=== PATIENT | female | born 1945 | race Caucasian/White ===

== ENCOUNTER 2020-09-05 10:54 | Observation (INO) ==
[2020-09-05] MEDS ORDERED: SODIUM CHLORIDE 0.9% 1000ML 1,000 ML IV SCH (11:15)
--- NOTE | 2020-09-05 11:31 | Emergency Department Note ---
Impression & Plan Colonic obstruction, Abdominal pain, Acute dehydration ED Provider Note NAME: IBIS ARANA AGE: 74 SEX: F : 1945 ARRIVES VIA: Walk-In INFORMANT: Patient, ED PROVIDER(S): Manolo Goff DO CHIEF COMPLAINT: Abdominal pain HPI: The patient is a 74-year-old female who has a history of metastatic ovarian cancer who presented to the emergency department for an evaluation of abdominal pain. The patient was concerned she may have a bowel obstruction. She states that she has had a bowel obstruction in the past which felt similar. She describes intermittent waves of crampy abdominal pain. She has had nausea but no vomiting. She did take her medication for nausea with some relief of the nausea symptoms. She is not had any diarrhea or rectal bleeding. The patient did recently have a laparoscopic surgery at [facility] for attempted hysterectomy with tumor debulking but they were unable to do this procedure. She does describe some vaginal bleeding and is currently taking subcu Lovenox. She denies having any fevers. She is had no cough. The patient states her symptoms are moderate at this time but she is requesting no pain medication at this time. She arrived at the emergency department with a friend. She did not see her primary care provider prior to coming to the emergency department. ROS: See above HPI for pertinent positives & negatives. A total of 10 systems reviewed and were otherwise negative. PAST MEDICAL HISTORY: See Below PAST SURGICAL HISTORY: See Below FAMILY HISTORY: See Below SOCIAL HISTORY: See Below HOME MEDICATIONS: See Below ALLERGIES: See Below VITALS: See Below PHYSICAL EXAMINATION: GENERAL: Patient is awake alert in no acute distress patient is resting comfortably and showing no signs of anxiety EYES: The conjunctivae are clear. The pupils are round and reactive. EARS, NOSE, MOUTH AND THROAT: The nose is without any evidence of any deformity. Mucous membranes are moist. Tongue is midline. NECK: The neck is nontender and supple. RESPIRATORY: Normal respiratory effort is noted there is no evidence of wheezing rhonchi or rales CARDIOVASCULAR: Regular rate and rhythm noted there no murmurs rubs or gallops normal S1 normal S2. GASTROINTESTINAL: The abdomen is moderately distended and diffusely tender. Laparoscopic surgical sites are noted across the abdomen. There is no bleeding. Ostomy site is noted on the right side of the abdomen. Very little output is noted. MUSCULOSKELETAL/EXTREMITIES: There is no evidence of gross deformity full range of motion is noted in the hips and shoulders. SKIN: There is no obvious evidence of any rash. There are no petechiae, pallor or cyanosis noted. NEUROLOGIC: Patient is awake alert and oriented x3. MEDICAL DECISION MAKING: The patient is a 74-year-old female who presented to the emergency department for an evaluation of upper abdominal pain. The patient has a history of metastatic ovarian cancer. They attempted to do surgery 9 days ago at [facility] for hysterectomy as well as tumor debulking however they were unable to do the procedure. She did have a laparoscopic procedure first prior to realizing they were unable to do the study. The patient presents emergency department today with decreased stool in her ostomy as well as abdominal pain. Her work-up was positive for colonic obstruction. She was treated with IV fluids as well as IV pain medication. She was given IV antibiotics. I discussed her case with our general surgeon who recommends that we discussed the case with the patient's primary surgeon at [facility]. She was accepted for transfer at [facility] however they have no beds available. For this reason I discussed her case with the [facility] hospitalist for further inpatient management prior to her transfer once bed is available. I also discussed the case with the general surgical group again so they could evaluate the patient while she was at our facility to determine any further management. Triage Nursing notes reviewed. Prior medical records reviewed Vital Signs: reviewed and remarkable for elevated blood pressure. Differential diagnosis: Etiologies such as appendicitis, diverticulitis, obstruction, inflammatory bowel disease, renal colic, PUD, biliary pathology, pancreatitis, mesenteric ischemia, aortic pathology, infections, genitourinary, UTI, perforated viscus, as well as others were entertained. ER treatment provided: See below Diagnostics interpreted by me: ECG: none Cardiac Monitoring: An order was placed for continuous cardiac monitoring. The monitor shows a rate of 85 bpm with sinus rhythm. Laboratory studies: As stated above and show below. Imaging studies: See below Consultation(s): 1310: I discussed this case with aMddy who is on for general surgery. 1340: I discussed this case again with Maddy who called me back after discussion with the general surgeon. Dr. Parrish recommends the patient is transferred to [facility] for continuation of care. 1400: I discussed this case with Dr Lovett. He will agree to accept the patient in transfer. 1420: I discussed this case with Dr. Vega who is on-call for the [facility] hospitalist group. 1530: I discussed this case with Dr. Vazquez. He will evaluate the patient in the emergency department. Past Med/Surg History Medical History Colostomy in place H/O squamous cell carcinoma of skin History of right breast cancer 2010--sx only Hyperlipidemia Hypertension Osteopenia Ovarian cancer Port-A-Cath in place (03/03/20) Insertion of Mediport Dr. Cox 03/03/20 Type 2 diabetes mellitus Surgical History History of bilateral tubal ligation History of section History of colon resection d/t tumor History of colonoscopy History of colostomy 2 weeks ago History of lumbar surgery History of lumpectomy of right breast History of open reduction and internal fixation (ORIF) procedure left big toe--hardware removed History of right breast biopsy History of tonsillectomy History of wisdom tooth extraction Status post Mohs surgery for squamous cell carcinoma of skin Family History Aunt Breast cancer Mother Myocardial infarction Cancer Hypertension Father Heart disease Other No family history of adverse response to anesthesia Denies family history of Ovarian cancer Prostate cancer Colorectal cancer Social History Smoking Status: Never smoker Second Hand Exposure: No; Hx Alcohol Use: Yes Alcohol type: beer, wine and hard liquor Hx Substance Use: No Preferred Language: Tajik Communication Ability: Effective Hearing Ability: Normal Senior Instructor Required: No Beliefs That Will Affect Care: None marital status: / Current Living Situation: Alone 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, 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 Feels Safe at Home: Yes Seatbelt Use: always Sunscreen Use: No Assistive Devices: Glasses Allergies Allergies Allergy/AdvReac Type Severity Reaction Status Date / Time povidone-iodine Allergy Mild rash Verified 09/05/20 12:23 [From Betadine] Home Meds Home Medications Medication Instructions Recorded Confirmed calcium carbonate [Calcium 500] 500 mg PO QAM 10/10/19 09/05/20 omega 8-quj-afl-fish oil [Fish Oil] 1 cap PO QAM 10/10/19 09/05/20 biotin 1 mg PO QAM 02/09/20 09/05/20 enoxaparin 40 mg SUBCUT DAILY@1100 09/05/20 09/05/20 metformin [Glucophage XR] 500 mg PO QDD 09/05/20 09/05/20 rosuvastatin 10 mg PO HS 09/05/20 09/05/20 Previous Rx's Medication Instructions Recorded lisinopril 20 1 tab PO QAM #90 tab 05/21/20 mg-hydrochlorothiazide 25 mg tablet Results & Data (ED) Vital Signs Vital Signs - 24 hr 09/05/20 10:59 09/05/20 12:43 09/05/20 14:19 Temperature 37.1 C Temperature Source Oral Pulse Rate 106 H Pulse Rate [Left Finger] 73 89 Pulse Rhythm Regular Pulse Strength Normal Respiratory Rate 20 20 20 Respiratory Effort / Characteristics Non-Labored Spontaneous Respiratory Depth Normal Respiratory Pattern Regular Blood Pressure 138/87 Blood Pressure [Right Arm] 151/91 H 163/99 H Blood Pressure Mean 104 Blood Pressure Mean [Right Arm] 111 120 Pulse Oximetry 97 98 99 Oxygen Delivery Method Room Air Sepsis Recent Fever Within 48 Hours No Sepsis New/Unexplained Change in Mental Status N/A Sepsis Action Taken by Nursing No Action Required Home Medications Current Medication List: was personally reviewed by me Laboratory Data Attestation: I reviewed the patient's lab results. Result diagrams: 09/05/20 11:29 09/05/20 11:29 Lab Results 09/05/20 09/05/20 09/05/20 Range/Units 11:29 11:29 11:29 WBC 6.73 (4.8-10.8) K/uL RBC 3.31 L (4.2-5.4) M/uL Hgb 10.1 L (12.0-16.0) g/dL Hct 31.0 L (37-47) % MCV 93.7 (80-100) fL MCH 30.5 (25-34) pg MCHC 32.6 (32-36) g/dL RDW Std Deviation 42.7 (36.4-46.3) fL RDW Coeff of Laz 12.6 (11.5-14.5) % Plt Count 231 (130-400) K/uL MPV 10.4 (7.4-10.4) fL Immature Gran % (Auto) 1.6 % Neut % (Auto) 66.9 % Lymph % (Auto) 19.9 % Starke % (Auto) 9.7 % Eos % (Auto) 1.9 % Baso % (Auto) 0.0 % Neut # (Auto) 4.50 (1.4-6.5) K/uL Lymph # (Auto) 1.34 (1.2-3.4) K/uL Starke # (Auto) 0.65 H (0.11-0.59) K/uL Eos # (Auto) 0.13 (0-0.5) K/uL Baso # (Auto) 0.00 (0-0.2) K/uL Immature Gran # (Auto) 0.11 H (0.00-0.02) K/uL PT 10.4 (9.0-12.0) Seconds INR 1.0 (0.9-1.1) APTT 38.3 H (21.0-31.0) Seconds PTT Ratio 1.4 Sodium 146 H (136-145) mmol/L Potassium 3.3 L (3.5-5.1) mmol/L Chloride 116 H (98-107) mmol/L Carbon Dioxide 23 (21-32) mmol/L Anion Gap 7.0 (3-11) BUN 17 (7-18) mg/dl Creatinine 0.72 (0.6-1.2) mg/dl Est Cr Clr Drug Dosing 67.3 ml/min Est GFR ( Amer) 94.3 Est GFR (Non-Af Amer) 81.3 BUN/Creatinine Ratio 24.2 H (10-20) Glucose 125 H (70-99) mg/dl Calcium 7.3 L D (8.5-10.1) mg/dl Total Bilirubin 0.4 (0.2-1) mg/dl AST 31 (15-37) U/L ALT 40 (12-78) U/L Alkaline Phosphatase 124 H (45-117) U/L Total Protein 5.9 L (6.4-8.2) gm/dl Albumin 2.9 L (3.4-5.0) gm/dl Globulin 3.0 (2.5-4.0) gm/dl Albumin/Globulin Ratio 1.0 (0.9-2) Lipase 56 L (73-393) U/L COVID-19 Eval Order SARS-CoV-2, RNA, NAAT (NEGATIVE) 09/05/20 09/05/20 Range/Units 14:13 14:13 WBC (4.8-10.8) K/uL RBC (4.2-5.4) M/uL Hgb (12.0-16.0) g/dL Hct (37-47) % MCV (80-100) fL MCH (25-34) pg MCHC (32-36) g/dL RDW Std Deviation (36.4-46.3) fL RDW Coeff of Laz (11.5-14.5) % Plt Count (130-400) K/uL MPV (7.4-10.4) fL Immature Gran % (Auto) % Neut % (Auto) % Lymph % (Auto) % Starke % (Auto) % Eos % (Auto) % Baso % (Auto) % Neut # (Auto) (1.4-6.5) K/uL Lymph # (Auto) (1.2-3.4) K/uL Starke # (Auto) (0.11-0.59) K/uL Eos # (Auto) (0-0.5) K/uL Baso # (Auto) (0-0.2) K/uL Immature Gran # (Auto) (0.00-0.02) K/uL PT (9.0-12.0) Seconds INR (0.9-1.1) APTT (21.0-31.0) Seconds PTT Ratio Sodium (136-145) mmol/L Potassium (3.5-5.1) mmol/L Chloride (98-107) mmol/L Carbon Dioxide (21-32) mmol/L Anion Gap (3-11) BUN (7-18) mg/dl Creatinine (0.6-1.2) mg/dl Est Cr Clr Drug Dosing ml/min Est GFR ( Amer) Est GFR (Non-Af Amer) BUN/Creatinine Ratio (10-20) Glucose (70-99) mg/dl Calcium (8.5-10.1) mg/dl Total Bilirubin (0.2-1) mg/dl AST (15-37) U/L ALT (12-78) U/L Alkaline Phosphatase (45-117) U/L Total Protein (6.4-8.2) gm/dl Albumin (3.4-5.0) gm/dl Globulin (2.5-4.0) gm/dl Albumin/Globulin Ratio (0.9-2) Lipase (73-393) U/L COVID-19 Eval Order Covid19 IDNow atMNVC SARS-CoV-2, RNA, NAAT NEGATIVE (NEGATIVE) Administered Medications Morphine Sulfate (Morphine Sulfate 4 Mg/Ml 1 Ml Carp\Vial) 4 mg IV Q30M PRN PRN Reason: Pain Stop: 09/19/20 13:50 Last Admin: 09/05/20 14:05 Dose: 4 mg Documented by: [id number] Discontinued Medications Sodium Chloride (Nss 1000ml) 1,000 mls @ 999 mls/hr IV .Q1H1M ROSA Stop: 09/05/20 12:15 Last Infusion: 09/05/20 13:29 Dose: 0 mls/hr Documented by: [id number] Admin: 09/05/20 11:34 Dose: 999 mls/hr Documented by: [id number] Cefoxitin Sodium (Mefoxin) 2,000 mg in 60 mls @ 100 mls/hr IV NOW STA Stop: 09/05/20 13:41 Last Infusion: 09/05/20 15:17 Dose: 0 mls/hr Documented by: [id number] Admin: 09/05/20 13:29 Dose: 100 mls/hr Documented by: [id number] Ioversol (Ioversol 100ml) 92 ml IV ONCE ONE Stop: 09/05/20 11:50 Last Admin: 09/05/20 11:50 Dose: 92 ml Documented by: [id number] Ondansetron HCl (Ondansetron Inj 2 Mg/Ml 2 Ml Vial) 4 mg IV NOW STA Stop: 09/05/20 13:52 Last Admin: 09/05/20 14:05 Dose: 4 mg Documented by: [id number] Imaging Data Radiologist's Impression: Patient: IBIS ARANA Admit Date: 09/05/20 MR#: [id number] Address1: [address] [place] [address] [address] Acct ID:[id number] Address2: Date: 1945 [facility] Zip: [place] [address] Age: 74 Location: ED Sex: F Room/Bed: Att Phy: Diagnosis: LOWER STOMACH PAIN,HX OF BOWEL OBSTRUCTION, Marlee Phy: Navya Sharma MD Service Date: 09/05/20 [facility] Phy: Interpreting Phy: Tyler Mancuso MD Admit Phy: Ordering Phy: Manolo Goff, DO cc: ~ CT abd pelvis IV con only CLINICAL HISTORY: Abdominal pain and nausea. Possible bowel obstruction. OVARIAN CARCINOMA COMPARISON STUDY: July 17, 2020 TECHNIQUE: Patient was scanned following administration of dilute oral contrast, and in a dynamic helical fashion during intravenous administration of 92 cc of Optiray 320 A dose lowering technique was utilized adhering to the principles of ALARA. CT DOSE: 406.07 mGy.cm FINDINGS: Lower chest: There is an increasing right pleural effusion with associated compressive atelectatic change. There is subcutaneous emphysema present within the left lower chest wall. Liver: No intrahepatic masses are visualized. There is a stable 31 mm right hepatic lobe low density subcapsular implants. Gallbladder: Cholelithiasis Spleen: There are tiny subcapsular splenic hypodensities similar to the prior study. Pancreas: Unremarkable. Adrenal glands: Unremarkable. Kidneys: There is symmetric renal cortical enhancement. The kidneys are normal in size without hydronephrosis. Bowel: There is a dilated right colon with fecal material. There is a transition zone, just proximal to a double barrel colostomy. The findings are indicative of a colonic obstruction. This was not present on the prior study. Peritoneum: There is moderately extensive subcutaneous gas. There are multiple areas of retroperitoneal gas. There is prevascular gas. A few droplets of intraperitoneal gas are also suspected. The findings may relate to recent minima lly invasive robotic surgery, although the amount of gas present is slightly more than one would expect given that the surgery was greater than one week ago. Given the history of a reported serosal small bowel into the time of surgery, a bowel perforation cannot be excluded with absolute certainty. There are multiple peritoneal tumor implants, similar to the preceding study. There are also left abdominal wall fluid collections, likely postsurgical Vasculature: The abdominal aorta is normal in course and caliber. Adenopathy: None. Pelvic viscera: There are peritoneal tumor implants within the pelvis. Skeletal structures: No destructive osseous lesions are seen. IMPRESSION: 1. Interval development of a right colonic obstruction, just proximal to a double barrel anterior abdominal wall colostomy 2. Cholelithiasis 3. Multiple peritoneal tumor implants including a subserosal hepatic implant 4. Increasing right pleural effusion 5. Moderate subcutaneous and retroperitoneal gas. There is also trace pneumoperitoneum. The distribution favors a postsurgical etiology, although the amount of gas is slightly more than one would expect given the time interval between the most recent surgery. Given the history of a serosal small bowel injury at the time of surgery, a bowel perforation although not highly suspected cannot be excluded. ACT 112: Negative or not required by law. Electronically signed by: Tyler Mancuso M.D. 09/05/2020 12:26 PM Dictated: 09/05/201200 Transcribed: 09/05/201200 Discharge Plan Visit Data Chief Complaint: GI Assessment Stated Complaint: LOWER STOMACH PAIN,HX OF BOWEL OBSTRUCTION, ED Provider: Manolo Goff Discharge Problem: Colonic obstruction, Abdominal pain, Acute dehydration Patient Disposition: Being Evaluated by Hospitalist Condition: Good Forms Stand Alone Forms: My [facility] [place] [employer] Prescriptions Prescriptions: No Action lisinopril-hydrochlorothiazide 20-25 mg tablet 1 tab PO QAM Qty: 90 RF: 3 calcium carbonate [Calcium 500] 500 mg calcium (1,250 mg) Tablet 500 mg PO QAM RF: 0 omega 9-oeu-rhe-fish oil [Fish Oil] 1,000 mg (120 mg-180 mg) Capsule 1 cap PO QAM RF: 0 biotin 1 mg Tablet 1 mg PO QAM RF: 0 enoxaparin 40 mg/0.4 mL syringe 40 mg subcut DAILY@1100 RF: 0 metformin [Glucophage XR] 500 mg tablet extended release 24 hr 500 mg PO QDD RF: 0 rosuvastatin 10 mg tablet 10 mg PO HS RF: 0 Referrals Referrals: Navya Sharma MD [Primary Care Provider] - Discharge Problem: Abdominal pain Qualifiers: Abdominal location: generalized Qualified Code(s): R10.84 - Generalized abdominal pain
[2020-09-05 11:37] LABS: Eosinophils # (auto) 0.13 K/uL (0-0.5); Eosinophils % (auto) 1.9 %; Hemoglobin 10.1 g/dL (12.0-16.0); Immature Granulocytes # (auto) 0.11 K/uL (0.00-0.02); Immature Granulocytes % (auto) 1.6 %; Lymphocytes # (auto) 1.34 K/uL (1.2-3.4); Lymphocytes % (auto) 19.9 %; Mean Corpuscular Hemoglobin 30.5 pg (25-34); Mean Corpuscular Hgb Conc 32.6 g/dL (32-36); Mean Corpuscular Volume 93.7 fL (80-100); Mean Platelet Volume 10.4 fL (7.4-10.4); Monocytes # (auto) 0.65 K/uL (0.11-0.59); Monocytes % (auto) 9.7 %; Neutrophils % (auto) 66.9 %; Platelet Count 231 K/uL (130-400); RDW Coefficient of Variation 12.6 % (11.5-14.5); RDW Standard Deviation 42.7 fL (36.4-46.3); Red Blood Count 3.31 M/uL (4.2-5.4); White Blood Count 6.73 K/uL (4.8-10.8)
[2020-09-05] MEDS ORDERED: IOVERSOL 100ml IV ONE (11:49)
[2020-09-05 11:57] LABS: Partial Thromboplastin Ratio 1.4; Partial Thromboplastin Time 38.3 Seconds (21.0-31.0); Prothrombin Time 10.4 Seconds (9.0-12.0)
[2020-09-05 11:58] LABS: Albumin Level 2.9 gm/dl (3.4-5.0); BUN Creatinine Ratio 24.2 (10-20); Bilirubin,Total 0.4 mg/dl (0.2-1); Calcium 7.3 mg/dl (8.5-10.1); Creatinine Clr Calc Pharmacy 67.3 ml/min; Est GFR (African American) 94.3; Est GFR (Non-African American) 81.3; Potassium 3.3 mmol/L (3.5-5.1); Total Protein 5.9 gm/dl (6.4-8.2)
--- NOTE | 2020-09-05 12:27 | CT Scan Report ---
CT abd pelvis IV con only CLINICAL HISTORY: Abdominal pain and nausea. Possible bowel obstruction. OVARIAN CARCINOMA COMPARISON STUDY: July 17, 2020 TECHNIQUE: Patient was scanned following administration of dilute oral contrast, and in a dynamic hel ical fashion during intravenous administration of 92 cc of Optiray 320 A dose lowering technique was utilized adhering to the principles of ALARA. CT DOSE: 406.07 mGy.cm FINDINGS: Lower chest: There is an increasing right pleural effusion with associated compressive atelectatic ch marin. There is subcutaneous emphysema present within the left lower chest wall. Liver: No intrahepatic masses are visualized. There is a stable 31 mm right hepatic lobe low density subcapsular implants. Gallbladder: Cholelithiasis Spleen: There are tiny subcapsular splenic hypodensities similar to the prior study. Pancreas: Unremarkable. Adrenal glands: Unremarkable. Kidneys: There is symmetric renal cortical enhancement. The kidneys are normal in size without hydron ephrosis. Bowel: There is a dilated right colon with fecal material. There is a transition zone, just proximal to a double barrel colostomy. The findings are indicative of a colonic obstruction. This was not pres ent on the prior study. Peritoneum: There is moderately extensive subcutaneous gas. There are multiple areas of retroperitone al gas. There is prevascular gas. A few droplets of intraperitoneal gas are also suspected. The findi ngs may relate to recent minimally invasive robotic surgery, although the amount of gas present is sl ightly more than one would expect given that the surgery was greater than one week ago. Given the his tory of a reported serosal small bowel into the time of surgery, a bowel perforation cannot be exclud ed with absolute certainty. There are multiple peritoneal tumor implants, similar to the preceding st udy. There are also left abdominal wall fluid collections, likely postsurgical Vasculature: The abdominal aorta is normal in course and caliber. Adenopathy: None. Pelvic viscera: There are peritoneal tumor implants within the pelvis. Skeletal structures: No destructive osseous lesions are seen. IMPRESSION: 1. Interval development of a right colonic obstruction, just proximal to a double barrel anterior abd ominal wall colostomy 2. Cholelithiasis 3. Multiple peritoneal tumor implants including a subserosal hepatic implant 4. Increasing right pleural effusion 5. Moderate subcutaneous and retroperitoneal gas. There is also trace pneumoperitoneum. The distribut ion favors a postsurgical etiology, although the amount of gas is slightly more than one would expect given the time interval between the most recent surgery. Given the history of a serosal small bowel injury at the time of surgery, a bowel perforation although not highly suspected cannot be excluded. ACT 112: Negative or not required by law. Electronically signed by: Tyler Mancuso M.D. 09/05/2020 12:26 PM
[2020-09-05] MEDS ORDERED: cefOXitin 2,000 MG/60 ML BAG IV STA (13:06)
[2020-09-05] MEDS ORDERED: ONDANSETRON INJ 2 MG/ML 2 ML VIAL IV STA (13:51)
[2020-09-05] MEDS ORDERED: MoRPHine SULFATE 4 MG/ML 1 ML CARP\\VIAL IV PRN (13:51)
--- NOTE | 2020-09-05 15:56 | History & Physical Report ---
Date of Service September 05, 2020 Assessment & Plan (1) Colonic obstruction: NG tube placed in ER. will obtain KUB x-ray to confirm placement. appreciate general surgery consultation. conservative measures at this time including bowel rest, NPO status, IV fluids, and NG tube decompression. patient has been accepted at [facility] -- awaiting a bed. (2) Hypernatremia: hypotonic fluids with repeat BMP in am. (3) Hypokalemia: add KCL to IV fluids. repeat BMP am. mag level noted to be normal. (4) Ovarian cancer: with carcinomatosis. enlarging pleural effusion is also concerning for malignant effusion. s/p recent attempts at [place] to perform debulking and hysterectomy without success. patient wishes to continue aggressive measures for her cancer. (5) Hypertension: hold home BP meds for now. will employ IV prn agents if necessary for BP control. (6) Type 2 diabetes mellitus: hold metformin. loose novolog correction. BSGs q6h. (7) Colostomy in place: (8) DVT prophylaxis: lovenox 40mg daily daughter updated at bedside History of Present Illness Chief Complaint: abdominal pain, nausea Primary Care Provider: Navya Sharma MD 74yo female with stage 4 ovarian cancer and colostomy status who presents with 24 hours of liquid stool via ostomy, followed by decreased ostomy output, crampy abdominal pain, nausea, bloating, and simply feeling unwell. She did not vomit. No fever or chills. Pain lasted all night last evening and continued into today. Symptoms were similar to when she had a bowel obstruction in the past and thus she came to the ER for medical attention. CT abd/pelvis during her ER work-up revealed a colonic obstruction just proximal to her ostomy. Patient had an attempted laparoscopic procedure at [facility] about 10 days ago. The plan was laparoscopic hysterectomy with ovarian cancer debulking. She had the removal of 1 fallopian tube only and the remainder of the procedure was aborted. Allergies Allergy/AdvReac Type Severity Reaction Status Date / Time povidone-iodine Allergy Mild rash Verified 09/05/20 12:23 [From Betadine] Home Medications Home Medications Medication Instructions Recorded Confirmed Type calcium carbonate [Calcium 500] 500 mg PO QAM 10/10/19 09/05/20 History omega 5-zpo-pwp-fish oil [Fish Oil] 1 cap PO QAM 10/10/19 09/05/20 History biotin 1 mg PO QAM 02/09/20 09/05/20 History lisinopril 20 1 tab PO QAM #90 tab 05/21/20 09/05/20 Rx mg-hydrochlorothiazide 25 mg tablet enoxaparin 40 mg SUBCUT DAILY@1100 09/05/20 09/05/20 History metformin [Glucophage XR] 500 mg PO QDD 09/05/20 09/05/20 History rosuvastatin 10 mg PO HS 09/05/20 09/05/20 History Past Med/Surg History Medical History (Updated 09/06/20 @ 01:27 by Abhinav Alanis MD) Colostomy in place H/O squamous cell carcinoma of skin History of right breast cancer 2010--sx only Hyperlipidemia Hypertension Osteopenia Ovarian cancer Port-A-Cath in place (03/03/20) Insertion of Mediport Dr. Cox 03/03/20 Type 2 diabetes mellitus Surgical History History of bilateral tubal ligation History of section History of colon resection d/t tumor History of colonoscopy History of colostomy History of lumbar surgery History of lumpectomy of right breast History of open reduction and internal fixation (ORIF) procedure left big toe--hardware removed History of right breast biopsy History of tonsillectomy History of wisdom tooth extraction Status post Mohs surgery for squamous cell carcinoma of skin Family History Aunt Breast cancer Mother , age 56 2nd to acute [place] Myocardial infarction Cancer Hypertension Father , age 89 Heart disease Leukemia Other No family history of adverse response to anesthesia Denies family history of Ovarian cancer Prostate cancer Colorectal cancer Social History (Updated 09/05/20 @ 22:05 by Teofilo Vazquez) Smoking Status: Never smoker Second Hand Exposure: No; Hx Alcohol Use: No Hx Substance Use: No Preferred Language: Slovak Communication Ability: Effective Hearing Ability: Normal Associate Professor Required: No Beliefs That Will Affect Care: None marital status: / Current Living Situation: Alone Current Living Situation Comment: lives in [place] 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 status: retired current occupation: [employer] How many Children do You have: 5 Feels Safe at Home: Yes Seatbelt Use: always Sunscreen Use: No Assistive Devices: Glasses and Walker Review of Systems Constitutional: + fatigue and + anorexia; no fever and no chills Eyes: no worsening vision Ear, Nose, Mouth, Throat: no nasal congestion, no sore throat and no dysphagia chronic loss of taste (nothing acute) Respiratory: no cough, no dyspnea and no dyspnea on exertion Cardiovascular: no chest pain Gastrointestinal: + abdominal pain and + nausea; no vomiting, no excessive flatulence and no blood in stools Genitourinary: no dysuria Musculoskeletal: no joint pain Integumentary: no rash Neurologic: no localized weakness Psychiatric: + depression Endocrine: diabetes - controlled w/ metformin only Hematologic / Lymphatic: no easy bleeding Physical Exam Constitutional: no acute distress and no altered mental status Eyes: PERRL ENMT: NG tube in nare; MM mildly dry Neck: trachea midline, no thyromegaly Respiratory: normal respiratory effort, lungs clear to auscultation Cardiovascular: Rate/Rhythm: regular rate and regular rhythm Heart Sounds: normal S1, normal S2 and + murmur (2/6 systolic murmur RUSB/apex ) Vessels: no JVD Extremities: + vascular access device (Left upper chest - c/d/i) Gastrointestinal (Abdomen): Inspection/Auscultation: + abdomen distended and + abdominal surgical incision (Multiple - clean ); + abnormal bowel sounds (Decreased ) Percussion/Palpation: + abdomen tender (Multiple locations ); no guarding and no hepatosplenomegaly subcutaneous air palpable LUQ near the costal margin; ostomy in place, liquid stool present in the ostomy bag; multiple nodules/masses in the abdominal wall palpable in various locations Musculoskeletal: no cyanosis or clubbing, extremities motor strength 5/5 Skin: + pallor Neurologic: deep tendon reflexes 2+ bilaterally and moves all extremities Psychiatric: Orientation: alert and oriented x 3 Lymphatic: no cervical lymphadenopathy Results & Data Results & Data ([facility]) Vital Signs (Past 12 Hours) Vital Signs Temp Pulse Pulse Resp BP BP Pulse Ox 09/05/20 14:19 89 20 163/99 H 99 09/05/20 12:43 73 20 151/91 H 98 09/05/20 10:59 37.1 C 106 H 20 138/87 97 Laboratory Results Laboratory Results - last 24 hr 09/05/20 09/05/20 09/05/20 11:29 11:29 11:29 WBC 6.73 RBC 3.31 L Hgb 10.1 L Hct 31.0 L MCV 93.7 MCH 30.5 MCHC 32.6 RDW Std Deviation 42.7 RDW Coeff of Laz 12.6 Plt Count 231 MPV 10.4 Immature Gran % (Auto) 1.6 Neut % (Auto) 66.9 Lymph % (Auto) 19.9 Grady % (Auto) 9.7 Eos % (Auto) 1.9 Baso % (Auto) 0.0 Neut # (Auto) 4.50 Lymph # (Auto) 1.34 Grady # (Auto) 0.65 H Eos # (Auto) 0.13 Baso # (Auto) 0.00 Immature Gran # (Auto) 0.11 H PT 10.4 INR 1.0 APTT 38.3 H PTT Ratio 1.4 Sodium 146 H Potassium 3.3 L Chloride 116 H Carbon Dioxide 23 Anion Gap 7.0 BUN 17 Creatinine 0.72 Est Cr Clr Drug Dosing 67.3 Est GFR ( Amer) 94.3 Est GFR (Non-Af Amer) 81.3 BUN/Creatinine Ratio 24.2 H Glucose 125 H POC Glucose Calcium 7.3 L D Total Bilirubin 0.4 AST 31 ALT 40 Alkaline Phosphatase 124 H Total Protein 5.9 L Albumin 2.9 L Globulin 3.0 Albumin/Globulin Ratio 1.0 Lipase 56 L Urine Color Urine Appearance Urine pH Ur Specific [place] Urine Protein Urine Glucose (UA) Urine Ketones Urine Blood Urine Nitrite Urine Bilirubin Urine Urobilinogen Ur Leukocyte Esterase Urine WBC (Auto) Urine RBC (Auto) U Hyaline Cast (Auto) U Epithel Cells (Auto) Urine Bacteria (Auto) COVID-19 Eval Order SARS-CoV-2, RNA, NAAT 09/05/20 09/05/20 09/05/20 14:13 14:13 15:49 WBC RBC Hgb Hct MCV MCH MCHC RDW Std Deviation RDW Coeff of Laz Plt Count MPV Immature Gran % (Auto) Neut % (Auto) Lymph % (Auto) Grady % (Auto) Eos % (Auto) Baso % (Auto) Neut # (Auto) Lymph # (Auto) Grady # (Auto) Eos # (Auto) Baso # (Auto) Immature Gran # (Auto) PT INR APTT PTT Ratio Sodium Potassium Chloride Carbon Dioxide Anion Gap BUN Creatinine Est Cr Clr Drug Dosing Est GFR ( Amer) Est GFR (Non-Af Amer) BUN/Creatinine Ratio Glucose POC Glucose Calcium Total Bilirubin AST ALT Alkaline Phosphatase Total Protein Albumin Globulin Albumin/Globulin Ratio Lipase Urine Color Yellow Urine Appearance Clear Urine pH 5.5 Ur Specific [place] > 1.045 H Urine Protein Negative Urine Glucose (UA) Negative Urine Ketones Negative Urine Blood 3+ H Urine Nitrite Negative Urine Bilirubin Negative Urine Urobilinogen Negative Ur Leukocyte Esterase Trace H Urine WBC (Auto) 5-10 H Urine RBC (Auto) >30 H U Hyaline Cast (Auto) 1-5 U Epithel Cells (Auto) 10-20 H Urine Bacteria (Auto) Negative COVID-19 Eval [facility] SARS-CoV-2, RNA, NAAT NEGATIVE 09/05/20 18:15 WBC RBC Hgb Hct MCV MCH MCHC RDW Std Deviation RDW Coeff of Laz Plt Count MPV Immature Gran % (Auto) Neut % (Auto) Lymph % (Auto) Grady % (Auto) Eos % (Auto) Baso % (Auto) Neut # (Auto) Lymph # (Auto) Grady # (Auto) Eos # (Auto) Baso # (Auto) Immature Gran # (Auto) PT INR APTT PTT Ratio Sodium Potassium Chloride Carbon Dioxide Anion Gap BUN Creatinine Est Cr Clr Drug Dosing Est GFR ( Amer) Est GFR (Non-Af Amer) BUN/Creatinine Ratio Glucose POC Glucose 83 Calcium Total Bilirubin AST ALT Alkaline Phosphatase Total Protein Albumin Globulin Albumin/Globulin Ratio Lipase Urine Color Urine Appearance Urine pH Ur Specific [place] Urine Protein Urine Glucose (UA) Urine Ketones Urine Blood Urine Nitrite Urine Bilirubin Urine Urobilinogen Ur Leukocyte Esterase Urine WBC (Auto) Urine RBC (Auto) U Hyaline Cast (Auto) U Epithel Cells (Auto) Urine Bacteria (Auto) COVID-19 Eval Order SARS-CoV-2, RNA, NAAT Diagnostic Findings CT abd/pelvis: IMPRESSION: 1. Interval development of a right colonic obstruction, just proximal to a double barrel anterior abdominal wall colostomy 2. Cholelithiasis 3. Multiple peritoneal tumor implants including a subserosal hepatic implant 4. Increasing right pleural effusion 5. Moderate subcutaneous and retroperitoneal gas. There is also trace pneumoperitoneum. The distribution favors a postsurgical etiology, although the amount of gas is slightly more than one would expect given the time interval between the most recent surgery. Given the history of a serosal small bowel injury at the time of surgery, a bowel perforation although not highly suspected cannot be excluded. Code Status & VTE Plan Code Status full code VTE Prophylaxis Plan VTE Prophylaxis will be ordered: Yes PG Care Time/CCT Total # of Minutes Spent Total Time Spent with Patient: Total time spent is greater than 50% in student life coordinator rdination of care (as documented) at patient's floor/unit and/or counseling patient: Coding Level of Care Code 17080 Initial Inpt Care Lvl 2 Diagnoses Colonic obstruction K56.609 Hypernatremia E87.0 Hypokalemia E87.6 Ovarian cancer C56.9 Laterality: unspecified laterality Hypertension I10 Hypertension type: essential hypertension Type 2 diabetes mellitus E11.9 Diabetes mellitus complication status: without complication Diabetes mellitus care home insulin use: without care home use Colostomy in place Z93.3 DVT prophylaxis Z29.9 (1) Ovarian cancer Laterality: unspecified laterality Qualified Code(s): C56.9 - Malignant neoplasm of unspecified ovary (2) Type 2 diabetes mellitus Diabetes mellitus complication status: without complication Diabetes mellitus care home insulin use: without care home use Qualified Code(s): E11.9 - Type 2 diabetes mellitus without complications (3) Hypertension Hypertension type: essential hypertension Qualified Code(s): I10 - Essential (primary) hypertension
--- NOTE | 2020-09-05 16:23 | Surgery Consultation ---
Date of Consultation September 05, 2020 Assessment & Plan (1) Acute dehydration: (2) Colonic obstruction: Patient with no evidence of peritonitis. No white blood cell count or fever. Her stoma was working as of yesterday but was mostly liquid. She may have some impaction of her colostomy stemming from recent surgery and or dehydration. No indication for urgent or emergent surgery. Agree with admission and rehydration. No evidence of small bowel dilation. We will most likely remove NG tube tomorrow. We will continue to follow while she is here. Pending transfer back to her surgeons in [place]. History of Present Illness History of Present Illness 74-year-old female about 1 week status post laparoscopy with aborted attempt at hysterectomy and debulking of ovarian cancer. Her cancer was found in February of this year during an exploratory surgery for a large bowel obstruction. She ended up getting a right sided colostomy. She is undergone several rounds of chemotherapy in the procedure at [place] this week was to attempt hysterectomy/debulking. They were unable to complete the procedure. Last night she became distended with some mild nausea and cramping reminiscent of her prior bowel obstruction which is what brought her to the emergency room. Currently she is feeling better than she was last night. Allergies Allergy/AdvReac Type Severity Reaction Status Date / Time povidone-iodine Allergy Mild rash Verified 09/05/20 12:23 [From Betadine] Home Medications Home Medications Medication Instructions Recorded Confirmed Type calcium carbonate [Calcium 500] 500 mg PO QAM 10/10/19 09/05/20 History omega 9-oru-fjy-fish oil [Fish Oil] 1 cap PO QAM 10/10/19 09/05/20 History biotin 1 mg PO QAM 02/09/20 09/05/20 History lisinopril 20 1 tab PO QAM #90 tab 05/21/20 09/05/20 Rx mg-hydrochlorothiazide 25 mg tablet enoxaparin 40 mg SUBCUT DAILY@1100 09/05/20 09/05/20 History metformin [Glucophage XR] 500 mg PO QDD 09/05/20 09/05/20 History rosuvastatin 10 mg PO HS 09/05/20 09/05/20 History Patient History Medical History Colostomy in place H/O squamous cell carcinoma of skin History of right breast cancer 2010--sx only Hyperlipidemia Hypertension Osteopenia Ovarian cancer Port-A-Cath in place (03/03/20) Insertion of Mediport Dr. Cox 03/03/20 Type 2 diabetes mellitus Surgical History History of bilateral tubal ligation History of section History of colon resection d/t tumor History of colonoscopy History of colostomy 2 weeks ago History of lumbar surgery History of lumpectomy of right breast History of open reduction and internal fixation (ORIF) procedure left big toe--hardware removed History of right breast biopsy History of tonsillectomy History of wisdom tooth extraction Status post Mohs surgery for squamous cell carcinoma of skin Family History Aunt Breast cancer Mother Myocardial infarction Cancer Hypertension Father Heart disease Other No family history of adverse response to anesthesia Denies family history of Ovarian cancer Prostate cancer Colorectal cancer Social History Smoking Status: Never smoker Second Hand Exposure: No; Hx Alcohol Use: Yes Alcohol type: beer, wine and hard liquor Hx Substance Use: No Preferred Language: Setswana Communication Ability: Effective Hearing Ability: Normal Wood Barker Required: No Beliefs That Will Affect Care: None marital status: / Current Living Situation: Alone 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, 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 Feels Safe at Home: Yes Seatbelt Use: always Sunscreen Use: No Assistive Devices: Glasses Review of Systems Review of Systems: All systems reviewed & are unremarkable except as noted in HPI & below Physical Exam Constitutional: WD/WN, vitals as above no acute distress and not ill appearing Eyes: PERRL, conjunctivae normal, anicteric sclerae EOM intact bilaterally ENMT: external ear and nose normal, oropharynx normal Ears: no hearing impairment Neck: trachea midline, no thyromegaly Respiratory: normal respiratory effort; no respiratory distress and does not use accessory muscles Cardiovascular: Rate/Rhythm: regular rate and regular rhythm Gastrointestinal (Abdomen): Abdomen is soft. Minimal distention. Nontender. Colostomy in place and viable. Minimal output into her stoma bag. Recent laparoscopy scars are well-healed with no sign of infection. No guarding rebound or rigidity Skin: no rashes, warm and dry Psychiatric: Orientation: alert, oriented x 3 and cooperative Results & Data ([facility]) Vital Signs (Past 12 Hours) Vital Signs Temp Pulse Pulse Resp BP BP Pulse Ox 09/05/20 15:59 81 20 163/99 H 99 09/05/20 14:19 89 20 163/99 H 99 09/05/20 12:43 73 20 151/91 H 98 09/05/20 10:59 37.1 C 106 H 20 138/87 97 PG Care Time/CCT Total # of Minutes Spent Total Time Spent with Patient: Total time spent is greater than 50% in coordination of care (as documented) at patient's floor/unit and/or counseling patient: Coding Level of Care Code 48840 Initial Inpt Care Lvl 3 Diagnoses Acute dehydration E86.0 Colonic obstruction K56.609
[2020-09-05 17:27] LABS: Appearance Urine Clear (Clear); Bacteria Urine Automated Negative (Negative); Bilirubin Urine Negative (Negative); Blood Urine 3+ (Negative); Color Urine Yellow; Glucose Urine UA Negative (Negative); Ketones Urine Negative (Negative); Leukocyte Esterase Urine Trace (Negative); Nitrite Urine Negative (Negative); Protein Urine Negative (Negative); RBC Urine Automated >30 /hpf (0-4); Specific Gravity Urine > 1.045 (1.000-1.030); Urobilinogen Urine Negative (Negative); pH Urine 5.5 (4.5-7.5)
[2020-09-05] MEDS ORDERED: ONDANSETRON INJ 2 MG/ML 2 ML VIAL IV PRN (18:12)
[2020-09-05] MEDS: HYDROmorphone INJ 0.5 MG/0.5 ML SYR IV PRN ×2 (18:46→22:13)
[2020-09-05] MEDS: D5W AND 1/2NSS + 20MEQ KCL 20 MEQ/1,000 ML BAG IV SCH (19:58)
--- NOTE | 2020-09-05 20:06 | XRay Report ---
KUB HISTORY: Status post placement of an enteric tube NG tube placement COMPARISON: CT abdomen and pelvis of same day. FINDINGS: Enteric tube is present with distal tip overlying the expected location of the gastroesopha geal junction. Left pectoral Egetzi-a-Kwuy catheter distal tip terminates in the spectrum location of the inferior SVC. Cardiomegaly. Right pleural effusion with right lung base consolidation. Dilated l oops of bowel within the right lower quadrant abdomen only partially imaged. Previously described pne umoperitoneum is not definitively seen. No urolith or acute fracture. IMPRESSION: Status post placement of an enteric tube, distal tip projected over the gastroesophageal junction. Ad vancement of at least 7 cm recommended. ACT 112: Negative or not required by law. The above report was generated using voice recognition software. It may contain grammatical, syntax o r spelling errors. Electronically signed by: Charles Aggarwal M.D. 09/05/2020 8:04 PM
--- NOTE | 2020-09-05 21:41 | XRay Report ---
KUB HISTORY: Status post placement of an enteric tube advancement of NG tube COMPARISON: KUB of same day at 7:40 PM FINDINGS: Reposition enteric tube distal tip now terminates in the expected location of the mid gastr ic body. Unchanged left pectoral Qhrhfg-t-Cmcl catheter. Right lung base opacities with pleural effus ion. Contrast is noted within the right renal collecting system. No definite pneumoperitoneum. The lo wer abdomen and excluded from the [id number]-lr-[id number]. Subcutaneous emphysema of the lateral left chest wal l. IMPRESSION: Repositioned enteric tube distal tip terminates within the expected location of the mid gastric body. ACT 112: Negative or not required by law. The above report was generated using voice recognition software. It may contain grammatical, syntax o r spelling errors. Electronically signed by: Charles Aggarwal M.D. 09/05/2020 9:40 PM
[2020-09-05] MEDS ORDERED: GLUCAGON FOR INJ 1 MG VIAL SQ PRN (22:15)
[2020-09-05] MEDS ORDERED: GLUCOSE 40% GEL 15 GM TUBE PO PRN (22:15)
[2020-09-05] MEDS ORDERED: DEXTROSE 50% 50 ML SYRINGE IV PRN (22:15)
[2020-09-05] MEDS ORDERED: Nursing to Pharmacy Communication SCH (22:15)
[2020-09-05] MEDS ORDERED: GLUCOSE 10 TABS/TUBE PO PRN (22:15)
[2020-09-05] MEDS ORDERED: CARBOHYDRATES FOR HYPOGLYCEMIA PO PRN (22:15)
[2020-09-06] MEDS ORDERED: INSULIN ASPART 100 UNITS/ML 3 ML PEN SC SCH
--- NOTE | 2020-09-06 00:02 | Discharge Summary ---
Date of Service September 05, 2020 Admission HPI Per Admitting Provider 74yo female with stage 4 ovarian cancer and colostomy status who presents with 24 hours of liquid stool via ostomy, followed by decreased ostomy output, crampy abdominal pain, nausea, bloating, and simply feeling unwell. Pain lasted all night last evening and continued into today. Symptoms were similar to when she had a bowel obstruction in the past and thus she came to the ER for medical attention. Patient had an attempted laparoscopic procedure at [facility] about 10 days ago. The plan was laparoscopic hysterectomy with ovarian cancer debulking. She had the removal of 1 fallopian tube only and the remainder of the procedure was aborted. Admission Exam Per Admitting Provider GENERAL: Patient is awake alert in no acute distress patient is resting comfortably and showing no signs of anxiety EYES: The conjunctivae are clear. The pupils are round and reactive. EARS, NOSE, MOUTH AND THROAT: The nose is without any evidence of any deformity. Mucous membranes are moist. Tongue is midline. NECK: The neck is nontender and supple. RESPIRATORY: Normal respiratory effort is noted there is no evidence of wheezing rhonchi or rales CARDIOVASCULAR: Regular rate and rhythm noted there no murmurs rubs or gallops normal S1 normal S2. GASTROINTESTINAL: The abdomen is moderately distended and diffusely tender. Laparoscopic surgical sites are noted across the abdomen. There is no bleeding. Ostomy site is noted on the right side of the abdomen. Very little output is noted. MUSCULOSKELETAL/EXTREMITIES: There is no evidence of gross deformity full range of motion is noted in the hips and shoulders. SKIN: There is no obvious evidence of any rash. There are no petechiae, pallor or cyanosis noted. NEUROLOGIC: Patient is awake alert and oriented x3. Principal Diagnosis Colonic obstruction Discharge Exam General: A&Ox3. NAD. Cooperative. HEENT: Atraumatic, normocephalic. Pulm: CTAB A&P. -wheezes, -rales, -rhonchi. Symmetrical chest rise. No increase work of breathing. No respiratory distress. Cardiac: RRR, -mrg. Radial pulses intact and symmetrical. Abdominal: Softly disteneded, diffusely mild discomfort to palpation without rebound tenderness. R abdomen ostomy in place, without surrounding erythema. No output. Discharge Data Allergies Allergy/AdvReac Type Severity Reaction Status Date / Time povidone-iodine Allergy Mild rash Verified 10/30/20 12:23 [From Betadine] Consultations 09/05/20 13:10 Consult General Surgery Stat 09/05/20 14:24 ED Decision to Admit Stat Ordered Studies 09/05/20 11:13 CT abd pelvis IV con only Stat Hospital Course (1) Small bowel obstruction: Clover is a 74-year-old female with a past medical history of type 2 diabetes mellitus, hypertension, hyperlipidemia, cervical cancer, ovarian cancer, and ostomy who presents with decreased ostomy output, nausea, and abdominal discomfort similar to her prior small bowel obstruction. Small bowel obstruction Patient with laparoscopic salpingectomy, peritoneal biopsy, and cystoscopy on 08/27 which was terminated due to complications and extensive adhesions Patient with 1 similar prior small bowel obstruction NGT on low intermittent suction Patient with persistent nausea Abdomen diffusely mildly tender, but without guarding, rebound tenderness, or signs of acute abdomen/peritonitis Patient discussed with [facility] by admitting providers, notified of availability of transport overnight Patient clinically stable, transfer to [facility] for further care under the supervision of her prior surgical team Continue n.p.o. Fluids as below Pain management as needed, hydromorphone 25 mg IV every 3 hours ordered on admit, minimize where possible to minimize narcosis contributing to ileus Case discussed with [facility] transfer line when that was made available, paperwork completed previously by admitting provider team. Patient transferred for further care. 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 DVT prophylaxis: Lovenox 40 mg CODE STATUS: Full code Disposition: Transfer to [facility] Total Time Total Time Spent Total Time Spent (In Minutes): See attending documentation Discharge Plan Discharge Items Patient Disposition: Transfer Acute Care Hospital Reason For Visit: COLONIC OBSTRUCTION Discharge Diagnosis: Small Bowel Obstruction Condition on Discharge: Good Activity: Resume your previous activity Non-emergency contact: Primary Care Provider Call non-emergency contact if: you have any medication questions Follow-up/Referrals: Navya Sharma MD [Primary Care Provider] - Diet: Nothing by Mouth Addtl Attending Provider Instructions: Patient with no evidence of peritonitis. No white blood cell count or fever. Her stoma was working as of yesterday but was mostly liquid. At time of evening reassessment minimal liquid/no output with no flatus. Per GI She may have some impaction of her colostomy stemming from recent surgery and or dehydration. No evidence of small bowel dilation. Pt currently with NG to [facility], Transferred back to her surgeons in [place] for further care Pending Studies at Discharge: No Stand-Alone Forms: My [facility] Skilled Items Patient informed of condition?: Yes DNR: No Discharge Level of Care: Other Communicable Disease: No Discharge Prognosis: Stable Lines: Peripheral IV Urinary Catheter: No Medications and DC Order Prescriptions: Continued lisinopril-hydrochlorothiazide 20-25 mg tablet 1 tab PO QAM Qty: 90 RF: 3 calcium carbonate [Calcium 500] 500 mg calcium (1,250 mg) Tablet 500 mg PO QAM RF: 0 omega 3-imb-lrv-fish oil [Fish Oil] 1,000 mg (120 mg-180 mg) Capsule 1 cap PO QAM RF: 0 biotin 1 mg Tablet 1 mg PO QAM RF: 0 enoxaparin 40 mg/0.4 mL syringe 40 mg subcut DAILY@1100 RF: 0 metformin [Glucophage XR] 500 mg tablet extended release 24 hr 500 mg PO QDD RF: 0 rosuvastatin 10 mg tablet 10 mg PO HS RF: 0 Discharge Orders: Discharge Order (Routine); Ordered 09/06/20 Ordered By: Abhinav Alanis Admission Data Admit Date/Time: 09/05/20 15:55 Attending Provider: Teofilo Vazquez Admit Provider: Teofilo Vazquez Primary Care Provider: Navya Sharma Other Providers: Soren Parrish ; Teofilo Vazquez Other Interventions: Discharge Summary Assessment (RN) Last Done: 09/06/20 03:47 Supervising Physician Co-Signing Physician Notes Attending Attestation: I agree with the zhao components of this discharge summary as documented by PGY3 Dr Abhinav Nino. The patient was discharged in the middle of the night to [facility] after a bed opened up for her. Please see my history/physical note from 09/05/20 for details on her presentation as well as my physical exam. Since admission she had received NG tube decompression for her obstruction. Vitals had remained stable. Patient transferring to [facility] for colonic obstruction in the face of recent attempted debulking surgery for stage 4 ovarian cancer. Teofilo Vazquez MD Resident Activity Tracking Resident Involvement: Resident Care Provided Care Provided: [facility]
[2020-09-06] MEDS: HYDROmorphone INJ 0.5 MG/0.5 ML SYR IV PRN ×2 (01:12→03:43)
[2020-09-06] MEDS: D5W AND 1/2NSS + 20MEQ KCL 20 MEQ/1,000 ML BAG IV SCH (03:03)
[2020-09-06] MEDS ORDERED: HEPARIN 100 UNIT/ML 5ML FLUSH FLUSH PRN (03:26)
[2020-09-06] MEDS ORDERED: ENOXAPARIN INJ 40 MG/0.4 ML SYR SQ SCH (11:00)
== END 2020-09-06 03:40 | disposition short-term general hospital (02) ==
LOC: ED 10:54 → 3N 15:55 → INTOOBSV 15:55 → 3N 17:46

== ENCOUNTER 2021-05-29 20:18 | Observation (INO) ==
[2021-05-29 20:49] LABS: Basophils # (auto) 0.03 K/uL (0-0.2); Basophils % (auto) 0.6 %; Eosinophils # (auto) 0.15 K/uL (0-0.5); Eosinophils % (auto) 2.8 %; Hematocrit (blood only) 33.2 % (37-47); Hemoglobin 11.2 g/dL (12.0-16.0); Immature Granulocytes # (auto) 0.01 K/uL (0.00-0.02); Immature Granulocytes % (auto) 0.2 %; Lymphocytes # (auto) 2.06 K/uL (1.2-3.4); Lymphocytes % (auto) 38.5 %; Mean Corpuscular Hemoglobin 32.4 pg (25-34); Mean Corpuscular Hgb Conc 33.7 g/dL (32-36); Mean Platelet Volume 9.7 fL (7.4-10.4); Monocytes % (auto) 7.5 %; Neutrophils % (auto) 50.4 %; Platelet Count 207 K/uL (130-400); RDW Coefficient of Variation 17.5 % (11.5-14.5); RDW Standard Deviation 60.8 fL (36.4-46.3); Red Blood Count 3.46 M/uL (4.2-5.4); White Blood Count 5.35 K/uL (4.8-10.8)
[2021-05-29 21:07] LABS: BUN Creatinine Ratio 12.2 (10-20); Calcium 9.3 mg/dl (8.5-10.1); Creatinine Clr Calc Pharmacy 35.2 ml/min; Est GFR (African American) 45.8 ml/min; Est GFR (Non-African American) 39.5 ml/min; Potassium 3.8 mmol/L (3.5-5.1)
[2021-05-29 21:10] LABS: Albumin Globulin Ratio 1.1 (0.9-2); Bilirubin,Total 0.3 mg/dl (0.2-1); Globulin 3.6 gm/dl (2.5-4.0); Total Protein 7.6 gm/dl (6.4-8.2)
[2021-05-29] MEDS ORDERED: LORazepam 0.5 MG/1 ML VIAL IV STA (22:10)
[2021-05-30] MEDS ORDERED: LORazepam 0.5 MG/1 ML VIAL IV STA (00:02)
[2021-05-30 00:27] LABS: Appearance Urine Clear (Clear); Bacteria Urine Automated Negative (Negative); Bilirubin Urine Negative (Negative); Blood Urine Negative (Negative); Color Urine Yellow; Glucose Urine UA Negative (Negative); Ketones Urine Negative (Negative); Leukocyte Esterase Urine 2+ (Negative); Nitrite Urine Negative (Negative); Protein Urine Trace (Negative); RBC Urine Automated 0-4 /hpf (0-4); Specific Gravity Urine 1.016 (1.000-1.030); Urobilinogen Urine Negative (Negative); WBC Urine Automated >30 /hpf (0-5); pH Urine 6.5 (4.5-7.5)
--- NOTE | 2021-05-30 00:32 | Emergency Department Note ---
ED Visit Note The patient was seen and examined with Zuleika Diez PA-C. I agree with the history, physical and findings. Please see the note for disposition and details. Hypertension discussed. The patient has findings concerning for UTI. IV Rocephin given. Blood pressure was treated with IV hydralazine as she was significantly elevated. Consultation was made with internal medicine for further management. .
[2021-05-30] MEDS ORDERED: cefTRIAXone SODIUM 1,000 MG/50 ML BAG IV STA (01:21)
[2021-05-30] MEDS ORDERED: cephALEXin 500MG HOME PACK PO ONE (01:21)
--- NOTE | 2021-05-30 01:53 | Emergency Department Note ---
History of Present Illness General Chief complaint: Hypertension Stated complaint: HIGH BLOOD PRESSURE Time Seen by Provider: 05/29/21 21:51 History of Present Illness Maximum Pain Intensity: 5 This 75-year-old with ovarian cancer on chemotherapy presents to the ER complaining of headache and hypertension who's been underneath more stress lately Location: Head Quality: Mild Severity: Mild Duration: Today Timing: Today Context: Patient was concerned and came in Modifying factors: better with nothing; worse with stress Patient denies chest pain, dyspnea, numbness, tingling, localized weakness, flulike illness. Patient checked her blood pressure and was high and was concer willem and came in. She has not missed her blood pressure medicine doses. Home Medications Medication Instructions Recorded Confirmed Type calcium carbonate 500 mg calcium 500 mg PO QAM 10/10/19 03/20/21 History (1,250 mg) tablet (Calcium 500) omega 1-awq-mem-fish oil 1,000 mg 1 cap PO QAM 10/10/19 03/20/21 History (120 mg-180 mg) capsule (Fish Oil) biotin 1 mg tablet 1 mg PO QAM 02/09/20 03/20/21 History lisinopril 20 1 tab PO QAM #90 tab 05/21/20 03/20/21 Rx mg-hydrochlorothiazide 25 mg tablet rosuvastatin 10 mg tablet 10 mg PO HS 09/05/20 03/20/21 History acetaminophen 500 mg tablet 1,000 mg PO Q6H PRN tab 09/18/20 03/20/21 History multivitamin 1 tab PO DAILY 09/18/20 03/20/21 History potassium chloride 10 mEq 10 meq PO DAILY #90 cap 03/20/21 03/20/21 Rx capsule,extended release Allergies Allergy/AdvReac Type Severity Reaction Status Date / Time povidone-iodine Allergy Mild rash Verified 03/20/21 09:13 [From Betadine] Past Med/Surg History Medical History Colostomy in place H/O squamous cell carcinoma of skin History of right breast cancer 2010--sx only Hyperlipidemia Hypertension Hypokalemia Osteopenia Ovarian cancer Port-A-Cath in place (03/03/20) Insertion of Medicharlie Cox 03/03/20 Type 2 diabetes mellitus Surgical History History of bilateral tubal ligation History of section History of colon resection d/t tumor History of colonoscopy History of colostomy History of lumbar surgery History of lumpectomy of right breast History of open reduction and internal fixation (ORIF) procedure left big toe--hardware removed History of right breast biopsy History of tonsillectomy History of wisdom tooth extraction Status post Mohs surgery for squamous cell carcinoma of skin Family History Aunt Breast cancer Mother , age 56 2nd to acute [place] Myocardial infarction Cancer Hypertension Father , age 89 Heart disease Leukemia Other No family history of adverse response to anesthesia Denies family history of Ovarian cancer Prostate cancer Colorectal cancer Social History Smoking Status: Never smoker Second Hand Exposure: No; Hx Alcohol Use: No Hx Substance Use: No Preferred Language: Bahamian Communication Ability: Effective Visual Impairment: No Limitations Hearing Ability: Normal Second Shift Supervisor Required: No Beliefs That Will Affect Care: None marital status: / Current Living Situation: Alone Current Living Situation Comment: lives in [place] 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, 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 How many Children do You have: 5 Feels Safe at Home: Yes Seatbelt Use: always Sunscreen Use: No Assistive Devices: Glasses Review of Systems A total of 10 systems reviewed and were otherwise negative Physical Exam Vital Signs Vital Signs - 24 hr 05/29/21 20:24 05/29/21 22:09 05/29/21 22:30 Temperature 36.5 C Temperature Source Temporal Artery Scan Pulse Rate 101 H 82 Pulse Rate from SpO2 Sensor 83 Respiratory Rate 18 19 Respiratory Effort / Characteristics Non-Labored Spontaneous Respiratory Depth Normal Respiratory Pattern Regular Blood Pressure 220/117 H 228/119 H 215/125 H Blood Pressure Mean 151 155 155 Blood Pressure Position Sitting Pulse Oximetry 98 98 Oxygen Delivery Method Room Air Sepsis Recent Fever Within 48 Hours No Sepsis New/Unexplained Change in Mental Status N/A Sepsis Action Taken by Nursing No Action Required 05/29/21 22:41 05/29/21 23:00 05/29/21 23:30 Temperature Temperature Source Pulse Rate 92 H 87 89 Pulse Rate from SpO2 Sensor 91 H 88 90 Respiratory Rate 22 19 16 Respiratory Effort / Characteristics Respiratory Depth Respiratory Pattern Blood Pressure 234/123 H 218/113 H 176/96 H Blood Pressure Mean 160 148 122 Blood Pressure Position Pulse Oximetry 99 98 95 Oxygen Delivery Method Room Air Sepsis Recent Fever Within 48 Hours Sepsis New/Unexplained Change in Mental Status Sepsis Action Taken by Nursing 05/29/21 23:52 05/30/21 00:00 05/30/21 00:10 Temperature Temperature Source Pulse Rate 86 92 H 86 Pulse Rate from SpO2 Sensor 86 88 87 Respiratory Rate 16 17 19 Respiratory Effort / Characteristics Respiratory Depth Respiratory Pattern Blood Pressure 204/105 H 204/109 H 213/114 H Blood Pressure Mean 138 140 147 Blood Pressure Position Pulse Oximetry 97 99 99 Oxygen Delivery Method Room Air Room Air Room Air Sepsis Recent Fever Within 48 Hours Sepsis New/Unexplained Change in Mental Status Sepsis Action Taken by Nursing 05/30/21 00:30 05/30/21 00:45 05/30/21 01:00 Temperature Temperature Source Pulse Rate 84 83 83 Pulse Rate from SpO2 Sensor 85 83 84 Respiratory Rate 18 16 16 Respiratory Effort / Characteristics Respiratory Depth Respiratory Pattern Blood Pressure 200/105 H 202/101 H 196/103 H Blood Pressure Mean 136 134 134 Blood Pressure Position Pulse Oximetry 97 95 94 Oxygen Delivery Method Room Air Room Air Room Air Sepsis Recent Fever Within 48 Hours Sepsis New/Unexplained Change in Mental Status Sepsis Action Taken by Nursing 05/30/21 01:15 05/30/21 01:45 Temperature Temperature Source Pulse Rate 86 86 Pulse Rate from SpO2 Sensor 86 88 Respiratory Rate 17 18 Respiratory Effort / Characteristics Respiratory Depth Respiratory Pattern Blood Pressure 195/103 H 191/118 H Blood Pressure Mean 133 142 Blood Pressure Position Pulse Oximetry 98 96 Oxygen Delivery Method Room Air Room Air Sepsis Recent Fever Within 48 Hours Sepsis New/Unexplained Change in Mental Status Sepsis Action Taken by Nursing VITALS: Vitals are noted on the nurse's note and reviewed by myself. Vital signs hypertensive. GENERAL: Pleasant elderly female, in no acute distress, nondiaphoretic, well- developed well-nourished. SKIN: The skin was without rashes, erythema, edema, or bruising. There is no tenting of the skin. Capillary reflex less than 2 seconds. HEAD: Normocephalic atraumatic. EARS: External auditory canals clear, EYES: Pupils equal round and reactive to light and accommodation. Conjunctivae without injection, sclerae without icterus. Extraocular movements intact. NOSE: Patent, turbinates without inflammation or discharge. No sinus tenderness. MOUTH: Mucous membranes moist. Pharynx without erythema or exudate. Uvula midline. Airway patent. Tongue does not deviate. NECK: Supple without nuchal rigidity. No lymphadenopathy. No thyromegaly. Cervical spine is nontender. No JVD. HEART: Regular rate and rhythm LUNGS: Clear to auscultation bilaterally without wheezes, rales or rhonchi. No retractions or accessory muscle use. ABDOMEN: Positive bowel sounds x 4. Normal tympanic percussion. Soft, nontender, without masses or organomegaly. Schwarz sign negative. No guarding or rebound tenderness. No CVA tenderness MUSCULOSKELETAL: No muscle atrophy, erythema, or edema noted. NEURO: Patient was alert and oriented to person place and time. Normal sensation to light and sharp touch. No focal neurological deficits. Course Administered Medications Discontinued Medications Cephalexin HCl (Cephalexin 500mg Home Pack) 1 homepack PO NOW ONE Stop: 05/30/21 01:22 Last Admin: 05/30/21 01:27 Dose: 1 homepack Documented by: [id number] Hydralazine HCl (Hydralazine Hcl 20 Mg/Ml Vial) 10 mg IV NOW STA Stop: 05/30/21 02:12 Last Admin: 05/30/21 02:22 Dose: 5 mg Documented by: [id number] Lorazepam (Ativan) 0.5 mg in 1 mls @ 1 mls/min IV NOW STA Stop: 05/29/21 22:11 Last Admin: 05/29/21 22:59 Dose: 1 mls/min Documented by: [id number] Lorazepam (Ativan) 0.5 mg in 1 mls @ 1 mls/min IV NOW STA Stop: 05/30/21 00:03 Last Admin: 05/30/21 01:27 Dose: Not Given Documented by: [id number] Ceftriaxone Sodium (Rocephin) 1,000 mg in 50 mls @ 100 mls/hr IV NOW STA Stop: 05/30/21 01:50 Last Infusion: 05/30/21 01:57 Dose: 0 mls/hr Documented by: [id number] Admin: 05/30/21 01:26 Dose: 100 mls/hr Documented by: [id number] Medical Decision Making Medical Records Attestation: I reviewed the patient's medical records. Home Medications Current Medication List: was personally reviewed by me Laboratory Data Attestation: I reviewed the patient's lab results. Result diagrams: 05/29/21 20:30 05/29/21 20:30 Lab Results 05/29/21 05/29/21 05/29/21 Range/Units 20:30 20:30 20:30 WBC 5.35 (4.8-10.8) K/uL RBC 3.46 L (4.2-5.4) M/uL Hgb 11.2 L (12.0-16.0) g/dL Hct 33.2 L (37-47) % MCV 96.0 (80-100) fL MCH 32.4 (25-34) pg MCHC 33.7 (32-36) g/dL RDW Std Deviation 60.8 H (36.4-46.3) fL RDW Coeff of Laz 17.5 H (11.5-14.5) % Plt Count 207 (130-400) K/uL MPV 9.7 (7.4-10.4) fL Immature Gran % (Auto) 0.2 % Neut % (Auto) 50.4 % Lymph % (Auto) 38.5 % Kittson % (Auto) 7.5 % Eos % (Auto) 2.8 % Baso % (Auto) 0.6 % Neut # (Auto) 2.70 (1.4-6.5) K/uL Lymph # (Auto) 2.06 (1.2-3.4) K/uL Kitt[place] # (Auto) 0.40 (0.11-0.59) K/uL Eos # (Auto) 0.15 (0-0.5) K/uL Baso # (Auto) 0.03 (0-0.2) K/uL Immature Gran # (Auto) 0.01 (0.00-0.02) K/uL Sodium 142 (136-145) mmol/L Potassium 3.8 (3.5-5.1) mmol/L Chloride 109 H (98-107) mmol/L Carbon Dioxide 29 (21-32) mmol/L Anion Gap 3.0 (3-11) BUN 16 (7-18) mg/dl Creatinine 1.30 H (0.6-1.2) mg/dl Est Cr Clr Drug Dosing 35.2 ml/min Est GFR ( Amer) 45.8 ml/min Est GFR (Non-Af Amer) 39.5 ml/min BUN/Creatinine Ratio 12.2 (10-20) Glucose 115 H (70-99) mg/dl Calcium 9.3 (8.5-10.1) mg/dl Total Bilirubin 0.3 (0.2-1) mg/dl AST 50 H (15-37) U/L ALT 43 (12-78) U/L Alkaline Phosphatase 141 H (45-117) U/L Total Protein 7.6 (6.4-8.2) gm/dl Albumin 4.0 (3.4-5.0) gm/dl Globulin 3.6 (2.5-4.0) gm/dl Albumin/Globulin Ratio 1.1 (0.9-2) TSH 4.410 (0.300-4.500) uIu/ml Urine Color Urine Appearance (Clear) Urine pH (4.5-7.5) Ur Specific Armstrong (1.000-1.030) Urine Protein (Negative) Urine Glucose (UA) (Negative) Urine Ketones (Negative) Urine Blood (Negative) Urine Nitrite (Negative) Urine Bilirubin (Negative) Urine Urobilinogen (Negative) Ur Leukocyte Esterase (Negative) Urine WBC (Auto) (0-5) /hpf Urine RBC (Auto) (0-4) /hpf U Hyaline Cast (Auto) (0-5) /lpf U Epithel Cells (Auto) (0-5) /lpf Urine Bacteria (Auto) (Negative) 05/30/21 Range/Units 00:10 WBC (4.8-10.8) K/uL RBC (4.2-5.4) M/uL Hgb (12.0-16.0) g/dL Hct (37-47) % MCV (80-100) fL MCH (25-34) pg MCHC (32-36) g/dL RDW Std Deviation (36.4-46.3) fL RDW Coeff of Laz (11.5-14.5) % Plt Count (130-400) K/uL MPV (7.4-10.4) fL Immature Gran % (Auto) % Neut % (Auto) % Lymph % (Auto) % Kitt[place] % (Auto) % Eos % (Auto) % Baso % (Auto) % Neut # (Auto) (1.4-6.5) K/uL Lymph # (Auto) (1.2-3.4) K/uL Kittson # (Auto) (0.11-0.59) K/uL Eos # (Auto) (0-0.5) K/uL Baso # (Auto) (0-0.2) K/uL Immature Gran # (Auto) (0.00-0.02) K/uL Sodium (136-145) mmol/L Potassium (3.5-5.1) mmol/L Chloride (98-107) mmol/L Carbon Dioxide (21-32) mmol/L Anion Gap (3-11) BUN (7-18) mg/dl Creatinine (0.6-1.2) mg/dl Est Cr Clr Drug Dosing ml/min Est GFR ( Amer) ml/min Est GFR (Non-Af Amer) ml/min BUN/Creatinine Ratio (10-20) Glucose (70-99) mg/dl Calcium (8.5-10.1) mg/dl Total Bilirubin (0.2-1) mg/dl AST (15-37) U/L ALT (12-78) U/L Alkaline Phosphatase (45-117) U/L Total Protein (6.4-8.2) gm/dl Albumin (3.4-5.0) gm/dl Globulin (2.5-4.0) gm/dl Albumin/Globulin Ratio (0.9-2) TSH (0.300-4.500) uIu/ml Urine Color Yellow Urine Appearance Clear (Clear) Urine pH 6.5 (4.5-7.5) Ur Specific Armstrong 1.016 (1.000-1.030) Urine Protein Trace H (Negative) Urine Glucose (UA) Negative (Negative) Urine Ketones Negative (Negative) Urine Blood Negative (Negative) Urine Nitrite Negative (Negative) Urine Bilirubin Negative (Negative) Urine Urobilinogen Negative (Negative) Ur Leukocyte Esterase 2+ H (Negative) Urine WBC (Auto) >30 H (0-5) /hpf Urine RBC (Auto) 0-4 (0-4) /hpf U Hyaline Cast (Auto) 1-5 (0-5) /lpf U Epithel Cells (Auto) 10-20 H (0-5) /lpf Urine Bacteria (Auto) Negative (Negative) Imaging Data Attestation: I personally reviewed and interpreted this imaging study as fo llows: MDM Narrative Prior records/ancillary studies reviewed regarding the history above. Triage Nursing notes reviewed. Additional history obtained from the family. The patient's history was concerning for hypertension. Differential diagnosis: Etiologies such as benign hypertension, hypertensive emergency, cardiovascular pathology, pheochromocytoma, electrolyte abnormality, renal disease, endorgan damage, as well as others were entertained. Physical examination: As above. No signs of end organ damage. ER treatment provided: An order was placed for continuous cardiac monitoring. The monitor shows a rate of 60-1 10 with a sinus rhythm. Ativan, IV fluids, Rocephin, hydralazine On reassessment the patient felt better. Diagnostic interpretation by me: The electrocardiogram was negative for pathologic change. Ordered for hypert ension EKG: Normal sinus, normal intervals, no acute ST-T wave changes. Impression normal sinus interpreted by myself I think arrhythmia is unlikely. EKG shows normal sinus rhythm with no interval abnormalities such as QT prolongation or WPW. There are no findings to suggest Brugada syndrome. Cardiac monitoring in the emergency department reveals no tachycardic or bradycardic dysrhythmia. Hypertrophic cardiomyopathy was considered but there are no clear historical elements pointing toward this. EKG is not suggestive. The QRS voltage is not extremely large and there are no suggestive Q waves. The labs revealed urine concerning for infection sent for culture. Last urine culture was pansensitive from last year Negative troponin. Stable H&H Imaging studies: Chest x-ray with no acute consolidation, pneumothorax or free air per my interpretation CT HEAD: Chronic lacunar infarct left centrum semiovale. Chronic small vessel ischemic disease in the cerebral white matter. No acute intracranial hemorrhage, mass-effect, or edema. No skull fracture. Sinuses and mastoid air cells are clear. Radiologist: Sushma Vazquez M.D. Consultation: A consultation was placed with the hospitalist. The case was discussed and diagnostics were reviewed. The patient was evaluated in the ER for further treatment. This appears to be consistent with hypertensive urgency and UTI. Patient request admission. Medicine was consulted. Blood pressure still elevated. The headache had resolved. She was given Rocephin hydralazine and Ativan. She will be evaluated by hospitalist. By the evaluation outlined above emergent etiologies such as hypertensive emergency, pheochromocytoma, endorgan damage, cardiac ischemia, aortic dissection, pulmonary embolism, pneumonia, pneumothorax, gastrointestinal, as well as others were deemed relatively unlikely. The pt informed about the findings as listed above. All questions were answered and pleased with the treatment. The chart was completed utilizing [employer] Speech voice recognition software. Grammatical errors, random word insertions, pronoun errors, and incomplete sentences are an occassional consequence of this system due to software limitations, ambient noise, and hardware issues. Any formal questions or concerns about the content, text, or information contained within the body of this dictation should be directly addressed to the physician fast food sales assistant for clarification. Impression & Plan Hypertensive urgency, Acute UTI Discharge Plan Visit Data Chief Complaint: Hypertension Stated Complaint: HIGH BLOOD PRESSURE ED Provider: Mark Zuleta ED Midlevel Provider: Dora Diez Discharge Problem: Hypertensive urgency, Acute UTI Patient Disposition: Admitted As Inpatient Condition: Good Forms Stand Alone Forms: [facility] [place] [employer] Prescriptions Prescriptions: No Action lisinopril-hydrochlorothiazide 20-25 mg tablet 1 tab PO QAM Qty: 90 RF: 3 acetaminophen 500 mg tablet 1,000 mg PO Q6H PRNRF: 0 multivitamin Tablet 1 tab PO DAILY RF: 0 potassium chloride 10 mEq capsule, extended release 10 meq PO DAILY Qty: 90 RF: 3 calcium carbonate [Calcium 500] 500 mg calcium (1,250 mg) Tablet 500 mg PO QAM RF: 0 omega 9-sfh-jbo-fish oil [Fish Oil] 1,000 mg (120 mg-180 mg) Capsule 1 cap PO QAM RF: 0 biotin 1 mg Tablet 1 mg PO QAM RF: 0 rosuvastatin 10 mg tablet 10 mg PO HS RF: 0 Referrals Referrals: Navya Sharma MD [Primary Care Provider] -
[2021-05-30] MEDS ORDERED: hydrALAZINE HCL 20 MG/ML VIAL IV STA (02:11)
--- NOTE | 2021-05-30 04:00 | History & Physical Report ---
Date of Service May 30, 2021 Assessment & Plan (1) Hypertensive urgency: Plan: 75 yo F w/ pMHx. of HTN, HLD, DMII and Ovarian cancer here for elevated blood pressure admit as observation Hypertensive urgency potentially 2/2 pain at ostomy site vs. anxiety Blood pressure as high as 234/123 in the ER CXR appears consistent with prior CT head: no acute findings, chronic ischemic changes - Labetalol added as needed for SBP > 190 - continue home Lisinopril/HCTZ - treat pain with home Tylenol - added Oxycodone 5 mg and 10 mg per acute pain protocol - treat anxiety with Hydroxyzine as needed for anxiety; would likely benefit from getting connected with resources Concern for UTI Asymptomatic, afebrile, no leukocytosis, contaminated UA - received Ceftriaxone in the ER - holding off on any further treatment at this time High-grade papillary carcinoma with weight loss - consider palliative consult HLD - continue home Rosuvastatin DMII - latest A1c in March 12.8 - continue to monitor for now DVT: Lovenox Diet: regular Code: full Dispo: observation and medication adjustment (2) Colostomy in place: (3) Ovarian cancer: (4) Hyperlipidemia: (5) Hypertension: (6) Type 2 diabetes mellitus: History of Present Illness Chief Complaint: elevated blood pressure Primary Care Provider: Navya Sharma MD Luciana Daniels is here today for elevated blood pressure. She was at home and checked her blood pressure which was initially 210/115 and then 187/98. She was not having any headaches, vision changes, confusion, leg swelling or other symptoms with the elevated blood pressure. Her blood pressure is more commonly 130's systolic and she takes lisinopril/HCTZ consistently. She is having pain at her ostomy site. She had an emergency colostomy placed above her belly button, she recently went to [facility] where she was told that they could not reverse the colostomy or change the location due to her peritoneal malignancy. 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 The pain is deep in her colostomy and currently 6/10. She has had Oxycodone in the past but did not like that the medication caused her to feel dizzy and she was concerned with becoming addicted. She currently is only taking Tylenol for pain. She has recently tried Metamucil and Imodium to slow down her output. She has lost about 12 lbs. over the last 3 months due to poor appetite. Luciana is also having increased anxiety associated with her family situation. Her daughter has two children Genie and Edna ages 1 and 6 and her daughter struggles with a drug addiction. Luciana is currently caring for her grandchildren as their father is in fci. ED course: -Ativan -Ceftriaxone -Hydralazine Allergies Allergy/AdvReac Type Severity Reaction Status Date / Time povidone-iodine Allergy Mild rash Verified 03/20/21 09:13 [From Betadine] Home Medications Medication Instructions Recorded Confirmed Type calcium carbonate 500 mg calcium 500 mg PO QAM 10/10/19 03/20/21 History (1,250 mg) tablet (Calcium 500) omega 6-swv-qke-fish oil 1,000 mg 1 cap PO QAM 10/10/19 03/20/21 History (120 mg-180 mg) capsule (Fish Oil) biotin 1 mg tablet 1 mg PO QAM 02/09/20 03/20/21 History lisinopril 20 1 tab PO QAM #90 tab 05/21/20 03/20/21 Rx mg-hydrochlorothiazide 25 mg tablet rosuvastatin 10 mg tablet 10 mg PO HS 09/05/20 03/20/21 History acetaminophen 500 mg tablet 1,000 mg PO Q6H PRN tab 09/18/20 03/20/21 History multivitamin 1 tab PO DAILY 09/18/20 03/20/21 History potassium chloride 10 mEq 10 meq PO DAILY #90 cap 03/20/21 03/20/21 Rx capsule,extended release Past Med/Surg History Medical History Colostomy in place H/O squamous cell carcinoma of skin History of right breast cancer 2010--sx only Hyperlipidemia Hypertension Hypokalemia Osteopenia Ovarian cancer Port-A-Cath in place (03/03/20) Insertion of Obed Cox 03/03/20 Type 2 diabetes mellitus Surgical History History of bilateral tubal ligation History of section History of colon resection d/t tumor History of colonoscopy History of colostomy History of lumbar surgery History of lumpectomy of right breast History of open reduction and internal fixation (ORIF) procedure left big toe--hardware removed History of right breast biopsy History of tonsillectomy History of wisdom tooth extraction Status post Mohs surgery for squamous cell carcinoma of skin Family History Aunt Breast cancer Mother , age 56 2nd to acute [place] Myocardial infarction Cancer Hypertension Father , age 89 Heart disease Leukemia Other No family history of adverse response to anesthesia Denies family history of Ovarian cancer Prostate cancer Colorectal cancer Social History Smoking Status: Never smoker Second Hand Exposure: No; Hx Alcohol Use: No Hx Substance Use: No Preferred Language: Swazi Communication Ability: Effective Visual Impairment: No Limitations Hearing Ability: Normal Drilling Rig Operator Required: No Beliefs That Will Affect Care: None marital status: / Current Living Situation: Alone 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 status: retired current occupation: [employer] How many Children do You have: 5 Other Information That Helps Us Care for You: No Feels Safe at Home: Yes Seatbelt Use: always Sunscreen Use: No Assistive Devices: None Review of Systems Review of Systems: constitutional: denies fevers, chills, night sweats; admits nausea, weight loss Head: denies trauma, confusion, vision changes Neuro: denies syncope; admits numbness and tingling that is chronic and positional in her legs ENT: denies rhinorrhea, stuffiness, sneezing Cardiac: denies chest pain, palpitations, leg edema Pulm: denies cough, shortness of breath, hemoptysis GI: denies blood in output admits abdominal pain at ostomy site : denies urgency, pain, frequency Physical Exam Constitutional: + well hydrated and cooperative; no acute distress, no altered mental status and no language barrier Eyes: PERRL, conjunctivae normal, anicteric sclerae ENMT: external ear and nose normal, oropharynx normal Neck: normal visual inspection Respiratory: normal respiratory effort, lungs clear to auscultation Cardiovascular: - systolic murmur appreciated - regular rate Gastrointestinal (Abdomen): - soft, nTTP - ostomy c/d/i - no guarding Skin: no rashes, warm and dry Results & Data Results & Data ([facility]) Vital Signs (Past 12 Hours) Vital Signs Temp Pulse Resp BP Pulse Ox 05/30/21 03:15 87 18 177/89 H 97 05/30/21 03:00 88 16 156/88 H 05/30/21 02:56 85 17 171/101 H 05/30/21 02:45 87 23 183/88 H 05/30/21 02:30 91 H 19 186/102 H 99 05/30/21 02:15 81 22 195/105 H 97 05/30/21 02:00 88 16 170/94 H 98 05/30/21 01:45 86 18 191/118 H 96 05/30/21 01:15 86 17 195/103 H 98 05/30/21 01:00 83 16 196/103 H 94 05/30/21 00:45 83 16 202/101 H 95 05/30/21 00:30 84 18 200/105 H 97 05/30/21 00:10 86 19 213/114 H 99 05/30/21 00:00 92 H 17 204/109 H 99 05/29/21 23:52 86 16 204/105 H 97 05/29/21 23:30 89 16 176/96 H 95 05/29/21 23:00 87 19 218/113 H 98 05/29/21 22:41 92 H 22 234/123 H 99 05/29/21 22:30 215/125 H 05/29/21 22:09 82 19 228/119 H 98 05/29/21 20:24 36.5 C 101 H 18 220/117 H 98 CBC Results Results Complete Blood Count Results: RBC 3.46 M/uL (4.2-5.4) L 05/29/21 WBC 5.35 K/uL (4.8-10.8) 05/29/21 Hgb 11.2 g/dL (12.0-16.0) L 05/29/21 Hct 33.2 % (37-47) L 05/29/21 Plt Count 207 K/uL (130-400) 05/29/21 Chemistry (BMP) Results BMP Results: Sodium 142 mmol/L (136-145) 05/29/21 Potassium 3.8 mmol/L (3.5-5.1) 05/29/21 Chloride 109 mmol/L (98-107) H 05/29/21 BUN 16 mg/dl (7-18) 05/29/21 Creatinine 1.30 mg/dl (0.6-1.2) H 05/29/21 Glucose 115 mg/dl (70-99) H 05/29/21 Code Status & VTE Plan VTE Prophylaxis Plan VTE Prophylaxis will be ordered: Yes Supervising Physician Co-Signing Physician Notes Patient seen and examined, chart reviewed, case discussed with Dr. Truong and I agree with his assessment and plan as above. In brief, patient is a 75yo female with history of ovarian CA s/p colostomy presenting with poorly con trolled BP from home. BPs typically 130 at home - today was as high as 210. She has been compliant with her medications. No evidence of end organ damage. +mild pain at ostomy site as well as increased stressors at home which may be contributing to her elevated BP readings. On exam she is afebrile, hypertensive, however, BP has improved - Presently 156/88 Skin - no rash HEENT - NC/AT, PERRL, Neck supple, MMM Heart - +S1/S2, regular, no m/r/g Lungs- CTA Abd - Colostomy in place with stool in bag, no bleeding/drainage/erythema Ext - no edema Labs and images reviewed. Assessment/Plan - 75yo female with hypertensive urgency. No evidence of end- organ damage. BP improved in ER -Pain control -Hydroxyzine PRN anxiet -Continue home BP meds - patient reports overall adequate control outpatient -Labetalol PRN -Remainder of plan as above Resident Activity Tracking Resident Involvement: Resident Care Provided Care Provided: Adult Hospital Medicine (1) Ovarian cancer Laterality: unspecified laterality Qualified Code(s): C56.9 - Malignant neoplasm of unspecified ovary (2) Type 2 diabetes mellitus Diabetes mellitus complication status: without complication Diabetes mellitus senior care insulin use: without senior care use Qualified Code(s): E11.9 - Type 2 diabetes mellitus without complications (3) Hypertension Hypertension type: essential hypertension Qualified Code(s): I10 - Essential (primary) hypertension
[2021-05-30] MEDS ORDERED: hydrOXYzine HCl 10 MG TAB PO PRN (04:57)
[2021-05-30] MEDS ORDERED: oxyCODONE HCL IR 5 MG TAB (IMMEDIATE RELEASE) PO PRN ×2 (04:57)
[2021-05-30] MEDS ORDERED: LABETALOL HCL IV 5 MG/ML 20ML IV PRN (04:57)
[2021-05-30] MEDS: ENOXAPARIN INJ 40 MG/0.4 ML SYR SQ SCH (06:26)
--- NOTE | 2021-05-30 08:36 | XRay Report ---
XR chest 1V portable CLINICAL HISTORY: hypertension COMPARISON STUDY: March 03, 2020 FINDINGS: No pneumothorax. No pleural effusion. No large infiltrates or consolidative lesions are seen. Cardiomediastinal silhouette is within normal limits in size. No significant pulmonary vascular congestion.. Osseous structures: Degenerative changes of the spine. Stable position of left-sided Chemo-Port with tip projecting to the anatomical region of atriocaval j unction. IMPRESSION: 1. No acute pulmonary process. ACT 112: Negative or not required by law. The above report was generated using voice recognition software. It may contain grammatical, syntax o r spelling errors. Electronically signed by: Deb Davey DO 05/30/2021 8:35 AM
--- NOTE | 2021-05-30 09:03 | CT Scan Report ---
CT head/brain wo con CLINICAL HISTORY: SOLORZANO, htn, CA COMPARISON STUDY: No previous studies for comparison. TECHNIQUE: Axial CT of the brain is performed from the vertex to the skull base. IV contrast was not administered for this examination. A dose lowering technique was utilized adhering to the principles of ALARA. CT DOSE: 614.27 mGy.cm FINDINGS: No intra or extra-axial mass lesions are visualized. There is no CT evidence of acute cortical infarc tion. There is no evidence of midline shift. There is no acute hemorrhage. No acute depressed calvar ial fractures are visualized. There are patchy white matter hypodensities likely on a small vessel basis. Chronic lacunar infarct within left centrum semiovale seen. There is no evidence of pathologic ventricular dilatation. There is no evidence of acute sinusitis IMPRESSION: No acute intracranial hemorrhage, no midline shift or space occupying lesions. No acute depressed skull fractures. The rest of findings as above. ACT 112: Negative or not required by law. The above report was generated using voice recognition software. It may contain grammatical, syntax o r spelling errors. Electronically signed by: Deb Davey DO 05/30/2021 9:01 AM
[2021-05-30] MEDS: LISINOPRIL/HCTZ 20/25MG 1 TAB PO SCH (09:25)
--- NOTE | 2021-05-30 09:42 | Hospitalist Progress Note ---
Date of Service May 30, 2021 Assessment & Plan (1) Hypertensive urgency: Plan: 75yo female with ovarian carcinoma, T2DM, HTN, and HLD presents with hypertensive urgency. Hypertensive urgency potentially 2/2 pain at ostomy site vs. anxiety Blood pressure as high as 234/[address] head: no acute findings; no signs/symptoms consistent with end-organ damage Differential includes metabolic burden of metastatic ovarian CA with pe ritoneal seeding, anxiety in the setting of significant psychosocial stressors Labetalol added as needed for SBP > 190 Continue home Lisinopril/HCTZ Treat anxiety with Hydroxyzine as needed for anxiety; would likely benefit from getting connected with resources; also discussed mindfulness, light physical exercise, and online alconon/narconon support groups Metastatic ovarian carcinoma No treatment indicated during this hospitalization HLD Continue home rosuvastatin DM2 HbA1c 6.8% (03/2021) Patient's home regimen held on admission Continue BSG checks, sliding-scale insulin, hypoglycemic protocol Asymptomatic bacteriuria Asymptomatic, afebrile, no leukocytosis, contaminated UA Received Ceftriaxone in the ER No further treatment indicated FEN: regular diet Code status: full code DVT ppx: lovenox Isolation: none Consults: none PT/OT: not indicated at this time Dispo: med/surg (2) Colostomy in place: (3) Ovarian cancer: (4) Hyperlipidemia: (5) Hypertension: (6) Type 2 diabetes mellitus: Admission and Anticipated Discharge Date Admission Date: May 30, 2021 Supervising Physician Co-Signing Physician Notes I personally examined the patient and verified all zhao points of history and exam, discussed case, and agree with decision making with Dr Tobias. Feeling better overall. No new complaints. Discussed working diagnoses and answered questions. Vitals noted, in general she is awake and alert pleasant no distress. HEENT normocephalic atraumatic mucous membranes moist. Breathing unlabored no accessory muscle use good effort. Skin shows no rashes no pallor or icterus. Neuro without focal deficits. Elevated blood pressureno signs or symptoms of endorgan damage. Safe and stable. For reassurance we will follow patient into tomorrow, plans for discharge home then unless anything new arises. Otherwise as above Subjective Patient seen and evaluated at bedside this morning. No acute events overnight. Patient feels okay this morning, endorsing minimal nausea and minimal pain at ostomy site. Denies other symptoms including headache, change in vision, chest pain, SOB, or other symptoms. Review of Systems Review of Systems: See HPI Physical Exam Physical Exam: Constitutional: well-appearing, no acute distress CV: regular rhythm, no murmur appreciated, extremities well-perfused, no LE edema Resp: CTABL, no wheezes/rales/rhonchi appreciated, no increased work of breathing Neuro: AOx4, no focal neurological deficits appreciated Appearance: well-groomed, appropriately dressed Behavior: calm, cooperative, eye contact good Mood: "alright" Affect: pleasant, affect congruent with mood Speech: appropriate rate/quantity/volume Thought process: linear, coherent Thought content: appropriate to topic of discussion, denies SI/HI Cognition: alert, focused, short- and long-term memory grossly intact, abstraction intact Insight: good Judgment: good Results & Data Results & Data ([facility]) Vital Signs (Past 12 Hours) Vital Signs Temp Pulse Pulse Resp BP BP Pulse Ox 05/30/21 07:48 86 05/30/21 07:47 37.0 C 86 19 164/97 H 98 05/30/21 04:59 36.7 C 92 H 184/103 H 99 05/30/21 04:15 87 16 136/77 95 05/30/21 04:00 92 H 17 139/77 98 05/30/21 03:45 90 16 149/78 H 96 05/30/21 03:30 89 18 152/79 H 96 05/30/21 03:15 87 18 177/89 H 97 05/30/21 03:00 88 16 156/88 H 05/30/21 02:56 85 17 171/101 H 05/30/21 02:45 87 23 183/88 H 05/30/21 02:30 91 H 19 186/102 H 99 05/30/21 02:15 81 22 195/105 H 97 05/30/21 02:00 88 16 170/94 H 98 05/30/21 01:45 86 18 191/118 H 96 05/30/21 01:15 86 17 195/103 H 98 05/30/21 01:00 83 16 196/103 H 94 05/30/21 00:45 83 16 202/101 H 95 05/30/21 00:30 84 18 200/105 H 97 05/30/21 00:10 86 19 213/114 H 99 05/30/21 00:00 92 H 17 204/109 H 99 05/29/21 23:52 86 16 204/105 H 97 05/29/21 23:30 89 16 176/96 H 95 05/29/21 23:00 87 19 218/113 H 98 05/29/21 22:41 92 H 22 234/123 H 99 05/29/21 22:30 215/125 H 05/29/21 22:09 82 19 228/119 H 98 Resident Activity Tracking Resident Involvement: Resident Care Provided Care Provided: Adult Hospital Medicine (1) Ovarian cancer Laterality: unspecified laterality Qualified Code(s): C56.9 - Malignant neoplasm of unspecified ovary (2) Type 2 diabetes mellitus Diabetes mellitus complication status: without complication Diabetes mellitus buttermaker insulin use: without buttermaker use Qualified Code(s): E11.9 - Type 2 diabetes mellitus without complications (3) Hypertension Hypertension type: essential hypertension Qualified Code(s): I10 - Essential (primary) hypertension
--- NOTE | 2021-05-30 09:44 | Electrocardiogram Report ---
Test Reason : Blood Pressure : / mmHG Vent. Rate : 093 BPM Atrial Rate : 093 BPM P-R Int : 184 ms QRS Dur : 078 ms QT Int : 372 ms P-R-T Axes : 052 047 064 degrees QTc Int : 462 ms Normal sinus rhythm Normal ECG When compared with ECG of 28-FEB-2020 12:19, Criteria for Septal infarct are no longer Present Confirmed by Andrés Sands ([id number]) on 05/30/2021 9:44:04 AM Referred By: Chyna Martell Confirmed By:Andrés Sands
--- NOTE | 2021-05-30 19:01 | Billing Data ---
Date of Service May 30, 2021 Coding Level of Care Code INT OBSERVATION CARE 50M LVL 2
[2021-05-30] MEDS ORDERED: ROSUVASTATIN CALCIUM 10 MG TAB PO SCH (21:00)
[2021-05-30] MEDS ORDERED: ACETAMINOPHEN 500 MG TAB PO PRN (21:56)
[2021-05-30] MEDS ORDERED: ACETAMINOPHEN 500 MG TAB ONE (22:00)
[2021-05-31] MEDS: ENOXAPARIN INJ 40 MG/0.4 ML SYR SQ SCH (06:08)
[2021-05-31] MEDS: LISINOPRIL/HCTZ 20/25MG 1 TAB PO SCH (08:04)
[2021-05-31 08:05] LABS: Basophils # (auto) 0.02 K/uL (0-0.2); Basophils % (auto) 0.5 %; Eosinophils # (auto) 0.15 K/uL (0-0.5); Eosinophils % (auto) 3.4 %; Hematocrit (blood only) 30.9 % (37-47); Hemoglobin 10.3 g/dL (12.0-16.0); Immature Granulocytes # (auto) 0.01 K/uL (0.00-0.02); Immature Granulocytes % (auto) 0.2 %; Lymphocytes # (auto) 1.63 K/uL (1.2-3.4); Lymphocytes % (auto) 36.7 %; Mean Corpuscular Hemoglobin 31.8 pg (25-34); Mean Corpuscular Hgb Conc 33.3 g/dL (32-36); Mean Corpuscular Volume 95.4 fL (80-100); Mean Platelet Volume 9.6 fL (7.4-10.4); Monocytes # (auto) 0.37 K/uL (0.11-0.59); Monocytes % (auto) 8.3 %; Neutrophils # (auto) 2.26 K/uL (1.4-6.5); Neutrophils % (auto) 50.9 %; Platelet Count 155 K/uL (130-400); RDW Coefficient of Variation 17.3 % (11.5-14.5); RDW Standard Deviation 59.5 fL (36.4-46.3); Red Blood Count 3.24 M/uL (4.2-5.4); White Blood Count 4.44 K/uL (4.8-10.8)
[2021-05-31 08:23] LABS: BUN Creatinine Ratio 16.6 (10-20); Creatinine Clr Calc Pharmacy 37.9 ml/min; Est GFR (African American) 54.9 ml/min; Est GFR (Non-African American) 47.3 ml/min; Potassium 3.5 mmol/L (3.5-5.1)
--- NOTE | 2021-05-31 11:25 | Discharge Summary ---
Date of Service May 31, 2021 Admission HPI Per Admitting Provider Luciana Daniels is here today for elevated blood pressure. She was at home and checked her blood pressure which was initially 210/115 and then 187/98. She was not having any headaches, vision changes, confusion, leg swelling or other symptoms with the elevated blood pressure. Her blood pressure is more commonly 130's systolic and she takes lisinopril/HCTZ consistently. She is having pain at her ostomy site. She had an emergency colostomy placed above her belly button, she recently went to [facility] where she was told that they could not reverse the colostomy or change the location due to her peritoneal malignancy. 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 The pain is deep in her colostomy and currently 6/10. She has had Oxycodone in the past but did not like that the medication caused her to feel dizzy and she was concerned with becoming addicted. She currently is only taking Tylenol for pain. She has recently tried Metamucil and Imodium to slow down her output. She has lost about 12 lbs. over the last 3 months due to poor appetite. Luciana is also having increased anxiety associated with her family situation. Her daughter has two children Genie and Edna ages 1 and 6 and her daughter struggles with a drug addiction. Luciana is currently caring for her grandchildren as their father is in retirement. ED course: -Ativan -Ceftriaxone -Hydralazine Admission Exam Per Admitting Provider Constitutional: + well hydrated and cooperative; no acute distress, no altered mental status and no language barrier Eyes: PERRL, conjunctivae normal, anicteric sclerae ENMT: external ear and nose normal, oropharynx normal Neck: normal visual inspection Respiratory: normal respiratory effort, lungs clear to auscultation Cardiovascular: - systolic murmur appreciated - regular rate Gastrointestinal (Abdomen): - soft, nTTP - ostomy c/d/i - no guarding Skin: no rashes, warm and dry Principal Diagnosis Hypertension Discharge Exam General: A&Ox3. NAD. Cooperative. HEENT: Atraumatic, normocephalic. Pulm: CTAB A&P. -wheezes, -rales, -rhonchi. Symmetrical chest rise. No increase work of breathing. No respiratory distress. Cardiac: RRR, -mrg. Radial pulses intact and symmetrical. No LE edema. Abdominal: soft, non-tender, non-distended, BS x 4 Skin: warm, dry, no rash Discharge Data Allergies Allergy/AdvReac Type Severity Reaction Status Date / Time povidone-iodine Allergy Mild rash Verified 03/20/21 09:13 [From Betadine] Consultations 05/30/21 02:11 ED Decision to Admit Stat Ordered Studies 05/29/21 21:51 CT head/brain wo con Urgent Hospital Course (1) Hypertensive urgency: Luciana Daniels is a 75yo female with ovarian carcinoma, T2DM, HTN, and HLD was admitted to [facility] from 05/30 - 05/31 for hypertensive urgency. Hypertensive urgency On arrival to ED, BP was >220/120 but patient did not have signs of end-organ damage --> hypertensive urgency. Suspect 2/2 increased pain at ostomy site vs. anxiety. - BP improved to <180/90 with several doses of IV Labetalol - Continue home Lisinopril/HCTZ Metastatic ovarian carcinoma - No treatment indicated during this hospitalization HLD - Continue home rosuvastatin DM2 - HbA1c 6.8% (03/2021) - continue home regimen Asymptomatic bacteriuria Asymptomatic, afebrile, no leukocytosis, contaminated UA. - Received Ceftriaxone x1 in the ED - No further treatment indicated (2) Colostomy in place: (3) Ovarian cancer: (4) Hyperlipidemia: (5) Hypertension: (6) Type 2 diabetes mellitus: Total Time Total Time Spent Total Time Spent (In Minutes): <30 minutes Discharge Plan Discharge Items Patient Disposition: Home - Self-Care Reason For Visit: HYPERTENSIVE URGENCY Discharge Diagnosis: Hypertensive Urgency Condition on Discharge: Good Activity: Per Instructions section Non-emergency contact: Primary Care Provider and Oncologist Call non-emergency contact if: you have any medication questions Follow-up/Referrals: Navya Shamra MD [Primary Care Provider] - Diet: Carb Consistent or DM2 Addtl Attending Provider Instructions: You were admitted to [facility] on 05/30/2021 for very high blood pressure. You were given several IV blood pressure medicines and you responded appropriately. Your top blood pressure number improved to 140s-170s. You will be discharged in improved, stable condition on 05/31/2021. You should follow up with your PCP early on next week to monitor your blood pressure and to discuss this hospitalization. Please continue to take your blood pressures 2 times per day, record the values, and discuss them with your PCP at the appointment. Please continue to take all of your regular home medications as scheduled. We hope you continue to feel well. It was a pleasure to help provide your care while you were hospitalized. Pending Studies at Discharge: No Stand-Alone Forms: My [facility] [address] [employer], Smoking Cessation Medications and DC Order Prescriptions: Continued lisinopril-hydrochlorothiazide 20-25 mg tablet 1 tab PO QAM Qty: 90 RF: 3 acetaminophen 500 mg tablet 1,000 mg PO Q6H PRNRF: 0 multivitamin Tablet 1 tab PO DAILY RF: 0 potassium chloride 10 mEq capsule, extended release 10 meq PO DAILY Qty: 90 RF: 3 calcium carbonate [Calcium 500] 500 mg calcium (1,250 mg) Tablet 500 mg PO QAM RF: 0 omega 7-pus-hdz-fish oil [Fish Oil] 1,000 mg (120 mg-180 mg) Capsule 1 cap PO QAM RF: 0 biotin 1 mg Tablet 1 mg PO QAM RF: 0 rosuvastatin 10 mg tablet 10 mg PO HS RF: 0 Discharge Orders: Discharge Order (Routine); Ordered 05/31/21 Ordered By: Dameon Douglas Admission Data Admit Date/Time: 05/30/21 02:52 Attending Provider: Ty Echevarria Admit Provider: Orlando Truong Primary Care Provider: Navya Sharma Other Providers: Tami Chaudhary Other Interventions: Discharge Summary Assessment (RN) Last Done: 05/31/21 16:24 Supervising Physician Co-Signing Physician Notes I personally examined the patient and verified all zhao points of history and exam, discussed case, and agree with decision making with Dr Douglas [place] and feeling safe to go home Vitals noted, in general she is awake and alert pleasant no distress. HEENT normocephalic atraumatic mucous membranes moist. Breathing unlabored no accessory muscle use good effort. Skin shows no rashes no pallor or icterus. Neuro without focal deficits. Elevated blood pressureno signs or symptoms of end organ damage. Safe and stable. home. outpt f/u. Otherwise as above Resident Activity Tracking Resident Involvement: Resident Care Provided Care Provided: Adult Hospital Medicine
[2021-05-31 15:06] VITALS: BP 147/90; PULSE 85; TEMP 98.6; O2SAT 95
--- NOTE | 2021-05-31 20:42 | Billing Data ---
Date of Service May 31, 2021 Coding Level of Care Code 71006 OBS Care - Discharge
== END 2021-05-31 17:10 | disposition home or self-care (01) ==
LOC: ED 20:18 → 2N 20:18 → SUATTDRO 05-30 02:52 → 2N 05-30 04:45 → 3W 05-31 01:20

== ENCOUNTER 2021-07-03 10:10 | Observation (INO) ==
--- NOTE | 2021-07-03 11:36 | Emergency Department Note ---
Impression & Plan SBO (small bowel obstruction), Ovarian cancer, Abdominal pain ED Provider Note NAME: IBIS ARANA AGE: 75 SEX: F : 1945 ARRIVES VIA: Walk-In INFORMANT: Patient, ED PROVIDER(S): Sam Casey MD Chief Complaint: Abdominal pain, abnormal CAT scan HPI: Patient does present with concern for an over read on CT scan read that was completed last evening. The patient had presented for abdominal pain nausea and vomiting. Patient states that the pain is somewhat improved he did have some vomiting yesterday. The patient denies any fevers chills chest pains or shortness of breath. The patient does have a known history of ovarian cancer that is stage forward. The patient does follow with [facility] and is on by mouth chemo. Patient has been having liquid come out of her ostomy but has not had well formed stool. Patient denies any changes in diet. Patient states that the pain is mildly diffuse and achy in nature. It is nonradiating. ROS: See HPI for pertinent positives and negatives. A total of 10 systems were reviewed and otherwise negative. Past medical history: See below Surgical history: See below Social history: See below Physical Exam: GENERAL: NAD, [wearing glasses], [wearing a mask], non-toxic. EYE EXAM: Normal conjunctiva. PERRL, no anisocoria and EOM's grossly intact w/o pain. [OROPHARYNX: Moist mucus membranes. Grossly normal dentition. ] NECK: Supple, no nuchal rigidity, no adenopathy, non-tender. No signs of meningismus. LUNGS: Clear to auscultation. Normal chest wall mechanics. HEART: NSR, no MRG. ABDOMEN: Abdomen soft, mild diffuse discomfort, normo-active bowel sounds, no masses, no rebound or guarding. BACK: No CVA TTP. SKIN: No rashes and no bruising. UPPER EXTREMITIES: Upper extremities are grossly normal. LOWER EXTREMITIES: Grossly normal, no edema. NEURO EXAM: A&O x3, cranial nerves II-XII grossly intact, normal speech, moves all 4 extremities on command w/o issue. Differential diagnoses: Appendicitis, ovarian cyst, ovarian torsion, ectopic pr egnancy, TOA, PID, infections, diverticulitis, UTI, obstruction, mesenteric ischemia, aortic pathology, inflammatory bowel disease, renal colic, PUD, pancreatitis, biliary pathology, hernia, volvulus, constipation, as well as other pathologies. Course: Patient was seen and evaluated the bedside. Full history physical exam was performed. [EKG interpreted by me] Normal sinus rhythm, rate 96, normal ME and QRS, normal axis, no ST changes. Imaging Studies: See Below [Cardiac monitoring: An order was placed for continuous cardiac monitoring. The monitor shows a rate of 87 with sinus rhythm.] MDM: Patient does present concern for abdominal pain. I did review the patient's CAT scan read from most recent visit which did show partial small bowel obstruction. I did speak with Dr. Gannon who recommended continued care. I also did speak with Dr. Parrish who stated that the patient could stay at this hospital at this time. Patient does not have any active vomiting. I did speak with Dr. Milian and the patient was admitted to the medicine service. Past Med/Surg History Medical History Colostomy in place H/O squamous cell carcinoma of skin History of right breast cancer 2010--sx only Hyperlipidemia Hypertension Osteopenia Ovarian cancer peritoneal mets Port-A-Cath in place (03/03/20) Insertion of Mediport Dr. Cox 03/03/20 Situational anxiety Type 2 diabetes mellitus Surgical History History of bilateral tubal ligation History of section History of colon resection d/t tumor History of colonoscopy History of colostomy History of lumbar surgery History of lumpectomy of right breast History of open reduction and internal fixation (ORIF) procedure left big toe--hardware removed History of right breast biopsy History of tonsillectomy History of wisdom tooth extraction Status post Mohs surgery for squamous cell carcinoma of skin Family History Aunt Breast cancer Mother , age 56 2nd to acute [place] Myocardial infarction Cancer Hypertension Father , age 89 Heart disease Leukemia Other No family history of adverse response to anesthesia Denies family history of Ovarian cancer Prostate cancer Colorectal cancer Social History Smoking Status: Never smoker Second Hand Exposure: No; Hx Alcohol Use: No Hx Substance Use: No Preferred Language: Turkmen Communication Ability: Effective Visual Impairment: No Limitations Hearing Ability: Normal Webbing Se[employer] P[employer] Net Required: No Beliefs That Will Affect Care: None marital status: / Current Living Situation: Alone Current Living Situation Comment: Lives alone, family supportive and assists as needed 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, 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 How many Children do You have: 5 Feels Safe at Home: Yes Seatbelt Use: always Sunscreen Use: No Assistive Devices: None Assistive Devices Comment: Has a walker but has not needed Allergies Allergies Allergy/AdvReac Type Severity Reaction Status Date / Time povidone-iodine Allergy Mild rash Verified 07/03/21 12:25 [From Betadine] Home Meds Home Medications Medication Instructions Recorded Confirmed biotin 1 mg tablet 1 mg PO QAM 02/09/20 07/03/21 multivitamin (Daily Multi-Vitamin) 1 tab PO QAM 09/18/20 07/03/21 niraparib 100 mg capsule (Zejula) 200 mg PO QAM cap 06/06/21 07/03/21 lisinopril 20 1 tab PO QAM 07/03/21 07/03/21 mg-hydrochlorothiazide 25 mg tablet (Zestoretic) lorazepam 0.5 mg tablet (Ativan) See Rx Instructions PO Q8H PRN 07/03/21 07/03/21 metoprolol succinate 25 mg 25 mg PO QAM 07/03/21 07/03/21 tablet,extended release 24 hr (Toprol XL) potassium chloride 10 mEq 10 meq PO QAM 07/03/21 07/03/21 capsule,extended release rosuvastatin 10 mg tablet (Crestor) 10 mg PO HS 07/03/21 07/03/21 Results & Data (ED) Vital Signs Vital Signs - 24 hr 07/03/21 10:18 07/03/21 11:21 07/03/21 11:30 Temperature 36.7 C Temperature Source Temporal Artery Scan Pulse Rate 108 H 96 H Pulse Rate [Apical] 97 H Pulse Rate from SpO2 Sensor 95 H Respiratory Rate 18 20 19 Respiratory Effort / Characteristics Non-Labored Spontaneous Non-Labored Spontaneous Respiratory Depth Normal Normal Respiratory Pattern Regular Regular Blood Pressure 149/91 H 132/86 Blood Pressure [Right Arm] 138/90 Blood Pressure Mean 110 101 Blood Pressure Mean [Right Arm] 106 Blood Pressure Position Sitting Pulse Oximetry 99 99 98 Oxygen Delivery Method Room Air Room Air Sepsis Recent Fever Within 48 Hours No Sepsis New/Unexplained Change in Mental Status N/A Sepsis Action Taken by Nursing No Action Required 07/03/21 12:00 07/03/21 12:30 07/03/21 13:00 Temperature Temperature Source Pulse Rate 92 H 92 H 92 H Pulse Rate [Apical] Pulse Rate from SpO2 Sensor 94 H 91 H 92 H Respiratory Rate 22 18 21 Respiratory Effort / Characteristics Respiratory Depth Respiratory Pattern Blood Pressure 147/75 H 155/96 H 145/102 H Blood Pressure [Right Arm] Blood Pressure Mean 99 115 116 Blood Pressure Mean [Right Arm] Blood Pressure Position Pulse Oximetry 98 100 100 Oxygen Delivery Method Sepsis Recent Fever Within 48 Hours Sepsis New/Unexplained Change in Mental Status Sepsis Action Taken by Nursing 07/03/21 13:30 Temperature Temperature Source Pulse Rate 92 H Pulse Rate [Apical] Pulse Rate from SpO2 Sensor 93 H Respiratory Rate 19 Respiratory Effort / Characteristics Respiratory Depth Respiratory Pattern Blood Pressure 174/92 H Blood Pressure [Right Arm] Blood Pressure Mean 119 Blood Pressure Mean [Right Arm] Blood Pressure Position Pulse Oximetry 99 Oxygen Delivery Method Sepsis Recent Fever Within 48 Hours Sepsis New/Unexplained Change in Mental Status Sepsis Action Taken by [facility] Medications Current Medication List: was personally reviewed by me Laboratory Data Attestation: I reviewed the patient's lab results. Result diagrams: 07/04/21 05:29 07/04/21 05:29 Lab Results 07/03/21 07/03/21 07/03/21 Range/Units 11:37 11:37 11:37 WBC 8.33 (4.8-10.8) K/uL RBC 3.40 L (4.2-5.4) M/uL Hgb 11.4 L (12.0-16.0) g/dL Hct 34.4 L (37-47) % MCV 101.2 H (80-100) fL MCH 33.5 (25-34) pg MCHC 33.1 (32-36) g/dL RDW Std Deviation 58.5 H (36.4-46.3) fL RDW Coeff of Laz 15.7 H (11.5-14.5) % Plt Count 318 (130-400) K/uL MPV 10.1 (7.4-10.4) fL Immature Gran % (Auto) 0.4 % Neut % (Auto) 60.8 % Lymph % (Auto) 23.5 % Cochran % (Auto) 11.9 % Eos % (Auto) 3.0 % Baso % (Auto) 0.4 % Neut # (Auto) 5.07 (1.4-6.5) K/uL Lymph # (Auto) 1.96 (1.2-3.4) K/uL Cochran # (Auto) 0.99 H (0.11-0.59) K/uL Eos # (Auto) 0.25 (0-0.5) K/uL Baso # (Auto) 0.03 (0-0.2) K/uL Immature Gran # (Auto) 0.03 H (0.00-0.02) K/uL PT 9.6 (9.0-12.0) Seconds INR 0.9 (0.9-1.1) APTT 27.0 (21.0-31.0) Seconds PTT Ratio 1.0 Sodium 139 (136-145) mmol/L Potassium 3.7 (3.5-5.1) mmol/L Chloride 104 (98-107) mmol/L Carbon Dioxide 28 (21-32) mmol/L Anion Gap 7.0 (3-11) BUN 17 (7-18) mg/dl Creatinine 1.28 H (0.6-1.2) mg/dl Est Cr Clr Drug Dosing 33.1 ml/min Est GFR ( Amer) 46.7 ml/min Est GFR (Non-Af Amer) 40.3 ml/min BUN/Creatinine Ratio 13.4 (10-20) Glucose 128 H (70-99) mg/dl Calcium 9.2 (8.5-10.1) mg/dl Total Bilirubin 0.5 (0.2-1) mg/dl AST 40 H (15-37) U/L ALT 43 (12-78) U/L Alkaline Phosphatase 168 H (45-117) U/L Total Protein 7.0 (6.4-8.2) gm/dl Albumin 3.6 (3.4-5.0) gm/dl Globulin 3.4 (2.5-4.0) gm/dl Albumin/Globulin Ratio 1.1 (0.9-2) COVID-19 Eval Order SARS-CoV-2 (PCR) (Negative) 07/03/21 07/03/21 Range/Units 12:21 12:21 WBC (4.8-10.8) K/uL RBC (4.2-5.4) M/uL Hgb (12.0-16.0) g/dL Hct (37-47) % MCV (80-100) fL MCH (25-34) pg MCHC (32-36) g/dL RDW Std Deviation (36.4-46.3) fL RDW Coeff of Laz (11.5-14.5) % Plt Count (130-400) K/uL MPV (7.4-10.4) fL Immature Gran % (Auto) % Neut % (Auto) % Lymph % (Auto) % Cochran % (Auto) % Eos % (Auto) % Baso % (Auto) % Neut # (Auto) (1.4-6.5) K/uL Lymph # (Auto) (1.2-3.4) K/uL Cochran # (Auto) (0.11-0.59) K/uL Eos # (Auto) (0-0.5) K/uL Baso # (Auto) (0-0.2) K/uL Immature Gran # (Auto) (0.00-0.02) K/uL PT (9.0-12.0) Seconds INR (0.9-1.1) APTT (21.0-31.0) Seconds PTT Ratio Sodium (136-145) mmol/L Potassium (3.5-5.1) mmol/L Chloride (98-107) mmol/L Carbon Dioxide (21-32) mmol/L Anion Gap (3-11) BUN (7-18) mg/dl Creatinine (0.6-1.2) mg/dl Est Cr Clr Drug Dosing ml/min Est GFR ( Amer) ml/min Est GFR (Non-Af Amer) ml/min BUN/Creatinine Ratio (10-20) Glucose (70-99) mg/dl Calcium (8.5-10.1) mg/dl Total Bilirubin (0.2-1) mg/dl AST (15-37) U/L ALT (12-78) U/L Alkaline Phosphatase (45-117) U/L Total Protein (6.4-8.2) gm/dl Albumin (3.4-5.0) gm/dl Globulin (2.5-4.0) gm/dl Albumin/Globulin Ratio (0.9-2) COVID-19 Eval Order Covid19 at [facility] SARS-CoV-2 (PCR) NEGATIVE (Negative) Administered Medications Enoxaparin Sodium (Enoxaparin Inj 40 Mg/0.4 Ml Syr) 40 mg SQ Q24H ROSA Stop: 08/02/21 15:59 Last Admin: 07/03/21 17:56 Dose: 40 mg Documented by: [id number] Lactated Ringer's (Lr) 1,000 mls @ 90 mls/hr IV .Q11H7M ROSA Stop: 08/02/21 15:04 Last Admin: 07/04/21 02:12 Dose: 90 mls/hr Documented by: [id number] Infusion: 07/04/21 02:12 Dose: 90 mls/hr Documented by: [id number] Admin: 07/03/21 15:25 Dose: 90 mls/hr Documented by: [id number] Acetaminophen (Ofirmev) 1,000 mg in 100 mls @ 400 mls/hr IV Q8H PRN; Protocol PRN Reason: Headache Stop: 07/06/21 21:59 Last Admin: 07/04/21 06:05 Dose: 400 mls/hr Documented by: [id number] Miscellaneous (*Niraparib [Zejula]*Order Awaiting Action) 1 ea N/A QS ROSA Stop: 08/02/21 15:59 Last Admin: 07/04/21 00:18 Dose: Not Given Documented by: [id number] Admin: 07/03/21 17:56 Dose: Not Given Documented by: [id number] Discontinued Medications Acetaminophen (Acetaminophen 1000 Mg/100 Ml Iv) 1,000 mg IV ONCE ONE Stop: 07/03/21 13:34 Last Admin: 07/03/21 13:51 Dose: 1,000 mg Documented by: [id number] Sodium Chloride (Nss 1000ml) 1,000 mls @ 999 mls/hr IV .Q1H1M ONE Stop: 07/03/21 12:55 Last Infusion: 07/03/21 13:46 Dose: 0 mls/hr Documented by: [id number] Admin: 07/03/21 12:27 Dose: 999 mls/hr Documented by: [id number] Discharge Plan Visit Data Chief Complaint: Abnormal Labs/Diagnostic Testing Stated Complaint: ABNORMAL LABS ED Provider: Sam Casey Discharge Problem: SBO (small bowel obstruction), Ovarian cancer, Abdominal pain Patient Disposition: Admitted As Inpatient Discharge Instructions Interventions: ED Discharge Assessment Last Done: 07/03/21 14:37
[2021-07-03] MEDS ORDERED: SODIUM CHLORIDE 0.9% 1000ML 1,000 ML IV ONE (11:55)
[2021-07-03 12:05] LABS: Basophils # (auto) 0.03 K/uL (0-0.2); Basophils % (auto) 0.4 %; Eosinophils # (auto) 0.25 K/uL (0-0.5); Hematocrit (blood only) 34.4 % (37-47); Hemoglobin 11.4 g/dL (12.0-16.0); Immature Granulocytes # (auto) 0.03 K/uL (0.00-0.02); Immature Granulocytes % (auto) 0.4 %; Lymphocytes # (auto) 1.96 K/uL (1.2-3.4); Lymphocytes % (auto) 23.5 %; Mean Corpuscular Hemoglobin 33.5 pg (25-34); Mean Corpuscular Hgb Conc 33.1 g/dL (32-36); Mean Corpuscular Volume 101.2 fL (80-100); Mean Platelet Volume 10.1 fL (7.4-10.4); Monocytes # (auto) 0.99 K/uL (0.11-0.59); Monocytes % (auto) 11.9 %; Neutrophils # (auto) 5.07 K/uL (1.4-6.5); Neutrophils % (auto) 60.8 %; Platelet Count 318 K/uL (130-400); RDW Coefficient of Variation 15.7 % (11.5-14.5); RDW Standard Deviation 58.5 fL (36.4-46.3); White Blood Count 8.33 K/uL (4.8-10.8)
[2021-07-03 12:13] LABS: Albumin Level 3.6 gm/dl (3.4-5.0); BUN Creatinine Ratio 13.4 (10-20); Calcium 9.2 mg/dl (8.5-10.1); Creatinine Clr Calc Pharmacy 33.1 ml/min; Est GFR (African American) 46.7 ml/min; Est GFR (Non-African American) 40.3 ml/min; Potassium 3.7 mmol/L (3.5-5.1)
[2021-07-03 12:15] LABS: Albumin Globulin Ratio 1.1 (0.9-2); Bilirubin,Total 0.5 mg/dl (0.2-1); Globulin 3.4 gm/dl (2.5-4.0)
[2021-07-03 12:17] LABS: INR 0.9 (0.9-1.1); Prothrombin Time 9.6 Seconds (9.0-12.0)
--- NOTE | 2021-07-03 13:22 | History & Physical Report ---
Date of Service July 03, 2021 Assessment & Plan (1) SBO (small bowel obstruction): Plan: dilated loops of bowel with suspected transition point right lower quadrant - Conservative management at this time - NPO except Meds, IVF - No nausea or vomiting - follow ostomy output - KUB in the morning - If acutely worsens or unresolved may need to reach out to surgical oncology at [facility] (2) Abdominal pain: Plan: As above- tylenol morphine for severe pain (3) Hypertension: Plan: Recently started on combo HCTZ/Lisinopril following HTN urgency in May - follow while in house- note that patient does have sig history of situational anxiety (4) Headache: Plan: Last head CT in May - no metastatic lesions noted - old lacunar infarct within left centrum semiovale seen - if persists will re-image for metastatic disease vs. htn vs. stress headache (5) Port-A-Cath in place: Plan: For Chemotherapy - already accessed in the EMD- routine sterile care (6) Colostomy in place: Plan: Functioning without increase output - routine ostomy care- patient is very familiar with her device (7) Ovarian cancer: Plan: As per HPI - continue with her daily Zejula History of Present Illness Primary Care Provider: Navya Sharma MD 75 YOF with past medical history of: High grade papillary carcinoma, that was originally treated with 6 cycles of carbo/paclitaxel. In february 2020 she presented with a large bowel obstruction and due to diffuse peritoneal carcinomatosis with large peritoneal implant, She had an attempted debulking surgery in and due to tumor burden that was aborted and focused on lysis of adhesions, right salpingectomy, with biopsy- noted distorted anatomy and plaque disease involving the peritoneum. So she had a blowhole colostomy p erformed to alleviate her obstruction. In August 2020 she had another robotic assisted lysis of adhesions performed/ and She continued on 3 cycles of adjuvant chemotherapy. In September 2020 she had concern for obstruction at the opening of her colostomy and was managed with NG tube and red rubber catheter decompression. CTAP on 04/27 showed peritoneal metastatic disease with increase in the left ovarian size and she was started on Avastin. In January she followed up with her [facility] and discussed that her disease was "persistent but stable" and she was transitioned to Zejula therapy. Patient came to the EMD last night for acute onset of suprapubic sharp stabbing pain that would come in waves. This started yesterday evening. Prior to that she last ate yesterday early evening. She had a CT scan of her abdomen and pelvis performed last night that was originally interpreted as no obstruction, was re-red this morning as small bowel obstruction. The patient was notified and came to the EMD. The hospitalist was notified for admission. The patient has not had any increase in her ostomy output, no nausea or vomiting, her pain has not gotten worse since yesterday. Her abdomen is soft and tender with deeper palpation to LLQ and midline suprapubic. She has bowel sounds throughout. Ostomey output is semiformed soft green, occasionally she reports she will get some very mild blood and noticed some mucous yesterday. Patient has received her COVID vaccine as well as a BOOSTER last week, her COVID test on admission is Allergies Allergy/AdvReac Type Severity Reaction Status Date / Time povidone-iodine Allergy Mild rash Verified 07/03/21 12:25 [From Betadine] Home Medications Medication Instructions Recorded Confirmed Type biotin 1 mg tablet 1 mg PO QAM 02/09/20 07/03/21 History multivitamin (Daily Multi-Vitamin) 1 tab PO QAM 09/18/20 07/03/21 History niraparib 100 mg capsule (Zejula) 200 mg PO QAM cap 06/06/21 07/03/21 History lisinopril 20 1 tab PO QAM 07/03/21 07/03/21 History mg-hydrochlorothiazide 25 mg tablet (Zestoretic) lorazepam 0.5 mg tablet (Ativan) See Rx Instructions PO Q8H PRN 07/03/21 07/03/21 History metoprolol succinate 25 mg 25 mg PO QAM 07/03/21 07/03/21 History tablet,extended release 24 hr (Toprol XL) potassium chloride 10 mEq 10 meq PO QAM 07/03/21 07/03/21 History capsule,extended release rosuvastatin 10 mg tablet (Crestor) 10 mg PO HS 07/03/21 07/03/21 History Past Med/Surg History Medical History Colostomy in place H/O squamous cell carcinoma of skin History of right breast cancer 2010--sx only Hyperlipidemia Hypertension Osteopenia Ovarian cancer peritoneal mets Port-A-Cath in place (03/03/20) Insertion of Medicharlie Cox 03/03/20 Situational anxiety Type 2 diabetes mellitus Surgical History History of bilateral tubal ligation History of section History of colon resection d/t tumor History of colonoscopy History of colostomy History of lumbar surgery History of lumpectomy of right breast History of open reduction and internal fixation (ORIF) procedure left big toe--hardware removed History of right breast biopsy History of tonsillectomy History of wisdom tooth extraction Status post Mohs surgery for squamous cell carcinoma of skin Family History Aunt Breast cancer Mother , age 56 2nd to acute [place] Myocardial infarction Cancer Hypertension Father , age 89 Heart disease Leukemia Other No family history of adverse response to anesthesia Denies family history of Ovarian cancer Prostate cancer Colorectal cancer Social History Smoking Status: Never smoker Second Hand Exposure: No; Hx Alcohol Use: No Hx Substance Use: No Preferred Language: Jordanian Communication Ability: Effective Visual Impairment: No Limitations Hearing Ability: Normal Digital Project Coordinator Required: No Beliefs That Will Affect Care: None marital status: / Current Living Situation: Alone 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 status: retired current occupation: [employer] How many Children do You have: 5 Feels Safe at Home: Yes Seatbelt Use: always Sunscreen Use: No Assistive Devices: None Review of Systems Review of Systems: REVIEW OF SYSTEMS: Constitutional: No fever, sweats or chills Eyes: No diplopia, no worsening or blurred vision ENT: (+) headaches off and on located posteriorly, normal hearing, no trouble swallowing Respiratory: No cough, sputum, dyspnea at rest or on exertion Cardiovascular: No chest pain, tightness or palpitations Abdomen: (+) as per HPI Musculoskeletal: No joint pain, calf pain, swelling Neurologic: No weakness, numbness/tingling, or balance problems : (+) feels like she has weak stream, Psychiatric: No anxiety or depression Skin: No rash or itch Physical Exam Physical Exam: PHYSICAL EXAM: General: awake, alert, no apparent distress Head: Normocephalic, atraumatic ENT: PERRL, EOMI, no pharyngeal exudate, mucous membranes moist Neuro: AAO x 3, speech clear and appropriate, strength intact bilaterally 5/5, sensation intact and equal all extremities and dermatomes, no pronator drift Chest: equal rise and fall of the chest, no accessory muscle use, no heaves or thrills, Clear to auscultation, on room air, Cardiac: Regular rate and rhythm, telemetry reviewed, skin warm dry, cap refill <3 seconds, peripheral pulses +2 no JVD, no murmur, no JVD, no edema GI: ostomy functioning without increased output, soft, tender to deep palpation LLQ and suprapubic, no rebound, guarding or tenderness : Spontaneously voiding, no pain, no CVA tenderness, Extremities: Normal inspection, no peripheral edema or erythema, calfs nontender to palpation Psych: Normal mood and affect Skin: no rash or erythema Results & Data Results & Data ([facility]) Vital Signs (Past 12 Hours) Vital Signs Temp Pulse Pulse Resp BP BP Pulse Ox 07/03/21 12:00 92 H 22 147/75 H 98 07/03/21 11:30 96 H 19 132/86 98 07/03/21 11:21 97 H 20 138/90 99 07/03/21 10:18 36.7 C 108 H 18 149/91 H 99 Laboratory Results Abnormal Labs 07/03/21 07/03/21 11:37 11:37 RBC 3.40 L Hgb 11.4 L Hct 34.4 L MCV 101.2 H RDW Std Deviation 58.5 H RDW Coeff of Laz 15.7 H [place] # (Auto) 0.99 H Immature Gran # (Auto) 0.03 H Creatinine 1.28 H Glucose 128 H AST 40 H Alkaline Phosphatase [address] OF THE ABDOMEN AND PELVIS WITH CONTRAST-Service Date: 07/03/21 CLINICAL HISTORY: Abdominal pain. Ovarian cancer. Evaluate for obstruction at colostomy. COMPARISON STUDY: CT of the abdomen and pelvis April 27, 2021. TECHNIQUE: Following IV administration of 93 mL of Optiray, axial images of the abdomen and pelvis were obtained from the lung bases to the proximal femurs. Images were reviewed in the axial, sagittal, and coronal planes. IV contrast was administered without complication. Automated exposure control was utilized for the study. A dose lowering technique was utilized adhering to the principles of ALARA. CT DOSE: 271.42 mGy.cm FINDINGS: Trace right pleural effusion is noted. There is no pneumatosis, free air or portal venous gas. Multiple peritoneal implants are similar to CT of April 27, 2021. Nodularity of the subcutaneous fat of the left lower quadrant is again noted. This could reflect tumor. The adrenal glands, kidneys and pancreas are unremarkable. There is no hydronephrosis. There is a gallstone within the gallbladder. There is no evidence for acute cholecystitis. A small amount of ascites within the abdomen and pelvis has increased since prior examination. A 3.5 cm complex left ovarian lesion is again noted. There has been interval development of numerous loops of slightly dilated fluid-filled small bowel. These measure up to 2.4 cm in caliber. There is associated mesenteric infiltration and a small amount of ascites. Suspected transition point is noted within the right lower quadrant on axial image 294 of 431. Several small bowel loops converge on this point. Distal small bowel is relatively decompressed. No suspicious osseous lesions are noted. Major vasculature is patent. A transverse colostomy is again noted. IMPRESSION: 1. Multiple loops of mildly dilated fluid-filled small bowel with suspected transition point within the right lower quadrant. Multiple small bowel loops converge on this site. Mild associated mesenteric infiltration and a small amount of ascites. The findings suggest a partial small bowel obstruction, possibly due to peritoneal implants. Findings discussed with Dr. Casey at time of dictation. 2. Small amount of ascites, increased since prior examination. 3. Otherwise, no significant change in appearance of the abdomen and pelvis. No significant change in multiple peritoneal implants. ACT 112: Negative or not required by law. Electronically signed by: Harlan Sharma M.D. 07/03/2021 8:37 AM PA CHEST RADIOGRAPH AND UPRIGHT AND SUPINE AP RADIOGRAPHS OF THE ABDOMEN-Service Date: 07/02/21 CLINICAL HISTORY: Abdominal pain. Evaluate for obstruction. COMPARISON STUDY: CT of the chest, abdomen and pelvis April 27, 2021. Chest radiograph May 29, 2021. FINDINGS: Left sided [id number] is in place. There is no pneumothorax or pleural effusion. No evidence for pulmonary edema or pneumonia. Cardiac size is normal. Mediastinal contours are unremarkable. There is no free air. There is no radiographic evidence for a bowel obstruction. IMPRESSION: 1. No free air. No radiographic evidence for a bowel obstruction. 2. No acute cardiopulmonary findings. ECG Additional Comments: Normal sinus rhythm Septal infarct (cited on or before 02-JUL-2021) Prolonged QT Abnormal ECG When compared with ECG of 02-JUL-2021 22:52, (unconfirmed) No significant change was found Code Status & VTE Plan Code Status CODE: FULL VTE: SCD's, ambulation, Lovenox 40 mg sq daily Supervising Physician Co-Signing Physician Notes Pt seen/examined following SLUICE TENDER Alex Russ. Orders and plan of admission reviewed. 75 y/o F Hx HTN, HLD, Stage IV ovarian CA, prior bowel obstruction and ileostomy. Presents with lower abdominal and suprapubic pain. The pt had a CT the prior evening which was read as negative. This AM, the reading was revised, diagnosing an SBO. The pt was called back to the ER therefore. She has not been vomiting, but does report that she is not eating. She also c/o a headache. OE: General: AAO x 3, no distress ENT: No erythema or exudates, no thrush Eyes: FRANCISCO JAVIER, EOMI Head and neck: Normocephalic, atraumatic, No JVD, neck is supple. Chest/heart: Nontender, S1,2, RRR, no murmurs, no gallops Lungs: CTAB, no wheezing or crackles Abdomen: Abdomen is soft, tender in the lower quadrants L > R. Minimal bowel sounds. There is output in the ileostomy bag. Neuro: AAO x 3, speech is clear, no unilateral weakness or loss of sensation, coordination intact Musculoskeletal: No joint inflammation, muscle tenderness, FROM Skin: No acute rashes or ulcers Extremities: No clubbing, cyanosis, edema P: 1) SBO - likely partial - will attempt IVF, bowel rest, however, if this is due to tumor compression she may need intervention. 2) HTN - cont Lisinopril 3) HLD - cont statin 4) Met CA - current tx with niraparib 5) she has had a persistent SOLORZANO and we will consider MRI with contrast if it does not resolve. Full code - Lovenox prophylaxis Total time for this admit including review of labs, meds, imaging, records - discussion with pt and ER attending 39 min PG Care Time/CCT Total # of Minutes Spent Total Time Spent with Patient: Total time spent is greater than 50% in coordination of care (as documented) at patient's floor/unit and/or counseling patient: Coding Level of Care Code 57444 Initial Inpt Care Lvl 2 Diagnoses SBO (small bowel obstruction) K56.609 Abdominal pain R10.33 Abdominal location: periumbilical Hypertension I10 Hypertension type: unspecified Port-A-Cath in place Z95.[address] Z93.3 Ovarian cancer C56.9 Laterality: unspecified laterality Headache R51.9 (1) Ovarian cancer Laterality: unspecified laterality Qualified Code(s): C56.9 - Malignant neoplasm of unspecified ovary (2) Abdominal pain Abdominal location: periumbilical Qualified Code(s): R10.33 - Periumbilical pain (3) Hypertension Hypertension type: unspecified Qualified Code(s): I10 - Essential (primary) hypertension
[2021-07-03] MEDS ORDERED: ACETAMINOPHEN 1000 MG/100 ML IV IV ONE (13:33)
[2021-07-03] MEDS ORDERED: MoRPHine SULFATE 2 MG/ML CARP IV PRN (13:41)
[2021-07-03] MEDS ORDERED: LORazepam 0.5 MG TAB PO PRN (15:05)
[2021-07-03] MEDS ORDERED: ACETAMINOPHEN 1000 MG/100 ML IV IV PRN (15:05)
[2021-07-03] MEDS: LACTATED RINGER'S 1,000 ML IV SCH (15:25)
[2021-07-03] MEDS: ENOXAPARIN INJ 40 MG/0.4 ML SYR SQ SCH (17:56)
[2021-07-03] MEDS ORDERED: ACETAMINOPHEN 1,000 MG/100 ML VIAL IV PRN (22:00)
[2021-07-03] MEDS ORDERED: HEPARIN 100 UNIT/ML 5ML FLUSH FLUSH PRN (23:44)
[2021-07-04] MEDS: LACTATED RINGER'S 1,000 ML IV SCH ×2 (02:12→13:30)
[2021-07-04 05:44] LABS: Basophils # (auto) 0.03 K/uL (0-0.2); Basophils % (auto) 0.5 %; Eosinophils # (auto) 0.28 K/uL (0-0.5); Eosinophils % (auto) 4.6 %; Hematocrit (blood only) 30.3 % (37-47); Hemoglobin 10.1 g/dL (12.0-16.0); Immature Granulocytes # (auto) 0.03 K/uL (0.00-0.02); Immature Granulocytes % (auto) 0.5 %; Lymphocytes # (auto) 1.75 K/uL (1.2-3.4); Lymphocytes % (auto) 28.9 %; Mean Corpuscular Hemoglobin 33.6 pg (25-34); Mean Corpuscular Hgb Conc 33.3 g/dL (32-36); Mean Corpuscular Volume 100.7 fL (80-100); Mean Platelet Volume 9.7 fL (7.4-10.4); Monocytes % (auto) 9.9 %; Neutrophils # (auto) 3.37 K/uL (1.4-6.5); Neutrophils % (auto) 55.6 %; Platelet Count 241 K/uL (130-400); RDW Coefficient of Variation 15.4 % (11.5-14.5); RDW Standard Deviation 57.2 fL (36.4-46.3); Red Blood Count 3.01 M/uL (4.2-5.4); White Blood Count 6.06 K/uL (4.8-10.8)
[2021-07-04 06:18] LABS: BUN Creatinine Ratio 11.9 (10-20); Calcium 8.7 mg/dl (8.5-10.1); Creatinine Clr Calc Pharmacy 35.9 ml/min; Est GFR (African American) 51.5 ml/min; Est GFR (Non-African American) 44.5 ml/min; Magnesium 1.8 mg/dl (1.8-2.4); Potassium 3.5 mmol/L (3.5-5.1)
--- NOTE | 2021-07-04 07:32 | Electrocardiogram Report ---
Test Reason : Blood Pressure : / mmHG Vent. Rate : 096 BPM Atrial Rate : 096 BPM P-R Int : 184 ms QRS Dur : 086 ms QT Int : 406 ms P-R-T Axes : 062 045 072 degrees QTc Int : 512 ms Normal sinus rhythm Septal infarct (cited on or before 02-JUL-2021) Prolonged QT Abnormal ECG When compared with ECG of 02-JUL-2021 22:52, (unconfirmed) No significant change was found Confirmed by Jermaine Jain ([id number]) on 07/04/2021 7:32:04 AM Referred By: REFERRED SELF Confirmed By:Jermaine Jain
[2021-07-04] MEDS ORDERED: METOPROLOL SUCC 25MG EXT REL TAB PO SCH (09:00)
[2021-07-04] MEDS ORDERED: LISINOPRIL/HCTZ 20/25MG 1 TAB PO SCH (09:00)
--- NOTE | 2021-07-04 09:06 | XRay Report ---
KUB HISTORY: Small bowel obstruction. Follow-up. COMPARISON: Chest and abdominal series 07/02/2021. FINDINGS: The bowel gas pattern is unremarkable. There are no dilated loops of small bowel to suggest an obstruction. No renal calculi. No ureteral calculi. Calcifications in the deep pelvis likely rep resent phleboliths. Cholelithiasis, unchanged. No pneumoperitoneum or pneumatosis. IMPRESSION: No dilated loops of bowel identified. ACT 112: Negative or not required by law. Electronically signed by: Radu Jordan M.D. 07/04/2021 9:05 AM
--- NOTE | 2021-07-04 09:20 | Hospitalist Progress Note ---
Date of Service July 04, 2021 Assessment & Plan (1) SBO (small bowel obstruction): Plan: dilated loops of bowel with suspected transition point right lower quadrant surgery on consult -- appreciate co-management Continue IVF for now --> ostomy output improved and tolerating low fiber diet as advanced by general surgery KUB with improvement, no obstruction No pain. No fever. WBC wnl Feeling more comfortable monitoring overnight --> will also give Remeron tonight to help with sleep/depression/appetite. continue if effective. Also increasing her metoprolol to 37.5mg daily to help w HR and will d/c HCTZ and continue on just the lisinopril alone. Previous hospitalization for HTN and started the HCTZ/lisinopril but with likely on exam, worsening dehydration/dizziness as well leading to volume depletion (2) Abdominal pain: Plan: No further reported (3) Hypertension: Plan: Recently started on combo HCTZ/Lisinopril following HTN urgency in May (also with situational anxiety -- trying Remeron tonight for sleep/depression/anxiety/appetite as above) - follow while in house- note that patient does have sig history of situational anxiety Issues with PO intake/decreased appetite and discussed rather increasing her metoprolol and continuing lisinopril without the HCTZ Changes made to AM medications --> if BP remains stable afternoon tomorrow w changes, would continue at d/c and f/u with PCP She endorses dizziness when standing and could be worsening by dehydration from her HCTZ if not keeping well hydrated (4) Headache: Plan: Last head CT in May - no metastatic lesions noted - old lacunar infarct within left centrum semiovale seen - if persists will re-image for metastatic disease vs. htn vs. stress headache None reported today BUT DID ENDORSE DIZZINESS W AMBULATION AT TIMES. POSITIVE MURMUR ON EXAM BUT NOT DOCUMENTED ON PRIOR ADMISSION, BY PCP OR ADMITTING TEAM NO ECHO IN SYSTEM --> WILL OBTAIN GIVEN REPORTED DIZZINESS AND SIGNIFICANT AORTIC MURMUR ON EXAM (5) Port-A-Cath in place: Plan: For Chemotherapy -- no issues (6) Colostomy in place: Plan: Functioning without increase output - routine ostomy care- patient is very familiar with her device (7) Ovarian cancer: Plan: As per HPI - continue with her daily Zejula Most recent CA125 was 62 from 65 Hx anemia but also reported numbness/tingling to legs in past MCV >100 and will check B12/folate with am labs (8) Murmur: Plan: As above No echo obtained in our system -- she is unsure if one ever done Echo as above Plan: Continue to monitor overnight Medication changes to her BP agents Remeron tonight for sleep/appetite/psych Possible d/c tomorrow if continues to do well Admission and Anticipated Discharge Date Admission Date: July 03, 2021 Subjective Patient evaluated this afternoon. Doing well. Seen by surgery and diet advanced. Tolerated without pain. Ostomy now with liquid stool, emptied several times, which was previously almost formed from dehydration. Not much appetite due to taste/chemo. Admits also maybe eating things she shouldn't but not keeping up with enough fluids as well. Discussed depression/anxiety -- previously on daily meds but didn't think helpful. Daughter w substance abuse issues and likely scared about addiction to her ativan prn. Discussed Remeron to help w appetite/mood/sleep as she also admits to poor sleep. BP elevated recently and started on meds, HR usually fast. Does have murmur but states she thinks ECHO done not that long ago. She does endorse some dizziness at times. REVIEW OF RECORDS WITHOUT ANY ECHO IN OUR SYSTEM Discussed changing her metoprolol dose and getting rid of HCTZ of her HCTZ/lisinopril to avoid worsening dehydration and encouraged boost supplementations at least once daily as well. No f/c/cp/sob/abd pain/n/v reported. Questions/concerns addressed at this time. Review of Systems Review of Systems: All systems reviewed & are unremarkable except as noted in HPI & below Physical Exam Physical Exam: PHYSICAL EXAM: General: awake, alert, no apparent distress, chronically ill, thin Head: Normocephalic, atraumatic ENT: PERRL, EOMI, no pharyngeal exudate, mucous membranes slightly dry Neuro: AAO x 3, speech clear and appropriate, strength intact bilaterally 5/5, sensation intact and equal all extremities and dermatomes, no pronator drift Chest: equal rise and fall of the chest, no accessory muscle use, no heaves or thrills, Clear to auscultation, on room air. A-PORT TO LEFT CHEST (covered, c/d/i) Cardiac: RRR, LOUD SYSTOLIC MURMUR across precordium, no edema, no calf tenderness, pulses palpable bilateral GI: +BS, soft, non-tender, ostomy to LLQ with brown/greenish liquid output : no king Skin: cool, dry Psych: AOx3, euthymic but does endorse less interactions w people over last year/isolation Results & Data Results & Data ([facility]) Vital Signs (Past 12 Hours) Vital Signs Temp Pulse Resp BP Pulse Ox 07/04/21 07:00 36.6 C 84 18 163/90 H 98 07/03/21 22:38 36.5 C 90 16 169/96 H 94 Laboratory Results 07/04/21 07/04/21 07/03/21 Range/Units 05:29 05:29 12:21 WBC 6.06 (4.8-10.8) K/uL RBC 3.01 L (4.2-5.4) M/uL Hgb 10.1 L (12.0-16.0) g/dL Hct 30.3 L (37-47) % MCV 100.7 H (80-100) fL MCH 33.6 (25-34) pg MCHC 33.3 (32-36) g/dL RDW Std Deviation 57.2 H (36.4-46.3) fL RDW Coeff of Laz 15.4 H (11.5-14.5) % Plt Count 241 (130-400) K/uL MPV 9.7 (7.4-10.4) fL Immature Gran % (Auto) 0.5 % Neut % (Auto) 55.6 % Lymph % (Auto) 28.9 % [place] % (Auto) 9.9 % Eos % (Auto) 4.6 % Baso % (Auto) 0.5 % Neut # (Auto) 3.37 (1.4-6.5) K/uL Lymph # (Auto) 1.75 (1.2-3.4) K/uL [place] # (Auto) 0.60 H (0.11-0.59) K/uL Eos # (Auto) 0.28 (0-0.5) K/uL Baso # (Auto) 0.03 (0-0.2) K/uL Immature Gran # (Auto) 0.03 H (0.00-0.02) K/uL PT (9.0-12.0) Seconds INR (0.9-1.1) APTT (21.0-31.0) Seconds PTT Ratio Sodium 139 (136-145) mmol/L Potassium 3.5 (3.5-5.1) mmol/L Chloride 107 (98-107) mmol/L Carbon Dioxide 27 (21-32) mmol/L Anion Gap 5.0 (3-11) BUN 14 (7-18) mg/dl Creatinine 1.18 (0.6-1.2) mg/dl Est Cr Clr Drug Dosing 35.9 ml/min Est GFR ( Amer) 51.5 ml/min Est GFR (Non-Af Amer) 44.5 ml/min BUN/Creatinine Ratio 11.9 (10-20) Glucose 94 (70-99) mg/dl Calcium 8.7 (8.5-10.1) mg/dl Magnesium 1.8 (1.8-2.4) mg/dl Total Bilirubin (0.2-1) mg/dl AST (15-37) U/L ALT (12-78) U/L Alkaline Phosphatase (45-117) U/L Total Protein (6.4-8.2) gm/dl Albumin (3.4-5.0) gm/dl Globulin (2.5-4.0) gm/dl Albumin/Globulin Ratio (0.9-2) COVID-19 Eval Order SARS-CoV-2 (PCR) NEGATIVE (Negative) 07/03/21 07/03/21 07/03/21 Range/Units 12:21 11:37 11:37 WBC (4.8-10.8) K/uL RBC (4.2-5.4) M/uL Hgb (12.0-16.0) g/dL Hct (37-47) % MCV (80-100) fL MCH (25-34) pg MCHC (32-36) g/dL RDW Std Deviation (36.4-46.3) fL RDW Coeff of Laz (11.5-14.5) % Plt Count (130-400) K/uL MPV (7.4-10.4) fL Immature Gran % (Auto) % Neut % (Auto) % Lymph % (Auto) % [place] % (Auto) % Eos % (Auto) % Baso % (Auto) % Neut # (Auto) (1.4-6.5) K/uL Lymph # (Auto) (1.2-3.4) K/uL [place] # (Auto) (0.11-0.59) K/uL Eos # (Auto) (0-0.5) K/uL Baso # (Auto) (0-0.2) K/uL Immature Gran # (Auto) (0.00-0.02) K/uL PT 9.6 (9.0-12.0) Seconds INR 0.9 (0.9-1.1) APTT 27.0 (21.0-31.0) Seconds PTT Ratio 1.0 Sodium 139 (136-145) mmol/L Potassium 3.7 (3.5-5.1) mmol/L Chloride 104 (98-107) mmol/L Carbon Dioxide 28 (21-32) mmol/L Anion Gap 7.0 (3-11) BUN 17 (7-18) mg/dl Creatinine 1.28 H (0.6-1.2) mg/dl Est Cr Clr Drug Dosing 33.1 ml/min Est GFR ( Amer) 46.7 ml/min Est GFR (Non-Af Amer) 40.3 ml/min BUN/Creatinine Ratio 13.4 (10-20) Glucose 128 H (70-99) mg/dl Calcium 9.2 (8.5-10.1) mg/dl Magnesium (1.8-2.4) mg/dl Total Bilirubin 0.5 (0.2-1) mg/dl AST 40 H (15-37) U/L ALT 43 (12-78) U/L Alkaline Phosphatase 168 H (45-117) U/L Total Protein 7.0 (6.4-8.2) gm/dl Albumin 3.6 (3.4-5.0) gm/dl Globulin 3.4 (2.5-4.0) gm/dl Albumin/Globulin Ratio 1.1 (0.9-2) COVID-19 Eval Order Covid19 at [facility] SARS-CoV-2 (PCR) (Negative) 07/03/21 Range/Units 11:37 WBC 8.33 (4.8-10.8) K/uL RBC 3.40 L (4.2-5.4) M/uL Hgb 11.4 L (12.0-16.0) g/dL Hct 34.4 L (37-47) % MCV 101.2 H (80-100) fL MCH 33.5 (25-34) pg MCHC 33.1 (32-36) g/dL RDW Std Deviation 58.5 H (36.4-46.3) fL RDW Coeff of Laz 15.7 H (11.5-14.5) % Plt Count 318 (130-400) K/uL MPV 10.1 (7.4-10.4) fL Immature Gran % (Auto) 0.4 % Neut % (Auto) 60.8 % Lymph % (Auto) 23.5 % [place] % (Auto) 11.9 % Eos % (Auto) 3.0 % Baso % (Auto) 0.4 % Neut # (Auto) 5.07 (1.4-6.5) K/uL Lymph # (Auto) 1.96 (1.2-3.4) K/uL [place] # (Auto) 0.99 H (0.11-0.59) K/uL Eos # (Auto) 0.25 (0-0.5) K/uL Baso # (Auto) 0.03 (0-0.2) K/uL Immature Gran # (Auto) 0.03 H (0.00-0.02) K/uL PT (9.0-12.0) Seconds INR (0.9-1.1) APTT (21.0-31.0) Seconds PTT Ratio Sodium (136-145) mmol/L Potassium (3.5-5.1) mmol/L Chloride (98-107) mmol/L Carbon Dioxide (21-32) mmol/L Anion Gap (3-11) BUN (7-18) mg/dl Creatinine (0.6-1.2) mg/dl Est Cr Clr Drug Dosing ml/min Est GFR ( Amer) ml/min Est GFR (Non-Af Amer) ml/min BUN/Creatinine Ratio (10-20) Glucose (70-99) mg/dl Calcium (8.5-10.1) mg/dl Magnesium (1.8-2.4) mg/dl Total Bilirubin (0.2-1) mg/dl AST (15-37) U/L ALT (12-78) U/L Alkaline Phosphatase (45-117) U/L Total Protein (6.4-8.2) gm/dl Albumin (3.4-5.0) gm/dl Globulin (2.5-4.0) gm/dl Albumin/Globulin Ratio (0.9-2) COVID-19 Eval Order SARS-CoV-2 (PCR) (Negative) PG Care Time/CCT Total # of Minutes Spent Total Time Spent with Patient: Total time spent is greater than 50% in coordination of care (as documented) at patient's floor/unit and/or counseling patient: Coding Level of Care Code 77867 Subseq Hosp Care Lvl 3 Diagnoses SBO (small bowel obstruction) K56.609 Abdominal pain R10.33 Abdominal location: periumbilical Hypertension I10 Hypertension type: unspecified Headache R51.9 Port-A-Cath in place Z95.[address] Z93.3 Ovarian cancer C56.9 Laterality: unspecified laterality Murmur R01.1 (1) Ovarian cancer Laterality: unspecified laterality Qualified Code(s): C56.9 - Malignant neoplasm of unspecified ovary (2) Abdominal pain Abdominal location: periumbilical Qualified Code(s): R10.33 - Periumbilical pain (3) Hypertension Hypertension type: unspecified Qualified Code(s): I10 - Essential (primary) hypertension
[2021-07-04 09:45] LABS: Alanine Aminotransferase 35 U/L (12-78); Albumin Level 3.2 gm/dl (3.4-5.0); Alkaline Phosphatase 132 U/L (45-117); Aspartate Aminotransferase 35 U/L (15-37); Bilirubin Direct < 0.1 mg/dl (0-0.2); Bilirubin,Total 0.5 mg/dl (0.2-1); Total Protein 6.2 gm/dl (6.4-8.2)
[2021-07-04] MEDS ORDERED: SILVER SULFADIAZINE 1% CR 50 GM JAR EXT PRN (10:42)
--- NOTE | 2021-07-04 10:42 | Surgery Consultation ---
Date of Consultation July 04, 2021 Assessment & Plan (1) SBO (small bowel obstruction): repeat imaging shows no sbo. will advance diet. pain at stoma site appears c/w skin burn. will try silvadene. will sign off ..please call if any questions /concerns. (2) Colostomy in place: (3) Ovarian cancer: History of Present Illness Attending Physician: Kenyon Moya MD History of Present Illness 75 year old with diffuse ovarian ca as well as extensive abdominal surgical hx presented with lower abdominal pain "similar to bowel blockages I've had before".... no feeling better with no pain or nausea. Allergies Allergy/AdvReac Type Severity Reaction Status Date / Time povidone-iodine Allergy Mild rash Verified 07/03/21 12:25 [From Betadine] Home Medications Medication Instructions Recorded Confirmed Type biotin 1 mg tablet 1 mg PO QAM 02/09/20 07/03/21 History multivitamin (Daily Multi-Vitamin) 1 tab PO QAM 09/18/20 07/03/21 History niraparib 100 mg capsule (Zejula) 200 mg PO QAM cap 06/06/21 07/03/21 History lisinopril 20 1 tab PO QAM 07/03/21 07/03/21 History mg-hydrochlorothiazide 25 mg tablet (Zestoretic) lorazepam 0.5 mg tablet (Ativan) See Rx Instructions PO Q8H PRN 07/03/21 History metoprolol succinate 25 mg 25 mg PO QAM 07/03/21 07/03/21 History tablet,extended release 24 hr (Toprol XL) potassium chloride 10 mEq 10 meq PO QAM 07/03/21 07/03/21 History capsule,extended release rosuvastatin 10 mg tablet (Crestor) 10 mg PO HS 07/03/21 07/03/21 History Patient History Medical History Colostomy in place H/O squamous cell carcinoma of skin History of right breast cancer 2010--sx only Hyperlipidemia Hypertension Osteopenia Ovarian cancer peritoneal mets Port-A-Cath in place (03/03/20) Insertion of Mediport Dr. oCx 03/03/20 Situational anxiety Type 2 diabetes mellitus Surgical History History of bilateral tubal ligation History of section History of colon resection d/t tumor History of colonoscopy History of colostomy History of lumbar surgery History of lumpectomy of right breast History of open reduction and internal fixation (ORIF) procedure left big toe--hardware removed History of right breast biopsy History of tonsillectomy History of wisdom tooth extraction Status post Mohs surgery for squamous cell carcinoma of skin Family History Aunt Breast cancer Mother , age 56 2nd to acute NC Myocardial infarction Cancer Hypertension Father , age 89 Heart disease Leukemia Other No family history of adverse response to anesthesia Denies family history of Ovarian cancer Prostate cancer Colorectal cancer Social History Smoking Status: Never smoker Second Hand Exposure: No; Hx Alcohol Use: No Hx Substance Use: No Preferred Language: Italian Communication Ability: Effective Visual Impairment: No Limitations Hearing Ability: Normal [employer] Required: No Beliefs That Will Affect Care: None marital status: / Current Living Situation: Alone Current Living Situation Comment: Lives alone, family supportive and assists as needed 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 status: retired current occupation: [employer], [employer] How many Children do You have: 5 Feels Safe at Home: Yes Seatbelt Use: always Sunscreen Use: No Assistive Devices: None Assistive Devices Comment: Has a walker but has not needed Review of Systems Gastrointestinal: pain/burning at stoma site Physical Exam Constitutional: WD/WN, vitals as above no acute distress and not ill appearing Eyes: PERRL, conjunctivae normal, anicteric sclerae EOM intact bilaterally ENMT: external ear and nose normal, oropharynx normal Ears: no hearing impairment Neck: trachea midline, no thyromegaly Respiratory: normal respiratory effort; no respiratory distress and does not use accessory muscles Cardiovascular: Rate/Rhythm: regular rate and regular rhythm Gastrointestinal (Abdomen): soft. nt. nd. stoma on left mid abdomen--some tenderness at stoma site. Skin: no rashes, warm and dry Psychiatric: Orientation: alert, oriented x 3 and cooperative Results & Data ([facility]) Vital Signs (Past 12 Hours) Vital Signs Temp Pulse Resp BP Pulse Ox 07/04/21 07:00 36.6 C 84 18 163/90 H 98 PG Care Time/CCT Total # of Minutes Spent Total Time Spent with Patient: Total time spent is greater than 50% in coordination of care (as documented) at patient's floor/unit and/or counseling patient: Coding Level of Care Code 40092 Initial Inpt Care Lvl 3 Diagnoses SBO (small bowel obstruction) K56.[address] Z93.3 Ovarian cancer C56.9 Laterality: unspecified laterality (1) Ovarian cancer Laterality: unspecified laterality Qualified Code(s): C56.9 - Malignant neoplasm of unspecified ovary
[2021-07-04 11:15] LABS: Appearance Urine Clear (Clear); Bilirubin Urine Negative (Negative); Blood Urine Negative (Negative); Color Urine Yellow; Epithelial Cell Urine Auto >30 /lpf (0-5); Glucose Urine UA Negative (Negative); Ketones Urine 1+ (Negative); Leukocyte Esterase Urine Trace (Negative); Nitrite Urine Negative (Negative); Protein Urine Negative (Negative); RBC Urine Automated 0-4 /hpf (0-4); Specific Gravity Urine 1.022 (1.000-1.030); Urobilinogen Urine Negative (Negative)
[2021-07-04 11:25] LABS: Cast Urine Automated 0 /lpf (0-5)
[2021-07-04 11:26] LABS: Bacteria Urine Automated 1+ (Negative)
[2021-07-04] MEDS: ENOXAPARIN INJ 40 MG/0.4 ML SYR SQ SCH (15:51)
[2021-07-04] MEDS: ROSUVASTATIN CALCIUM 10 MG TAB PO SCH (19:43)
[2021-07-04] MEDS: MIRTAZAPINE TAB 15 MG TAB PO SCH (19:43)
[2021-07-05] MEDS ORDERED: hydrALAZINE HCL 20 MG/ML VIAL IV ONE (06:42)
[2021-07-05 08:24] LABS: Basophils # (auto) 0.02 K/uL (0-0.2); Basophils % (auto) 0.4 %; Eosinophils % (auto) 4.1 %; Hematocrit (blood only) 32.5 % (37-47); Hemoglobin 10.9 g/dL (12.0-16.0); Immature Granulocytes # (auto) 0.01 K/uL (0.00-0.02); Immature Granulocytes % (auto) 0.2 %; Lymphocytes # (auto) 1.39 K/uL (1.2-3.4); Lymphocytes % (auto) 28.2 %; Mean Corpuscular Hgb Conc 33.5 g/dL (32-36); Mean Corpuscular Volume 101.2 fL (80-100); Monocytes # (auto) 0.52 K/uL (0.11-0.59); Monocytes % (auto) 10.5 %; Neutrophils # (auto) 2.79 K/uL (1.4-6.5); Neutrophils % (auto) 56.6 %; Platelet Count 272 K/uL (130-400); RDW Standard Deviation 55.8 fL (36.4-46.3); Red Blood Count 3.21 M/uL (4.2-5.4); White Blood Count 4.93 K/uL (4.8-10.8)
--- NOTE | 2021-07-05 08:36 | Hospitalist Progress Note ---
Date of Service July 05, 2021 Assessment & Plan (1) SBO (small bowel obstruction): Plan: dilated loops of bowel with suspected transition point right lower quadrant surgery on consult -- appreciate co-management Continue IVF for now --> ostomy output improved and tolerating low fiber diet as advanced by general surgery KUB with improvement, no obstruction No pain. No fever. WBC wnl Has pasty brown output from ostomy this afternoon. No abd pain/nausea but placed back on IVF to help with hydration for 1L then monitor ability to keep up with PO Given Remeron 15mg HS for sleep/mood/appetite-- CONTINUE AT D/C HTN Recent hospitalization for HTN (discussed with heme-onc and recent chemo could be causing HTN) Also with loud systolic murmur suggestive of (+dizziness) without records of ever having ECHO done, currently pending She had recently been started on HCTZ during last hospitalization, however suspect causing worsening dehydration in patient with poor po intake already and changed medications as follows for today (she did get AM HCTZ yesterday before seen): * D/c HCTZ * Continue lisinopril 20mg daily * Increased metoprolol to 37.5mg daily --> will need new rx at d/c BP currently 149/84 and would monitor response and adjust as needed (2) Abdominal pain: Plan: No further reported (3) Hypertension: Plan: Recently started on combo HCTZ/Lisinopril following HTN urgency in May (also with situational anxiety -- trying Remeron tonight for sleep/depression/anxiety/appetite as above) - follow while in house- note that patient does have sig history of situational anxiety Issues with PO intake/decreased appetite and discussed rather increasing her metoprolol and continuing lisinopril without the HCTZ Changes made medications as above --> if BP remains stable afternoon tomorrow w changes, would continue at d/c and f/u with PCP She endorses dizziness when standing and could be worsening by dehydration from her HCTZ if not keeping well hydrated and ECHO pending as above (4) Headache: Plan: Last head CT in May - no metastatic lesions noted - old lacunar infarct within left centrum semiovale seen - if persists will re-image for metastatic disease vs. htn vs. stress headache None reported today BUT DID ENDORSE DIZZINESS W AMBULATION AT TIMES. POSITIVE MURMUR ON EXAM BUT NOT DOCUMENTED ON PRIOR ADMISSION, BY PCP OR ADMITTING TEAM NO ECHO IN SYSTEM --> WILL OBTAIN GIVEN REPORTED DIZZINESS AND SIGNIFICANT AORTIC MURMUR ON EXAM (5) Port-A-Cath in place: Plan: For Chemotherapy -- no issues (6) Colostomy in place: Plan: Functioning without increase output - routine ostomy care- patient is very familiar with her device (7) Ovarian cancer: Plan: As per HPI - continue with her daily Zejula Most recent CA125 was 62 from 65 Hx anemia but also reported numbness/tingling to legs in past MCV >100 and will check B12/folate with am labs (8) Murmur: Plan: As above No echo obtained in our system -- she is unsure if one ever done Echo as above Plan: Continue to monitor overnight Medication changes to her BP agents Remeron tonight for sleep/appetite/psych Possible d/c tomorrow if continues to do well Admission and Anticipated Discharge Date Admission Date: July 03, 2021 Subjective Patient evaluated this morning. Ostomy output more pasty smear and not liquid. Discussed backing down on diet and keeping up with hydration but will continue on full liquid diet. Remeron effective at sleep. Not much change in appetite but has been eating fair. Only had to get up once during the night to pee but then said she went back asleep and stayed asleep and feels rested. Discussed will continue this dose but could consider increasing as outpatient. BP better controlled this afternoon, 149/84. Discussed with hematology and her chemo has side effect of HTN as well, which could be why she needs better control and will continue to monitor with current changes. No fever, chills, chest pain, shortness of breath, further dizziness, nausea, vomiting or dysuria at this time. Getting additional IVF for 1 L then will stop and monitor ability to keep up with oral. Has a court appt tomorrow for daughter custody around 11 she believes. Asked her to call in AM and then alert nursing to contact hospitalist/CM to see if any arrangement/note can be provided or if she is able to attend via teleconference. Questions/concerns addressed at this time. To increase ambulation this evening to help w bowels/movement. Review of Systems Review of Systems: All systems reviewed & are unremarkable except as noted in HPI & below Physical Exam Physical Exam: PHYSICAL EXAM: General: awake, alert, no apparent distress, chronically ill, thin Head: Normocephalic, atraumatic ENT: PERRL, EOMI, no pharyngeal exudate, mucous membranes slightly dry Neuro: AAO x 3, speech clear and appropriate, strength intact bilaterally 5/5, sensation intact and equal all extremities and dermatomes, no pronator drift Chest: equal rise and fall of the chest, no accessory muscle use, no heaves or thrills, Clear to auscultation, on room air. A-PORT TO LEFT CHEST (covered, c/d/i) Cardiac: RRR, SYSTOLIC MURMUR across precordium (NOT LOUD THIS AFTERNOON), no edema, no calf tenderness, pulses palpable bilateral GI: +BS, soft, non-tender, ostomy to LLQ with pasty brown stool, no liquid : no king Skin: cool, dry Psych: AOx3, improved mood Results & Data Results & Data ([facility]) Vital Signs (Past 12 Hours) Vital Signs Temp Pulse Resp BP BP Pulse Ox 07/05/21 07:00 36.6 C 98 H 20 144/89 H 97 07/04/21 21:14 36.8 C 98 H 16 177/103 H 192/106 H 97 Laboratory Results 07/05/21 07/05/21 07/05/21 Range/Units 07:33 07:33 07:33 WBC 4.93 (4.8-10.8) K/uL RBC 3.21 L (4.2-5.4) M/uL Hgb 10.9 L (12.0-16.0) g/dL Hct 32.5 L (37-47) % MCV 101.2 H (80-100) fL MCH 34.0 (25-34) pg MCHC 33.5 (32-36) g/dL RDW Std Deviation 55.8 H (36.4-46.3) fL RDW Coeff of Laz 15.0 H (11.5-14.5) % Plt Count 272 (130-400) K/uL MPV 10.0 (7.4-10.4) fL Immature Gran % (Auto) 0.2 % Neut % (Auto) 56.6 % Lymph % (Auto) 28.2 % [place] % (Auto) 10.5 % Eos % (Auto) 4.1 % Baso % (Auto) 0.4 % Neut # (Auto) 2.79 (1.4-6.5) K/uL Lymph # (Auto) 1.39 (1.2-3.4) K/uL [place] # (Auto) 0.52 (0.11-0.59) K/uL Eos # (Auto) 0.20 (0-0.5) K/uL Baso # (Auto) 0.02 (0-0.2) K/uL Immature Gran # (Auto) 0.01 (0.00-0.02) K/uL Sodium 139 (136-145) mmol/L Potassium 3.5 (3.5-5.1) mmol/L Chloride 105 (98-107) mmol/L Carbon Dioxide 27 (21-32) mmol/L Anion Gap 7.0 (3-11) BUN 18 (7-18) mg/dl Creatinine 1.20 (0.6-1.2) mg/dl Est Cr Clr Drug Dosing 35.3 ml/min Est GFR ( Amer) 50.5 ml/min Est GFR (Non-Af Amer) 43.6 ml/min BUN/Creatinine Ratio 15.1 (10-20) Glucose 111 H (70-99) mg/dl Calcium 9.5 (8.5-10.1) mg/dl Magnesium 1.7 L (1.8-2.4) mg/dl Vitamin B12 584 (193-986) pg/ml Folate > 20.00 (>5.38) ng/ml PG Care Time/CCT Total # of Minutes Spent Total Time Spent with Patient: Total time spent is greater than 50% in coordination of care (as documented) at patient's floor/unit and/or counseling patient: Coding Level of Care Code 12629 Subseq Hosp Care Lvl 3 Diagnoses SBO (small bowel obstruction) K56.609 Abdominal pain R10.33 Abdominal location: periumbilical Hypertension I10 Hypertension type: unspecified Headache R51.9 Port-A-Cath in place Z95.[address] Z93.3 Ovarian cancer C56.9 Laterality: unspecified laterality Murmur R01.1 (1) Ovarian cancer Laterality: unspecified laterality Qualified Code(s): C56.9 - Malignant neoplasm of unspecified ovary (2) Abdominal pain Abdominal location: periumbilical Qualified Code(s): R10.33 - Periumbilical pain (3) Hypertension Hypertension type: unspecified Qualified Code(s): I10 - Essential (primary) hypertension
[2021-07-05] MEDS: NIRAPARIB PO SCH (08:44)
[2021-07-05] MEDS: lisinopril 20 MG TAB PO SCH (08:45)
[2021-07-05 09:01] LABS: BUN Creatinine Ratio 15.1 (10-20); Calcium 9.5 mg/dl (8.5-10.1); Creatinine Clr Calc Pharmacy 35.3 ml/min; Est GFR (African American) 50.5 ml/min; Est GFR (Non-African American) 43.6 ml/min; Magnesium 1.7 mg/dl (1.8-2.4); Potassium 3.5 mmol/L (3.5-5.1)
[2021-07-05 09:21] LABS: Folate (Folic Acid) > 20.00 ng/ml (>5.38); Vitamin B12 584 pg/ml (193-986)
[2021-07-05] MEDS ORDERED: MAGNESIUM SULFATE / D5W 1 GM/100 ML BAG IV ONE (09:30)
[2021-07-05] MEDS: METOPROLOL SUCC 25MG EXT REL TAB PO SCH (10:01)
[2021-07-05] MEDS: NSS + 20MEQ KCL 20 MEQ/1,000 ML BAG IV SCH (13:20)
--- NOTE | 2021-07-05 16:02 | XCELERA ---
[id number]
[2021-07-05] MEDS: ENOXAPARIN INJ 40 MG/0.4 ML SYR SQ SCH (16:29)
[2021-07-05] MEDS: ROSUVASTATIN CALCIUM 10 MG TAB PO SCH (21:35)
[2021-07-05] MEDS: MIRTAZAPINE TAB 15 MG TAB PO SCH (21:35)
[2021-07-06] MEDS: NSS + 20MEQ KCL 20 MEQ/1,000 ML BAG IV SCH ×2 (00:59→13:37)
[2021-07-06 06:33] LABS: Basophils # (auto) 0.04 K/uL (0-0.2); Basophils % (auto) 0.8 %; Eosinophils # (auto) 0.21 K/uL (0-0.5); Eosinophils % (auto) 4.4 %; Hematocrit (blood only) 29.4 % (37-47); Hemoglobin 9.8 g/dL (12.0-16.0); Immature Granulocytes # (auto) 0.01 K/uL (0.00-0.02); Immature Granulocytes % (auto) 0.2 %; Lymphocytes # (auto) 1.31 K/uL (1.2-3.4); Lymphocytes % (auto) 27.3 %; Mean Corpuscular Hemoglobin 33.6 pg (25-34); Mean Corpuscular Hgb Conc 33.3 g/dL (32-36); Mean Corpuscular Volume 100.7 fL (80-100); Mean Platelet Volume 9.8 fL (7.4-10.4); Monocytes # (auto) 0.62 K/uL (0.11-0.59); Monocytes % (auto) 12.9 %; Neutrophils # (auto) 2.61 K/uL (1.4-6.5); Neutrophils % (auto) 54.4 %; Platelet Count 260 K/uL (130-400); RDW Coefficient of Variation 15.2 % (11.5-14.5); RDW Standard Deviation 56.6 fL (36.4-46.3); Red Blood Count 2.92 M/uL (4.2-5.4)
[2021-07-06 07:03] LABS: BUN Creatinine Ratio 12.6 (10-20); Calcium 8.7 mg/dl (8.5-10.1); Creatinine Clr Calc Pharmacy 39.3 ml/min; Est GFR (African American) 57.3 ml/min; Est GFR (Non-African American) 49.5 ml/min; Magnesium 1.8 mg/dl (1.8-2.4); Potassium 3.9 mmol/L (3.5-5.1)
[2021-07-06] MEDS: METOPROLOL SUCC 25MG EXT REL TAB PO SCH (07:40)
[2021-07-06] MEDS: lisinopril 20 MG TAB PO SCH (07:40)
[2021-07-06] MEDS: NIRAPARIB PO SCH (07:41)
--- NOTE | 2021-07-06 13:34 | Discharge Summary ---
Date of Service July 06, 2021 Admission HPI Per Admitting Provider 75 YOF with past medical history of: High grade papillary carcinoma, that was originally treated with 6 cycles of carbo/paclitaxel. In february 2020 she presented with a large bowel obstruction and due to diffuse peritoneal carcinomatosis with large peritoneal implant, She had an attempted debulking surgery in and due to tumor burden that was aborted and focused on lysis of adhesions, right salpingectomy, with biopsy- noted distorted anatomy and plaque disease involving the peritoneum. So she had a blowhole colostomy performed to alleviate her obstruction. In August 2020 she had another robotic assisted lysis of adhesions performed/ and She continued on 3 cycles of adjuvant chemotherapy. In September 2020 she had concern for obstruction at the opening of her colostomy and was managed with NG tube and red rubber catheter decompression. CTAP on 04/27 showed peritoneal metastatic disease with increase in the left ovarian size and she was started on Avastin. In January she followed up with her RETAIL ADMINISTRATIVE ASSISTANT-ONC and discussed that her disease was "persistent but stable" and she was transitioned to Zejula therapy. Patient came to the EMD last night for acute onset of suprapubic sharp stabbing pain that would come in waves. This started yesterday evening. Prior to that she last ate yesterday early evening. She had a CT scan of her abdomen and pelvis performed last night that was originally interpreted as no obstruction, was re-red this morning as small bowel obstruction. The patient was notified and came to the EMD. The hospitalist was notified for admission. The patient has not had any increase in her ostomy output, no nausea or vomiting, her pain has not gotten worse since yesterday. Her abdomen is soft and tender with deeper palpation to LLQ and midline suprapubic. She has bowel sounds throughout. Ostomey output is semiformed soft green, occasionally she reports she will get some very mild blood and noticed some mucous yesterday. Patient has received her COVID vaccine as well as a BOOSTER last week, her COVID test on admission is Admission Exam Per Admitting Provider PHYSICAL EXAM: General: awake, alert, no apparent distress Head: Normocephalic, atraumatic ENT: PERRL, EOMI, no pharyngeal exudate, mucous membranes moist Neuro: AAO x 3, speech clear and appropriate, strength intact bilaterally 5/5, sensation intact and equal all extremities and dermatomes, no pronator drift Chest: equal rise and fall of the chest, no accessory muscle use, no heaves or thrills, Clear to auscultation, on room air, Cardiac: Regular rate and rhythm, telemetry reviewed, skin warm dry, cap refill <3 seconds, peripheral pulses +2 no JVD, no murmur, no JVD, no edema GI: ostomy functioning without increased output, soft, tender to deep palpation LLQ and suprapubic, no rebound, guarding or tenderness : Spontaneously voiding, no pain, no CVA tenderness, Extremities: Normal inspection, no peripheral edema or erythema, calfs nontender to palpation Psych: Normal mood and affect Skin: no rash or erythema Principal Diagnosis Working Diagnoses: 1. Small Bowel Obstruction- clinically improved 2. Dehydration- resolved 3. HTN- accelerated and somewhat stress induced 4. Cardiac Murmur- severe mitral annular calcification Discharge Exam General: Resting comfortably in her hospital bed. NAD. Neck: No JVD. Negative hepatojugular reflex Cardiac: RRR with 2/6 to 3/6 MAIDA heard best at the left sternal border Lungs: CTA without W/R/R Abdomen: Normoactive X4. Soft and nondistended and nontender in all quadrants. Stool and gas noted in ostomy bag. Stoma pink without surrounding evidence of infection Extremities: No peripheral clubbing cyanosis or edema Neuro: A&O X4 cranial nerves II through XII are grossly intact no focal neuro deficits Skin: No obvious skin lesions or rashes Discharge Data Allergies Allergy/AdvReac Type Severity Reaction Status Date / Time povidone-iodine Allergy Mild rash Verified 07/03/21 12:25 [From Betadine] Consultations 07/03/21 12:56 ED Decision to Admit Stat 07/04/21 09:10 Consult General Surgery Routine Assessment & Plan (1) SBO (small bowel obstruction): repeat imaging shows no sbo. will advance diet. pain at stoma site appears c/w skin burn. will try silvadene. will sign off ..please call if any questions /concerns. (2) Colostomy in place: (3) Ovarian cancer: Procedures Performed X-ray of chest, abdomen and pelvis (07/02/21): FINDINGS: Left sided [id number] is in place. There is no pneumothorax or pleural effusion. No evidence for pulmonary edema or pneumonia. Cardiac size is normal. Mediastinal contours are unremarkable. There is no free air. There is no radiographic evidence for a bowel obstruction. IMPRESSION: 1. No free air. No radiographic evidence for a bowel obstruction. 2. No acute cardiopulmonary findings. CT of the abdomen and pelvis with contrast (07/03/21): IMPRESSION: 1. Multiple loops of mildly dilated fluid-filled small bowel with suspected transition point within the right lower quadrant. Multiple small bowel loops converge on this site. Mild associated mesenteric infiltration and a small amount of ascites. The findings suggest a partial small bowel obstruction, possibly due to peritoneal implants. Findings discussed with Dr. Casey at time of dictation. 2. Small amount of ascites, increased since prior examination. 3. Otherwise, no significant change in appearance of the abdomen and pelvis. No significant change in multiple peritoneal implants. KUB (07/04/21): IMPRESSION: No dilated loops of bowel identified. Hospital Course (1) SBO (small bowel obstruction): patient hospitalized for SBO: noted to have dilated loops of bowel with suspected transition point right lower quadrant Patient was made NPO for bowel rest. responded favorable: abd pain resolved, she developed stooling and ga sin ostomy bag seen by General surgery (co-mgmt) who recommended no surgical intervention given clinical improvement FU Imaging did show resolution in SBO seen on daily rounds 07/06/21: abd nondistended, BS normoactive x4, soft and NT. Gas and stool in ostomy bag was started on Remeron while in house given increased anxiety and insomnia along with decreased appetite (ongoing). No ill effects. Continue this upon discharge. HTN Recent hospitalization for HTN (discussed with heme-onc and recent chemo could be causing HTN) Also with loud systolic murmur suggestive of (+dizziness) without records of ever having ECHO done, currently pending She had recently been started on HCTZ during last hospitalization, however suspect causing worsening dehydration in patient with poor po intake already and changed medications as follows for today (she did get AM HCTZ yesterday before seen): * D/c HCTZ * Continue lisinopril 20mg daily * Increased metoprolol to 37.5mg daily --> will need new rx at d/c BP currently 149/84 and would monitor response and adjust as needed (2) Abdominal pain: No further reported (3) Hypertension: Recently started on combo HCTZ/Lisinopril following HTN urgency in May (also with situational anxiety -- trying Remeron tonight for sleep/depression/anxiety/appetite as above) -BP elevated follow while in house- note that patient does have sig history of situational anxiety Issues with ongoing PO intake issues/decreased appetite and thus her metoprolol was increased and lisinopril/HCZT changed to straight lisinopril. PAtient to FU with PCP during hospitalization: She endorses dizziness when standing and could be worsening by dehydration from her HCTZ if not keeping well hydrated and ECHO pending as above. PAtient did receive IV hydration (4) Headache: Last head CT in May - no metastatic lesions noted - old lacunar infarct within left centrum semiovale seen - resolved following hydration (5) Port-A-Cath in place: For Chemotherapy -- no issues (6) Colostomy in place: Functioning without increase output - routine ostomy care- patient is very familiar with her device (7) Ovarian cancer: As per HPI - continue with her daily Zejula Most recent CA125 was 62 from 65 Hx anemia but also reported numbness/tingling to legs in past MCV >100 and will check B12/folate with am labs (8) Murmur: As above echo done showing severe mitral annular calcification. Hyerdynamic EF (70%) D/C to home FU with general surgery (established) FU with PCP FU with oncology return to the ED for new or worsening symptoms Total Time Total Time Spent Total Time Spent (In Minutes): 60 min including time spent with patient and D/W daughter (with whom I called) and D/W attending provider Discharge Plan Discharge Items Patient Disposition: Home - Home Health Services Reason For Visit: SBO Discharge Diagnosis: 1. small bowel obstruction- improved 2. Dehydration- resolved Activity: Resume your previous activity Non-emergency contact: Primary Care Provider, Hospitality Associate and Oncologist Call non-emergency contact if: you have any medication questions and your symptoms worsen Follow-up/Referrals: Navya Sharma MD [Primary Care Provider] - 07/10/21 1:00 pm (Appointment will be with Deuce Jarrett PA-C) Diet: Full liquid Diet Comment: full liquid-- advanced to low fiber as tolearted Addtl Attending Provider Instructions: - Maintain a full liquid diet for the next 1-2 days. Advance to a low residue diet as tolerated (maintain a LOW RESIDUE diet fpc) - see dietary information handout - note that your Lisinopril/HCTZ has been changed to Lisinopril (without the diuretic component) and your metoprolol has been increased. This was done to avoid the diuretic (HCTZ) component and further dehydration - Use silvadene to stoma site as needed for burning pain as outlined by surgery - Follow up with your Surgeon/GI: 2 weeks - follow up with Oncology: as scheduled - follow up with PCP: 7-10 days - return to the ED for new or worsening symptoms. Pending Studies at Discharge: No Stand-Alone Forms: My [facility] Medications and DC Order Prescriptions: New silver sulfadiazine [Silvadene] 1 % cream 1 applic topical BID PRN (Reason: wound healing) Qty: 400 RF: 0 silver sulfadiazine [SSD] 1 % Cream 1 applic EXT DAILY PRN (Reason: wound healing) Qty: 60 RF: 0 lisinopril 20 mg Tablet 20 mg PO QAM Qty: 30 RF: 0 mirtazapine 15 mg Tablet 15 mg PO HS Qty: 30 RF: 0 metoprolol succinate 25 mg Tablet Extended Release 24 Hr 37.5 mg PO QAM Qty: 45 RF: 0 Continued multivitamin [Daily Multi-Vitamin] Tablet 1 tab PO QAM RF: 0 Zejula 100 mg capsule 200 mg PO QAM RF: 0 biotin 1 mg Tablet 1 mg PO QAM RF: 0 potassium chloride 10 mEq capsule, extended release 10 meq PO QAM RF: 0 lorazepam [Ativan] 0.5 mg tablet See Rx Instructions PO Q8H PRN (Reason: anxiety) RF: 0 rosuvastatin [Crestor] 10 mg tablet 10 mg PO HS RF: 0 Discontinued lisinopril-hydrochlorothiazide [Zestoretic] 20-25 mg tablet 1 tab PO QAM RF: 0 metoprolol succinate [Toprol XL] 25 mg tablet extended release 24 hr 25 mg PO QAM RF: 0 Discharge Orders: Discharge Order (Routine); Ordered 07/06/21 Ordered By: Mee Alarcon/Other Patient Handouts: Small Bowel Obstruction, Low-Fiber Diet Admission Data Admit Date/Time: 07/03/21 13:31 Attending Provider: Raul Hrady Admit Provider: Benja Milian Primary Care Provider: Navya Sharma Other Providers: Soren Parrish ; Raul Hardy Other Interventions: Discharge Summary Assessment (RN) Last Done: 07/06/21 14:15 Supervising Physician Co-Signing Physician Notes I supervised Mee BRADY Gomes on this discharge. I interviewed and examined the patient independently of her. The plan is as written in her note except for any following changes/exceptions: None Doing well today. Has been tolerating full liquid diet easily. In discussion, she notes that she has had some mild SBO-like symptoms when eating things like hamburgers or other red meat and for this reason already avoids those foods. We discussed strategies for avoiding further SBOs including softer diets, lower fiber diets, and self-restricting diet if she starts to have further symptoms. As in Ms. Gomes's note, she will continue on a full liquid diet for another day or two and then gradually re-introduce firmer foods. Coding Level of Care Code Established Pt D/C DAY MANAGEMENT >30 MINS Patient Type Established Diagnoses SBO (small bowel obstruction) K56.609 Abdominal pain R10.33 Abdominal location: periumbilical Hypertension I10 Hypertension type: unspecified Headache R51.9 Port-A-Cath in place Z95.[address] Z93.3 Ovarian cancer C56.9 Laterality: unspecified laterality Murmur R01.1 Time Spent (min) 60
== END 2021-07-06 16:02 | disposition home health service (06) ==
LOC: ED 10:10 → SUATTDRO 13:31 → INTOOBSV 13:31 → 3W 13:31

== ENCOUNTER 2022-09-19 18:10 | Observation (INO) ==
[2022-09-19 22:00] LABS: Albumin Globulin Ratio 1.1 (0.9-2); Albumin Level 3.9 gm/dl (3.4-5.0); BUN Creatinine Ratio 12.6 (10-20); Basophils # (auto) 0.03 K/uL (0-0.2); Basophils % (auto) 0.3 %; Bilirubin,Total 0.6 mg/dl (0.2-1.0); Calcium 9.9 mg/dl (8.5-10.1); Creatinine Clr Calc Pharmacy 36.1 ml/min; Eosinophils # (auto) 0.04 K/uL (0-0.50); Eosinophils % (auto) 0.5 %; Est GFR (African American) 55.1 ml/min; Est GFR (Non-African American) 47.5 ml/min; Globulin 3.4 gm/dl (2.5-4.0); Hematocrit (blood only) 43.2 % (34.1-44.9); Hemoglobin 14.4 g/dl (12.0-16.0); Immature Granulocytes # (auto) 0.02 K/uL (0.00-0.02); Immature Granulocytes % (auto) 0.2 %; Lymphocytes # (auto) 1.62 K/uL (1.2-3.4); Lymphocytes % (auto) 18.5 %; Mean Corpuscular Hemoglobin 28.7 pg (25.0-34.0); Mean Corpuscular Hgb Conc 33.3 g/dL (32.0-36.0); Mean Corpuscular Volume 86.2 fL (80.0-100.0); Monocytes # (auto) 0.92 K/uL (0.24-0.82); Monocytes % (auto) 10.5 %; Neutrophils # (auto) 6.11 K/uL (1.4-6.5); Platelet Count 311 K/uL (130-400); Potassium 3.9 mmol/L (3.5-5.1); RDW Coefficient of Variation 14.6 % (11.5-14.5); RDW Standard Deviation 45.8 fL (36.4-46.3); Red Blood Count 5.01 M/uL (3.93-5.22); Total Protein 7.3 gm/dl (6.0-8.3); White Blood Count 8.74 K/ul (4.8-10.8)
[2022-09-19] MEDS ORDERED: ACETAMINOPHEN 1,000 MG/100 ML VIAL IV STA (22:10)
[2022-09-19] MEDS ORDERED: SODIUM CHLORIDE 0.9% 1000ML 500 ML IV ONE (22:10)
[2022-09-19] MEDS ORDERED: OPTIRAY 350 100ml IV ONE (22:19)
--- NOTE | 2022-09-20 00:34 | History & Physical Report ---
Date of Service September 20, 2022 Assessment & Plan (1) Nausea & vomiting: Plan: Acute-onset lower abdominal pain, no ostomy output and non-bloody/?bilious vomiting x3 yesterday, in context of surgical/cancer history and recurrent SBO. CT A/P without definite evidence of SBO (per [facility] report) although symptoms suggest mild resolving/partial SBO. - currently no nausea/vomiting/pain, and ostomy has some output - appears to be resolving - keep NPO for now, advance diet as tolerated - s/p NSS 500cc bolus, continue with LR @100cc/hr - KUB in AM - PRN Zofran for N/V, Tylenol/Dilaudid as graduated PRN pain regimen - defer NG tube and surgical consult as symptoms currently improving and mild in nature (2) Pleural effusion, right: Plan: Moderate right-sided pleural effusion, chronic, but worsening, per perusal of previous imaging this year. Most likely malignant in nature. Patient has been symptomatic/SOB with mild physical activity recently; likely due to this. - supplemental O2 as needed to maintain sats >90% (currently doing well on room air) - consulted Pulmonology for consideration of thoracentesis +/- PleurX catheter - appreciate recs - PT/PTT/INR ordered - pending - CXR in AM (3) Ovarian cancer: Plan: Chronic, with admission CT A/P showing progression of primary ovarian lesion as well as significant metastasis throughout abdomen. - hold daily Zejula while NPO - patient gets Avastin via left chest port [id number] - continue f/u with Heme/Onc as scheduled (4) Cancer related pain: Plan: PRN IV pain regimen ordered as stated above (5) Systolic murmur: Plan: Chronic per patient. No TTE for >1 year although last TTE did show left interventricular obstruction. - repeat TTE (6) Hypertension: Plan: Hold home Amlodipine/Lisinopril/Metoprolol while NPO. - Labetalol PRN for SBP >180 (7) Hyperlipidemia: Plan: Hold Rosuvastatin while NPO (8) Depression: Plan: Hold Wellbutrin/Remeron while NPO (9) Type 2 diabetes mellitus: Plan: Chronic, A1c 6.7 in 10/2021. Diet-controlled without home medications. - repeat A1c - hold on SSI/BSG checks for now Plan FEN/GI: NPO, LR @100cc/hr DVT Prophylaxis: SCDs, hold chemoppx due to possible thoracentesis Code Status: full code Disposition: med/tele History of Present Illness Chief Complaint: illness Primary Care Provider: Navya Sharma MD Luciana Daniels is a 76yo female with PMHx significant for metastatic ovarian cancer (to peritoneum and lungs; on Zejula nd Avastin), h/o SBO 2/2 to cancer (s/p decompressive colostomy at [facility] [place] in 2019), T2DM (A1c 6.7 in 10/2021), HTN, HLD and anxiety who presented to [facility] On 09/20 for acute-onset non-bloody yellow vomitus last night, with associated lower abdominal pain as well as no ostomy output for ~2 days. Patient reports that she vomited 3 times in the last 24 hours, and the last time her vomitus looked to be bilious. Reports that her nausea and abdominal pain have resolved since coming to the ED and lying in a hospital bed. However does not have an appetite. Patient experiences similar episodes every 2 weeks and usually limits her diet to fluids and the episodes resolve. Patient also reports feeling more fatigued over last several months, and also has had some shortness of breath with mild physical activity such as gardening which is usually atypical for her. Denies fever/chills, recent respiratory/GI illness, or dysuria. Denies rash. Patient lives alone in an apartment at [facility] [place]. She is proficient in all ADLs/iADLs. Daughter lives in [place]. Patient is satisfied that her chemotherapy has prevented the cancer from seeding in her "major organs" and plans to continue treatments as long as she tolerates them. In the ED the patient was hypertensive to 195/106. Afebrile and otherwise stable on room air. CBC/CMP/lipase largely unremarkable. CT A/P [facility] report without evidence for SBO, although colon proximal to ostomy is fluid-filled with mural hyperemia which may represent enterocolitis. Imaging also shows progression of metastatic disease. Lastly shows moderate right pleural effusion. Patient was given NSS 500cc bolus and Tylenol 1g IV. Has not required anti- emetics and has not vomited since arriving in ED. Allergies Allergy/AdvReac Type Severity Reaction Status Date / Time povidone-iodine Allergy Mild rash Verified 09/07/22 13:22 [From Betadine] Home Medications Medication Instructions Recorded Confirmed Type multivitamin (Daily Multi-Vitamin 1 tab PO QAM 09/18/20 09/07/22 History tablet) niraparib 100 mg capsule (Zejula) 100 mg PO QAM 06/06/21 09/07/22 History silver sulfadiazine 1 % topical 1 applic topical BID PRN wound 07/04/21 09/07/22 Rx cream (Silvadene) healing #400 grams amlodipine 10 mg tablet 10 mg PO DAILY #90 tabs 12/18/21 09/07/22 Rx mirtazapine 15 mg tablet 15 mg PO HS #90 tabs 12/18/21 09/07/22 Rx ipratropium bromide 21 mcg (0.03 2 spray intranasal BID #30 mL 12/22/21 09/07/22 Rx %) nasal spray lisinopril 20 mg tablet 20 mg PO BID #200 tabs 06/22/22 09/07/22 Rx rosuvastatin 10 mg tablet (Crestor) 10 mg PO DAILY #100 tabs 06/22/22 09/07/22 Rx bupropion HCl 150 mg 24 hr tablet, 150 mg PO QAM #30 tabs 08/04/22 09/07/22 Rx extended release metoprolol succinate 50 mg 50 mg PO BID #60 tabs 09/07/22 09/07/22 Rx tablet,extended release 24 hr oxycodone 5 mg tablet 5 mg PO BID PRN pain #30 tabs 09/07/22 09/07/22 Rx Past Med/Surg History Medical History (Updated 09/20/22 @ 01:26 by Dameon Douglas MD) Colostomy in place H/O squamous cell carcinoma of skin History of right breast cancer 2010--sx only History of small bowel obstruction Hyperlipidemia Hypertension Osteopenia Ovarian cancer peritoneal mets Port-A-Cath in place (03/03/20) Insertion of Obed Cox 03/03/20 Proteinuria Situational anxiety Systolic murmur Type 2 diabetes mellitus diet controlled Surgical History History of bilateral tubal ligation History of section History of colon resection d/t tumor History of colonoscopy History of colostomy History of lumbar surgery History of lumpectomy of right breast History of open reduction and internal fixation (ORIF) procedure left big toe--hardware removed History of right breast biopsy History of tonsillectomy History of wisdom tooth extraction Status post Mohs surgery for squamous cell carcinoma of skin Family History Aunt Breast cancer Mother , age 56 2nd to acute [place] Myocardial infarction Cancer Hypertension Father , age 89 Heart disease Leukemia Other No family history of adverse response to anesthesia Denies family history of Ovarian cancer Prostate cancer Colorectal cancer Social History Smoking Status: Never smoker Second Hand Exposure: No; Hx Alcohol Use: No (holidays) Hx Substance Use: No Preferred Language: Nicaraguan Communication Ability: Effective Visual Impairment: No Limitations Hearing Ability: Normal Combatant Diver Officer Required: No Beliefs That Will Affect Care: None marital status: / Current Living Situation: Alone Current Living Situation Comment: Lives alone, family supportive and assists as needed 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 status: 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 NAD. Cooperative. HEENT: Atraumatic, normocephalic. Pulm: Diminished sounds in right base with faint crackles. Left is clear to auscultation. Symmetrical chest rise. No increase work of breathing. No respiratory distress. Cardiac: RRR, systolic ejection murmur best auscultated at RUSB (chronic). Radial pulses intact and symmetrical. No LE edema. \\ Chest: left chest port without surrounding erythema Abdominal: soft, non-tender, lower abdomen mildly distended, BS x 4, ostomy bag with loose stool Skin: warm, dry, no rash Results & Data Results & Data ([facility]) Vital Signs (Past 12 Hours) Vital Signs Temp Pulse Pulse Resp BP BP Pulse Ox 09/19/22 22:27 94 H 20 165/94 H 09/19/22 22:00 84 22 143/92 H 09/19/22 21:32 85 20 155/93 H 92 09/19/22 21:30 85 21 93 09/19/22 21:08 87 94 09/19/22 21:08 87 20 177/101 H 94 09/19/22 18:29 36.6 C 97 H 18 160/101 H 95 O2 Del Method 09/19/22 22:27 09/19/22 22:00 09/19/22 21:32 09/19/22 21:30 09/19/22 21:08 09/19/22 21:08 Room Air 09/19/22 18:29 Room Air CBC w Diff Results Results CBC w Diff Results: RBC 5.01 M/uL (3.93-5.22) 09/19/22 WBC 8.74 K/ul (4.8-10.8) 09/19/22 Hgb 14.4 g/dl (12.0-16.0) 09/19/22 Hct 43.2 % (34.1-44.9) 09/19/22 MCV 86.2 fL (80.0-100.0) 09/19/22 MCH 28.7 pg (25.0-34.0) 09/19/22 MCHC 33.3 g/dL (32.0-36.0) 09/19/22 RDW Standard Deviation 45.8 fL (36.4-46.3) 09/19/22 RDW Coefficient of Variation 14.6 % (11.5-14.5) H 09/19/22 Plt Count 311 K/uL (130-400) 09/19/22 MPV 11.0 fL (9.4-12.3) 09/19/22 Neutrophils (%) (Auto) 70.0 % 09/19/22 Lymphocytes (%) (Auto) 18.5 % 09/19/22 Monocytes # (Auto) 0.92 K/uL (0.24-0.82) H 09/19/22 Eosinophils # (Auto) 0.04 K/uL (0-0.50) 09/19/22 Immature Granulocyte % (Auto) 0.2 % 09/19/22 Neutrophils # (Auto) 6.11 K/uL (1.4-6.5) 09/19/22 Lymphocytes # (Auto) 1.62 K/uL (1.2-3.4) 09/19/22 Monocytes # (Auto) 0.92 K/uL (0.24-0.82) H 09/19/22 Eosinophils # (Auto) 0.04 K/uL (0-0.50) 09/19/22 Basophils # (Auto) 0.03 K/uL (0-0.2) 09/19/22 Immature Granulocyte # (Auto) 0.02 K/uL (0.00-0.02) 2 Chemistry Results CMP Results: Na 138 mmol/L (136-145) 09/19/22 K 3.9 mmol/L (3.5-5.1) 09/19/22 Cl 101 mmol/L (98-107) 09/19/22 CO2 28 mmol/L (21-32) 09/19/22 Anion Gap 9 (3-11) 09/19/22 BUN 14 mg/dl (6-23) 09/19/22 Creatinine 1.11 mg/dl (0.6-1.2) 09/19/22 Estimated GFR ( Amer) 55.1 ml/min 09/19/22 Estimated GFR (Non-Af Amer) 47.5 ml/min 09/19/22 BUN/Creatinine Ratio 12.6 (10-20) 09/19/22 Glu 120 mg/dl (70-99(Fasting)) H 09/19/22 Ca 9.9 mg/dl (8.5-10.1) 09/19/22 Phosphorus Level 3.7 mg/dl (2.5-4.9) 09/16/21 Total Bilirubin 0.6 mg/dl (0.2-1.0) 09/19/22 Direct Bilirubin < 0.1 mg/dl (0-0.2) 07/04/21 AST 27 U/L (13-39) 09/19/22 ALT 15 U/L (7-52) 09/19/22 Alkaline Phosphatase 138 U/L (34-104) H 09/19/22 TP 7.3 gm/dl (6.0-8.3) 09/19/22 Albumin 3.9 gm/dl (3.4-5.0) 09/19/22 Globulin 3.4 gm/dl (2.5-4.0) 09/19/22 Albumin/Globulin Ratio 1.1 (0.9-2) 09/19/22 Lactate Dehydrogenase 206 U/L (84-246) 01/27/21 Code Status & VTE Plan Code Status full code Resident Activity Tracking Resident Involvement: Resident Care Provided Care Provided: Adult Hospital Medicine (1) Ovarian cancer Laterality: unspecified laterality Qualified Code(s): C56.9 - Malignant neoplasm of unspecified ovary (2) Hypertension Hypertension type: essential hypertension Qualified Code(s): I10 - Essential (primary) hypertension (3) Type 2 diabetes mellitus Diabetes mellitus assisted insulin use: without rn long term care use Diabetes mellitus complication status: without complication Qualified Code(s): E11.9 - Type 2 diabetes mellitus without complications
--- NOTE | 2022-09-20 00:42 | Emergency Department Note ---
History of Present Illness General Chief complaint: Illness Stated complaint: BOWEL BLOCKAGE Time Seen by Provider: 09/19/22 22:04 History of Present Illness Maximum Pain Intensity: 8 This 76-year-old with ovarian cancer with metastases presents to the ER complaining of abdominal pain with decreased ostomy output with nausea and vomiting Location: Generalized Quality: Nauseous Severity: Moderate Duration: Past day Timing: Started yesterday Context: Patient was concerned and came in Modifying factors: better with Tylenol; worse with activity Patient denies chest pain, fevers, flulike illness. She does feel short of breath that is ongoing. She has known pleural effusion. Home Medications Medication Instructions Recorded Confirmed Type multivitamin (Daily Multi-Vitamin 1 tab PO QAM 09/18/20 09/07/22 History tablet) niraparib 100 mg capsule (Zejula) 100 mg PO QAM 06/06/21 09/07/22 History silver sulfadiazine 1 % topical 1 applic topical BID PRN wound 07/04/21 09/07/22 Rx cream (Silvadene) healing #400 grams amlodipine 10 mg tablet 10 mg PO DAILY #90 tabs 12/18/21 09/07/22 Rx mirtazapine 15 mg tablet 15 mg PO HS #90 tabs 12/18/21 09/07/22 Rx ipratropium bromide 21 mcg (0.03 2 spray intranasal BID #30 mL 12/22/21 09/07/22 Rx %) nasal spray lisinopril 20 mg tablet 20 mg PO BID #200 tabs 06/22/22 09/07/22 Rx rosuvastatin 10 mg tablet (Crestor) 10 mg PO DAILY #100 tabs 06/22/22 09/07/22 Rx bupropion HCl 150 mg 24 hr tablet, 150 mg PO QAM #30 tabs 08/04/22 09/07/22 Rx extended release metoprolol succinate 50 mg 50 mg PO BID #60 tabs 09/07/22 09/07/22 Rx tablet,extended release 24 hr oxycodone 5 mg tablet 5 mg PO BID PRN pain #30 tabs 09/07/22 09/07/22 Rx Allergies Allergy/AdvReac Type Severity Reaction Status Date / Time povidone-iodine Allergy Mild rash Verified 09/07/22 13:22 [From Betadine] Past Med/Surg History Medical History (Updated 09/20/22 @ 02:50 by Dora Diez PA-C) Colostomy in place H/O squamous cell carcinoma of skin History of right breast cancer 2010--sx only History of small bowel obstruction Hyperlipidemia Hypertension Osteopenia Ovarian cancer peritoneal mets Port-A-Cath in place (03/03/20) Insertion of Mediport Dr. Cox 03/03/20 Proteinuria Situational anxiety Systolic murmur Type 2 diabetes mellitus diet controlled Surgical History History of bilateral tubal ligation History of section History of colon resection d/t tumor History of colonoscopy History of colostomy History of lumbar surgery History of lumpectomy of right breast History of open reduction and internal fixation (ORIF) procedure left big toe--hardware removed History of right breast biopsy History of tonsillectomy History of wisdom tooth extraction Status post Mohs surgery for squamous cell carcinoma of skin Family History Aunt Breast cancer Mother , age 56 2nd to acute MD Myocardial infarction Cancer Hypertension Father , age 89 Heart disease Leukemia Other No family history of adverse response to anesthesia Denies family history of Ovarian cancer Prostate cancer Colorectal cancer Social History Smoking Status: Never smoker Second Hand Exposure: No; Hx Alcohol Use: No (holidays) Hx Substance Use: No Preferred Language: Macedonian Communication Ability: Effective Visual Impairment: No Limitations Hearing Ability: Normal Housekeeping Director Required: No Beliefs That Will Affect Care: None marital status: / Current Living Situation: Alone Current Living Situation Comment: Lives alone, family supportive and assists as needed 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 status: 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 How many Children do You have: 5 Feels Safe at Home: Yes Childhood Exposure to Second-Hand Smoke: Yes caffeine: Yes Dental Care, Regularly: No Physical Activity Frequency: Does not Exercise Seatbelt Use: always Sunscreen Use: No Assistive Devices: Glasses Review of Systems A total of 10 systems reviewed and were otherwise negative Physical Exam Vital Signs Vital Signs - 24 hr 09/19/22 18:29 09/19/22 21:08 09/19/22 21:08 Temperature 36.6 C Temperature Source Temporal Artery Scan Pulse Rate 97 H 87 Pulse Rate [Finger] 87 Pulse Rate from SpO2 Sensor Respiratory Rate 18 20 Respiratory Effort / Characteristics Non-Labored Spontaneous Respiratory Depth Normal Respiratory Pattern Regular Blood Pressure 160/101 H Blood Pressure [Left Arm] 177/101 H Blood Pressure Mean 120 Blood Pressure Mean [Left Arm] 126 Blood Pressure Position Sitting Pulse Oximetry 95 94 94 Oxygen Delivery Method Room Air Room Air Sepsis Recent Fever Within 48 Hours No Sepsis New/Unexplained Change in Mental Status N/A Sepsis Action Taken by Nursing No Action Required 09/19/22 21:30 09/19/22 21:32 09/19/22 22:00 Temperature Temperature Source Pulse Rate 85 85 84 Pulse Rate [Finger] Pulse Rate from SpO2 Sensor 85 85 Respiratory Rate 21 20 22 Respiratory Effort / Characteristics Respiratory Depth Respiratory Pattern Blood Pressure 155/93 H 143/92 H Blood Pressure [Left Arm] Blood Pressure Mean 113 109 Blood Pressure Mean [Left Arm] Blood Pressure Position Pulse Oximetry 93 92 Oxygen Delivery Method Sepsis Recent Fever Within 48 Hours Sepsis New/Unexplained Change in Mental Status Sepsis Action Taken by Nursing 09/19/22 22:27 09/19/22 22:30 09/19/22 22:30 Temperature Temperature Source Pulse Rate 94 H 91 H Pulse Rate [Finger] Pulse Rate from SpO2 Sensor 92 H Respiratory Rate 20 19 Respiratory Effort / Characteristics Respiratory Depth Respiratory Pattern Blood Pressure 165/94 H 165/94 H Blood Pressure [Left Arm] Blood Pressure Mean 117 117 Blood Pressure Mean [Left Arm] Blood Pressure Position Pulse Oximetry 90 Oxygen Delivery Method Sepsis Recent Fever Within 48 Hours Sepsis New/Unexplained Change in Mental Status Sepsis Action Taken by Nursing 09/19/22 23:00 09/19/22 23:00 09/19/22 23:30 Temperature Temperature Source Pulse Rate 88 82 Pulse Rate [Finger] Pulse Rate from SpO2 Sensor 85 Respiratory Rate 18 17 Respiratory Effort / Characteristics Respiratory Depth Respiratory Pattern Blood Pressure 130/82 131/81 Blood Pressure [Left Arm] Blood Pressure Mean 98 97 Blood Pressure Mean [Left Arm] Blood Pressure Position Pulse Oximetry 94 Oxygen Delivery Method Sepsis Recent Fever Within 48 Hours Sepsis New/Unexplained Change in Mental Status Sepsis Action Taken by Nursing 09/20/22 00:00 09/20/22 00:30 09/20/22 01:00 Temperature Temperature Source Pulse Rate 84 80 90 Pulse Rate [Finger] Pulse Rate from SpO2 Sensor 84 80 Respiratory Rate 18 19 21 Respiratory Effort / Characteristics Respiratory Depth Respiratory Pattern Blood Pressure 135/94 132/81 Blood Pressure [Left Arm] Blood Pressure Mean 107 98 Blood Pressure Mean [Left Arm] Blood Pressure Position Pulse Oximetry 90 93 Oxygen Delivery Method Sepsis Recent Fever Within 48 Hours Sepsis New/Unexplained Change in Mental Status Sepsis Action Taken by Nursing 09/20/22 01:30 09/20/22 02:00 09/20/22 02:30 Temperature Temperature Source Pulse Rate 89 78 78 Pulse Rate [Finger] Pulse Rate from SpO2 Sensor 85 78 Respiratory Rate 26 H 17 16 Respiratory Effort / Characteristics Respiratory Depth Respiratory Pattern Blood Pressure 152/102 H 121/79 116/82 Blood Pressure [Left Arm] Blood Pressure Mean 118 93 93 Blood Pressure Mean [Left Arm] Blood Pressure Position Pulse Oximetry 94 95 Oxygen Delivery Method Sepsis Recent Fever Within 48 Hours Sepsis New/Unexplained Change in Mental Status Sepsis Action Taken by Nursing VITALS: Vitals are noted on the nurse's note and reviewed by myself. Vital signs reviewed. GENERAL: Pleasant female laying on the bed, in no acute distress, no ndiaphoretic, well-developed well-nourished. SKIN: The skin was without rashes, erythema, edema, or bruising. There is no tenting of the skin. Capillary reflex less than 2 seconds. HEAD: Normocephalic atraumatic. EARS: External auditory canals clear, EYES: Pupils equal round and reactive to light and accommodation. Conjunctivae without injection, sclerae without icterus. Extraocular movements intact. NOSE: Patent, turbinates without inflammation or discharge. MOUTH: Mucous membranes moist. Pharynx without erythema or exudate. Uvula midline. Airway patent. Tongue does not deviate. NECK: Supple without nuchal rigidity. No lymphadenopathy. No thyromegaly. Cervical spine is nontender. No JVD. HEART: Regular rate and rhythm LUNGS: Diminished breath sounds in the bases. ABDOMEN: Positive bowel sounds x 4. Normal tympanic percussion. Soft, mild diffuse tenderness with ostomy present, without masses or organomegaly. Schwarz sign negative. No guarding or rebound tenderness. No CVA tenderness MUSCULOSKELETAL: No muscle atrophy, erythema, or edema noted. NEURO: Patient was alert and oriented to person place and time. Normal sensation to light and sharp touch. No focal neurological deficits. Course Administered Medications Discontinued Medications Acetaminophen (Ofirmev) 1,000 mg in 100 mls @ 400 mls/hr IV NOW STA Stop: 09/19/22 22:24 Last Infusion: 09/20/22 00:28 Dose: 0 mls/hr Documented By: Admin: 09/19/22 22:42 Dose: 400 mls/hr Documented By: BS Sodium Chloride (Nss 1000ml) 500 mls @ 999 mls/hr IV .Q31M ONE Stop: 09/19/22 22:40 Last Infusion: 09/20/22 00:28 Dose: 0 mls/hr Documented By: Admin: 09/19/22 22:42 Dose: 999 mls/hr Documented By: ZUHAIR Ioversol (Optiray 350 100ml) 89 ml IV ONCE ONE Stop: 09/19/22 22:20 Last Admin: 09/19/22 22:20 Dose: 89 ml Documented By: LILLIANA Medical Decision Making Medical Records Attestation: I reviewed the patient's medical records. Home Medications Current Medication List: was personally reviewed by me Laboratory Data Attestation: I reviewed the patient's lab results. Result diagrams: 09/19/22 21:15 09/19/22 21:15 Lab Results 09/19/22 09/19/22 09/19/22 Range/Units 21:15 21:15 21:15 WBC 8.74 (4.8-10.8) K/ul RBC 5.01 (3.93-5.22) M/uL Hgb 14.4 (12.0-16.0) g/dl Hct 43.2 (34.1-44.9) % MCV 86.2 (80.0-100.0) fL MCH 28.7 (25.0-34.0) pg MCHC 33.3 (32.0-36.0) g/dL RDW Std Deviation 45.8 (36.4-46.3) fL RDW Coeff of Laz 14.6 H (11.5-14.5) % Plt Count 311 (130-400) K/uL MPV 11.0 (9.4-12.3) fL Immature Gran % (Auto) 0.2 % Neut % (Auto) 70.0 % Lymph % (Auto) 18.5 % [place] % (Auto) 10.5 % Eos % (Auto) 0.5 % Baso % (Auto) 0.3 % Neut # (Auto) 6.11 (1.4-6.5) K/uL Lymph # (Auto) 1.62 (1.2-3.4) K/uL [place] # (Auto) 0.92 H (0.24-0.82) K/uL Eos # (Auto) 0.04 (0-0.50) K/uL Baso # (Auto) 0.03 (0-0.2) K/uL Immature Gran # (Auto) 0.02 (0.00-0.02) K/uL PT 11.3 (9.0-12.0) Seconds INR 1.1 (0.9-1.1) APTT 101.5 H* (21.0-31.0) Seconds PTT Ratio 3.7 Sodium 138 (136-145) mmol/L Potassium 3.9 (3.5-5.1) mmol/L Chloride 101 (98-107) mmol/L Carbon Dioxide 28 (21-32) mmol/L Anion Gap 9 (3-11) BUN 14 (6-23) mg/dl Creatinine 1.11 (0.6-1.2) mg/dl Est Cr Clr Drug Dosing 36.1 ml/min Est GFR ( Amer) 55.1 ml/min Est GFR (Non-Af Amer) 47.5 ml/min BUN/Creatinine Ratio 12.6 (10-20) Glucose 120 H (70-99(Fasting)) mg/dl Calcium 9.9 (8.5-10.1) mg/dl Total Bilirubin 0.6 (0.2-1.0) mg/dl AST 27 (13-39) U/L ALT 15 (7-52) U/L Alkaline Phosphatase 138 H (34-104) U/L Total Protein 7.3 (6.0-8.3) gm/dl Albumin 3.9 (3.4-5.0) gm/dl Globulin 3.4 (2.5-4.0) gm/dl Albumin/Globulin Ratio 1.1 (0.9-2) Lipase 17 (11-82) U/L Urine Color Urine Appearance (Clear) Urine pH (4.5-7.5) Ur Specific [place] (1.000-1.030) Urine Protein (Negative) Urine Glucose (UA) (Negative) Urine Ketones (Negative) Urine Blood (Negative) Urine Nitrite (Negative) Urine Bilirubin (Negative) Urine Urobilinogen (Negative) Ur Leukocyte Esterase (Negative) SARS-CoV-2, RNA, NAAT (NEGATIVE) 09/20/22 09/20/22 Range/Units 00:03 01:30 WBC (4.8-10.8) K/ul RBC (3.93-5.22) M/uL Hgb (12.0-16.0) g/dl Hct (34.1-44.9) % MCV (80.0-100.0) fL MCH (25.0-34.0) pg MCHC (32.0-36.0) g/dL RDW Std Deviation (36.4-46.3) fL RDW Coeff of Laz (11.5-14.5) % Plt Count (130-400) K/uL MPV (9.4-12.3) fL Immature Gran % (Auto) % Neut % (Auto) % Lymph % (Auto) % [place] % (Auto) % Eos % (Auto) % Baso % (Auto) % Neut # (Auto) (1.4-6.5) K/uL Lymph # (Auto) (1.2-3.4) K/uL [place] # (Auto) (0.24-0.82) K/uL Eos # (Auto) (0-0.50) K/uL Baso # (Auto) (0-0.2) K/uL Immature Gran # (Auto) (0.00-0.02) K/uL PT (9.0-12.0) Seconds INR (0.9-1.1) APTT (21.0-31.0) Seconds PTT Ratio Sodium (136-145) mmol/L Potassium (3.5-5.1) mmol/L Chloride (98-107) mmol/L Carbon Dioxide (21-32) mmol/L Anion Gap (3-11) BUN (6-23) mg/dl Creatinine (0.6-1.2) mg/dl Est Cr Clr Drug Dosing ml/min Est GFR ( Amer) ml/min Est GFR (Non-Af Amer) ml/min BUN/Creatinine Ratio (10-20) Glucose (70-99(Fasting)) mg/dl Calcium (8.5-10.1) mg/dl Total Bilirubin (0.2-1.0) mg/dl AST (13-39) U/L ALT (7-52) U/L Alkaline Phosphatase (34-104) U/L Total Protein (6.0-8.3) gm/dl Albumin (3.4-5.0) gm/dl Globulin (2.5-4.0) gm/dl Albumin/Globulin Ratio (0.9-2) Lipase (11-82) U/L Urine Color Dark Yellow Urine Appearance Clear (Clear) Urine pH 5.0 (4.5-7.5) Ur Specific [place] > 1.045 H (1.000-1.030) Urine Protein 2+ H (Negative) Urine Glucose (UA) Negative (Negative) Urine Ketones Negative (Negative) Urine Blood Negative (Negative) Urine Nitrite Negative (Negative) Urine Bilirubin Negative (Negative) Urine Urobilinogen Negative (Negative) Ur Leukocyte Esterase 1+ H (Negative) SARS-CoV-2, RNA, NAAT NEGATIVE (NEGATIVE) Imaging Data Attestation: I personally reviewed and interpreted this imaging study as follows: MDM Narrative Prior records/ancillary studies reviewed and summarized above. Nursing notes reviewed. Additional history obtained from family. The patient's history was concerning for nausea vomiting abdominal pain with known ovarian cancer with metastases Differential diagnosis: Etiologies such as progression of cancer,metabolic, infection, hypo/hyperglycemia, electrolyte abnormalities, cardiac sources, intracerebral event, toxicologic, neurologic, as well as others were entertained. Physical examination: As above. ER treatment provided: IV Lock An order was placed for continuous cardiac monitoring. The monitor shows a rate of 60-100 with a sinus rhythm. Tylenol, IV fluid On reassessment the patient felt better. Diagnostics interpretation by me: The labs revealed no worrisome leukocytosis, negative COVID Imaging studies: CT ABDOMEN & PELVIS With Contrast: Comparison: CT abdomen and pelvis 03/08/22. Moderate right pleural effusion with right basilar atelectasis. Multiple hypoenhancing splenic lesions have increased in size, possibly worsening metastases. Nodularity along the liver surface, likely tumor implants. Largest tumor implant along the right liver capsule measuring 3.8 cm, measuring smaller than on prior Cholelithiasis without acute cholecystitis. Atrophic pancreas. Adrenal glands and kidneys are unremarkable. Atherosclerosis without aortic aneurysm. Enlarging soft tissue mass lateral to the upper aorta measuring 2.4 cm (series 2, image 29), likely tumor implant. Further evidence of carcinomatosis with numerous additional omental/peritoneal implants, appearing worsened. Bulky serosal implants along the cecum. Numerous soft tissue implants in the anterior abdominal wall, both in the subcutaneous tissues and in the abdominal wall musculature, increased in size from prior. [id number] left adnexal mass measuring 4.6 cm, increased from prior. Postoperative changes of the bowel with anterior midline colostomy. No definite evidence of bowel obstruction. Fluid-filled small bowel loops. The colon proximal to the ostomy is fluid-filled and demonstrates mural hyperemia. Findings could represent enterocolitis. Urinary bladder wall thickening, cystitis or incomplete distention. Correlate with urinalysis. No acute osseous findings. Radiologist: Sushma Vazquez M.D. Consultation: A consultation was placed with the hospitalist. The case was discussed and diagnostics were reviewed. The patient was evaluated in the ER for further treatment. Exam and history seem consistent with worsening cancer with pleural effusion. Patient was short of breath. Medicine was consulted. She will be evaluated for admission. She was hydrated as above. No obstruction on CAT scan. By the evaluation outlined above emergent etiologies such as electrolyte abnormalities, cardiac sources, intracerebral event, toxologic, neurologic, abnormalities blood glucose, metabolic, as well as others were deemed relatively unlikely. The pt informed about the findings as listed above. All questions were answered and pleased with the treatment. The chart was completed utilizing [employer] Speech voice recognition software. Grammatical errors, random word insertions, pronoun errors, and incomplete sentences are an occassional consequence of this system due to software limitations, ambient noise, and hardware issues. Any formal questions or concerns about the content, text, or information contained within the body of this dictation should be directly addressed to the physician head start assistant teacher for clarification. Impression & Plan Ovarian cancer, Abdominal pain, acute, Nausea & vomiting, Pleural effusion Discharge Plan Visit Data Chief Complaint: Illness Stated Complaint: BOWEL BLOCKAGE ED Provider: Ron Higgins ED Midlevel Provider: Dora Diez Discharge Problem: Ovarian cancer, Abdominal pain, acute, Nausea & vomiting, Pleural effusion Patient Disposition: Admitted As Inpatient Condition: Fair Forms Stand Alone Forms: [employer] Prescriptions Prescriptions: No Action multivitamin [Daily Multi-Vitamin] Tablet 1 tab PO QAM lisinopril 20 mg tablet 20 mg PO BID Qty: 200 3RF Rx Instructions: insurance prefers 100 day supply rosuvastatin [Crestor] 10 mg tablet 10 mg PO DAILY Qty: 100 3RF Rx Instructions: insurance prefers 100 day supply Zejula 100 mg capsule 100 mg PO QAM amlodipine 10 mg tablet 10 mg PO DAILY Qty: 90 3RF mirtazapine 15 mg tablet 15 mg PO HS Qty: 90 3RF ipratropium bromide 21 mcg (0.03 %) spray,non-aerosol 2 spray intranasal BID Qty: 30 2RF Rx Instructions: administer into each nostril bupropion HCl 150 mg tablet extended release 24 hr 150 mg PO QAM Qty: 30 5RF metoprolol succinate 50 mg tablet extended release 24 hr 50 mg PO BID Qty: 60 5RF oxycodone 5 mg tablet 5 mg PO BID PRN (Reason: pain) Qty: 30 0RF silver sulfadiazine [Silvadene] 1 % cream 1 applic topical BID PRN (Reason: wound healing) Qty: 400 0RF Rx Instructions: apply a 1.5 mm thickness Referrals Referrals: Navya Sharma MD [Primary Care Provider] -
[2022-09-20 01:50] LABS: Appearance Urine Clear (Clear); Bilirubin Urine Negative (Negative); Blood Urine Negative (Negative); Color Urine Dark Yellow; Epithelial Cell Urine Auto >30 /lpf (0-5); Glucose Urine UA Negative (Negative); Ketones Urine Negative (Negative); Leukocyte Esterase Urine 1+ (Negative); Nitrite Urine Negative (Negative); Protein Urine 2+ (Negative); RBC Urine Automated 0-4 /hpf (0-4); Specific Gravity Urine > 1.045 (1.000-1.030); Urobilinogen Urine Negative (Negative); WBC Urine Automated >30 /hpf (0-5)
[2022-09-20 01:52] LABS: INR 1.1 (0.9-1.1); Partial Thromboplastin Ratio 3.7; Prothrombin Time 11.3 Seconds (9.0-12.0)
[2022-09-20 02:29] LABS: Partial Thromboplastin Time 101.5 Seconds (21.0-31.0)
[2022-09-20 03:16] LABS: Bacteria Urine Automated 1+ (Negative); Mucus Urine Present (None Prsent)
[2022-09-20] MEDS ORDERED: cefTRIAXone SODIUM 2,000 MG/70 ML BAG IV STA (03:40)
[2022-09-20] MEDS ORDERED: HYDROmorphone INJ 0.5 MG/0.5 ML SYR IV PRN (04:05)
[2022-09-20] MEDS ORDERED: ONDANSETRON INJ 2 MG/ML 2 ML VIAL IV PRN (04:05)
[2022-09-20] MEDS ORDERED: ACETAMINOPHEN 1,000 MG/100 ML VIAL IV PRN (04:05)
[2022-09-20] MEDS ORDERED: LABETALOL HCL IV 5 MG/ML 20ML IV PRN (04:05)
[2022-09-20] MEDS ORDERED: LACTATED RINGER'S 1,000 ML IV SCH (04:05)
[2022-09-20 06:39] LABS: Estimated Average Glucose 131 mg/dl; Hemoglobin A1C 6.2 % (4.5-5.6)
--- NOTE | 2022-09-20 07:09 | Hospitalist Progress Note ---
Date of Service September 20, 2022 Assessment & Plan (1) Nausea & vomiting: Plan: Acute-onset lower abdominal pain, no ostomy output and non-bloody/?bilious vomiting x3 yesterday, in context of surgical/cancer history and recurrent SBO. CT A/P without definite evidence of SBO (per [facility] report) although symptoms suggest mild resolving/partial SBO. - currently no nausea/vomiting/pain, and ostomy has some output - appears to be resolving - keep NPO for now, advance diet as tolerated - s/p NSS 500cc bolus, continue with LR @100cc/hr - KUB in AM - PRN Zofran for N/V, Tylenol/Dilaudid as graduated PRN pain regimen - defer NG tube and surgical consult as symptoms currently improving and mild in nature (2) Pleural effusion, right: Plan: Moderate right-sided pleural effusion, chronic, but worsening, per perusal of previous imaging this year. Most likely malignant in nature. Patient has been symptomatic/SOB with mild physical activity recently; likely due to this. - supplemental O2 as needed to maintain sats >90% (currently doing well on room air) - consulted Pulmonology for consideration of thoracentesis +/- PleurX catheter - appreciate recs - PT/PTT/INR ordered - pending - CXR in AM (3) Ovarian cancer: Plan: Chronic, with admission CT A/P showing progression of primary ovarian lesion as well as significant metastasis throughout abdomen. - hold daily Zejula while NPO - patient gets Avastin via left chest port [id number] - continue f/u with Heme/Onc as scheduled (4) Cancer related pain: Plan: PRN IV pain regimen ordered as stated above (5) Systolic murmur: Plan: Chronic per patient. No TTE for >1 year although last TTE did show left interventricular obstruction. - repeat TTE (6) Hypertension: Plan: Hold home Amlodipine/Lisinopril/Metoprolol while NPO. - Labetalol PRN for SBP >180 (7) Hyperlipidemia: Plan: Hold Rosuvastatin while NPO (8) Depression: Plan: Hold Wellbutrin/Remeron while NPO (9) Type 2 diabetes mellitus: Plan: Chronic, A1c 6.7 in 10/2021. Diet-controlled without home medications. - repeat A1c - hold on SSI/BSG checks for now Plan FEN/GI: NPO, LR @100cc/hr DVT Prophylaxis: SCDs, hold chemoppx due to possible thoracentesis Code Status: full code Disposition: med/tele Admission and Anticipated Discharge Date Admission Date: September 20, 2022 Results & Data Results & Data ([facility]) Vital Signs (Past 12 Hours) Vital Signs Temp Pulse Pulse Resp BP BP Pulse Ox 09/20/22 03:47 76 09/20/22 04:35 36.6 C 83 18 149/93 H 93 09/20/22 02:30 78 16 116/82 95 09/20/22 02:00 78 17 121/79 09/20/22 01:30 89 26 H 152/102 H 94 09/20/22 01:00 90 21 09/20/22 00:30 80 19 132/81 93 09/20/22 00:00 84 18 135/94 90 09/19/22 23:30 82 17 131/81 94 09/19/22 23:00 88 18 09/19/22 23:00 130/82 09/19/22 22:30 91 H 19 90 09/19/22 22:30 165/94 H 09/19/22 22:27 94 H 20 165/94 H 09/19/22 22:00 84 22 143/92 H 09/19/22 21:32 85 20 155/93 H 92 09/19/22 21:30 85 21 93 09/19/22 21:08 87 94 09/19/22 21:08 87 20 177/101 H 94 O2 Del Method 09/20/22 03:47 09/20/22 04:35 Room Air 09/20/22 02:30 09/20/22 02:00 09/20/22 01:30 09/20/22 01:00 09/20/22 00:30 09/20/22 00:00 09/19/22 23:30 09/19/22 23:00 09/19/22 23:00 09/19/22 22:30 09/19/22 22:30 09/19/22 22:27 09/19/22 22:00 09/19/22 21:32 09/19/22 21:30 09/19/22 21:08 09/19/22 21:08 Room Air (1) Ovarian cancer Laterality: unspecified laterality Qualified Code(s): C56.9 - Malignant neoplasm of unspecified ovary (2) Hypertension Hypertension type: essential hypertension Qualified Code(s): I10 - Essential (primary) hypertension (3) Type 2 diabetes mellitus Diabetes mellitus usp insulin use: without usp use Diabetes mellitus complication status: without complication Qualified Code(s): E11.9 - Type 2 diabetes mellitus without complications
--- NOTE | 2022-09-20 07:30 | XRay Report ---
XR chest 1V portable HISTORY: right pleural effusion COMPARISON: Chest CT 09/10/2022. FINDINGS: Redemonstration of the moderate to large right pleural effusion with right basilar densitie s. No pneumothorax. A left Port-A-Cath terminates in the SVC. The heart is normal in size. The left l nereyda appears clear. IMPRESSION: Redemonstration of the moderate to large right pleural effusion. ACT 112: Negative or not required by law. Electronically signed by: Radu Jordan M.D. 09/20/2022 7:29 AM
--- NOTE | 2022-09-20 07:51 | CT Scan Report ---
ABDOMEN AND PELVIS CT WITH IV CONTRAST CT DOSE: 287.39 mGy.cm HISTORY: Generalized abdominal pain. TECHNIQUE: Multiaxial CT images of the abdomen and pelvis were performed following the use of intrave nous contrast. A dose lowering technique was utilized adhering to the principles of ALARA. COMPARISON STUDY: 09/10/2022. FINDINGS: Partially visualized moderate right pleural effusion. Question subtle nodularity along the right pleural lining posteriorly. No pneumoperitoneum. No pneumatosis. Cholelithiasis. The adrenal gl ands and kidneys are unremarkable. Normal caliber abdominal aorta. Small amount of ascites is noted. This is similar to the prior study. Moderate bladder wall thickening which has progressed. Scattered subcutaneous and intramuscular soft tissue mass is again noted. Midline ostomy site is present. No ch marin in the hypodense foci within the spleen. Hepatic subcapsular masses remain unchanged. Enlarged r etroperitoneal/periportal lymph nodes again noted. Partially calcified mass again noted within the ce ntral mesentery. There are few mildly dilated loops of bowel seen within the abdomen which have sligh tly progressed. This is most pronounced within the proximal colon which demonstrate a possible transi tion point at the mid colon on images 202. This could represent a partial large bowel obstruction. Th ere is mild thickening of the proximal colon which could also represent a low-grade colitis. Adnexal/ pelvic masses again noted consistent with metastatic disease. IMPRESSION: 1. There are few mildly dilated loops of bowel seen within the abdomen which have slightly progressed . This is most pronounced within the proximal colon which demonstrates a possible transition point at the mid colon near the calcified central mesenteric mass. This could represent a partial large bowel obstruction. There is mild thickening of the proximal colon which could also represent a low-grade c olitis. 2. Right pleural effusion again noted. 3. Extensive peritoneal carcinomatosis again noted. 4. Cholelithiasis. 5. Bladder wall thickening. Recommend correlation with urinalysis. ACT 112: Negative or not required by law. Electronically signed by: Radu Jordan M.D. 09/20/2022 7:48 AM
--- NOTE | 2022-09-20 08:02 | XRay Report ---
XR KUB/Abdomen 1 view CLINICAL HISTORY: N/V, ?SBO TECHNIQUE: 1 view of the abdomen was obtained. Comparison: Comparison is made to abdomen radiograph 09/16/[address] abdomen pelvis 11/19/2021 FINDINGS: There is a right pleural effusion which is partially visualized. The osseous structures are grossly u nremarkable. The bowel gas pattern is nonobstructive. Small stool burden is seen with minimal promine nce of the cecum. Vicarious excretion of contrast is seen in the kidneys and bladder. IMPRESSION: No evidence of small bowel obstruction. For findings of proximal colonic prominence, please see CT ab domen pelvis 09/19/2022. ACT 112: Negative or not required by law. Electronically signed by: Joseph Dominguez M.D. 09/20/2022 8:00 AM
[2022-09-20 08:32] LABS: Basophils # (auto) 0.03 K/uL (0-0.2); Basophils % (auto) 0.5 %; Eosinophils # (auto) 0.12 K/uL (0-0.50); Eosinophils % (auto) 2.2 %; Hemoglobin 12.9 g/dl (12.0-16.0); Immature Granulocytes # (auto) 0.02 K/uL (0.00-0.02); Immature Granulocytes % (auto) 0.4 %; Lymphocytes % (auto) 32.7 %; Mean Corpuscular Hemoglobin 28.9 pg (25.0-34.0); Mean Corpuscular Hgb Conc 33.1 g/dL (32.0-36.0); Mean Corpuscular Volume 87.4 fL (80.0-100.0); Monocytes # (auto) 0.84 K/uL (0.24-0.82); Monocytes % (auto) 15.3 %; Neutrophils # (auto) 2.69 K/uL (1.4-6.5); Neutrophils % (auto) 48.9 %; Platelet Count 242 K/uL (130-400); RDW Coefficient of Variation 14.6 % (11.5-14.5); RDW Standard Deviation 46.4 fL (36.4-46.3); Red Blood Count 4.46 M/uL (3.93-5.22)
[2022-09-20 08:44] LABS: Partial Thromboplastin Ratio 1.1; Partial Thromboplastin Time 29.1 Seconds (21.0-31.0)
[2022-09-20 09:00] LABS: BUN Creatinine Ratio 12.8 (10-20); Calcium 9.2 mg/dl (8.5-10.1); Creatinine Clr Calc Pharmacy 38.3 ml/min; Est GFR (African American) 56.3 ml/min; Est GFR (Non-African American) 48.6 ml/min; Magnesium 1.8 mg/dl (1.7-2.4); Potassium 3.5 mmol/L (3.5-5.1)
--- NOTE | 2022-09-20 09:23 | Pulmonary Consultation ---
Date of Consultation September 20, 2022 Assessment & Plan (1) Pleural effusion, right: (2) Ovarian cancer: Laterality: unspecified laterality Qualified Code(s): C56.9 - Malignant neoplasm of unspecified ovary (3) Exertional shortness of breath: Plan Chest x-ray 09/20/2022 personally reviewed: Right-sided pleural effusion appreciated with blunting of the right costophrenic angle, left costophrenic angle is clean, left-sided Port-A-Cath CT chest 09/10/2022 personally reviewed: Moderate to large right-sided pleural effusion with compression atelectasis of the right lower lobe Linear atelectasis of the left lower lobe No significant mediastinal lymphadenopathy Pleural fusion seems to have gotten worse compared to CT chest which was done March 2022 -- Right-sided pleural effusion With a history of metastatic ovarian CA with peritoneal carcinomatosis possibil ity of it and is high She never had thoracentesis done in the past -- Exertional shortness of breath Likely from right-sided pleural effusion -- Elevated PTT Repeat PTT is within normal limits --History of right-sided breast cancer 1989 S/p right mastectomy --History of ovarian cancer with peritoneal carcinomatosis On Avastin q. 21 days and niraparib Plan: For thoracentesis today Risk and benefit of the procedure explained the patient in depth, she understands and agrees to go ahead with the procedure Consent signed, witnessed and put in the chart Please note the above document was generated using voice recognition software. It may contain grammatical, syntax or spelling errors.Any formal questions or concerns about the content, text or information contained within the body of this dictation should be directly addressed to the provider for clarification. History of Present Illness Attending Physician: Cayla Solitario MD History of Present Illness 76-year-old female was admitted to the hospital because of nausea and vomiting Past medical history: Metastatic ovarian cancer, history of small bowel obstruction status post colostomy, diabetes type 2, hypertension, dyslipidemia Pulmonary consulted for right-sided pleural effusion At the time of examination patient was not in any acute distress She denied any issues with her breathing She does state that she gets lethargic very easily She does feel that she is having difficulty breathing when she is laying down. Nausea and vomiting has improved No fever or chills Did have bowel movement since coming to the hospital Social history: Lifetime non-smoker Allergies Allergy/AdvReac Type Severity Reaction Status Date / Time povidone-iodine Allergy Mild rash Verified 09/07/22 13:22 [From Betadine] Home Medications Medication Instructions Recorded Confirmed Type multivitamin (Daily Multi-Vitamin 1 tab PO QAM 09/18/20 09/07/22 History tablet) niraparib 100 mg capsule (Zejula) 100 mg PO QAM 06/06/21 09/07/22 History silver sulfadiazine 1 % topical 1 applic topical BID PRN wound 07/04/21 09/07/22 Rx cream (Silvadene) healing #400 grams amlodipine 10 mg tablet 10 mg PO DAILY #90 tabs 12/18/21 09/07/22 Rx mirtazapine 15 mg tablet 15 mg PO HS #90 tabs 12/18/21 09/07/22 Rx ipratropium bromide 21 mcg (0.03 2 spray intranasal BID #30 mL 12/22/21 09/07/22 Rx %) nasal spray lisinopril 20 mg tablet 20 mg PO BID #200 tabs 06/22/22 09/07/22 Rx rosuvastatin 10 mg tablet (Crestor) 10 mg PO DAILY #100 tabs 06/22/22 09/07/22 Rx bupropion HCl 150 mg 24 hr tablet, 150 mg PO QAM #30 tabs 08/04/22 09/07/22 Rx extended release metoprolol succinate 50 mg 50 mg PO BID #60 tabs 09/07/22 09/07/22 Rx tablet,extended release 24 hr oxycodone 5 mg tablet 5 mg PO BID PRN pain #30 tabs 09/07/22 09/07/22 Rx Patient History Medical History (Updated 09/20/22 @ 09:22 by Francesca Maurer MD, [facility]) Colostomy in place H/O squamous cell carcinoma of skin History of right breast cancer 2010--sx only History of small bowel obstruction Hyperlipidemia Hypertension Osteopenia Ovarian cancer peritoneal mets Port-A-Cath in place (03/03/20) Insertion of Medicharlie Cox 03/03/20 Proteinuria Situational anxiety Systolic murmur Type 2 diabetes mellitus diet controlled Surgical History History of bilateral tubal ligation History of section History of colon resection d/t tumor History of colonoscopy History of colostomy History of lumbar surgery History of lumpectomy of right breast History of open reduction and internal fixation (ORIF) procedure left big toe--hardware removed History of right breast biopsy History of tonsillectomy History of wisdom tooth extraction Status post Mohs surgery for squamous cell carcinoma of skin Family History Aunt Breast cancer Mother , age 56 2nd to acute [place] Myocardial infarction Cancer Hypertension Father , age 89 Heart disease Leukemia Other No family history of adverse response to anesthesia Denies family history of Ovarian cancer Prostate cancer Colorectal cancer Social History Smoking Status: Never smoker Second Hand Exposure: No; Hx Alcohol Use: No Hx Substance Use: No Preferred Language: Qatari Communication Ability: Effective Visual Impairment: No Limitations Hearing Ability: Normal Tumbler Tender Required: No Beliefs That Will Affect Care: None marital status: / Current Living Situation: Alone Current Living Situation Comment: alone 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 status: retired 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 How many Children do You have: 5 Other Information That Helps Us Care for You: No Feels Safe at Home: Yes Safety Concerns: Feels Safe At This Time Childhood Exposure to Second-Hand Smoke: Yes caffeine: Yes Dental Care, Regularly: No Physical Activity Frequency: Does not Exercise Seatbelt Use: always Sunscreen Use: No Assistive Devices: Walker Assistive Devices Comment: uses walker outside Review of Systems Review of Systems: All systems reviewed & are unremarkable except as noted in HPI & below Physical Exam Physical Exam: Constitutional: No acute distress HEENT: EOMI, PERRLA Respiratory system: Recent entry on the right side, no wheeze, no rhonchi, p ositive crackles right lower lobe CVS: S1-S2 positive, positive 2 out of 6 systolic murmur appreciated best at aorta, left-sided Port-A-Cath Abdomen: Soft, nontender, nondistended, positive bowel sounds x4, positive colostomy Extremities: +2 pulses bilaterally radialis/ dorsalis pedis, no cyanosis, no edema Neuro: Awake alert oriented x3 Psych: Normal mood and affect G/U: No Fowler Skin: no rashes, warm and dry Lymphatic: no cervical or axillary lymphadenopathy Results & Data Results & Data ([facility]) Vital Signs (Past 12 Hours) Vital Signs Temp Pulse Pulse Resp BP BP Pulse Ox 09/20/22 08:25 36.8 C 78 16 132/87 94 09/20/22 03:47 76 09/20/22 04:35 36.6 C 83 18 149/93 H 93 09/20/22 02:30 78 16 116/82 95 09/20/22 02:00 78 17 121/79 09/20/22 01:30 89 26 H 152/102 H 94 09/20/22 01:00 90 21 09/20/22 00:30 80 19 132/81 93 09/20/22 00:00 84 18 135/94 90 09/19/22 23:30 82 17 131/81 94 09/19/22 23:00 88 18 09/19/22 23:00 130/82 09/19/22 22:30 91 H 19 90 09/19/22 22:30 165/94 H 09/19/22 22:27 94 H 20 165/94 H 09/19/22 22:00 84 22 143/92 H 09/19/22 21:32 85 20 155/93 H 92 09/19/22 21:30 85 21 93 O2 Del Method 09/20/22 08:25 Room Air 09/20/22 03:47 09/20/22 04:35 Room Air 09/20/22 02:30 09/20/22 02:00 09/20/22 01:30 09/20/22 01:00 09/20/22 00:30 09/20/22 00:00 09/19/22 23:30 09/19/22 23:00 09/19/22 23:00 09/19/22 22:30 09/19/22 22:30 09/19/22 22:27 09/19/22 22:00 09/19/22 21:32 09/19/22 21:30 Laboratory Results 09/20/22 08:07 09/20/22 08:07 PG Care Time/CCT Total # of Minutes Spent Total Time Spent with Patient: Total time spent is greater than 50% in coordination of care (as documented) at patient's floor/unit and/or counseling patient: Coding Level of Care Code 07159 Initial Inpt Care Lvl 3 Diagnoses Pleural effusion, right J90 Ovarian cancer C56.9 Laterality: unspecified laterality Exertional shortness of breath R06.02
[2022-09-20] MEDS ORDERED: ROSUVASTATIN CALCIUM 10 MG TAB PO SCH ×2 (09:30→21:00)
[2022-09-20] MEDS ORDERED: amLODIPine BESYLATE 5 MG TAB PO SCH (09:30)
[2022-09-20] MEDS ORDERED: METOPROLOL SUCC 50MG EXT REL TAB PO SCH (09:30)
[2022-09-20] MEDS ORDERED: buPROPion XL 150 MG TABCR PO SCH (09:30)
[2022-09-20] MEDS ORDERED: lisinopril 20 MG TAB PO SCH (09:30)
--- NOTE | 2022-09-20 12:11 | XRay Report ---
XR chest 1V portable HISTORY: S/P Thoracentesis COMPARISON: Chest 09/20/2022. FINDINGS: Decrease in size in the now small right pleural effusion status post thoracentesis. No pneu mothorax. Right basilar densities persist. Left Port-A-Cath terminates in the SVC. The heart is top n ormal in size. IMPRESSION: Decrease in size in the now small right pleural effusion status post thoracentesis. No pneumothorax. ACT 112: Negative or not required by law. Electronically signed by: Radu Jordan M.D. 09/20/2022 12:09 PM
[2022-09-20 12:20] LABS: Albumin Level 3.5 gm/dl (3.4-5.0); Bilirubin,Total 0.4 mg/dl (0.2-1.0); Total Protein 6.6 gm/dl (6.0-8.3)
[2022-09-20 12:42] LABS: Total Protein Pleural Fluid 4.9 gm/dl
[2022-09-20 13:13] LABS: Appearance Pleural Fluid Clear; Color Pleural Fluid Yellow; Lymphocytes, Fluid 46 %; Mono,Macrophage,Mesothelial 45 %; Neutrophils, Fluid 9 %; RBC Pleural Fluid (A) < 2000 /uL; Source Pleural Fluid Right Lung; WBC Pleural Fluid (A) 211 /uL
--- NOTE | 2022-09-20 14:30 | Discharge Summary ---
Date of Service September 20, 2022 Admission HPI Per Admitting Provider Luciana Daniels is a 76yo female with PMHx significant for metastatic ovarian cancer (to peritoneum and lungs; on Zejula nd Avastin), h/o SBO 2/2 to cancer (s/p decompressive colostomy at [facility] [place] in 2019), T2DM (A1c 6.7 in 10/2021), HTN, HLD and anxiety who presented to [facility] ED On 09/20 for acute-onset non-bloody yellow vomitus last night, with associated lower abdominal pain as well as no ostomy output for ~2 days. Patient reports that she vomited 3 times in the last 24 hours, and the last time her vomitus looked to be bilious. Reports that her nausea and abdominal pain have resolved since coming to the ED and lying in a hospital bed. However does not have an appetite. Patient experiences similar episodes every 2 weeks and usually limits her diet to fluids and the episodes resolve. Patient also reports feeling more fatigued over last several months, and also has had some shortness of breath with mild physical activity such as gardening which is usually atypical for her. Denies fever/chills, recent respiratory/GI illness, or dysuria. Denies rash. Patient lives alone in an apartment at [facility] [place]. She is proficient in all ADLs/iADLs. Daughter lives in [place]. Patient is satisfied that her chemotherapy has prevented the cancer from seeding in her "major organs" and plans to continue treatments as long as she tolerates them. In the ED the patient was hypertensive to 195/106. Afebrile and otherwise stable on room air. CBC/CMP/lipase largely unremarkable. CT A/P statrad report without evidence for SBO, although colon proximal to ostomy is fluid-filled with mural hyperemia which may represent enterocolitis. Imaging also shows progression of metastatic disease. Lastly shows moderate right pleural effusion. Patient was given NSS 500cc bolus and Tylenol 1g IV. Has not required anti- emetics and has not vomited since arriving in ED. Principal Diagnosis SBO, right pleural effusion Discharge Exam Constitutional WD/WN, vitals as above cooperative Eyes + anicteric sclerae Neck normal visual inspection Respiratory normal respiratory effort; no respiratory distress Auscultation: + diminished lung sounds (on R) Cardiovascular Rate/Rhythm: regular rate and regular rhythm Heart Sounds: + murmur (3/6 systolic) Vessels: no JVD Gastrointestinal (Abdomen) Percussion/Palpation: abdomen soft Colostomy present with stool in bag Musculoskeletal Head/Neck/Chest: normocephalic and head atraumatic Skin no rashes, warm and dry Neurologic moves all extremities Psychiatric A+Ox3, euthymic affect Discharge Data Allergies Allergy/AdvReac Type Severity Reaction Status Date / Time povidone-iodine Allergy Mild rash Verified 09/07/22 13:22 [From Betadine] Consultations 09/20/22 00:39 ED Decision to Admit Stat 09/20/22 04:05 Consult Pulmonology Routine Ordered Studies 09/19/22 18:13 CT abd pelvis IV con only Stat 09/20/22 09:13 US point of care ultrasound Urgent Hospital Course (1) Nausea & vomiting: Acute-onset lower abdominal pain, no ostomy output and non-bloody/?bilious vomiting x3 yesterday, in context of surgical/cancer history and recurrent SBO. CT A/P without definite evidence of SBO (per [facility] report) although symptoms suggest mild resolving/partial SBO. - currently no nausea/vomiting/pain, and ostomy has some output - appears to be resolving - s/p NSS 500cc bolus, continue with LR @100cc/hr - KUB on 09/20--> no evidence of SBO -Patient was able to tolerate regular diet prior to discharge (2) Pleural effusion, right: Moderate right-sided pleural effusion, chronic, but worsening, per perusal of previous imaging this year. Most likely malignant in nature. Patient has been symptomatic/SOB with mild physical activity recently; likely due to this. - Saturating well on room air - consulted Pulmonology for consideration of thoracentesis, performed on 09/20/2022 with improvement - PT/PTT/INR ordered -within normal limits -Lights criteria indicative of exudative pleural effusion, given the patient's history this is likely due to malignant effusion. There is a good chance that there will be recurrence of her effusion. For this reason, if there is frequent recurrence, patient would be a good candidate for Pleurx catheter. Defer this decision making to primary care provider and pulmonology (3) Systolic murmur: Chronic per patient. No TTE for >1 year although last TTE did show left interventricular obstruction. - repeat TTE-09/19: Overall normal appearing chambers and valves but there is discrete nodular thickening of the right coronary cusp of the aortic valve without stenosis or regurgitation. (4) Asymptomatic bacteriuria: - Urinalysis positive for leukocyte esterase, bacteria, pyuria but without uri nary symptoms. - No indication for treatment (5) Colostomy in place: -Continue routine colostomy care -Good output status post n.p.o., now tolerating regular diet (6) Ovarian cancer: Chronic, with admission CT A/P showing progression of primary ovarian lesion as well as significant metastasis throughout abdomen. -Continue Zejula - patient gets Avastin via left chest port [id number] - continue f/u with Heme/Onc as scheduled (7) Hyperlipidemia: - Continue rosuvastatin (8) Hypertension: - Continue amlodipine, lisinopril, metoprolol (9) Type 2 diabetes mellitus: - A1c at 6.2, controlled with diet (10) Depression: - Continue Wellbutrin, Remeron Plan Disposition: Discharge home CODE STATUS: Full code Total Time Total Time Spent Total Time Spent (In Minutes): 30 Discharge Plan Discharge Items Patient Disposition: Home - Self-Care Reason For Visit: SBO, RIGHT PLEURAL EFFUSION Discharge Diagnosis: SBO, right pleural effusion Condition on Discharge: Fair Activity: Per Instructions section Non-emergency contact: Primary Care Provider and Incident Response Coordinator Call non-emergency contact if: you have any medication questions Follow-up/Referrals: Navya Sharma MD [Primary Care Provider] - 09/28/22 3:00 pm Diet: Regular Addtl Attending Provider Instructions: You were seen at the hospital for evaluation regarding lower abdominal pain as well as nausea/vomiting. While you are here you were evaluated by our emergency department who did imaging that was not suggestive of small bowel obstruction, however, due to your history of small bowel obstruction and symptoms at time of admission, it was likely that this was a small bowel obstruction that was resolving. Additionally, imaging did reveal a right pleural effusion (see a collection of fluid around the lung) that may have been causing you some discomfort and shortness of breath. To treat the small bowel obstruction, you are initially placed on a nothing by mouth diet and progressively increase the amount of foods from clears (Jell-O) to your regular diet. You are able to tolerate eating food without difficulty. For the right pleural effusion, our pulmonology service was consulted who performed a thoracentesis (draining of the collection of fluid around your lung) which you tolerated well. Since you were eating and drinking without difficulty and experienced some improvement with draining of the right pleural effusion, we do feel it is safe for you to return home. There are some labs that are still pending regarding your right pleural effusion, when they return we will call you and if not your primary care provider will discuss them further with you. Your oncologist will also be peripherally aware as they have access to our notes and planning. Otherwise please continue to take all of your medications that you are on prior to admission to the hospital at their scheduled times. Indications to return to the hospital: Profuse nausea and vomiting, no ostomy output, or dehydration as this may be indicative that your SBO is returned. Additionally shortness of breath or chest pain may be indicative of worsening pleural effusion. Is been a pleasure to be part of your care and we wish you the best in both your health and your recovery. Pending Studies at Discharge: Yes Studies:: Pleural effusion fluid analysis Stand-Alone Forms: My [facility], Smoking Cessation Medications and DC Order Prescriptions: Continued multivitamin [Daily Multi-Vitamin] Tablet 1 tab PO QAM lisinopril 20 mg tablet 20 mg PO BID Qty: 200 3RF Rx Instructions: insurance prefers 100 day supply rosuvastatin [Crestor] 10 mg tablet 10 mg PO DAILY Qty: 100 3RF Rx Instructions: insurance prefers 100 day supply Zejula 100 mg capsule 100 mg PO QAM amlodipine 10 mg tablet 10 mg PO DAILY Qty: 90 3RF mirtazapine 15 mg tablet 15 mg PO HS Qty: 90 3RF ipratropium bromide 21 mcg (0.03 %) spray,non-aerosol 2 spray intranasal BID Qty: 30 2RF Rx Instructions: administer into each nostril bupropion HCl 150 mg tablet extended release 24 hr 150 mg PO QAM Qty: 30 5RF metoprolol succinate 50 mg tablet extended release 24 hr 50 mg PO BID Qty: 60 5RF oxycodone 5 mg tablet 5 mg PO BID PRN (Reason: pain) Qty: 30 0RF silver sulfadiazine [Silvadene] 1 % cream 1 applic topical BID PRN (Reason: wound healing) Qty: 400 0RF Rx Instructions: apply a 1.5 mm thickness Discharge Orders: Discharge Order (Routine); Ordered 09/20/22 Ordered By: Juanito Alarcon/Other Patient Handouts: Pleural Effusion, Managing Type 2 Diabetes, Obstruction Intestinal Admission Data Admit Date/Time: 09/20/22 01:20 Attending Provider: Cayla Solitario Admit Provider: Dameon Douglas Primary Care Provider: Navya Sharma Other Providers: Dakota Canas ; Francesca Maurer Other Interventions: Discharge Summary Assessment (RN) Last Done: 09/20/22 17:22 Supervising Physician Co-Signing Physician Notes Resident Physician Supervision Note: I independently interviewed and examined the patient and verified the zhao history and physical, reviewed labs and image studies and agree with resident findings and care plan.
--- NOTE | 2022-09-20 16:04 | Procedure Note ---
Procedure Note Date of Service September 20, 2022 Note Procedure: Diagnostic therapeutic ultrasound-guided catheter thoracentesis Meal Attendant: Dr. Francesca Maurer Indication: Right-sided pleural effusion Consent: Signed by patient and verified with timeout prior to procedure Anesthesia: 1% lidocaine without epinephrine local. Procedure: Consent was verified and timeout performed. Appropriate imaging studies were reviewed prior to the procedure. Patient was placed in a seated position and limited thoracic ultrasound was performed of the right chest. See separate imaging. Appropriate site above the diaphragm for thoracentesis was selected. The skin was prepped and draped in normal sterile fashion. Lidocaine was used for local analgesia. Fluid was aspirated via the finder needle. A small skin omid was made with the scalpel and the catheter over the needle apparatus was advanced over the rib into the pleural space. Using the syringe one-way valve system, a total of 1350 mL's of serous fluid was removed. Procedure was terminated due to mild chest discomfort. The catheter was removed and observed to be intact. A sterile dressing was applied. Post procedure chest x-ray was ordered. Good lung sliding was appreciated postprocedure on the ultrasound Fluid was sent for labs, culture and cytology. Complications: None Blood loss: Less than 1 cc Coding CPT Codes Pulmonary/Thoracic - Pulmonary and Thoracic: 76586 Thoracentesis w imaging ([id number]) [facility] Procedure Codes (Charges) Pulmonary/Thoracic Procedure 1: Pulmonary and Thoracic: 38647 Thoracentesis w imaging
[2022-09-20] MEDS ORDERED: MIRTAZAPINE TAB 15 MG TAB PO SCH (21:00)
== END 2022-09-20 17:55 | disposition home or self-care (01) ==
LOC: ED 18:10 → SUATTDRO 09-20 01:20 → 2W 09-20 01:20 → INTOOBSV 09-20 01:20 → 2W 09-20 03:33

== ENCOUNTER 2022-10-06 13:35 | Inpatient (IN) ==
[2022-10-06 14:09] LABS: Basophils # (auto) 0.04 K/uL (0-0.2); Basophils % (auto) 0.5 %; Eosinophils # (auto) 0.05 K/uL (0-0.50); Eosinophils % (auto) 0.6 %; Hematocrit (blood only) 44.2 % (34.1-44.9); Hemoglobin 14.2 g/dl (12.0-16.0); Immature Granulocytes # (auto) 0.03 K/uL (0.00-0.02); Immature Granulocytes % (auto) 0.3 %; Lymphocytes # (auto) 2.12 K/uL (1.2-3.4); Lymphocytes % (auto) 24.4 %; Mean Corpuscular Hemoglobin 28.6 pg (25.0-34.0); Mean Corpuscular Hgb Conc 32.1 g/dL (32.0-36.0); Mean Corpuscular Volume 88.9 fL (80.0-100.0); Mean Platelet Volume 9.9 fL (9.4-12.3); Monocytes # (auto) 0.78 K/uL (0.24-0.82); Neutrophils # (auto) 5.66 K/uL (1.4-6.5); Neutrophils % (auto) 65.2 %; Platelet Count 423 K/uL (130-400); RDW Coefficient of Variation 15.2 % (11.5-14.5); RDW Standard Deviation 49.1 fL (36.4-46.3); Red Blood Count 4.97 M/uL (3.93-5.22); White Blood Count 8.68 K/ul (4.8-10.8)
[2022-10-06] MEDS ORDERED: ACETAMINOPHEN 1,000 MG/100 ML VIAL IV STA (14:29)
[2022-10-06] MEDS ORDERED: SODIUM CHLORIDE 0.9% 1000ML 1,000 ML IV ONE (14:29)
[2022-10-06] MEDS ORDERED: FAMOTIDINE 20MG IV PUSH 20 MG/5 ML SYR IV STA (14:29)
[2022-10-06] MEDS ORDERED: ONDANSETRON INJ 2 MG/ML 2 ML VIAL IV STA (14:30)
[2022-10-06 14:37] LABS: Albumin Globulin Ratio 1.1 (0.9-2); Albumin Level 3.9 gm/dl (3.4-5.0); BUN Creatinine Ratio 17.3 (10-20); Bilirubin,Total 0.5 mg/dl (0.2-1.0); Calcium 9.8 mg/dl (8.5-10.1); Creatinine Clr Calc Pharmacy 36.4 ml/min; Est GFR (African American) 55.7 ml/min; Est GFR (Non-African American) 48.1 ml/min; Globulin 3.5 gm/dl (2.5-4.0); Potassium 4.4 mmol/L (3.5-5.1); Total Protein 7.4 gm/dl (6.0-8.3)
[2022-10-06 16:21] LABS: Influenza A virus by PCR Negative (Neg); Influenza B virus by PCR Negative (Neg); RSV by PCR Negative (Neg); SARS CoV2 RNA(COVID-19) Ceph NEGATIVE (Negative)
--- NOTE | 2022-10-06 16:28 | Emergency Department Note ---
Impression & Plan Small bowel obstruction, Colostomy in place, Peritoneal carcinomatosis ED Provider Note NAME: IBIS ARANA AGE: 76 SEX: F ARRIVES VIA: Walk-In INFORMANT: Patient ED PROVIDER(S): Dewey Friedman MD CHIEF COMPLAINT: Abdominal pain, n/v, decreased ostomy output. PLAN: Disposition: Admit MEDICAL DECISION MAKING: The patient is a pleasant 76-year-old woman with a past medical history of stage IV metastatic ovarian cancer/peritoneal carcinomatosis undergoing chemotherapy, history of small bowel obstruction [place] [facility] [place] who presents to the emergency department for evaluation of concern for possible repeat obstruction where she reports having decreased ostomy output since yesterday and had nausea and vomiting yesterday afternoon/evening. She reports she has had a small amount of liquid ostomy output but less than usual. She does admit that she has not had much to eat or drink after the episode. She denies any recent fevers, chills, cough, congestion or urinary symptoms. The patient reports when she has had previous similar episodes with obstruction she did not need an NG tube. On arrival the patient is in no acute distress, afebrile with blood pressure 170/80s and vital signs otherwise stable. She appears clinically dry. She has small amount of loose green-colored ostomy output. Abdomen is mildly distended but soft with mild discomfort without guarding or rebound to palpation. WBC, H/H within normal limits. Platelets 423K, nonspecific. Chemistry without metabolic acidosis. Electrolytes and LFTs without significant abnormality. Lipase within normal limits. COVID-19, influenza and RSV PCR's are negative. CT of the abdomen pelvis was performed with IV and oral contrast. Note is made of interval enlargement of numerous small bowel loops with suggestion of a distal transition point but no sharp proximal transition point is seen. I did review these findings with radiology, Dr. Dominguez, and findings may be consistent with a partial bowel obstruction versus evolving bowel obstruction but ileus is also a consideration. I did reevaluate the patient and while she did report some recurrence of pain that had initially significantly improved with IV fluid hydration, APAP, famotidine and Zofran her abdomen still soft and with out significant tenderness and no rebound or guarding. Given the patient is not particularly uncomfortable at this time and has not required NG tube decompression per her report in the past will defer this at this time. I did review the patient's case with general surgery on-call, Dr. Parrish who had consulted on the patient on previous admission in 2020. Given the patient's carcinomatosis patient would not be a surgical candidate even at a tertiary care center and so there would be no particular benefit of transfer per se and so agrees with plan for admission here for supportive care. He will be available for inpatient team consultation as needed. Patient agrees with plan for admission. Case was discussed with Dr. Moya, [facility] hospitalist, who will evaluate the patient for admission. Triage Nursing notes reviewed and agree them. Prior medical records reviewed Vital Signs: reviewed Differential diagnosis: Gastroenteritis, food borne illness, infections, appendicitis, diverticulitis, inflammatory bowel disease, obstruction, GI bleed, biliary pathology, volvulus, as well as other pathologies. ER treatment provided: See below. Diagnostics interpreted by me: Cardiac Monitoring: An order for continuous cardiac monitoring was placed and demonstrated normal sinus rhythm, 79 bpm, no ectopy. Laboratory studies: See below Imaging studies: See below Consultation(s): General surgery on-call, Dr. Parrish [facility] [place] hospitalist, Dr. Moya, [facility] hospitalist. HPI: The patient is a pleasant 76-year-old woman with a past medical history of stage IV metastatic ovarian cancer/peritoneal carcinomatosis undergoing chemotherapy, history of small bowel obstruction [place] [facility] [place] who presents to the emergency department for evaluation of concern for possible repeat obstruction where she reports having decreased ostomy output since yesterday and had nausea and vomiting yesterday afternoon/evening. She reports she has had a small amount of liquid ostomy output but less than usual. She does admit that she has not had much to eat or drink after the episode. She denies any recent fevers, chills, cough, congestion or urinary symptoms. The patient reports when she has had previous similar episodes with obstruction she did not need an NG tube. ROS: See above HPI for pertinent positives & negatives. A total of 10 systems reviewed and were otherwise negative. VITALS:See Below PHYSICAL EXAMINATION: GENERAL: Awake, alert, uncomfortable-appearing, in no distress HENT: Normocephalic, atraumatic. Oropharynx with dry mucous membranes and otherwise unremarkable. EYES: Normal conjunctiva. Sclera non-icteric. NECK: Supple. No nuchal rigidity. FROM. No JVD. RESPIRATORY: Clear to auscultation. CARDIAC: Regular rate, normal rhythm. Extremities warm and well perfused. Pulses equal. ABDOMEN: Mildly distended but soft with mild discomfort without guarding or rebound to palpation. No rebound or guarding. Small amount of loose green- colored ostomy output. RECTAL: Deferred. MUSCULOSKELETAL: Chest examination reveals no tenderness. The back is symmetrical on inspection without obvious abnormality. There is no CVA tenderness to palpation. No joint edema. LOWER EXTREMITIES: Calves are equal size bilaterally and non-tender. No edema. No discoloration. NEURO: Normal sensorium. No sensory or motor deficits noted. SKIN: No rash or jaundice noted. ED COURSE: Critical Care: I have personally spent greater than 35 minutes of critical care time in the direct management of this patient. This includes bedside care, interpretation of diagnostic studies, and testing, discussion with consultants, patient, and family members, and other required patient management activities. This 35 minutes is in excess of all separately billable procedures. Dewey Friedman MD Past Med/Surg History Medical History Colostomy in place H/O squamous cell carcinoma of skin History of right breast cancer 2010--sx only History of small bowel obstruction Hyperlipidemia Hypertension Osteopenia Ovarian cancer peritoneal mets Port-A-Cath in place (03/03/20) Insertion of Mediport Dr. Cox 03/03/20 Proteinuria Situational anxiety Systolic murmur Type 2 diabetes mellitus diet controlled Surgical History History of bilateral tubal ligation History of section History of colon resection d/t tumor History of colonoscopy History of colostomy History of lumbar surgery History of lumpectomy of right breast History of open reduction and internal fixation (ORIF) procedure left big toe--hardware removed History of right breast biopsy History of tonsillectomy History of wisdom tooth extraction Status post Mohs surgery for squamous cell carcinoma of skin Family History Aunt Breast cancer Mother , age 56 2nd to acute ID Myocardial infarction Cancer Hypertension Father , age 89 Heart disease Leukemia Other No family history of adverse response to anesthesia Denies family history of Ovarian cancer Prostate cancer Colorectal cancer Social History Smoking Status: Never smoker Second Hand Exposure: No; Hx Alcohol Use: No Hx Substance Use: No Preferred Language: Romansh Communication Ability: Effective Visual Impairment: No Limitations Hearing Ability: Normal Water Pump Servicer Required: No Beliefs That Will Affect Care: None marital status: / Current Living Situation: Alone Current Living Situation Comment: alone 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 status: retired 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 How many Children do You have: 5 Feels Safe at Home: Yes Childhood Exposure to Second-Hand Smoke: Yes caffeine: Yes Dental Care, Regularly: No Physical Activity Frequency: Does not Exercise Seatbelt Use: always Sunscreen Use: No Assistive Devices: Cane and Walker Allergies Allergies Allergy/AdvReac Type Severity Reaction Status Date / Time povidone-iodine Allergy Mild rash Verified 09/07/22 13:22 [From Betadine] Home Meds Home Medications Medication Instructions Recorded Confirmed multivitamin (Daily Multi-Vitamin 1 tab PO QAM 09/18/20 09/21/22 tablet) niraparib 100 mg capsule (Zejula) 100 mg PO QAM 06/06/21 09/21/22 Previous Rx's Medication Instructions Recorded silver sulfadiazine 1 % topical 1 applic topical BID PRN wound 07/04/21 cream (Silvadene) healing #400 grams amlodipine 10 mg tablet 10 mg PO DAILY #90 tabs 12/18/21 mirtazapine 15 mg tablet 15 mg PO HS #90 tabs 12/18/21 ipratropium bromide 21 mcg (0.03 2 spray intranasal BID #30 mL 12/22/21 %) nasal spray lisinopril 20 mg tablet 20 mg PO BID #200 tabs 06/22/22 rosuvastatin 10 mg tablet (Crestor) 10 mg PO DAILY #100 tabs 06/22/22 bupropion HCl 150 mg 24 hr tablet, 150 mg PO QAM #30 tabs 08/04/22 extended release metoprolol succinate 50 mg 50 mg PO BID #60 tabs 09/07/22 tablet,extended release 24 hr oxycodone 5 mg tablet 5 mg PO BID PRN pain #30 tabs 09/07/22 Results & Data (ED) Vital Signs Vital Signs - 24 hr 10/06/22 13:42 10/06/22 16:00 Temperature 36.6 C Temperature Source Temporal Artery Scan Pulse Rate 102 H Pulse Rate [Finger] 79 Respiratory Rate 18 18 Respiratory Effort / Characteristics Non-Labored Spontaneous Non-Labored Respiratory Depth Normal Normal Blood Pressure 122/85 Blood Pressure [Right Arm] 179/86 H Blood Pressure Mean 97 Blood Pressure Mean [Right Arm] 117 Blood Pressure Position [Right Arm] Sitting Pulse Oximetry 98 93 Oxygen Delivery Method Room Air Room Air Sepsis Recent Fever Within 48 Hours No Sepsis New/Unexplained Change in Mental Status No Sepsis Action Taken by Nursing No Action Required Laboratory Data Attestation: I reviewed the patient's lab results. Result diagrams: 10/06/22 13:50 10/06/22 13:50 Lab Results 10/06/22 10/06/22 Range/Units 13:50 13:50 WBC 8.68 (4.8-10.8) K/ul RBC 4.97 (3.93-5.22) M/uL Hgb 14.2 (12.0-16.0) g/dl Hct 44.2 (34.1-44.9) % MCV 88.9 (80.0-100.0) fL MCH 28.6 (25.0-34.0) pg MCHC 32.1 (32.0-36.0) g/dL RDW Std Deviation 49.1 H (36.4-46.3) fL RDW Coeff of Laz 15.2 H (11.5-14.5) % Plt Count 423 H (130-400) K/uL MPV 9.9 (9.4-12.3) fL Immature Gran % (Auto) 0.3 % Neut % (Auto) 65.2 % Lymph % (Auto) 24.4 % [place] % (Auto) 9.0 % Eos % (Auto) 0.6 % Baso % (Auto) 0.5 % Neut # (Auto) 5.66 (1.4-6.5) K/uL Lymph # (Auto) 2.12 (1.2-3.4) K/uL [place] # (Auto) 0.78 (0.24-0.82) K/uL Eos # (Auto) 0.05 (0-0.50) K/uL Baso # (Auto) 0.04 (0-0.2) K/uL Immature Gran # (Auto) 0.03 H (0.00-0.02) K/uL Sodium 139 (136-145) mmol/L Potassium 4.4 (3.5-5.1) mmol/L Chloride 100 (98-107) mmol/L Carbon Dioxide 26 (21-32) mmol/L Anion Gap 13 H (3-11) BUN 19 (6-23) mg/dl Creatinine 1.10 (0.6-1.2) mg/dl Est Cr Clr Drug Dosing 36.4 ml/min Est GFR ( Amer) 55.7 ml/min Est GFR (Non-Af Amer) 48.1 ml/min BUN/Creatinine Ratio 17.3 (10-20) Glucose 118 H (70-99(Fasting)) mg/dl Calcium 9.8 (8.5-10.1) mg/dl Total Bilirubin 0.5 (0.2-1.0) mg/dl AST 25 (13-39) U/L ALT 11 (7-52) U/L Alkaline Phosphatase 162 H (34-104) U/L Total Protein 7.4 (6.0-8.3) gm/dl Albumin 3.9 (3.4-5.0) gm/dl Globulin 3.5 (2.5-4.0) gm/dl Albumin/Globulin Ratio 1.1 (0.9-2) Lipase 15 (11-82) U/L Administered Medications Heparin Sodium (Porcine) (Heparin Sod 5,000 Unit/0.5 Ml Vial) 5,000 units SQ Q12 ROSA Stop: 11/05/22 20:59 Last Admin: 10/06/22 21:57 Dose: 5,000 units Documented By: BLH Lactated Ringer's (Lr) 1,000 mls @ 125 mls/hr IV .Q8H ROSA Stop: 11/05/22 18:59 Last Admin: 10/06/22 19:43 Dose: 125 mls/hr Documented By: TNB Mirtazapine (Mirtazapine Tab 15 Mg Tab) 15 mg PO HS ROSA Stop: 11/05/22 20:59 Last Admin: 10/06/22 21:57 Dose: 15 mg Documented By: BL Morphine Sulfate (Morphine Sulfate 2 Mg/Ml Carp) 2 mg IV Q4 PRN PRN Reason: Moderate Pain Stop: 10/20/22 20:32 Last Admin: 10/06/22 22:02 Dose: 2 mg Documented By: BLZaynab Discontinued Medications Sodium Chloride (Nss 1000ml) 1,000 mls @ 999 mls/hr IV .Q1H1M ONE Stop: 10/06/22 15:29 Last Infusion: 10/06/22 15:59 Dose: 0 mls/hr Documented By: Admin: 10/06/22 15:02 Dose: 999 mls/hr Documented By: JAYE Acetaminophen (Ofirmev) 1,000 mg in 100 mls @ 400 mls/hr IV NOW STA Stop: 10/06/22 14:43 Last Infusion: 10/06/22 15:24 Dose: 0 mls/hr Documented By: Admin: 10/06/22 15:01 Dose: 400 mls/hr Documented By: JAYE Famotidine (Pepcid 20mg Iv Push) 20 mg in 5 mls @ 2.5 mls/min IV NOW STA Stop: 10/06/22 14:30 Last Admin: 10/06/22 15:01 Dose: 2.5 mls/min Documented By: JAYE Ioversol (Optiray 350 100ml) 85 ml IV ONCE ONE Stop: 10/06/22 17:33 Last Admin: 10/06/22 17:34 Dose: 85 ml Documented By: LOUIS Morphine Sulfate (Morphine Sulfate 2 Mg/Ml Carp) 2 mg IV NOW STA Stop: 10/06/22 18:40 Last Admin: 10/06/22 19:43 Dose: 2 mg Documented By: JAYE Ondansetron HCl (Ondansetron Inj 2 Mg/Ml 2 Ml Vial) 4 mg IV NOW STA Stop: 10/06/22 14:31 Last Admin: 10/06/22 15:02 Dose: 4 mg Documented By: JAYE Imaging Data Radiologist's Impression: Abdomen/Pelvis CT 10/06/22 14:21 CT abd pelvis oral and IV con CLINICAL HISTORY: abd pain, decreased ostomy output, stg4, ov ca TECHNIQUE: Helical axial images of the abdomen and pelvis were obtained and displayed. Automated dose lowering techniques and/or adjustment according to patient size were utilized for this exam. This exam was performed with intravenous contrast. CT DOSE: 274.32 mGy.cm COMPARISON: Comparison is made to CT abdomen pelvis 09/19/2022 FINDINGS: Lower chest: Again noted is a large right pleural effusion with underlying atelectasis. Liver: Hepatic subcapsular masses are again noted. Gallbladder and biliary tree: Cholelithiasis is seen without evidence of cholecystitis. No intra- or extrahepatic biliary ductal dilation. Pancreas: Unremarkable, no focal lesions. Spleen: Splenic lesions are stable. Adrenals: Unremarkable. Kidneys and ureters: Unremarkable. Bladder: Redemonstration of thickened bladder wall. Reproductive organs: Left greater than right cystic lesions are seen. Bowel: Numerous dilated loops of small bowel are seen, new from prior exam, measuring up to 33 mm in diameter. There is suggestion of transition point distally. Previously noted region of large bowel tapering is less conspicuous on today's exam. Midline ostomy is unchanged. Lymph nodes Retroperitoneal: A few retroperitoneal foci of disease are seen measuring up to 28 mm in diameter on the right and 16 mm on the left, similar to prior exam. Pelvic: Right pelvic node measures 11 mm. Mesenteric: Unremarkable. Peritoneum: Extensive peritoneal carcinomatosis is again seen. Vessels: Atherosclerotic calcifications are seen. Abdominal wall: Numerous abdominal wall metastases are again seen. Bones: Degenerative changes in the visualized spine. IMPRESSION: 1. Interval enlargement of numerous small bowel loops with suggestion of a distal transition point. No sharp proximal transition point is seen. Findings are concerning for worsening small bowel obstruction. No wall edema is seen. Previously noted colonic transition point is no longer seen. 2. Redemonstration of right pleural effusion, extensive peritoneal carcinomatosis, and abdominal wall metastases. 3. Thickened bladder wall is again noted, clinical correlation is recommended for cystitis. 4. Additional findings as above. ACT 112: Negative or not required by law. Electronically signed by: Joseph Dominguez M.D. 10/06/2022 6:10 PM Discharge Plan Visit Data Chief Complaint: Constipation Stated Complaint: BOWEL BLOCKAGE ED Provider: Dewey Friedman Discharge Problem: Small bowel obstruction, Colostomy in place, Peritoneal carcinomatosis Patient Disposition: Admitted As Inpatient Discharge Instructions Interventions: ED Discharge Assessment Last Done: 10/06/22 20:00
[2022-10-06] MEDS ORDERED: OPTIRAY 350 100ml IV ONE (17:32)
--- NOTE | 2022-10-06 18:11 | CT Scan Report ---
CT abd pelvis oral and IV con CLINICAL HISTORY: abd pain, decreased ostomy output, stg4, ov ca TECHNIQUE: Helical axial images of the abdomen and pelvis were obtained and displayed. Automated dose lowering techniques and/or adjustment according to patient size were utilized for this exam. This e xam was performed with intravenous contrast. CT DOSE: 274.32 mGy.cm COMPARISON: Comparison is made to CT abdomen pelvis 09/19/2022 FINDINGS: Lower chest: Again noted is a large right pleural effusion with underlying atelectasis. Liver: Hepatic subcapsular masses are again noted. Gallbladder and biliary tree: Cholelithiasis is seen without evidence of cholecystitis. No intra- or extrahepatic biliary ductal dilation. Pancreas: Unremarkable, no focal lesions. Spleen: Splenic lesions are stable. Adrenals: Unremarkable. Kidneys and ureters: Unremarkable. Bladder: Redemonstration of thickened bladder wall. Reproductive organs: Left greater than right cystic lesions are seen. Bowel: Numerous dilated loops of small bowel are seen, new from prior exam, measuring up to 33 mm in diameter. There is suggestion of transition point distally. Previously noted region of large bowel ta pering is less conspicuous on today's exam. Midline ostomy is unchanged. Lymph nodes Retroperitoneal: A few retroperitoneal foci of disease are seen measuring up to 28 mm in diameter on the right and 16 mm on the left, similar to prior exam. Pelvic: Right pelvic node measures 11 mm. Mesenteric: Unremarkable. Peritoneum: Extensive peritoneal carcinomatosis is again seen. Vessels: Atherosclerotic calcifications are seen. Abdominal wall: Numerous abdominal wall metastases are again seen. Bones: Degenerative changes in the visualized spine. IMPRESSION: 1. Interval enlargement of numerous small bowel loops with suggestion of a distal transition point. No sharp proximal transition point is seen. Findings are concerning for worsening small bowel obstruc tion. No wall edema is seen. Previously noted colonic transition point is no longer seen. 2. Redemonstration of right pleural effusion, extensive peritoneal carcinomatosis, and abdominal wal l metastases. 3. Thickened bladder wall is again noted, clinical correlation is recommended for cystitis. 4. Additional findings as above. ACT 112: Negative or not required by law. Electronically signed by: Joseph Dominguez M.D. 10/06/2022 6:10 PM
[2022-10-06] MEDS ORDERED: MoRPHine SULFATE 2 MG/ML CARP IV STA (18:39)
--- NOTE | 2022-10-06 18:51 | History & Physical Report ---
Date of Service October 06, 2022 Assessment & Plan (1) Bowel obstruction: Plan: pt with history of metastatic ovarian Cancer with closed loop obstruction in the past and "blow hole" colostomy in 2020, who had improved. Recently did have progression of cancer and did have discussion of changing chemotherapy treatment. ER spoke to Surgery air transport professionals and recommended conservative management. CT shows Interval development of small bowel loop enlargement with distal tra nsition point, the previously discussed colonic transition point is no longer seen. re accumulation of pleural effusion (2) Pleural effusion, right: Plan: re accumulation of pleural effusion. she is not symptomatic from it at this point, not having any dyspnea last check was exudatve and felt secondary to malignancy (3) Depression: Plan: will use medications with a small sip at this time due small bowel obstruction (4) Hypertension: Plan: typically on amlodipine and lisinopril, will convert to will have on metoprolol scheduled and be on tele. 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 Recently admitted with malignant pleural effusion status post thoracentesis. Patient also was admitted at that time with recurrent bowel obstruction which improved with conservative treatment. Patient with recommendation of discontinuing Avastin and Zejula with discussions in oncology note to restart carbo/toxol and started on marinol, this was from 09/28 note, however she has not started this treatment. CCP also recommended MRI of brain which had not been done yet. She presents tonight with about a week of decreased colostomy output, increased abdominal pain and decreased po intake. she is still interested in treatment Allergies Allergy/AdvReac Type Severity Reaction Status Date / Time povidone-iodine Allergy Mild rash Verified 09/07/22 13:22 [From Betadine] Home Medications Medication Instructions Recorded Confirmed Type multivitamin (Daily Multi-Vitamin 1 tab PO QAM 09/18/20 09/21/22 History tablet) niraparib 100 mg capsule (Zejula) 100 mg PO QAM 06/06/21 09/21/22 History silver sulfadiazine 1 % topical 1 applic topical BID PRN wound 07/04/21 09/21/22 Rx cream (Silvadene) healing #400 grams amlodipine 10 mg tablet 10 mg PO DAILY #90 tabs 12/18/21 09/21/22 Rx mirtazapine 15 mg tablet 15 mg PO HS #90 tabs 12/18/21 09/21/22 Rx ipratropium bromide 21 mcg (0.03 2 spray intranasal BID #30 mL 12/22/21 09/21/22 Rx %) nasal spray lisinopril 20 mg tablet 20 mg PO BID #200 tabs 06/22/22 09/21/22 Rx rosuvastatin 10 mg tablet (Crestor) 10 mg PO DAILY #100 tabs 06/22/22 09/21/22 Rx bupropion HCl 150 mg 24 hr tablet, 150 mg PO QAM #30 tabs 08/04/22 09/21/22 Rx extended release metoprolol succinate 50 mg 50 mg PO BID #60 tabs 09/07/22 09/07/22 Rx tablet,extended release 24 hr oxycodone 5 mg tablet 5 mg PO BID PRN pain #30 tabs 09/07/22 09/21/22 Rx Past Med/Surg History Medical History Colostomy in place H/O squamous cell carcinoma of skin History of right breast cancer 2010--sx only History of small bowel obstruction Hyperlipidemia Hypertension Osteopenia Ovarian cancer peritoneal mets Port-A-Cath in place (03/03/20) Insertion of Mediport Dr. Cox 03/03/20 Proteinuria Situational anxiety Systolic murmur Type 2 diabetes mellitus diet controlled Surgical History History of bilateral tubal ligation History of section History of colon resection d/t tumor History of colonoscopy History of colostomy History of lumbar surgery History of lumpectomy of right breast History of open reduction and internal fixation (ORIF) procedure left big toe--hardware removed History of right breast biopsy History of tonsillectomy History of wisdom tooth extraction Status post Mohs surgery for squamous cell carcinoma of skin Family History Aunt Breast cancer Mother , age 56 2nd to acute [place] Myocardial infarction Cancer Hypertension Father , age 89 Heart disease Leukemia Other No family history of adverse response to anesthesia Denies family history of Ovarian cancer Prostate cancer Colorectal cancer Social History Smoking Status: Never smoker Second Hand Exposure: No; Hx Alcohol Use: No Hx Substance Use: No Preferred Language: Lithuanian Communication Ability: Effective Visual Impairment: No Limitations Hearing Ability: Normal Compound Specialist Required: No Beliefs That Will Affect Care: None marital status: / Current Living Situation: Alone Current Living Situation Comment: alone 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 status: 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 How many Children do You have: 5 Feels Safe at Home: Yes Childhood Exposure to Second-Hand Smoke: Yes caffeine: Yes Dental Care, Regularly: No Physical Activity Frequency: Does not Exercise Seatbelt Use: always Sunscreen Use: No Assistive Devices: Cane and Walker Review of Systems Review of Systems: Mild distress and fatigue no headache, no visual changes no speech or swallowing issues no chest pain, pressure or palpitations no shortness of breath, cough or wheezes low quadrant abdominal pain, nausea & vomiting, decreased ostomy output no dysuria, hematuria or frequency no focal joint pain or swelling no back pain, CVA tenderness or radicular pain no bruising, bleeding or rashes no focal signs of weakness or numbness or altered sensation no complaints of anxiety or depression.. Physical Exam Physical Exam: The patient appeared well nourished and normally developed. in moderate distress Vital signs as documented. Head exam is normocephalic atraumatic Neck is without JVD, thyromegaly, or carotid bruits. Lungs are clear to auscultation, no focal loss of breath sounds Cardiac exam, Rhythm is regular.. No murmurs, rubs or gallops. Abdominal exam reveals hyperactive and high pitched bowel sounds, soft lower quadrant tenderness Extremities are nonedematous and both pedal pulses are present Neurologic exam is alert and oriented, no focal loss of strength or sensation Skin is without bruises or rashes Psychologically is without concerns for anxiety or depression.. Results & Data Results & Data ([facility]) Vital Signs (Past 12 Hours) Vital Signs Temp Pulse Pulse Resp BP BP Pulse Ox 10/06/22 16:00 79 18 179/86 H 93 10/06/22 13:42 97.9 F 102 H 18 122/85 98 O2 Del Method 10/06/22 16:00 Room Air 10/06/22 13:42 Room Air Diagnostic Findings Abdomen/Pelvis CT 10/06/22 14:21 CT abd pelvis oral and IV con CLINICAL HISTORY: abd pain, decreased ostomy output, stg4, ov ca TECHNIQUE: Helical axial images of the abdomen and pelvis were obtained and displayed. Automated dose lowering techniques and/or adjustment according to patient size were utilized for this exam. This exam was performed with intravenous contrast. CT DOSE: 274.32 mGy.cm COMPARISON: Comparison is made to CT abdomen pelvis 09/19/2022 FINDINGS: Lower chest: Again noted is a large right pleural effusion with underlying atelectasis. Liver: Hepatic subcapsular masses are again noted. Gallbladder and biliary tree: Cholelithiasis is seen without evidence of cholecystitis. No intra- or extrahepatic biliary ductal dilation. Pancreas: Unremarkable, no focal lesions. Spleen: Splenic lesions are stable. Adrenals: Unremarkable. Kidneys and ureters: Unremarkable. Bladder: Redemonstration of thickened bladder wall. Reproductive organs: Left greater than right cystic lesions are seen. Bowel: Numerous dilated loops of small bowel are seen, new from prior exam, measuring up to 33 mm in diameter. There is suggestion of transition point distally. Previously noted region of large bowel tapering is less conspicuous on today's exam. Midline ostomy is unchanged. Lymph nodes Retroperitoneal: A few retroperitoneal foci of disease are seen measuring up to 28 mm in diameter on the right and 16 mm on the left, similar to prior exam. Pelvic: Right pelvic node measures 11 mm. Mesenteric: Unremarkable. Peritoneum: Extensive peritoneal carcinomatosis is again seen. Vessels: Atherosclerotic calcifications are seen. Abdominal wall: Numerous abdominal wall metastases are again seen. Bones: Degenerative changes in the visualized spine. IMPRESSION: 1. Interval enlargement of numerous small bowel loops with suggestion of a distal transition point. No sharp proximal transition point is seen. Findings are concerning for worsening small bowel obstruction. No wall edema is seen. Pr eviously noted colonic transition point is no longer seen. 2. Redemonstration of right pleural effusion, extensive peritoneal carcinomatosis, and abdominal wall metastases. 3. Thickened bladder wall is again noted, clinical correlation is recommended for cystitis. 4. Additional findings as above. ACT 112: Negative or not required by law. Electronically signed by: Joseph Dominguez M.D. 10/06/2022 6:10 PM PG Care Time/CCT Total # of Minutes Spent Total Time Spent with Patient: Total time spent is greater than 50% in coordination of care (as documented) at patient's floor/unit and/or counseling patient: Coding Level of Care Code 85511 Initial Inpt Care Lvl 3 Diagnoses Bowel obstruction K56.609 Pleural effusion, right J90 Depression F32.A Hypertension I10 Hypertension type: essential hypertension Type 2 diabetes mellitus E11.9 Diabetes mellitus complication status: without complication Diabetes mellitus rodent exterminator insulin use: without correction use (1) Type 2 diabetes mellitus Diabetes mellitus complication status: without complication Diabetes mellitus rodent exterminator insulin use: without rodent exterminator use Qualified Code(s): E11.9 - Type 2 diabetes mellitus without complications (2) Hypertension Hypertension type: essential hypertension Qualified Code(s): I10 - Essential (primary) hypertension
[2022-10-06] MEDS: LACTATED RINGER'S 1,000 ML IV SCH (19:43)
--- NOTE | 2022-10-06 19:52 | Surgery Consultation ---
Date of Consultation October 06, 2022 Assessment & Plan (1) Bowel obstruction: The patient has been admitted on the hospitalist service. Recommend proceeding as follows: Provide analgesics Provide antiemetics Implement n.p.o. status Hydrate with IV fluids I discussed with the patient that due to her underlying medical comorbidities and previous abdominal surgeries she would not be an ideal surgical candidate and therefore her small bowel obstruction should be treated in a conservative manner. At the present time she does not have any nausea vomiting she wishes to avoid having an NG tube placed. I did discuss with her that if her abdominal exam worsens or if she has further nausea and vomiting this may be required and she would be amendable to this if needed. Additional plans as noted by the primary service. History of Present Illness Reason for Consultation: Small bowel obstruction History of Present Illness This is a 76-year-old female who presented to [facility] emergency department secondary to abdominal pain that began yesterday. This patient has had numerous abdominal surgeries including a tubal ligation and section, as well as a colon resection with colostomy formation. The patient has a history of metastatic ovarian cancer with peritoneal implants and has had multiple admissions for small bowel obstructions. She was seen in the past by [facility] physician group general surgery in September 2021. At that time her small bowel obstruction was treated successfully in a conservative manner. Patient was most recently [facility] in mid September of this year secondary to nausea and vomiting. There was concern the patient had a partial small bowel obstruction but this resolved without any surgical intervention. As noted the patient presented to [facility] secondary to abdominal pain that began yesterday. The patient had an episode of emesis last evening and again this morning. She does note that her colostomy has not been putting out very much output. She denies any fevers, shakes, or chills. She denies any chest pain or worsening shortness of breath. Since arrival to [facility] emergency department she has had labs and imaging which I independent reviewed. A CT scan of the abdomen pelvis showed concern for a small bowel obstruction as patient had noted dilation of numerous small bowel loops however no discrete transition point was noted. Labs include a CBC her white blood cell count, hemoglobin and hematocrit were noted to be normal. Her platelet count was 423,000. Chemistry profile showed sodium, potassium, BUN, and creatinine were normal. There is no elevation of her lipase. A COVID test was noted to be negative as was her influenza and RSV tests. At the time of my interview the patient was resting comfortably in bed and she was in no distress. Allergies Allergy/AdvReac Type Severity Reaction Status Date / Time povidone-iodine Allergy Mild rash Verified 09/07/22 13:22 [From Betadine] Home Medications Medication Instructions Recorded Confirmed Type multivitamin (Daily Multi-Vitamin 1 tab PO QAM 09/18/20 09/21/22 History tablet) niraparib 100 mg capsule (Zejula) 100 mg PO QAM 06/06/21 09/21/22 History silver sulfadiazine 1 % topical 1 applic topical BID PRN wound 07/04/21 09/21/22 Rx cream (Silvadene) healing #400 grams amlodipine 10 mg tablet 10 mg PO DAILY #90 tabs 12/18/21 09/21/22 Rx mirtazapine 15 mg tablet 15 mg PO HS #90 tabs 12/18/21 09/21/22 Rx ipratropium bromide 21 mcg (0.03 2 spray intranasal BID #30 mL 12/22/21 09/21/22 Rx %) nasal spray lisinopril 20 mg tablet 20 mg PO BID #200 tabs 06/22/22 09/21/22 Rx rosuvastatin 10 mg tablet (Crestor) 10 mg PO DAILY #100 tabs 06/22/22 09/21/22 Rx bupropion HCl 150 mg 24 hr tablet, 150 mg PO QAM #30 tabs 08/04/22 09/21/22 Rx extended release metoprolol succinate 50 mg 50 mg PO BID #60 tabs 09/07/22 09/07/22 Rx tablet,extended release 24 hr oxycodone 5 mg tablet 5 mg PO BID PRN pain #30 tabs 09/07/22 09/21/22 Rx Patient History Medical History Colostomy in place H/O squamous cell carcinoma of skin History of right breast cancer 2010--sx only History of small bowel obstruction Hyperlipidemia Hypertension Osteopenia Ovarian cancer peritoneal mets Port-A-Cath in place (03/03/20) Insertion of Medicharlie Cox 03/03/20 Proteinuria Situational anxiety Systolic murmur Type 2 diabetes mellitus diet controlled Surgical History History of bilateral tubal ligation History of section History of colon resection d/t tumor History of colonoscopy History of colostomy History of lumbar surgery History of lumpectomy of right breast History of open reduction and internal fixation (ORIF) procedure left big toe--hardware removed History of right breast biopsy History of tonsillectomy History of wisdom tooth extraction Status post Mohs surgery for squamous cell carcinoma of skin Family History Aunt Breast cancer Mother , age 56 2nd to acute [place] Myocardial infarction Cancer Hypertension Father , age 89 Heart disease Leukemia Other No family history of adverse response to anesthesia Denies family history of Ovarian cancer Prostate cancer Colorectal cancer Social History Smoking Status: Never smoker Second Hand Exposure: No; Hx Alcohol Use: No Hx Substance Use: No Preferred Language: Portuguese Communication Ability: Effective Visual Impairment: No Limitations Hearing Ability: Normal Painter And Decorator Required: No Beliefs That Will Affect Care: None marital status: / Current Living Situation: Alone Current Living Situation Comment: alone 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 status: 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 How many Children do You have: 5 Other Information That Helps Us Care for You: No Feels Safe at Home: Yes Childhood Exposure to Second-Hand Smoke: Yes caffeine: Yes Dental Care, Regularly: No Physical Activity Frequency: Does not Exercise Seatbelt Use: always Sunscreen Use: No Assistive Devices: Cane and Walker Review of Systems Constitutional: no fever and no chills Eyes: no eye pain Ear, Nose, Mouth, Throat: no ear pain Respiratory: no cough and no dyspnea Cardiovascular: no chest pain Gastrointestinal: as per Subjective / HPI, + abdominal pain, + nausea and + vomiting Genitourinary: no dysuria Musculoskeletal: no back pain Integumentary: no rash Neurologic: no localized weakness Physical Exam Constitutional: well developed and well nourished; no acute distress Eyes: Wears glasses ENMT: Ears: no hearing impairment and no external ear abnormality Mouth: no oropharynx abnormality Neck: trachea midline Respiratory: normal respiratory effort; no respiratory distress and no labored breathing Cardiovascular: Rate/Rhythm: regular rate and regular rhythm Gastrointestinal (Abdomen): Abdomen is soft, nonrigid, nondistended. The patient had a colostomy in the midline of her abdomen. This appeared pink and viable. There is a small amount of stool in the collection bag. Patient did have tenderness to palpation of her abdomen greatest in the suprapubic region just below her colostomy. No rebound tenderness or guarding was noted at the time of my exam. High-pitched bowel sounds were noted on auscultation. Musculoskeletal: No calf tenderness Skin: no rashes Neurologic: moves all extremities Psychiatric: A+Ox3, euthymic affect Results & Data ([facility]) Vital Signs (Past 12 Hours) Vital Signs Temp Pulse Pulse Resp BP BP Pulse Ox 10/06/22 19:44 81 18 158/101 H 92 10/06/22 16:00 79 18 179/86 H 93 10/06/22 13:42 36.6 C 102 H 18 122/85 98 O2 Del Method 10/06/22 19:44 Room Air 10/06/22 16:00 Room Air 10/06/22 13:42 Room Air PG Care Time/CCT Total # of Minutes Spent Total Time Spent with Patient: Total time spent is greater than 50% in coordination of care (as documented) at patient's floor/unit and/or counseling patient: Coding Level of Care Code 73900 Inpt Consult Level 5 Diagnoses Bowel obstruction K56.609
[2022-10-06] MEDS: MIRTAZAPINE TAB 15 MG TAB PO SCH (21:57)
[2022-10-06] MEDS: HEPARIN SOD 5,000 UNIT/0.5 ML VIAL SQ SCH (21:57)
[2022-10-06] MEDS: MoRPHine SULFATE 2 MG/ML CARP IV PRN (22:02)
[2022-10-06] MEDS: METOPROLOL TARTRATE 1 MG/ML VIAL IV SCH (23:51)
[2022-10-07] MEDS: MoRPHine SULFATE 2 MG/ML CARP IV PRN ×3 (02:45→15:29)
[2022-10-07] MEDS: LACTATED RINGER'S 1,000 ML IV SCH ×3 (04:29→18:19)
[2022-10-07] MEDS: METOPROLOL TARTRATE 1 MG/ML VIAL IV SCH (07:10)
[2022-10-07] MEDS: buPROPion XL 150 MG TABCR PO SCH (07:25)
[2022-10-07] MEDS: HEPARIN SOD 5,000 UNIT/0.5 ML VIAL SQ SCH ×2 (07:27→20:00)
[2022-10-07] MEDS ORDERED: bisacodyL 10 MG SUPP PR STA (07:52)
[2022-10-07] MEDS: ONDANSETRON INJ 2 MG/ML 2 ML VIAL IV PRN ×3 (07:57→20:55)
--- NOTE | 2022-10-07 08:19 | Surgery Progress Note ---
Date of Service October 07, 2022 Assessment & Plan (1) Small bowel obstruction: Plan: Clinically stable. We will continue to attempt with conservative measures. We will offer her some suppositories this morning and repeat her KUB in the near future. Continue IV fluids. She has to start a new chemotherapy regimen next week. If her cancer responds to this perhaps this would improve her intermittent partial small bowel obstructions. No surgical intervention planned at this time. We will continue to follow along (2) Peritoneal carcinomatosis: Admission and Anticipated Discharge Date Admission Date: October 06, 2022 Subjective Patient seen. Still having some mild lower abdominal cramping but it is much improved from when she came in the hospital. No further nausea or vomiting. Physical Exam Physical Exam: Alert. No acute distress Abdomen is soft. Nondistended. Nontender. Results & Data ([facility]) Vital Signs (Past 12 Hours) Vital Signs Temp Pulse Pulse Resp BP BP Pulse Ox 10/07/22 08:15 36.6 C 75 16 163/94 H 93 10/07/22 06:49 76 16 169/92 H 10/07/22 04:26 36.8 C 69 16 161/83 H 93 10/06/22 23:58 62 16 145/84 H 92 10/06/22 23:51 62 145/84 H O2 Del Method 10/07/22 08:15 Room Air 10/07/22 06:49 10/07/22 04:26 Room Air 10/06/22 23:58 Room Air 10/06/22 23:51 PG Care Time/CCT Total # of Minutes Spent Total Time Spent with Patient: Total time spent is greater than 50% in coordination of care (as documented) at patient's floor/unit and/or counseling patient: Coding Level of Care Code 91093 Subseq Hosp Care Lvl 3 Diagnoses Small bowel obstruction K56.609 Peritoneal carcinomatosis C78.6
[2022-10-07 08:21] LABS: Hematocrit (blood only) 41.6 % (34.1-44.9); Hemoglobin 13.3 g/dl (12.0-16.0); Mean Corpuscular Hemoglobin 28.5 pg (25.0-34.0); Mean Corpuscular Volume 89.3 fL (80.0-100.0); Mean Platelet Volume 10.2 fL (9.4-12.3); Platelet Count 349 K/uL (130-400); RDW Coefficient of Variation 15.2 % (11.5-14.5); RDW Standard Deviation 49.8 fL (36.4-46.3); Red Blood Count 4.66 M/uL (3.93-5.22); White Blood Count 7.46 K/ul (4.8-10.8)
[2022-10-07 08:46] LABS: BUN Creatinine Ratio 16.9 (10-20); Calcium 9.2 mg/dl (8.5-10.1); Creatinine Clr Calc Pharmacy 48.8 ml/min; Est GFR (African American) 71.9 ml/min; Est GFR (Non-African American) 62.1 ml/min; Magnesium 1.9 mg/dl (1.7-2.4); Potassium 3.8 mmol/L (3.5-5.1)
--- NOTE | 2022-10-07 15:29 | XRay Report ---
KUB CLINICAL HISTORY: Abdominal pain. Evaluate for small bowel obstruction. COMPARISON STUDY: CT of the abdomen and pelvis October 06, 2022. FINDINGS: Incidental note is made of contrast within the collecting systems, ureters and bladder from recent contrast-enhanced CT. A few mildly dilated loops of small bowel are again noted. These are si milar to prior CT. The findings favor a partial small bowel obstruction. Amount of stool is within no rmal limits. IMPRESSION: No significant change in several loops of mildly dilated small bowel suggestive of a part ial small bowel obstruction. ACT 112: Negative or not required by law. Electronically signed by: Harlan Sharma M.D. 10/07/2022 3:28 PM
--- NOTE | 2022-10-07 18:05 | Hospitalist Progress Note ---
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 Recently did have progression of cancer and did have discussion of changing chemotherapy treatment. CT shows Interval development of small bowel loop enlargement with distal transition point, the previously discussed colonic transition point is no longer seen. re accumulation of pleural effusion Secondary to adhesions and peritoneal metastatic disease -continues with abd pain, one episode of N/V although KUB seems improved, no flatus or stool in colostomy -Surgery recommends conservative measures-gave bisacodyl suppos through colostomy bag -follow KUB in AM -keep on IVFs, NPO -low threshold for NGT if has return of N/V overnight although pt wants to avoid it if at all possible -follow CBC< CMP, Mag, Phos in AM (2) Pleural effusion, right: Plan: re accumulation of pleural effusion. she is not symptomatic from it at this point, not having any dyspnea last check was exudatve and felt secondary to malignancy (3) Depression: Plan: will use medications with a small sip at this time due small bowel obstruction- bupropion, remeron (4) Hypertension: Plan: typically on amlodipine and lisinopril, metoprolol -hold all meds can't give metoprolol on [id number]-efuw-[id number] IV hydralazine as needed transfer off tele (5) Type 2 diabetes mellitus: Plan: typically diet controlled , no need for insulin Plan heparin for dvt prevention pt is a full code Dispo-downgrade to med/surg Admission and Anticipated Discharge Date Admission Date: October 06, 2022 Subjective Seen later in day. No BM or flatus passed into ostomy since receiving bisacodyl in her colostomy this AM. Still having abd pain relieved with morphine and had one episode of N/V today now improved with zofran. Is making urine. Ambulating only to the BR and back Tele with 1st degree AV block, sinus rhythm, rates 80s Review of Systems Review of Systems: All systems reviewed & are unremarkable except as noted in HPI & below Physical Exam Constitutional: WD/WN, vitals as above Eyes: + anicteric sclerae ENMT: external ear and nose normal, oropharynx normal Neck: trachea midline, no thyromegaly Respiratory: normal respiratory effort, lungs clear to auscultation Cardiovascular: Rate/Rhythm: regular rate and regular rhythm Heart Sounds: + murmur (2/6 holosystolic murmur) Extremities: no edema Chest (Breasts): Chest: + vascular access device or port (left sided anterior chest port) Gastrointestinal (Abdomen): Inspection/Auscultation: + abdomen abnormal to inspection (colostomy bag no gas or stool) Percussion/Palpation: + abdomen tender (diffusely), abdomen soft (in RLQ,otherwise mod distension) and + abdominal mass (palpable LLQ abd wall mass); no guarding Musculoskeletal: Extremities: extremities normal to inspection; no cyanosis and no clubbing Skin: no rashes, warm and dry Neurologic: moves all extremities and awake; no focal motor deficits Psychiatric: A+Ox3, euthymic affect Lymphatic: no lymphedema Results & Data Results & Data ([facility]) Vital Signs (Past 12 Hours) Vital Signs Temp Pulse Pulse Resp BP Pulse Ox O2 Del Method 10/07/22 17:45 82 10/07/22 07:30 69 10/07/22 15:55 36.6 C 80 16 158/97 H 91 Room Air 10/07/22 12:26 36.4 C L 61 18 143/103 H 95 Room Air 10/07/22 07:45 Room Air 10/07/22 08:15 36.6 C 75 16 163/94 H 93 Room Air 10/07/22 06:49 76 16 169/92 H Laboratory Results 10/07/22 10/07/22 Range/Units 07:51 07:51 WBC 7.46 (4.8-10.8) K/ul RBC 4.66 (3.93-5.22) M/uL Hgb 13.3 (12.0-16.0) g/dl Hct 41.6 (34.1-44.9) % MCV 89.3 (80.0-100.0) fL MCH 28.5 (25.0-34.0) pg MCHC 32.0 (32.0-36.0) g/dL RDW Std Deviation 49.8 H (36.4-46.3) fL RDW Coeff of Laz 15.2 H (11.5-14.5) % Plt Count 349 (130-400) K/uL MPV 10.2 (9.4-12.3) fL Sodium 137 (136-145) mmol/L Potassium 3.8 (3.5-5.1) mmol/L Chloride 100 (98-107) mmol/L Carbon Dioxide 28 (21-32) mmol/L Anion Gap 9 (3-11) BUN 15 (6-23) mg/dl Creatinine 0.89 (0.6-1.2) mg/dl Est Cr Clr Drug Dosing 48.8 ml/min Est GFR ( Amer) 71.9 ml/min Est GFR (Non-Af Amer) 62.1 ml/min BUN/Creatinine Ratio 16.9 (10-20) Glucose 79 (70-99(Fasting)) mg/dl Calcium 9.2 (8.5-10.1) mg/dl Magnesium 1.9 (1.7-2.4) mg/dl PG Care Time/CCT Total # of Minutes Spent Total Time Spent with Patient: Total time spent is greater than 50% in coordination of care (as documented) at patient's floor/unit and/or counseling patient: Coding Level of Care Code 22818 Subseq Hosp Care Lvl 2 Diagnoses Bowel obstruction K56.609 Pleural effusion, right J90 Depression F32.A Hypertension I10 Hypertension type: essential hypertension Type 2 diabetes mellitus E11.9 Diabetes mellitus terminal worker insulin use: without long-term use Diabetes mellitus complication status: without complication (1) Hypertension Hypertension type: essential hypertension Qualified Code(s): I10 - Essential (primary) hypertension (2) Type 2 diabetes mellitus Diabetes mellitus long-term insulin use: without terminal worker use Diabetes mellitus complication status: without complication Qualified Code(s): E11.9 - Type 2 diabetes mellitus without complications
[2022-10-07] MEDS: ACETAMINOPHEN 1,000 MG/100 ML VIAL IV PRN (18:15)
[2022-10-07] MEDS: MIRTAZAPINE TAB 15 MG TAB PO SCH (20:00)
[2022-10-08] MEDS: LACTATED RINGER'S 1,000 ML IV SCH ×4 (01:47→23:21)
[2022-10-08 06:16] LABS: Hematocrit (blood only) 39.7 % (34.1-44.9); Hemoglobin 12.9 g/dl (12.0-16.0); Mean Corpuscular Hemoglobin 28.8 pg (25.0-34.0); Mean Corpuscular Hgb Conc 32.5 g/dL (32.0-36.0); Mean Corpuscular Volume 88.6 fL (80.0-100.0); Mean Platelet Volume 10.2 fL (9.4-12.3); Platelet Count 325 K/uL (130-400); RDW Coefficient of Variation 15.1 % (11.5-14.5); RDW Standard Deviation 48.7 fL (36.4-46.3); Red Blood Count 4.48 M/uL (3.93-5.22); White Blood Count 7.54 K/ul (4.8-10.8)
[2022-10-08 06:40] LABS: Albumin Level 3.4 gm/dl (3.4-5.0); BUN Creatinine Ratio 17.4 (10-20); Bilirubin Direct 0.1 mg/dl (0-0.2); Bilirubin,Total 0.5 mg/dl (0.2-1.0); Calcium 9.3 mg/dl (8.5-10.1); Creatinine Clr Calc Pharmacy 47.4 ml/min; Est GFR (African American) 69.1 ml/min; Est GFR (Non-African American) 59.6 ml/min; Magnesium 1.8 mg/dl (1.7-2.4); Phosphorus 4.5 mg/dl (2.5-4.9); Potassium 4.2 mmol/L (3.5-5.1); Total Protein 6.3 gm/dl (6.0-8.3)
[2022-10-08] MEDS: ONDANSETRON INJ 2 MG/ML 2 ML VIAL IV PRN ×2 (07:50→20:52)
[2022-10-08] MEDS: ACETAMINOPHEN 1,000 MG/100 ML VIAL IV PRN (07:50)
[2022-10-08] MEDS: HEPARIN SOD 5,000 UNIT/0.5 ML VIAL SQ SCH ×2 (08:18→21:05)
[2022-10-08] MEDS: buPROPion XL 150 MG TABCR PO SCH (08:18)
--- NOTE | 2022-10-08 09:50 | XRay Report ---
KUB HISTORY: Acute generalized abdominal pain in a patient with reported small bowel obstruction SBO COMPARISON: KUB 10/07/2022, CT 10/06/2022 FINDINGS: Contrast noted within the urinary bladder. Mildly dilated air-filled loops of small bowel a re again noted within the central abdomen measuring up to 3.5 cm transversely, similar to yesterday's exam. Layering right pleural effusion. No renal calculi. No ureteral calculi. No pneumoperitoneum o r pneumatosis. No fracture. IMPRESSION: Similar appearance of the mildly dilated air-filled small bowel loops suggestive of obstruction. Cont inued follow-up recommended. ACT 112: Negative or not required by law. The above report was generated using voice recognition software. It may contain grammatical, syntax o r spelling errors. Electronically signed by: Angelito Aggarwal M.D. 10/08/2022 9:49 AM
--- NOTE | 2022-10-08 10:15 | Surgery Progress Note ---
Date of Service October 08, 2022 Assessment & Plan (1) Small bowel obstruction: Plan: limited progress over two days, XR appears similar may need NG if N/V persists but she wants to wait seen with Dr. Wang Admission and Anticipated Discharge Date Admission Date: October 06, 2022 Supervising Physician Co-Signing Physician Notes I personally saw and evaluated the patient with Didier Barros PA-C and agree with the assessment and plan. 76-year-old female with metastatic ovarian cancer and small bowel obstruction She did have some emesis this morning, will keep her n.p.o. and place an NG tube if she continues with emesis No plans for any surgical intervention Will continue to follow-up in the hospital Subjective moderate emesis this AM, no ostomy output, pain resolved Physical Exam Constitutional: WD/WN, vitals as above Gastrointestinal (Abdomen): Inspection/Auscultation: abdomen not distended Percussion/Palpation: abdomen soft; abdomen nontender Results & Data ([facility]) Vital Signs (Past 12 Hours) Vital Signs Temp Pulse Resp BP Pulse Ox O2 Del Method 10/08/22 07:53 36.5 C 94 H 18 166/90 H 91 Room Air 10/08/22 04:00 36.6 C 85 20 169/87 H 91 Room Air 10/07/22 23:00 36.8 C 95 H 20 172/93 H 91 Room Air PG Care Time/CCT Total # of Minutes Spent Total Time Spent with Patient: Total time spent is greater than 50% in coordination of care (as documented) at patient's floor/unit and/or counseling patient: Coding Level of Care Code 01673 Subseq Hosp Care Lvl 1 Diagnoses Small bowel obstruction K56.609
--- NOTE | 2022-10-08 10:42 | XRay Report ---
PA CHEST RADIOGRAPH AND UPRIGHT AND SUPINE AP RADIOGRAPHS OF THE ABDOMEN CLINICAL HISTORY: Assess for obstruction,perforation. Ovarian cancer. COMPARISON STUDY: CT of the abdomen and pelvis October 06, 2022. KUB performed earlier today. FINDINGS: Moderate right pleural effusion with associated opacity is again noted. A left internal ju gular Kyiqjq-v-Ohgx is in place. There is no evidence for pulmonary edema. No pneumothorax is present . There is no free air. Oral contrast from recent abdominal CT has reached the right colon. Several l oops of mildly dilated small bowel are noted, measuring up to 3.5 cm. Small bowel air-fluid levels ar e present on upright projection. Gallstones are noted. IMPRESSION: 1. No free air. 2. No significant change in mild small bowel dilatation suggestive of a partial small bowel obstructi on. 3. Moderate right pleural effusion. ACT 112: Negative or not required by law. Electronically signed by: Harlan Sharma M.D. 10/08/2022 10:41 AM
--- NOTE | 2022-10-08 17:19 | Hospitalist Progress Note ---
Date of Service October 08, 2022 Assessment & Plan (1) Bowel obstruction: Plan: pt with history of metastatic ovarian Cancer with closed loop obstruction in the past and "blow hole" colostomy in 2019 Recently did have progression of cancer and did have discussion of changing chemotherapy treatment. CT abdomen/pelvis on admission shows Interval development of small bowel loop enlargement with distal transition point, the previously discussed colonic transition point is no longer seen. Also with accumulation of pleural effusion on the right SBO secondary to adhesions and peritoneal metastatic disease Still without gas or stool output in ostomy and with ongoing nausea/vomiting on 10/08. Abdominal x-ray with partial SBO but clinically seems like complete SBO -will now place NG tube to low intermittent suction -Surgery following -keep on IVFs, NPO -follow CBC, CMP, Mag, Phos in AM -Follow KUB in the morning (2) Pleural effusion, right: Plan: reaccumulation of pleural effusion. she is not symptomatic from it at this point, not having any dyspnea last check was exudative and felt secondary to malignancy (3) Transaminitis: Plan: AST and ALT are acutely elevated now Does have subcapsular hepatic masses presumably metastases Also with right-sided pleural effusion which could be contributing Follow LFTs in the morning (4) Depression: Plan: -bupropion, remeron ordered but now with NG tube in place will not likely be able to give (5) Hypertension: Plan: typically on amlodipine and lisinopril, metoprolol Blood pressure is mildly elevated with being off of medications -Continue to hold all p.o. meds -Continue IV hydralazine as needed for SBP greater than 180 (6) Type 2 diabetes mellitus: Plan: typically diet controlled , no need for insulin (7) Ovarian cancer: Plan: With metastatic ovarian cancer with mets to peritoneum, abdominal wall, liver, para-aortic caval lymph nodes, lung and with malignant pleural effusion, treated previously with chemotherapy in 2019 and 2020 with progression of disease on therapy. She recently saw her oncology provider on 09/28 who wanted to start her back on carboplatin/Taxol x6 cycles, and recommended a brain MRI in the setting of difficulty with ambulation to rule out metastases. It does not seem that she got the brain MRI performed yet but not stable for that at this point. Plan heparin for dvt prevention pt is a full code Dispo-continued stay med/surg for persistent small bowel obstruction Admission and Anticipated Discharge Date Admission Date: October 06, 2022 Subjective Patient had an episode of emesis on the floor this morning as per nursing but then received Zofran and felt better. When I saw her later in the afternoon she was again having nausea and indigestion and felt like she was about to throw up again. She was then agreeable to an NG tube. Still no output of flatus or stool in the ostomy. Review of Systems Review of Systems: All systems reviewed & are unremarkable except as noted in HPI & below Physical Exam Constitutional: WD/WN, vitals as above Eyes: + anicteric sclerae ENMT: external ear and nose normal, oropharynx normal Neck: trachea midline, no thyromegaly Respiratory: normal respiratory effort, lungs clear to auscultation Cardiovascular: Rate/Rhythm: regular rate and regular rhythm Heart Sounds: + murmur (2/6 holosystolic murmur) Extremities: no edema Chest (Breasts): Chest: + vascular access device or port (left sided anterior chest port) Gastrointestinal (Abdomen): Inspection/Auscultation: normal bowel sounds; + abdomen abnormal to inspection (colostomy bag no gas or stool) Percussion/Palpation: + abdomen tender (diffusely), abdomen soft (in RLQ,otherwise mod distension) and + abdominal mass (palpable LLQ abd wall mass); no guarding Musculoskeletal: Extremities: extremities normal to inspection; no cyanosis and no clubbing Skin: no rashes, warm and dry Neurologic: moves all extremities and awake; no focal motor deficits Psychiatric: A+Ox3, euthymic affect Lymphatic: no lymphedema Results & Data Results & Data ([facility]) Vital Signs (Past 12 Hours) Vital Signs Temp Pulse Resp BP Pulse Ox O2 Del Method 10/08/22 16:21 37.1 C 88 18 159/91 H 93 Room Air 10/08/22 11:23 36.8 C 78 18 122/75 91 Room Air 10/08/22 07:53 36.5 C 94 H 18 166/90 H 91 Room Air Laboratory Results 10/08/22 10/08/22 Range/Units 05:39 05:39 WBC 7.54 (4.8-10.8) K/ul RBC 4.48 (3.93-5.22) M/uL Hgb 12.9 (12.0-16.0) g/dl Hct 39.7 (34.1-44.9) % MCV 88.6 (80.0-100.0) fL MCH 28.8 (25.0-34.0) pg MCHC 32.5 (32.0-36.0) g/dL RDW Std Deviation 48.7 H (36.4-46.3) fL RDW Coeff of Laz 15.1 H (11.5-14.5) % Plt Count 325 (130-400) K/uL MPV 10.2 (9.4-12.3) fL Sodium 137 (136-145) mmol/L Potassium 4.2 (3.5-5.1) mmol/L Chloride 97 L (98-107) mmol/L Carbon Dioxide 28 (21-32) mmol/L Anion Gap 12 H (3-11) BUN 16 (6-23) mg/dl Creatinine 0.92 (0.6-1.2) mg/dl Est Cr Clr Drug Dosing 47.4 ml/min Est GFR ( Amer) 69.1 ml/min Est GFR (Non-Af Amer) 59.6 ml/min BUN/Creatinine Ratio 17.4 (10-20) Glucose 70 (70-99(Fasting)) mg/dl Calcium 9.3 (8.5-10.1) mg/dl Phosphorus 4.5 (2.5-4.9) mg/dl Magnesium 1.8 (1.7-2.4) mg/dl Total Bilirubin 0.5 (0.2-1.0) mg/dl Direct Bilirubin 0.1 (0-0.2) mg/dl AST 160 H (13-39) U/L ALT 87 H (7-52) U/L Alkaline Phosphatase 124 H (34-104) U/L Total Protein 6.3 (6.0-8.3) gm/dl Albumin 3.4 (3.4-5.0) gm/dl PG Care Time/CCT Total # of Minutes Spent Total Time Spent with Patient: Total time spent is greater than 50% in coordination of care (as documented) at patient's floor/unit and/or counseling patient: Coding Level of Care Code 95135 Subseq Hosp Care Lvl 2 Diagnoses Bowel obstruction K56.609 Pleural effusion, right J90 Transaminitis R74.01 Depression F32.A Hypertension I10 Hypertension type: essential hypertension Type 2 diabetes mellitus E11.9 Diabetes mellitus complication status: without complication Diabetes mellitus intermission coordinator insulin use: without nursing home use Ovarian cancer C56.9 Laterality: unspecified laterality (1) Type 2 diabetes mellitus Diabetes mellitus complication status: without complication Diabetes mellitus intermission coordinator insulin use: without intermission coordinator use Qualified Code(s): E11.9 - Type 2 diabetes mellitus without complications (2) Hypertension Hypertension type: essential hypertension Qualified Code(s): I10 - Essential (primary) hypertension (3) Ovarian cancer Laterality: unspecified laterality Qualified Code(s): C56.9 - Malignant neoplasm of unspecified ovary
[2022-10-08] MEDS: MoRPHine SULFATE 2 MG/ML CARP IV PRN ×2 (17:30→23:27)
[2022-10-08] MEDS: PROMETHAZINE HCL 12.5 MG in SODIUM CHLORIDE 0.9% 50 ML IV PRN (17:54)
--- NOTE | 2022-10-08 19:08 | XRay Report ---
XR KUB/Abdomen 1 view CLINICAL HISTORY: NGT placement TECHNIQUE: 1 view of the abdomen was obtained. Comparison: Comparison is made to chest radiograph 10/08/2022 FINDINGS: A right port catheter is seen. Enteric tube is seen with the side-port in the abdomen. The osseous st ructures are grossly unremarkable. A few dilated bowel loops are again seen compatible with small bow el obstruction. A moderate amount of stool is noted within the large bowel. IMPRESSION: Satisfactory position of enteric tube. Possible partial small bowel obstruction, unchanged. ACT 112: Negative or not required by law. Electronically signed by: Joseph Dominguez M.D. 10/08/2022 7:07 PM
[2022-10-08] MEDS: MIRTAZAPINE TAB 15 MG TAB PO SCH (21:04)
[2022-10-09 07:02] LABS: Hematocrit (blood only) 37.1 % (34.1-44.9); Hemoglobin 12.1 g/dl (12.0-16.0); Mean Corpuscular Hemoglobin 28.6 pg (25.0-34.0); Mean Corpuscular Hgb Conc 32.6 g/dL (32.0-36.0); Mean Corpuscular Volume 87.7 fL (80.0-100.0); Mean Platelet Volume 9.9 fL (9.4-12.3); Platelet Count 265 K/uL (130-400); Red Blood Count 4.23 M/uL (3.93-5.22); White Blood Count 6.28 K/ul (4.8-10.8)
[2022-10-09 07:40] LABS: Albumin Globulin Ratio 1.1 (0.9-2); Albumin Level 3.1 gm/dl (3.4-5.0); BUN Creatinine Ratio 14.9 (10-20); Bilirubin,Total 0.4 mg/dl (0.2-1.0); Calcium 9.2 mg/dl (8.5-10.1); Creatinine Clr Calc Pharmacy 46.4 ml/min; Est GFR (African American) 67.3 ml/min; Est GFR (Non-African American) 58.1 ml/min; Globulin 2.8 gm/dl (2.5-4.0); Magnesium 1.5 mg/dl (1.7-2.4); Phosphorus 3.5 mg/dl (2.5-4.9); Potassium 3.7 mmol/L (3.5-5.1); Total Protein 5.9 gm/dl (6.0-8.3)
[2022-10-09] MEDS: MAGNESIUM SULFATE / D5W 1 GM/100 ML BAG IV SCH ×2 (09:01→11:09)
[2022-10-09] MEDS: D5W AND LACTATED RINGERS 1,000 ML IV SCH (09:01)
--- NOTE | 2022-10-09 09:55 | XRay Report ---
KUB CLINICAL HISTORY: Small bowel obstruction. FINDINGS: An AP, portable, supine abdominal radiograph is compared to study dated 10/08/2022 and corre lated with abdominal CT dated 10/06/2022. An enteric tube projects over the stomach. Enteric contrast is noted in the right colon. There is persistent gaseous distention of the small bowel loops which m easure up to 3.2 cm in diameter. This indicates persistent obstruction. No evidence of intraperitonea l free air is seen on this supine image. There are no abnormal abdominal calcifications. The skeletal structures are osteopenic and appear intact. Lumbosacral spondylosis is noted. IMPRESSION: 1. Persistent small bowel obstruction. 2. Residual enteric contrast has reached the right colon. Electronically signed by: Сергей Chavez M.D. 10/09/2022 9:52 AM
--- NOTE | 2022-10-09 11:05 | Surgery Progress Note ---
Date of Service October 09, 2022 Assessment & Plan (1) Transaminitis: Plan: SBO with carcinomatosis agree with ngt await bowel function difficult case Present on Admission?: Yes Admission and Anticipated Discharge Date Admission Date: October 06, 2022 Subjective abdomen feels better ngt 1650cc/12 hrs some fluid in ostomy bag Review of Systems Constitutional: no fever and no chills Respiratory: no cough and no dyspnea Cardiovascular: no chest pain Gastrointestinal: + abdominal pain and + change in bowel habits; no nausea and no vomiting Genitourinary: no dysuria Musculoskeletal: no back pain Neurologic: + generalized weakness; no localized weakness Psychiatric: no behavioral changes Hematologic / Lymphatic: no easy bleeding and no easy bruising Physical Exam Constitutional: WD/WN, vitals as above Eyes: PERRL, conjunctivae normal, anicteric sclerae ENMT: external ear and nose normal, oropharynx normal Neck: trachea midline Respiratory: normal respiratory effort, lungs clear to auscultation Cardiovascular: RRR, no murmur, no edema Gastrointestinal (Abdomen): Inspection/Auscultation: abdomen normal to inspection, + abdomen distended and normal bowel sounds Percussion/Palpation: + abdomen tender (mild) and abdomen soft; no guarding and abdomen not rigid Musculoskeletal: Head/Neck/Chest: normocephalic and head atraumatic Skin: no rashes, warm and dry Results & Data ([facility]) Vital Signs (Past 12 Hours) Vital Signs Temp Pulse Resp BP Pulse Ox O2 Del Method 10/09/22 08:13 36.8 C 103 H 20 135/80 91 Room Air 10/08/22 23:31 37.1 C 104 H 20 163/96 H 91 Room Air Diagnostic Findings KUB CLINICAL HISTORY: Small bowel obstruction. FINDINGS: An AP, portable, supine abdominal radiograph is compared to study dated 10/08/2022 and correlated with abdominal CT dated 10/06/2022. An enteric tube projects over the stomach. Enteric contrast is noted in the right colon. There is persistent gaseous distention of the small bowel loops which measure up to 3.2 cm in diameter. This indicates persistent obstruction. No evidence of intraperitoneal free air is seen on this supine image. There are no abnormal abdominal calcifications. The skeletal structures are osteopenic and appear intact. Lumbosacral spondylosis is noted. IMPRESSION: 1. Persistent small bowel obstruction. 2. Residual enteric contrast has reached the right colon.
--- NOTE | 2022-10-09 13:20 | Hospitalist Progress Note ---
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 CT abdomen/pelvis on admission shows Interval development of small bowel loop enlargement with distal transition point, the previously discussed colonic transition point is no longer seen. Also with accumulation of pleural effusion on the right SBO secondary to adhesions and peritoneal metastatic disease Still without gas or stool output in ostomy and with ongoing nausea/vomiting on 10/08. Abdominal x-ray with partial SBO but clinically seems like complete SBO Placed NG tube on the evening of 10/08, now symptomatically improving, has had significant output from NG tube KUB on 10/09 still with SBO -Continue to follow clinically for resolution -Surgery following-appreciate management -keep on IVFs, NPO, but if not able to take p.o. by 10/11, would start PPN or TPN -follow CBC, CMP, Mag, Phos in AM and replace electrolytes as needed -Follow KUB in the morning (2) Pleural effusion, right: Plan: reaccumulation of pleural effusion. she is not symptomatic from it at this point, not having any dyspnea last check was exudative and felt secondary to malignancy (3) Transaminitis: Plan: AST and ALT are acutely elevated as of 10/08, but now improving and abdominal pain is improving Does have subcapsular hepatic masses presumably metastases Also with right-sided pleural effusion which could be contributing Follow LFTs again in the morning (4) Depression: Plan: -bupropion, remeron can be continued if clamp tube for 30 minutes after giving in the morning Patient would like her Remeron to be changed to morning dosing as she takes it at home (5) Hypertension: Plan: typically on amlodipine and lisinopril, metoprolol Blood pressure is mildly elevated with being off of medications -Continue to hold all p.o. meds -Continue IV hydralazine as needed for SBP greater than 180 (6) Type 2 diabetes mellitus: Plan: typically diet controlled , no need for insulin (7) Ovarian cancer: Plan: With metastatic ovarian cancer with mets to peritoneum, abdominal wall, liver, para-aortic caval lymph nodes, lung and with malignant pleural effusion, treated previously with chemotherapy in 2019 and 2020 with progression of disease on therapy. She recently saw her oncology provider on 09/28 who wanted to start her back on carboplatin/Taxol x6 cycles, and recommended a brain MRI in the setting of difficulty with ambulation to rule out metastases. It does not seem that she got the brain MRI performed yet but not stable for that at this point. Plan heparin for dvt prevention pt is a full code Dispo-continued stay med/surg for persistent small bowel obstruction, encouraged ambulation 3 times daily with clamping of tube for 30 minutes at a time Admission and Anticipated Discharge Date Admission Date: October 06, 2022 Subjective Patient feeling better today with no further nausea since NG tube placed last night. Had 1650 mL out in her NG tube. No further abdominal pain. Still no gas or stool in her ostomy bag. She is having significant discomfort in her thr oat from the NG tube. No chest pains or shortness of breath. Review of Systems Review of Systems: All systems reviewed & are unremarkable except as noted in HPI & below Physical Exam Constitutional: WD/WN, vitals as above Eyes: + anicteric sclerae Neck: trachea midline, no thyromegaly Respiratory: normal respiratory effort, lungs clear to auscultation Cardiovascular: Rate/Rhythm: regular rate and regular rhythm Heart Sounds: + murmur (2/6 holosystolic murmur) Extremities: no edema Chest (Breasts): Chest: + vascular access device or port (left sided anterior chest port) Gastrointestinal (Abdomen): Inspection/Auscultation: + hypoactive bowel sounds; + abdomen abnormal to inspection (colostomy bag no gas or stool) and abdomen not distended Percussion/Palpation: abdomen soft (Much improved today) and + abdominal mass (palpable LLQ abd wall mass); abdomen nontender and no guarding Musculoskeletal: Extremities: extremities normal to inspection; no cyanosis and no clubbing Skin: no rashes, warm and dry Neurologic: moves all extremities and awake; no focal motor deficits Psychiatric: A+Ox3, euthymic affect Lymphatic: no lymphedema Results & Data Results & Data ([facility]) Vital Signs (Past 12 Hours) Vital Signs Temp Pulse Resp BP Pulse Ox O2 Del Method 10/09/22 08:13 36.8 C 103 H 20 135/80 91 Room Air Laboratory Results 10/09/22 10/09/22 Range/Units 06:25 06:25 WBC 6.28 (4.8-10.8) K/ul RBC 4.23 (3.93-5.22) M/uL Hgb 12.1 (12.0-16.0) g/dl Hct 37.1 (34.1-44.9) % MCV 87.7 (80.0-100.0) fL MCH 28.6 (25.0-34.0) pg MCHC 32.6 (32.0-36.0) g/dL RDW Std Deviation 48.0 H (36.4-46.3) fL RDW Coeff of Laz 15.0 H (11.5-14.5) % Plt Count 265 (130-400) K/uL MPV 9.9 (9.4-12.3) fL Sodium 138 (136-145) mmol/L Potassium 3.7 (3.5-5.1) mmol/L Chloride 97 L (98-107) mmol/L Carbon Dioxide 29 (21-32) mmol/L Anion Gap 12 H (3-11) BUN 14 (6-23) mg/dl Creatinine 0.94 (0.6-1.2) mg/dl Est Cr Clr Drug Dosing 46.4 ml/min Est GFR ( Amer) 67.3 ml/min Est GFR (Non-Af Amer) 58.1 ml/min BUN/Creatinine Ratio 14.9 (10-20) Glucose 57 L (70-99(Fasting)) mg/dl Calcium 9.2 (8.5-10.1) mg/dl Phosphorus 3.5 D (2.5-4.9) mg/dl Magnesium 1.5 L (1.7-2.4) mg/dl Total Bilirubin 0.4 (0.2-1.0) mg/dl AST 74 H (13-39) U/L ALT 55 H (7-52) U/L Alkaline Phosphatase 101 (34-104) U/L Total Protein 5.9 L (6.0-8.3) gm/dl Albumin 3.1 L (3.4-5.0) gm/dl Globulin 2.8 (2.5-4.0) gm/dl Albumin/Globulin Ratio 1.1 (0.9-2) Diagnostic Findings KUB image personally reviewed by me and agree with the following report: KUB X-Ray 10/09/22 08:33 KUB CLINICAL HISTORY: Small bowel obstruction. FINDINGS: An AP, portable, supine abdominal radiograph is compared to study dated 10/08/2022 and correlated with abdominal CT dated 10/06/2022. An enteric tube projects over the stomach. Enteric contrast is noted in the right colon. There is persistent gaseous distention of the small bowel loops which measure up to 3.2 cm in diameter. This indicates persistent obstruction. No evidence of intraperitoneal free air is seen on this supine image. There are no abnormal abdominal calcifications. The skeletal structures are osteopenic and appear intact. Lumbosacral spondylosis is noted. IMPRESSION: 1. Persistent small bowel obstruction. 2. Residual enteric contrast has reached the right colon. Electronically signed by: Сергей Chavez M.D. 10/09/2022 9:52 AM PG Care Time/CCT Total # of Minutes Spent Total Time Spent with Patient: Total time spent is greater than 50% in coordination of care (as documented) at patient's floor/unit and/or counseling patient: Coding Level of Care Code 96203 Subseq Hosp Care Lvl 2 Diagnoses Bowel obstruction K56.609 Pleural effusion, right J90 Transaminitis R74.01 Depression F32.A Hypertension I10 Hypertension type: essential hypertension Type 2 diabetes mellitus E11.9 Diabetes mellitus complication status: without complication Diabetes mellitus emt intermediate insulin use: without emt intermediate use Ovarian cancer C56.9 Laterality: unspecified laterality (1) Ovarian cancer Laterality: unspecified laterality Qualified Code(s): C56.9 - Malignant neoplasm of unspecified ovary (2) Type 2 diabetes mellitus Diabetes mellitus complication status: without complication Diabetes mellitus emt intermediate insulin use: without shelter use Qualified Code(s): E11.9 - Type 2 diabetes mellitus without complications (3) Hypertension Hypertension type: essential hypertension Qualified Code(s): I10 - Essential (primary) hypertension
[2022-10-09] MEDS ORDERED: CHLORASEPTIC 1.4% SOLN 180 ML BTL MT PRN (13:30)
[2022-10-09] MEDS: HEPARIN SOD 5,000 UNIT/0.5 ML VIAL SQ SCH ×2 (16:00→20:46)
[2022-10-09] MEDS: buPROPion XL 150 MG TABCR PO SCH (16:00)
[2022-10-09] MEDS: MIRTAZAPINE TAB 15 MG TAB PO SCH (16:01)
[2022-10-09] MEDS: ACETAMINOPHEN 1,000 MG/100 ML VIAL IV PRN (20:02)
[2022-10-09] MEDS: ONDANSETRON INJ 2 MG/ML 2 ML VIAL IV PRN (20:43)
[2022-10-09] MEDS ORDERED: MIRTAZAPINE TAB 15 MG TAB PO SCH (21:00)
[2022-10-10] MEDS: D5W AND LACTATED RINGERS 1,000 ML IV SCH ×2 (02:32→16:15)
[2022-10-10 06:19] LABS: Hematocrit (blood only) 37.2 % (34.1-44.9); Hemoglobin 12.2 g/dl (12.0-16.0); Mean Corpuscular Hemoglobin 28.5 pg (25.0-34.0); Mean Corpuscular Hgb Conc 32.8 g/dL (32.0-36.0); Mean Corpuscular Volume 86.9 fL (80.0-100.0); Mean Platelet Volume 10.5 fL (9.4-12.3); Platelet Count 253 K/uL (130-400); RDW Standard Deviation 47.9 fL (36.4-46.3); Red Blood Count 4.28 M/uL (3.93-5.22)
--- NOTE | 2022-10-10 07:57 | Surgery Progress Note ---
Date of Service October 10, 2022 Assessment & Plan (1) Small bowel obstruction: Plan: some progress would keep NGT until at least tomorrow tender and distended abdomen but a little better Present on Admission?: Yes Admission and Anticipated Discharge Date Admission Date: October 06, 2022 Subjective passing some flatus still with abdominal pain ngt draining bilious feels a little better Review of Systems Constitutional: + fatigue and + anorexia; no fever and no chills Respiratory: no cough and no dyspnea Cardiovascular: no chest pain Gastrointestinal: + abdominal pain, + nausea and + change in bowel habits; no vomiting Genitourinary: no dysuria Musculoskeletal: no back pain Integumentary: no rash and no lesions Neurologic: + generalized weakness; no localized weakness Psychiatric: no behavioral changes Physical Exam Constitutional: WD/WN, vitals as above Eyes: PERRL, conjunctivae normal, anicteric sclerae ENMT: external ear and nose normal, oropharynx normal Neck: trachea midline Respiratory: normal respiratory effort, lungs clear to auscultation Cardiovascular: RRR, no murmur, no edema Gastrointestinal (Abdomen): Inspection/Auscultation: abdomen normal to inspection, + abdomen distended and normal bowel sounds Percussion/Palpation: + abdomen tender and abdomen soft; no guarding and abdomen not rigid Musculoskeletal: Head/Neck/Chest: normocephalic and head atraumatic Skin: no rashes, warm and dry Results & Data ([facility]) Vital Signs (Past 12 Hours) Vital Signs Temp Pulse Resp BP BP Pulse Ox O2 Del Method 10/10/22 07:36 36.5 C 102 H 18 148/97 H 96 Nasal Cannula 10/10/22 06:35 95 Nasal Cannula 10/09/22 22:00 36.9 C 107 H 18 159/91 H 91 Room Air O2 Flow Rate 10/10/22 07:36 2 10/10/22 06:35 2 10/09/22 22:00
[2022-10-10] MEDS: buPROPion XL 150 MG TABCR PO SCH (11:13)
[2022-10-10] MEDS: MIRTAZAPINE TAB 15 MG TAB PO SCH (11:13)
[2022-10-10 11:37] LABS: Albumin Globulin Ratio 1.2 (0.9-2); Albumin Level 2.9 gm/dl (3.4-5.0); BUN Creatinine Ratio 10.6 (10-20); Bilirubin,Total 0.3 mg/dl (0.2-1.0); Calcium 8.6 mg/dl (8.5-10.1); Est GFR (African American) 76.1 ml/min; Est GFR (Non-African American) 65.6 ml/min; Globulin 2.5 gm/dl (2.5-4.0); Magnesium 1.7 mg/dl (1.7-2.4); Phosphorus 3.2 mg/dl (2.5-4.9); Potassium 3.3 mmol/L (3.5-5.1); Total Protein 5.4 gm/dl (6.0-8.3)
[2022-10-10] MEDS ORDERED: MAGNESIUM SULFATE / D5W 1 GM/100 ML BAG IV ONE (13:15)
--- NOTE | 2022-10-10 13:23 | Hospitalist Progress Note ---
Date of Service October 10, 2022 Assessment & Plan (1) Bowel obstruction: Plan: pt with history of metastatic ovarian Cancer with closed loop obstruction in the past and "blow hole" colostomy in 2020 Recently did have progression of cancer and did have discussion of changing chemotherapy treatment. CT abdomen/pelvis on admission shows Interval development of small bowel loop enlargement with distal transition point, the previously discussed colonic transition point is no longer seen. Also with accumulation of pleural effusion on the right SBO secondary to adhesions and peritoneal metastatic disease Still without gas or stool output in ostomy and with ongoing nausea/vomiting on 10/08. Abdominal x-ray with partial SBO but clinically seems like complete SBO Placed NG tube on the evening of 10/08 On 10/10, finally has stool and gas output into the colostomy bag, but still with fairly significant NG tube output, some nausea -Continue NG tube to low intermittent suction for now, possible clamp of tube with trial of clears in the morning prior to removal of tube -Continue to follow clinically for resolution -Surgery following-appreciate management -keep on IVFs but decrease to 50 mL/h due to development of hypoxia and bibasilar crackles -Keep NPO, but if not able to take p.o. by 10/11, would start PPN or TPN -follow CBC, CMP, Mag, Phos in AM and replace electrolytes as needed-give potassium and magnesium today -Follow KUB in the morning (2) Pleural effusion, right: Plan: reaccumulation of pleural effusion seen on CT here last check was exudative and felt secondary to malignancy Was doing okay but now with mild acute respiratory failure with hypoxia, requiring 2 LNC O2 also after being on IV fluids for many days -Continue supplemental O2 to keep pulse ox greater than 90% -Decrease IV fluid rate as above (3) Transaminitis: Plan: AST and ALT are acutely elevated as of 10/08, but now continue to improve/resolve Does have subcapsular hepatic masses presumably metastases Also with right-sided pleural effusion which could be contributing Follow LFTs again in the morning (4) Hypertension: Plan: typically on amlodipine and lisinopril, metoprolol Blood pressure continues to be elevated and is now developing likely a rebound tachycardia after being off of her beta-yan Clinically doing better with SBO as above -Restart Toprol-XL 50 Mg p.o. once daily and clamp tube for 30 minutes afterwards -Continue to hold amlodipine and lisinopril -Continue IV hydralazine as needed for SBP greater than 180 (5) Depression: Plan: -bupropion, remeron can be continued if clamp tube for 30 minutes after giving in the morning She takes her Remeron in the morning at home (6) Type 2 diabetes mellitus: Plan: typically diet controlled , no need for insulin (7) Ovarian cancer: Plan: With metastatic ovarian cancer with mets to peritoneum, abdominal wall, liver, para-aortic caval lymph nodes, lung and with malignant pleural effusion, treated previously with chemotherapy in 2019 and 2020 with progression of disease on therapy. She recently saw her oncology provider on 09/28 who wanted to start her back on carboplatin/Taxol x6 cycles, and recommended a brain MRI in the setting of difficulty with ambulation to rule out metastases. It does not seem that she got the brain MRI performed yet but not stable for that at this point. Plan heparin for dvt prevention pt is a full code Dispo-continued stay med/surg for persistent small bowel obstruction which is finally improving, encouraged ambulation 3 times daily with clamping of tube for 30 minutes at a time Admission and Anticipated Discharge Date Admission Date: October 06, 2022 Subjective Patient improved today although still has some intermittent nausea. Still with output from NG tube but finally is having gas and green liquid stool into her ostomy bag. No abdominal pain. Is now requiring 2 L nasal cannula with pulse ox 89% on room air, feeling slightly short of breath. Review of Systems Review of Systems: All systems reviewed & are unremarkable except as noted in HPI & below Physical Exam Constitutional: WD/WN, vitals as above Eyes: + anicteric sclerae ENMT: NG tube in place Neck: trachea midline, no thyromegaly Respiratory: normal respiratory effort Auscultation: + diminished lung sounds (At right base) and + crackles (At left base); no rhonchi and no wheezes Cardiovascular: Rate/Rhythm: regular rhythm and + tachycardic Heart Sounds: + murmur (2/6 holosystolic murmur) Extremities: no edema Chest (Breasts): Chest: + vascular access device or port (left sided anterior chest port) Gastrointestinal (Abdomen): Inspection/Auscultation: normal bowel sounds; + abdomen abnormal to inspection (colostomy bag with moderate amount of liquid green stool) and abdomen not distended Percussion/Palpation: abdomen soft (Much improved today) and + abdominal mass (palpable LLQ abd wall mass); abdomen nontender and no guarding Musculoskeletal: Extremities: extremities normal to inspection; no cyanosis and no clubbing Skin: no rashes, warm and dry Neurologic: moves all extremities and awake; no focal motor deficits Psychiatric: A+Ox3, euthymic affect Lymphatic: no lymphedema Results & Data Results & Data ([facility]) Vital Signs (Past 12 Hours) Vital Signs Temp Pulse Resp BP Pulse Ox O2 Del Method O2 Flow Rate 10/10/22 07:36 36.5 C 102 H 18 148/97 H 96 Nasal Cannula 2 10/10/22 06:35 95 Nasal Cannula 2 Laboratory Results 10/10/22 10/10/22 Range/Units 05:12 05:12 WBC 5.80 (4.8-10.8) K/ul RBC 4.28 (3.93-5.22) M/uL Hgb 12.2 (12.0-16.0) g/dl Hct 37.2 (34.1-44.9) % MCV 86.9 (80.0-100.0) fL MCH 28.5 (25.0-34.0) pg MCHC 32.8 (32.0-36.0) g/dL RDW Std Deviation 47.9 H (36.4-46.3) fL RDW Coeff of Laz 15.0 H (11.5-14.5) % Plt Count 253 (130-400) K/uL MPV 10.5 (9.4-12.3) fL Sodium 140 (136-145) mmol/L Potassium 3.3 L (3.5-5.1) mmol/L Chloride 98 (98-107) mmol/L Carbon Dioxide 33 H (21-32) mmol/L Anion Gap 9 (3-11) BUN 9 (6-23) mg/dl Creatinine 0.85 (0.6-1.2) mg/dl Est Cr Clr Drug Dosing 51.0 ml/min Est GFR ( Amer) 76.1 ml/min Est GFR (Non-Af Amer) 65.6 ml/min BUN/Creatinine Ratio 10.6 (10-20) Glucose 117 H (70-99(Fasting)) mg/dl Calcium 8.6 (8.5-10.1) mg/dl Phosphorus 3.2 (2.5-4.9) mg/dl Magnesium 1.7 (1.7-2.4) mg/dl Total Bilirubin 0.3 (0.2-1.0) mg/dl AST 44 H (13-39) U/L ALT 34 (7-52) U/L Alkaline Phosphatase 91 (34-104) U/L Total Protein 5.4 L (6.0-8.3) gm/dl Albumin 2.9 L (3.4-5.0) gm/dl Globulin 2.5 (2.5-4.0) gm/dl Albumin/Globulin Ratio 1.2 (0.9-2) PG Care Time/CCT Total # of Minutes Spent Total Time Spent with Patient: Total time spent is greater than 50% in coordination of care (as documented) at patient's floor/unit and/or counseling patient: Coding Level of Care Code 36260 Subseq Hosp Care Lvl 3 Diagnoses Bowel obstruction K56.609 Pleural effusion, right J90 Transaminitis R74.01 Hypertension I10 Hypertension type: essential hypertension Depression F32.A Type 2 diabetes mellitus E11.9 Diabetes mellitus complication status: without complication Diabetes mellitus assisted insulin use: without teller use Ovarian cancer C56.9 Laterality: unspecified laterality (1) Ovarian cancer Laterality: unspecified laterality Qualified Code(s): C56.9 - Malignant neoplasm of unspecified ovary (2) Type 2 diabetes mellitus Diabetes mellitus complication status: without complication Diabetes mellitus teller insulin use: without assisted use Qualified Code(s): E11.9 - Type 2 diabetes mellitus without complications (3) Hypertension Hypertension type: essential hypertension Qualified Code(s): I10 - Essential (primary) hypertension
[2022-10-10] MEDS ORDERED: POTASSIUM CHLORIDE / WTR 20 MEQ/100 ML PLCT IV ONE (13:30)
[2022-10-10] MEDS: HEPARIN SOD 5,000 UNIT/0.5 ML VIAL SQ SCH ×2 (13:43→22:10)
[2022-10-10] MEDS: METOPROLOL SUCC 50MG EXT REL TAB PO SCH (18:36)
[2022-10-10] MEDS: MoRPHine SULFATE 4 MG/ML 1 ML CARP\\VIAL IV PRN (22:10)
[2022-10-11] MEDS: PROMETHAZINE HCL 12.5 MG in SODIUM CHLORIDE 0.9% 50 ML IV PRN (01:56)
--- NOTE | 2022-10-11 01:56 | Communication Note ---
Date of Service: October 11, 2022 frequent nausea and vomiting last reported throughout the night NGT noticed to be at 55cm when it was previously placed at 59 - LIS was turned off after this and I was notified no new distention or firmness appreciated on exam - appeared relaxed at the bedside after discussing w/ RN and attending physician -- advanced NGT to 59cm and obtained confirmatory CXR turn back on LIS and give antiemetics as needed NPO status already made monitor closely, VIKI in AM Resident Activity Tracking Resident Involvement: Resident Care Provided Care Provided: Adult Hospital Medicine
[2022-10-11 06:13] LABS: Basophils # (auto) 0.03 K/uL (0-0.2); Basophils % (auto) 0.5 %; Hematocrit (blood only) 37.8 % (34.1-44.9); Hemoglobin 12.2 g/dl (12.0-16.0); Immature Granulocytes # (auto) 0.02 K/uL (0.00-0.02); Immature Granulocytes % (auto) 0.3 %; Lymphocytes # (auto) 1.36 K/uL (1.2-3.4); Lymphocytes % (auto) 20.6 %; Mean Corpuscular Hemoglobin 28.4 pg (25.0-34.0); Mean Corpuscular Hgb Conc 32.3 g/dL (32.0-36.0); Mean Corpuscular Volume 88.1 fL (80.0-100.0); Mean Platelet Volume 10.1 fL (9.4-12.3); Monocytes % (auto) 12.1 %; Neutrophils # (auto) 4.19 K/uL (1.4-6.5); Neutrophils % (auto) 63.5 %; Platelet Count 263 K/uL (130-400); RDW Coefficient of Variation 15.2 % (11.5-14.5); Red Blood Count 4.29 M/uL (3.93-5.22)
[2022-10-11 06:36] LABS: Albumin Globulin Ratio 1.1 (0.9-2); BUN Creatinine Ratio 8.9 (10-20); Bilirubin,Total 0.3 mg/dl (0.2-1.0); Calcium 8.4 mg/dl (8.5-10.1); Creatinine Clr Calc Pharmacy 54.9 ml/min; Est GFR (African American) 83.1 ml/min; Est GFR (Non-African American) 71.7 ml/min; Globulin 2.7 gm/dl (2.5-4.0); Magnesium 1.9 mg/dl (1.7-2.4); Phosphorus 3.3 mg/dl (2.5-4.9); Potassium 3.5 mmol/L (3.5-5.1); Total Protein 5.7 gm/dl (6.0-8.3)
--- NOTE | 2022-10-11 08:34 | XRay Report ---
XR chest 1V portable CLINICAL HISTORY: check NGT placement TECHNIQUE: Single frontal radiograph of the chest was obtained. Comparison: Comparison is made to chest radiograph 10/08/2022 FINDINGS: A port catheter is seen. The enteric tube side-port and tip lies below the diaphragm. Cardiomegaly is noted. Moderate right pleural effusion is again partially visualized. IMPRESSION: Satisfactory appearance of enteric tube. ACT 112: Negative or not required by law. Electronically signed by: Joseph Dominguez M.D. 10/11/2022 8:33 AM
[2022-10-11] MEDS: MoRPHine SULFATE 4 MG/ML 1 ML CARP\\VIAL IV PRN (08:54)
[2022-10-11] MEDS: ONDANSETRON INJ 2 MG/ML 2 ML VIAL IV PRN (08:54)
[2022-10-11] MEDS: buPROPion XL 150 MG TABCR PO SCH (08:58)
[2022-10-11] MEDS: HEPARIN SOD 5,000 UNIT/0.5 ML VIAL SQ SCH ×2 (08:59→20:53)
[2022-10-11] MEDS: METOPROLOL SUCC 50MG EXT REL TAB PO SCH (08:59)
[2022-10-11] MEDS: MIRTAZAPINE TAB 15 MG TAB PO SCH (08:59)
--- NOTE | 2022-10-11 10:10 | Surgery Progress Note ---
Date of Service October 11, 2022 Assessment & Plan (1) Small bowel obstruction: Plan: continues to have moderate NG output KUB with less dilated bowel compared to 10/09 consider increasing IVF Admission and Anticipated Discharge Date Admission Date: October 06, 2022 Subjective nausea this AM then NG advanced, some ostomy output this AM, feeling about the same however Physical Exam Gastrointestinal (Abdomen): Inspection/Auscultation: abdomen not distended Percussion/Palpation: abdomen soft; abdomen nontender some ostomy output NG 500 cc Results & Data ([facility]) Vital Signs (Past 12 Hours) Vital Signs Temp Pulse Resp BP BP Pulse Ox O2 Del Method 10/11/22 07:40 36.6 C 84 20 164/99 H 96 Nasal Cannula 10/11/22 02:45 Nasal Cannula 10/11/22 01:22 88 159/101 H 95 Nasal Cannula 10/10/22 23:18 37.1 C 97 H 18 156/100 H 91 Room Air O2 Flow Rate 10/11/22 07:40 2 10/11/22 02:45 2 10/11/22 01:22 2 10/10/22 23:18 PG Care Time/CCT Total # of Minutes Spent Total Time Spent with Patient: Total time spent is greater than 50% in coordination of care (as documented) at patient's floor/unit and/or counseling patient: Coding Level of Care Code 06020 Subseq Hosp Care Lvl 1 Diagnoses Small bowel obstruction K56.609
[2022-10-11] MEDS: D5W AND LACTATED RINGERS 1,000 ML IV SCH ×3 (12:11→23:37)
--- NOTE | 2022-10-11 14:47 | XRay Report ---
KUB HISTORY: Follow up study in a patient with small bowel obstruction f/u SBO COMPARISON: KUB 10/09/2022 FINDINGS: Cardiomegaly. Mitral annular calcifications. Right pleural effusion with right lung base op acities. Distal tip of enteric tube projects over the mid gastric body. There is decreased gaseous di stention of the small bowel compared to the prior study. Small bowel loops within the left lower quad rant abdomen now measure up to 3.7 cm. No significant air is identified within the large bowel. No r enal calculi. No ureteral calculi. No pneumoperitoneum or pneumatosis. No fracture. IMPRESSION: Satisfactory positioning of the enteric tube with decreased gaseous distention of the small bowel sug gestive of a resolving obstruction. ACT 112: Negative or not required by law. The above report was generated using voice recognition software. It may contain grammatical, syntax o r spelling errors. Electronically signed by: Angelito Aggarwal M.D. 10/11/2022 2:46 PM
--- NOTE | 2022-10-11 17:36 | Hospitalist Progress Note ---
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 Also with accumulation of pleural effusion on the right SBO secondary to adhesions and peritoneal metastatic disease She had no gas or stool output in ostomy and with ongoing nausea/vomiting from admission until 10/08. Abdominal x-ray with partial SBO but clinically seems like complete SBO Placed NG tube on the evening of 10/08 On 10/10, finally has stool and gas output into the colostomy bag, but still with fairly significant NG tube output, some nausea 10/11, had N/V around NGT during the night, but slightly improved during day. Still with significant NGT output, some small liquid stool in ostomy bag, mild abd distension KUB 10/11 with some improvement with less distension of bowel Has not had any nutrition at all now since at least 10/06 With developing metabolic alkalosis due to nasogastric suction-will also replace K+ today with 20 meq IV KCl -Continue NG tube to low intermittent suction for now, possible clamp of tube with trial of clears prior to removal of tube once nausea improves and NGT output slows down -start PPN/TPN--> pharmacist thinks the D5LR she is currently on is providing same amount of calories as D10 gtt--> plan for TPN to start 10/12 -Continue to follow clinically for resolution -Surgery following-appreciate management -keep on IVFs at D5LR to 80 mL/h -Keep NPO -IV morphine prn pain, chloraseptic throat spray for pain of NGT -follow CBC, CMP, Mag, Phos in AM and replace electrolytes as needed -Follow KUB again in the morning -told patient about possibility of a venting G-tube in the future if SBP continue to recur due to her metastatic disease and adhesions-can be d/w Surgery (2) Pleural effusion, right: Plan: reaccumulation of pleural effusion seen on CT here last check was exudative and felt secondary to malignancy Was doing okay but now with mild acute respiratory failure with hypoxia, requ iring 2 LNC O2 also after being on IV fluids for many days -Continue supplemental O2 to keep pulse ox greater than 90% -add incentive spirometry -no need for repeat thoracentesis at this point (3) Transaminitis: Plan: AST and ALT are acutely elevated as of 10/08, but now resolved Does have subcapsular hepatic masses presumably metastases Also with right-sided pleural effusion which could be contributing Follow LFTs again in the morning (4) Hypertension: Plan: typically on amlodipine and lisinopril, metoprolol which were all held on admission Metoprolol started back at 50mg daily on 10/10 for elevated BPs and rebound tachycardia Blood pressure continues to be elevated -Restart amlodipine at 5mg daily, continue Toprol-XL 50 Mg p.o. once daily and clamp tube for 30 minutes afterwards -Continue to hold lisinopril -Continue IV hydralazine as needed for SBP greater than 180 (5) Depression: Plan: -bupropion, remeron can be continued if clamp tube for 30 minutes after giving in the morning She takes her Remeron in the morning at home (6) Type 2 diabetes mellitus: Plan: typically diet controlled , no need for insulin (7) Ovarian cancer: Plan: With metastatic ovarian cancer with mets to peritoneum, abdominal wall, liver, para-aortic caval lymph nodes, lung and with malignant pleural effusion, treated previously with chemotherapy in 2019 and 2020 with progression of disease on therapy. She recently saw her oncology provider on 09/28 who wanted to start her back on carboplatin/Taxol x6 cycles, and recommended a brain MRI in the setting of difficulty with ambulation to rule out metastases. It does not seem that she got the brain MRI performed yet but not stable for that at this point. Plan heparin for dvt prevention pt is a full code Dispo-continued stay med/surg for persistent small bowel obstruction, encouraged ambulation 3 times daily with clamping of tube for 30 minutes at a time Admission and Anticipated Discharge Date Admission Date: October 06, 2022 Subjective Pt had vomiting overnight around her NGT and it was advanced by 4 cm. KUB this A M shows some slight improvement in distension of bowel. She is not having much abd pain. Has some small amount of liquid stool in ostomy bag today. Has some SOB, feels weak. Review of Systems Review of Systems: All systems reviewed & are unremarkable except as noted in HPI & below Physical Exam Constitutional: WD/WN, vitals as above Eyes: + anicteric sclerae ENMT: NGT in place Neck: trachea midline, no thyromegaly Respiratory: normal respiratory effort Auscultation: + diminished lung sounds (At right base); no crackles, no rhonchi and no wheezes Cardiovascular: Rate/Rhythm: regular rate and regular rhythm Heart Sounds: + murmur (2/6 holosystolic murmur) Extremities: no edema Chest (Breasts): Chest: + vascular access device or port (left sided anterior chest port) Gastrointestinal (Abdomen): Inspection/Auscultation: normal bowel sounds and + hypoactive bowel sounds; + abdomen abnormal to inspection (colostomy bag with small amount of liquid green stool) and abdomen not distended Percussion/Palpation: abdomen soft (but mild distension) and + abdominal mass (palpable LLQ and right sided abd wall masses); abdomen nontender and no guarding Musculoskeletal: Extremities: extremities normal to inspection; no cyanosis and no clubbing Skin: no rashes, warm and dry Neurologic: moves all extremities and awake; no focal motor deficits Psychiatric: A+Ox3, euthymic affect Lymphatic: no lymphedema Results & Data Results & Data ([facility]) Vital Signs (Past 12 Hours) Vital Signs Temp Pulse Resp BP BP Pulse Ox O2 Del Method 10/11/22 16:16 37.1 C 96 H 18 158/95 H 172/106 H 94 Nasal Cannula 10/11/22 10:11 Nasal Cannula 10/11/22 07:40 36.6 C 84 20 164/99 H 96 Nasal Cannula O2 Flow Rate 10/11/22 16:16 2 10/11/22 10:11 2 10/11/22 07:40 2 Laboratory Results 10/11/22 10/11/22 Range/Units 05:46 05:46 WBC 6.60 (4.8-10.8) K/ul RBC 4.29 (3.93-5.22) M/uL Hgb 12.2 (12.0-16.0) g/dl Hct 37.8 (34.1-44.9) % MCV 88.1 (80.0-100.0) fL MCH 28.4 (25.0-34.0) pg MCHC 32.3 (32.0-36.0) g/dL RDW Std Deviation 49.0 H (36.4-46.3) fL RDW Coeff of Laz 15.2 H (11.5-14.5) % Plt Count 263 (130-400) K/uL MPV 10.1 (9.4-12.3) fL Immature Gran % (Auto) 0.3 % Neut % (Auto) 63.5 % Lymph % (Auto) 20.6 % [place] % (Auto) 12.1 % Eos % (Auto) 3.0 % Baso % (Auto) 0.5 % Neut # (Auto) 4.19 (1.4-6.5) K/uL Lymph # (Auto) 1.36 (1.2-3.4) K/uL [place] # (Auto) 0.80 (0.24-0.82) K/uL Eos # (Auto) 0.20 (0-0.50) K/uL Baso # (Auto) 0.03 (0-0.2) K/uL Immature Gran # (Auto) 0.02 (0.00-0.02) K/uL Sodium 140 (136-145) mmol/L Potassium 3.5 (3.5-5.1) mmol/L Chloride 98 (98-107) mmol/L Carbon Dioxide 36 H (21-32) mmol/L Anion Gap 6 (3-11) BUN 7 (6-23) mg/dl Creatinine 0.79 (0.6-1.2) mg/dl Est Cr Clr Drug Dosing 54.9 ml/min Est GFR ( Amer) 83.1 ml/min Est GFR (Non-Af Amer) 71.7 ml/min BUN/Creatinine Ratio 8.9 L (10-20) Glucose 106 H (70-99(Fasting)) mg/dl Calcium 8.4 L (8.5-10.1) mg/dl Phosphorus 3.3 (2.5-4.9) mg/dl Magnesium 1.9 (1.7-2.4) mg/dl Total Bilirubin 0.3 (0.2-1.0) mg/dl AST 34 (13-39) U/L ALT 26 (7-52) U/L Alkaline Phosphatase 106 H (34-104) U/L Total Protein 5.7 L (6.0-8.3) gm/dl Albumin 3.0 L (3.4-5.0) gm/dl Globulin 2.7 (2.5-4.0) gm/dl Albumin/Globulin Ratio 1.1 (0.9-2) Diagnostic Findings CXR and KUB images personally reviewed by me ad agree with the following reports: Chest X-Ray 10/10/22 23:30 XR chest 1V portable CLINICAL HISTORY: check NGT placement TECHNIQUE: Single frontal radiograph of the chest was obtained. Comparison: Comparison is made to chest radiograph 10/08/2022 FINDINGS: A port catheter is seen. The enteric tube side-port and tip lies below the diaphragm. Cardiomegaly is noted. Moderate right pleural effusion is again partially visualized. IMPRESSION: Satisfactory appearance of enteric tube. ACT 112: Negative or not required by law. Electronically signed by: Joseph Dominguez M.D. 10/11/2022 8:33 AM KUB X-Ray 10/11/22 08:00 KUB HISTORY: Follow up study in a patient with small bowel obstruction f/u SBO COMPARISON: KUB 10/09/2022 FINDINGS: Cardiomegaly. Mitral annular calcifications. Right pleural effusion with right lung base opacities. Distal tip of enteric tube projects over the mid gastric body. There is decreased gaseous distention of the small bowel compared to the prior study. Small bowel loops within the left lower quadrant abdomen now measure up to 3.7 cm. No significant air is identified within the large bowel. No renal calculi. No ureteral calculi. No pneumoperitoneum or pneumatosis. No fracture. IMPRESSION: Satisfactory positioning of the enteric tube with decreased gaseous distention of the small bowel suggestive of a resolving obstruction. ACT 112: Negative or not required by law. The above report was generated using voice recognition software. It may contain grammatical, syntax or spelling errors. Electronically signed by: Angelito Aggarwal M.D. 10/11/2022 2:46 PM PG Care Time/CCT Total # of Minutes Spent Total Time Spent with Patient: Total time spent is greater than 50% in coordination of care (as documented) at patient's floor/unit and/or counseling patient: Coding Level of Care Code 54179 Subseq Hosp Care Lvl 3 Diagnoses Bowel obstruction K56.609 Pleural effusion, right J90 Transaminitis R74.01 Hypertension I10 Hypertension type: essential hypertension Depression F32.A Type 2 diabetes mellitus E11.9 Diabetes mellitus detention insulin use: without detention use Diabetes mellitus complication status: without complication Ovarian cancer C56.9 Laterality: unspecified laterality (1) Hypertension Hypertension type: essential hypertension Qualified Code(s): I10 - Essential (primary) hypertension (2) Type 2 diabetes mellitus Diabetes mellitus ferry terminal supervisor insulin use: without detention use Diabetes mellitus complication status: without complication Qualified Code(s): E11.9 - Type 2 diabetes mellitus without complications (3) Ovarian cancer Laterality: unspecified laterality Qualified Code(s): C56.9 - Malignant neoplasm of unspecified ovary
[2022-10-11] MEDS ORDERED: TPN/PPN CONSULT PHARMACY PRN (17:37)
[2022-10-11] MEDS ORDERED: TPN/PPN CONSULT PHARMACY STA (17:38)
[2022-10-11] MEDS ORDERED: amLODIPine BESYLATE 5 MG TAB PO ONE (17:39)
[2022-10-11] MEDS ORDERED: POTASSIUM CHLORIDE / WTR 20 MEQ/100 ML PLCT IV ONE (17:49)
[2022-10-12] MEDS: METOPROLOL SUCC 50MG EXT REL TAB PO SCH (08:56)
[2022-10-12] MEDS: MIRTAZAPINE TAB 15 MG TAB PO SCH (08:56)
[2022-10-12] MEDS: buPROPion XL 150 MG TABCR PO SCH (08:57)
[2022-10-12] MEDS: amLODIPine BESYLATE 5 MG TAB PO SCH (08:57)
[2022-10-12] MEDS: HEPARIN SOD 5,000 UNIT/0.5 ML VIAL SQ SCH ×2 (08:58→20:03)
[2022-10-12] MEDS: ONDANSETRON INJ 2 MG/ML 2 ML VIAL IV PRN ×2 (09:35→20:03)
[2022-10-12] MEDS: D5W AND LACTATED RINGERS 1,000 ML IV SCH (09:55)
--- NOTE | 2022-10-12 10:47 | Surgery Progress Note ---
Date of Service October 12, 2022 Assessment & Plan (1) Small bowel obstruction: Plan: Clinically improving as well as radiographically. I am going to perform an NG tube clamping trial today. Hopefully we can DC her NG tube and begin clear liquids. (2) Peritoneal carcinomatosis: Admission and Anticipated Discharge Date Admission Date: October 06, 2022 Subjective Patient seen. Her main complaint today is the NG tube soreness. No nausea or abdominal pain. She stated her stoma started to produce a moderate amount of stool. Physical Exam Constitutional: WD/WN, vitals as above no acute distress and not ill appearing Eyes: PERRL, conjunctivae normal, anicteric sclerae EOM intact bilaterally ENMT: external ear and nose normal, oropharynx normal Ears: no hearing impairment Neck: trachea midline, no thyromegaly Respiratory: normal respiratory effort; no respiratory distress and does not use accessory muscles Cardiovascular: Rate/Rhythm: regular rate and regular rhythm Gastrointestinal (Abdomen): Soft. Nontender. Nondistended. Moderate amount of brown soft stool in her stoma bag Skin: no rashes, warm and dry Psychiatric: Orientation: alert, oriented x 3 and cooperative Results & Data ([facility]) Vital Signs (Past 12 Hours) Vital Signs Temp Pulse Resp BP BP Pulse Ox O2 Del Method 10/12/22 07:24 37 C 99 H 16 155/90 H 91 Room Air 10/11/22 23:29 37.1 C 105 H 16 156/98 H 94 Nasal Cannula O2 Flow Rate 10/12/22 07:24 10/11/22 23:29 2 PG Care Time/CCT Total # of Minutes Spent Total Time Spent with Patient: Total time spent is greater than 50% in coordination of care (as documented) at patient's floor/unit and/or counseling patient: Coding Level of Care Code 81287 Subseq Hosp Care Lvl 3 Diagnoses Small bowel obstruction K56.609 Peritoneal carcinomatosis C78.6
[2022-10-12 10:55] LABS: BUN Creatinine Ratio 8.3 (10-20); Calcium 8.2 mg/dl (8.5-10.1); Creatinine Clr Calc Pharmacy 60.2 ml/min; Est GFR (Non-African American) 80.2 ml/min; Magnesium 1.4 mg/dl (1.7-2.4); Phosphorus 2.6 mg/dl (2.5-4.9); Potassium 3.5 mmol/L (3.5-5.1)
[2022-10-12] MEDS ORDERED: DEXTROSE 10% 1,000 ML IV PRN (12:03)
[2022-10-12] MEDS: MAGNESIUM SULFATE / D5W 1 GM/100 ML BAG IV SCH ×3 (12:23→15:15)
--- NOTE | 2022-10-12 12:27 | Pharmacy Report ---
Pharmacy PN Initial Consult - Date of Service October 12, 2022 - Scope Pharmacy has been consulted to manage parenteral nutrition orders and order appropriate labs. As part of the Nutrition Support Team guidelines, pharmacy will work in conjunction with dietary when determining the patients caloric needs. - Subjective The patient is a 76 year old F admitted on 10/06/22 19:19 for SMALL BOWEL OBSTRUCTION, METASTATIC OVARIAN CANCER. Patient is to receive parenteral nu trition for SOB. Pertinent PMH: N/A - Objective Height: 5 ft 4 in Weight: 66 kg Intake & Output (Last 24Hrs): Intake & Output 10/10/22 10/11/22 10/12/22 10/13/22 06:59 06:59 06:59 06:59 Intake Total 2300 / 2300 1250.5 / 1250.5 1989.167 / 1989.167 780 / 780 Output Total 300 / 300 725 / 725 650 / 650 Balance 1999 525.5 / 525.5 1339.167 / 1339.167 780 / 780 Weight 66 kg 66 kg Laboratory Data (Last 24 Hrs):: 10/12/22 09:43 Sodium 140 Potassium 3.5 Chloride 100 Carbon Dioxide 31 BUN 6 Creatinine 0.72 Glucose 452 H* Calcium 8.2 L Phosphorus 2.6 Magnesium 1.4 L AST 24 ALT 17 Alkaline Phosphatase 88 Triglycerides 187 H Nutrition Assessment:: Please refer to the Notes section of the EMR for the most recent hearing aide technician note. - Plan For day 1 of PN administration, the following will be ordered: Macronutrients Amino acids 106 grams/day Dextrose 185 grams/day Lipids 50 grams/day Micronutrients Combined electrolytes -- mL - contains 35 mEq Na, 20 meq K, 4.5 mEq Ca, 5 mEq Mg, 35 mEq Cl, 29.5 mEq acetate per 20 mL Sodium phosphate -- MMol Sodium chloride 100 mEq Sodium acetate 40 mEq Potassium phosphate 30 mMol Potassium chloride -- mEq Potassium acetate -- mEq Magnesium sulfate 8.12 mEq Calcium gluconate 4.65 mEq Multivitamins 10 mL Trace Elements 10 mL Additional additives: folic acid and thiamine Total volume 1414 mL to be infused over 24 hrs will provide 1050 kcal/day Labs to be ordered per PN order protocol Pharmacy will follow and adjust parenteral nutrition orders on a daily basis. Thank you.
--- NOTE | 2022-10-12 14:26 | XRay Report ---
KUB CLINICAL HISTORY: f/u SBO COMPARISON STUDY: KUB October 11, 2022. CT of the abdomen and pelvis October 06, 2022. FINDINGS: Tip of nasogastric tube is within the body of the stomach. Multiple loops of mildly dilated small bowel are unchanged since prior exam. Findings suggest a persistent partial small bowel obstru ction. IMPRESSION: No change in mild small bowel dilatation. The findings suggest a persistent partial smal l bowel obstruction. ACT 112: Negative or not required by law. Electronically signed by: Harlan Sharma M.D. 10/12/2022 2:24 PM
[2022-10-12] MEDS ORDERED: CENTRAL TPN IV SCH (16:00)
[2022-10-12] MEDS ORDERED: AMINO ACID 8% IV SCH (16:00)
[2022-10-12] MEDS ORDERED: CLINOLIPID 20% IV FAT EMULSION 250 ML IV SCH (16:00)
[2022-10-12] MEDS ORDERED: [UNRECOGNIZED DRUG - OTHER] IV SCH (16:00)
--- NOTE | 2022-10-12 20:44 | Hospitalist Progress Note ---
Date of Service October 12, 2022 Assessment & Plan (1) Bowel obstruction: Plan: Clinically/radiographically improving. NG tube clamp trial and, if tolerates, surgery to start clear liquids. CT abdomen/pelvis on admission showed SBO with distal transition point. SBO likely secondary to adhesions and peritoneal metastatic disease from ovarian ca. NG tube placement 10/08/22. Continue NG tube but clamp trial today per gen surg and possible d/c of such if she passes trial. Then clears. Starting TPN - pharmacy aware. Replace low mag. possibility of a venting G-tube in the future if SBOs recur? (2) Pleural effusion, right: Plan: reaccumulation of pleural effusion seen on CT here last check was exudative and felt secondary to malignancy 09/20 was last thoracentesis by Dr Maurer She is intermittently requiring O2 and has OLIVA Recheck cxr in am and if effusion is worse will re-consult pulmonary for consideration of pleurX? (3) Transaminitis: Plan: AST and ALT now normal (4) Hypertension: Plan: BPs remain elevated Consider titration of BB or amlodipine (5) Depression: Plan: cont home meds when feasible (6) Type 2 diabetes mellitus: Plan: BSGs wnl high blood glucose level was falsely elevated (7) Ovarian cancer: Plan: stage 4 with mets to peritoneum, abdominal wall, liver, para-aortic caval lymph nodes, lung and right-sided malignant pleural effusion, treated previously with chemotherapy in 2019 and 2020 with progression of disease on therapy. She recently saw her oncology provider on 09/28 who wanted to start her back on carboplatin/Taxol x6 cycles, and recommended a brain MRI in the setting of difficulty with ambulation to rule out metastases. MRI brain not yet completed. If able will complete such this admission. (8) Hypomagnesemia: Plan: replace IV mag repeat level am (9) DVT prophylaxis: Plan: heparin 5000 BID (10) Colostomy in place: Plan: functioning well, no issues Admission and Anticipated Discharge Date Admission Date: October 06, 2022 Subjective patient denies abd pain no nausea passing stool via her ostomy c/o sore throat no dyspnea at rest, but c/o OLIVA - no worse than prior she is hopeful her NG tube can be removed soon Review of Systems Review of Systems: gen - tired cv - no cp, no pleuritic pain, no cough Gi - no vomiting Physical Exam Physical Exam: gen - looks weak, tired mouth - MMM voice - hoarse heart - RRR, s1 s2, 1/6 MAIDA LSB lungs - decreased BS right lung about 1/2 [address] up back; CTA on left; no rales or wheeze abd - soft NT BS+; ostomy present with brown stool in bag; minimal distension ext - no edema, pulses 2+ b/l Results & Data Results & Data ([facility]) Vital Signs (Past 12 Hours) Vital Signs Temp Pulse Pulse Resp BP Pulse Ox O2 Del Method 10/12/22 19:56 37.3 C 108 H 16 174/92 H 87 L Room Air 10/12/22 15:24 36.9 C 109 H 16 160/92 H 93 Nasal Cannula O2 Flow Rate 10/12/22 19:56 10/12/22 15:24 1 Laboratory Results Laboratory Results - last 24 hr 10/12/22 10/12/22 10/12/22 09:43 11:01 18:12 Sodium 140 Potassium 3.5 Chloride 100 Carbon Dioxide 31 Anion Gap 9 BUN 6 Creatinine 0.72 Est Cr Clr Drug Dosing 60.2 Est GFR ( Amer) 93.0 Est GFR (Non-Af Amer) 80.2 BUN/Creatinine Ratio 8.3 L Glucose 452 H* POC Glucose 118 H 151 H Calcium 8.2 L Phosphorus 2.6 Magnesium 1.4 L AST 24 ALT 17 Alkaline Phosphatase 88 Triglycerides 187 H PG Care Time/CCT Total # of Minutes Spent Total Time Spent with Patient: Total time spent is greater than 50% in coordination of care (as documented) at patient's floor/unit and/or counseling patient: Coding Level of Care Code 97042 Subseq Hosp Care Lvl 2 Diagnoses Bowel obstruction K56.609 Pleural effusion, right J90 Transaminitis R74.01 Hypertension I10 Hypertension type: essential hypertension Depression F32.A Type 2 diabetes mellitus E11.9 Diabetes mellitus complication status: without complication Diabetes mellitus air route controller insulin use: without air route controller use Ovarian cancer C56.9 Laterality: unspecified laterality Hypomagnesemia E83.42 DVT prophylaxis Z29.[address] Z93.3 (1) Ovarian cancer Laterality: unspecified laterality Qualified Code(s): C56.9 - Malignant neoplasm of unspecified ovary (2) Type 2 diabetes mellitus Diabetes mellitus complication status: without complication Diabetes mellitus air route controller insulin use: without snf use Qualified Code(s): E11.9 - Type 2 diabetes mellitus without complications (3) Hypertension Hypertension type: essential hypertension Qualified Code(s): I10 - Essential (primary) hypertension
[2022-10-12] MEDS ORDERED: FAMOTIDINE 20 MG in SYRINGE 3 ML IV ONE (20:45)
[2022-10-12] MEDS ORDERED: STOP CLINOLIPID SCH (22:00)
[2022-10-13] MEDS: ONDANSETRON INJ 2 MG/ML 2 ML VIAL IV PRN ×2 (07:32→14:45)
[2022-10-13] MEDS: MIRTAZAPINE TAB 15 MG TAB PO SCH (07:39)
[2022-10-13] MEDS: buPROPion XL 150 MG TABCR PO SCH (07:39)
[2022-10-13] MEDS: amLODIPine BESYLATE 5 MG TAB PO SCH (07:39)
[2022-10-13] MEDS: METOPROLOL SUCC 50MG EXT REL TAB PO SCH ×2 (07:39→08:43)
[2022-10-13] MEDS: HEPARIN SOD 5,000 UNIT/0.5 ML VIAL SQ SCH ×2 (07:40→19:58)
--- NOTE | 2022-10-13 08:40 | Surgery Progress Note ---
Date of Service October 13, 2022 Assessment & Plan (1) Small bowel obstruction: Plan: Difficult scenario. In my opinion she is not an operative candidate as I believe we would do more harm than good. I would welcome an opinion from her tertiary care center in [place] if she would desire this. For now I have offered her an EGD with gastrostomy tube placement. She is refusing the NG tube which clearly she needs. I suspect she will continue to have these issues going forward and the gastrostomy tube would help prevent the need for current and future NG tube decompression. We discussed bleeding infection injury to another organ leakage, dvt,pe etc. I have answered her questions. She agrees with this plan. I will schedule her for tomorrow for an EGD with PEG tube placement. (2) Peritoneal carcinomatosis: (3) Bowel obstruction: Admission and Anticipated Discharge Date Admission Date: October 06, 2022 Subjective pt seen. not doing well. had emesis x 3 since ngt removed. she is still having some brown stool output from her ostomy. Physical Exam Physical Exam: alert. oriented. nad. appears tired. not in pain. abd: soft. stoma in place. functioning. minimal distension. non-tender. Results & Data ([facility]) Vital Signs (Past 12 Hours) Vital Signs Temp Pulse Resp BP Pulse Ox O2 Del Method 10/13/22 07:27 37.3 C 108 H 16 175/98 H 91 Room Air PG Care Time/CCT Total # of Minutes Spent Total Time Spent with Patient: Total time spent is greater than 50% in coordination of care (as documented) at patient's floor/unit and/or counseling patient: Coding Level of Care Code 59761 Subseq Hosp Care Lvl 3 Diagnoses Small bowel obstruction K56.609 Peritoneal carcinomatosis C78.6 Bowel obstruction K56.609
[2022-10-13 09:23] LABS: Bilirubin,Total 0.5 mg/dl (0.2-1.0); Calcium 8.9 mg/dl (8.5-10.1); Creatinine Clr Calc Pharmacy 53.4 ml/min; Est GFR (African American) 88.5 ml/min; Est GFR (Non-African American) 76.3 ml/min; Magnesium 2.1 mg/dl (1.7-2.4); Phosphorus 3.6 mg/dl (2.5-4.9); Potassium 3.3 mmol/L (3.5-5.1)
[2022-10-13] MEDS: hydrALAZINE HCL 20 MG/ML VIAL IV PRN ×2 (09:33→19:53)
--- NOTE | 2022-10-13 09:53 | XRay Report ---
XR chest 2V PA/lateral CLINICAL HISTORY: R pleural effusion, interval change COMPARISON STUDY: Chest radiograph October 10, 2022. Chest CT September 10, 2022. FINDINGS: Left internal jugular [id number] is in place. Moderate to large right pleural effusion h as increased in size since prior exam. A small left pleural effusion is increased since prior study. Cardiomediastinal silhouette is stable. No pneumothorax. There is no evidence for pulmonary edema. IMPRESSION: 1. Slight increase in size of a moderate to large right pleural effusion. 2. Small left pleural effusion. ACT 112: Negative or not required by law. Electronically signed by: Harlan Sharma M.D. 10/13/2022 9:52 AM
[2022-10-13] MEDS: POTASSIUM CHLORIDE / WTR 10 MEQ/100 ML PLCT IV SCH ×2 (11:50→13:18)
--- NOTE | 2022-10-13 15:43 | Anesthesiology Consultation ---
Date of Service October 13, 2022 Assessment & Plan (1) Encounter for pre-operative examination: Chart Review Chart Review: Pending: Refer to Additional Notes / Consult section (pending correction of electrolyte and monitoring of pleural effusion) and Patient NOT seen in Pre Admission Testing Consults Requested none The internal medicine team is following the patient and repleting her magnesium and potassium. History Surgery Operation Date: 10/14/22 07:00 Proposed Procedures p Esophagogastroduodenoscopy with Peg Tube Placement - Soren Parrish, Height/Weight Height: 5 ft 4 in Weight: 64.9 kg Allergies Allergy/AdvReac Type Severity Reaction Status Date / Time povidone-iodine Allergy Mild rash Verified 09/07/22 13:22 [From Betadine] Medications Home Medications Medication Instructions Recorded Confirmed Last Taken multivitamin (Daily Multi-Vitamin 1 tab PO QAM 09/18/20 09/21/22 09/15/21 tablet) niraparib 100 mg capsule (Zejula) 100 mg PO QAM 06/06/21 09/21/22 09/15/21 silver sulfadiazine 1 % topical 1 applic topical BID PRN wound 07/04/21 09/21/22 Unknown cream (Silvadene) healing #400 grams amlodipine 10 mg tablet 10 mg PO DAILY #90 tabs 12/18/21 09/21/22 Unknown mirtazapine 15 mg tablet 15 mg PO HS #90 tabs 12/18/21 09/21/22 Unknown ipratropium bromide 21 mcg (0.03 2 spray intranasal BID #30 mL 12/22/21 09/21/22 Unknown %) nasal spray lisinopril 20 mg tablet 20 mg PO BID #200 tabs 06/22/22 09/21/22 Unknown rosuvastatin 10 mg tablet (Crestor) 10 mg PO DAILY #100 tabs 06/22/22 09/21/22 Unknown bupropion HCl 150 mg 24 hr tablet, 150 mg PO QAM #30 tabs 08/04/22 09/21/22 Unknown extended release metoprolol succinate 50 mg 50 mg PO BID #60 tabs 09/07/22 09/07/22 Unknown tablet,extended release 24 hr oxycodone 5 mg tablet 5 mg PO BID PRN pain #30 tabs 09/07/22 09/21/22 Unknown Active Medications Generic Name Dose Route Start Last Admin Trade Name Freq PRN Reason Stop Dose Admin Amlodipine Besylate 5 mg 10/12/22 09:00 10/13/22 07:39 Amlodipine Besylate 5 Mg Tab PO 11/11/22 08:59 5 mg QAM ROSA Administration Bupropion HCl 150 mg 10/07/22 09:00 10/13/22 07:39 Bupropion Xl 150 Mg Tabcr PO 11/06/22 08:59 150 mg QAM ROSA Administration Heparin Sodium (Porcine) 5,000 units 10/06/22 21:00 10/13/22 07:40 Heparin Sod 5,000 Unit/0.5 Ml Vial SQ 11/05/22 20:59 5,000 units Q12 ROSA Administration Hydralazine HCl 10 mg 10/06/22 20:33 10/13/22 09:33 Hydralazine Hcl 20 Mg/Ml Vial IV 11/05/22 20:32 10 mg Q8 PRN Administration sbp>185 or dbp>95 Promethazine HCl 12.5 mg/ 50.5 mls @ 202 mls/hr 10/06/22 20:33 10/11/22 02:11 Sodium Chloride IV 11/05/22 20:32 Infused Q6H PRN Infusion Nausea And Vomiting Amino Acids/Dextrose 1,414 ml/ 1,414 mls @ 59 mls/hr 10/12/22 16:00 10/12/22 16:00 Nutrition (Parenteral) IV 10/13/22 15:57 59 mls/hr .[id number] ROSA Administration Protocol Metoprolol Succinate 50 mg 10/10/22 17:15 10/13/22 08:43 Metoprolol Succ 50mg Ext Rel Tab PO 11/09/22 17:14 50 mg QAM ROSA Administration Mirtazapine 15 mg 10/09/22 09:00 10/13/22 07:39 Mirtazapine Tab 15 Mg Tab PO 11/08/22 08:59 15 mg QAM ROSA Administration Morphine Sulfate 2 mg 10/06/22 20:33 10/08/22 23:27 Morphine Sulfate 2 Mg/Ml Carp IV 10/20/22 20:32 2 mg Q4 PRN Administration Moderate Pain Morphine Sulfate 4 mg 10/06/22 20:33 10/11/22 08:54 Morphine Sulfate 4 Mg/Ml 1 Ml Carp\Vial IV 10/20/22 20:32 4 mg Q4 PRN Administration Severe Pain Ondansetron HCl 4 mg 10/06/22 20:33 10/13/22 14:45 Ondansetron Inj 2 Mg/Ml 2 Ml Vial IV 11/05/22 20:32 4 mg Q6H PRN Administration Nausea Past Medical History Medical History Colostomy in place H/O squamous cell carcinoma of skin History of right breast cancer 2010--sx only History of small bowel obstruction Hyperlipidemia Hypertension Osteopenia Ovarian cancer peritoneal mets Port-A-Cath in place (03/03/20) Insertion of Mediport Dr. Cox 03/03/20 Proteinuria Situational anxiety Systolic murmur Type 2 diabetes mellitus diet controlled Past Family History Family History Aunt Breast cancer Mother , age 56 2nd to acute [place] Myocardial infarction Cancer Hypertension Father , age 89 Heart disease Leukemia Other No family history of adverse response to anesthesia Denies family history of Ovarian cancer Prostate cancer Colorectal cancer Past Surgical History Surgical History History of bilateral tubal ligation History of section History of colon resection d/t tumor History of colonoscopy History of colostomy History of lumbar surgery History of lumpectomy of right breast History of open reduction and internal fixation (ORIF) procedure left big toe--hardware removed History of right breast biopsy History of tonsillectomy History of wisdom tooth extraction Status post Mohs surgery for squamous cell carcinoma of skin Social History Smoking Status: Never smoker Hx Alcohol Use: No alcohol intake frequency: holidays/special occasions only Hx Substance Use: No substance use type: does not use Physical Exam Vital Signs Last Vital Signs Temp 36.6 C 10/13/22 15:21 Pulse 87 10/13/22 15:21 Resp 16 10/13/22 15:21 BP 169/98 H 10/13/22 15:21 Pulse Ox 93 10/13/22 15:21 O2 Del Method 10/13/22 15:21 O2 Flow Rate 1 10/12/22 15:24 Testing Laboratory Results 10/11/22 05:46 10/13/22 08:32 10/13/22 06:00 POC Glucose 135 H Electrocardiogram Date: 08/19/21 Test Reason : Blood Pressure : / mmHG Vent. Rate : 084 BPM Atrial Rate : 084 BPM P-R Int : 196 ms QRS Dur : 086 ms QT Int : 398 ms P-R-T Axes : 069 049 068 degrees QTc Int : 470 ms Normal sinus rhythm Septal infarct (cited on or before 02-JUL-2021) Abnormal ECG When compared with ECG of 03-JUL-2021 11:21, QT has shortened Confirmed by Zachary Villatoro ([id number]) on 08/20/2021 4:25:52 PM Referred By: Navya Sharma Confirmed By:Zachary Villatoro Chest X-Ray Date: 10/13/22 Findings: + pleural effusion XR chest 2V PA/lateral CLINICAL HISTORY: R pleural effusion, interval change COMPARISON STUDY: Chest radiograph October 10, 2022. Chest CT September 10, 2022. FINDINGS: Left internal jugular [id number] is in place. Moderate to large right pleural effusion has increased in size since prior exam. A small left pleural effusion is increased since prior study. Cardiomediastinal silhouette is stable. No pneumothorax. There is no evidence for pulmonary edema. IMPRESSION: 1. Slight increase in size of a moderate to large right pleural effusion. 2. Small left pleural effusion. ACT 112: Negative or not required by law. Electronically signed by: Harlan Sharma M.D. 10/13/2022 9:52 AM Dictated:10/13/22 0950 Echocardiogram Date: 09/20/22 EF: 65-70 LV Function: normal Other Findings: + LVH (mild concentric)
[2022-10-13] MEDS ORDERED: [UNRECOGNIZED DRUG - OTHER] IV SCH (16:00)
[2022-10-13] MEDS ORDERED: CLINOLIPID 20% IV FAT EMULSION 250 ML IV SCH (16:00)
[2022-10-13] MEDS ORDERED: CENTRAL TPN IV SCH (16:00)
[2022-10-13] MEDS ORDERED: AMINO ACID 8% IV SCH (16:00)
--- NOTE | 2022-10-13 19:35 | Hospitalist Progress Note ---
Date of Service October 13, 2022 Assessment & Plan (1) Bowel obstruction: Plan: Clinically/radiographically had been improving but since NG tube discontinuation on 10/12 she has had GI intolerance with nausea/emesis. SBO secondary to adhesions and peritoneal metastatic disease from ovarian ca. Gen surg has recommended a venting g-tube - to be placed tomorrow by Dr Parrish. Discussed in detail with pt & her daughter. TPN initiated today via her a-port. Appreciate gen surg assistance. (2) Pleural effusion, right: Plan: reaccumulation of pleural effusion seen on CT here 09/20/22 was last thoracentesis by Dr Maurer fluid was exudative and path c/w malignant pleural effusion She is intermittently requiring O2 and has OLIVA with minimal exertion I discussed her care with Dr Laguna from pulmonary - consult placed to him - may need pleurX placement (3) Transaminitis: Plan: AST and ALT now normal (4) Hypertension: Plan: Cont metoprolol succinate 50mg daily Cont amlodipine 5mg daily (5) Depression: Plan: cont home meds (6) Type 2 diabetes mellitus: Plan: BSGs wnl a1c 6.2% in 09/2022 c/w pre-DM only (7) Ovarian cancer: Plan: stage 4 with mets to peritoneum, abdominal wall, liver, para-aortic caval lymph nodes, lung and right-sided malignant pleural effusion, treated previously with chemotherapy in 2019 and 2020 with progression of disease on therapy. She recently saw her oncology provider on 09/28 who wanted to start her back on carboplatin/Taxol x6 cycles, and recommended a brain MRI in the setting of difficulty with ambulation to rule out metastases. MRI brain not yet completed. If able will complete such this admission. poor prognosis in light of ongoing GI tract issues, malignant pleural effusion, etc (8) Hypomagnesemia: Plan: replaced resolved (9) DVT prophylaxis: Plan: heparin 5000 BID (10) Colostomy in place: Plan: functioning well, no issues Plan care d/w gen surg care d/w pulmonary daughter updated Admission and Anticipated Discharge Date Admission Date: October 06, 2022 Subjective following NG tube placement she has had several episodes of emesis this is despite passage of stool via her ostomy last episode of emesis was this am denies abd pain she overall is more comfortable in comparison to yesterday, however, since the NG was removed continues with OLIVA with minimal activity her daughter was present during my rounds and I showed them the worsening R pleural effusion and that this is the cause of her dyspnea discussed that pulmonary will see her tomorrow and discuss options including pleurX placement Review of Systems Review of Systems: gen - weak, fatigued; no fever cv - no cp, no orthopnea pulm - ongoing dyspnea - particularly w/ exertion GI - despite N/V denies pain Physical Exam Physical Exam: gen - looks weak, tired - pleasant nose - NG tube has been removed mouth - MMM voice - hoarse but improved heart - RRR, s1 s2, 1/6 MAIDA LSB lungs - decreased BS right lung about 1/2 [address] up back; CTA on left; no rales or wheeze abd - soft NT BS+; ostomy present with liquid brown stool in bag; minimal distension ext - no edema, pulses 2+ b/l Results & Data Results & Data ([facility]) Vital Signs (Past 12 Hours) Vital Signs Temp Pulse Resp BP BP Pulse Ox O2 Del Method 10/13/22 18:08 37 C 154/88 H 10/13/22 15:21 36.6 C 87 16 169/98 H 93 Room Air 10/13/22 11:59 90 92 Room Air 10/13/22 11:36 152/78 H 10/13/22 09:24 37.1 C 108 H 16 160/100 H 170/109 H 92 Room Air Laboratory Results Laboratory Results - last 24 hr 10/12/22 10/13/22 10/13/22 23:53 06:00 08:32 Sodium 139 Potassium 3.3 L Chloride 99 Carbon Dioxide 33 H Anion Gap 7 BUN 21 Creatinine 0.75 Est Cr Clr Drug Dosing 53.4 Est GFR ( Amer) 88.5 Est GFR (Non-Af Amer) 76.3 BUN/Creatinine Ratio 28.0 H Glucose 162 H POC Glucose 140 H 135 H Calcium 8.9 Phosphorus 3.6 D Magnesium 2.1 Total Bilirubin 0.5 10/13/22 16:50 Sodium Potassium Chloride Carbon Dioxide Anion Gap BUN Creatinine Est Cr Clr Drug Dosing Est GFR ( Amer) Est GFR (Non-Af Amer) BUN/Creatinine Ratio Glucose POC Glucose 118 H Calcium Phosphorus Magnesium Total Bilirubin Diagnostic Findings Chest X-Ray 10/13/22 07:00 XR chest 2V PA/lateral CLINICAL HISTORY: R pleural effusion, interval change COMPARISON STUDY: Chest radiograph October 10, 2022. Chest CT September 10, 2022. FINDINGS: Left internal jugular [id number] is in place. Moderate to large right pleural effusion has increased in size since prior exam. A small left pleural effusion is increased since prior study. Cardiomediastinal silhouette is stable. No pneumothorax. There is no evidence for pulmonary edema. IMPRESSION: 1. Slight increase in size of a moderate to large right pleural effusion. 2. Small left pleural effusion. ACT 112: Negative or not required by law. Electronically signed by: Harlan Sharma M.D. 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
[2022-10-13] MEDS: STOP CLINOLIPID SCH (23:22)
[2022-10-14] MEDS ORDERED: CLINDAMYCIN/D5W 900 MG/50 ML BAG IV SCH (06:00)
[2022-10-14] MEDS: HEPARIN SOD 5,000 UNIT/0.5 ML VIAL SQ SCH ×2 (08:20→20:03)
[2022-10-14] MEDS: amLODIPine BESYLATE 5 MG TAB PO SCH (08:48)
[2022-10-14] MEDS: MIRTAZAPINE TAB 15 MG TAB PO SCH (08:48)
[2022-10-14] MEDS: METOPROLOL SUCC 50MG EXT REL TAB PO SCH (08:48)
[2022-10-14] MEDS: buPROPion XL 150 MG TABCR PO SCH (08:48)
[2022-10-14 09:13] LABS: BUN Creatinine Ratio 42.9 (10-20); Calcium 8.5 mg/dl (8.5-10.1); Creatinine Clr Calc Pharmacy 57.2 ml/min; Est GFR (African American) 96.2 ml/min; Magnesium 1.9 mg/dl (1.7-2.4); Phosphorus 3.2 mg/dl (2.5-4.9); Potassium 3.8 mmol/L (3.5-5.1)
--- NOTE | 2022-10-14 10:43 | Pulmonary Consultation ---
Date of Consultation October 14, 2022 Assessment & Plan (1) Malignant pleural effusion: Will place Pleurx catheter. Risks and benefits discussed with the patient and she wished to proceed. Please consult case management. (2) Dyspnea: Multifactorial. Hopefully drainage of the effusion will assist in symptoms. Recommend palliative consult. History of Present Illness Reason for Consultation: Recurrent right malignant pleural effusion Attending Physician: Teofilo Vazquez History of Present Illness 76-year-old female with a history of stage IV metastatic ovarian cancer and recurrent bowel obstruction who presented to the hospital due to abdominal discomfort and shortness of breath. Pulmonary is consulted due to concern of recurrent effusion on the right. She had a thoracentesis 09/20/2022 which revealed metastatic adenocarcinoma. She had quick recurrence of the effusion. She complains of shortness of breath. She was scheduled for placement of the PEG tube later today. I discussed the procedure of a Pleurx catheter placement with the patient in detail and she understands the risks and benefits. She would like to proceed with placement. We will perform the procedure sometime later today. She is denying any chest pain, fevers, chills or night sweats. Allergies Allergy/AdvReac Type Severity Reaction Status Date / Time povidone-iodine Allergy Mild rash Verified 09/07/22 13:22 [From Betadine] Home Medications Medication Instructions Recorded Confirmed Type multivitamin (Daily Multi-Vitamin 1 tab PO QAM 09/18/20 09/21/22 History tablet) niraparib 100 mg capsule (Zejula) 100 mg PO QAM 06/06/21 09/21/22 History silver sulfadiazine 1 % topical 1 applic topical BID PRN wound 07/04/21 09/21/22 Rx cream (Silvadene) healing #400 grams amlodipine 10 mg tablet 10 mg PO DAILY #90 tabs 12/18/21 09/21/22 Rx mirtazapine 15 mg tablet 15 mg PO HS #90 tabs 12/18/21 09/21/22 Rx ipratropium bromide 21 mcg (0.03 2 spray intranasal BID #30 mL 12/22/21 09/21/22 Rx %) nasal spray lisinopril 20 mg tablet 20 mg PO BID #200 tabs 06/22/22 09/21/22 Rx rosuvastatin 10 mg tablet (Crestor) 10 mg PO DAILY #100 tabs 06/22/22 09/21/22 Rx bupropion HCl 150 mg 24 hr tablet, 150 mg PO QAM #30 tabs 08/04/22 09/21/22 Rx extended release metoprolol succinate 50 mg 50 mg PO BID #60 tabs 09/07/22 09/07/22 Rx tablet,extended release 24 hr oxycodone 5 mg tablet 5 mg PO BID PRN pain #30 tabs 09/07/22 09/21/22 Rx Patient History Medical History (Updated 10/14/22 @ 10:42 by Ramón Laguna MD) Colostomy in place Dyspnea H/O squamous cell carcinoma of skin History of right breast cancer 2010--sx only History of small bowel obstruction Hyperlipidemia Hypertension Malignant pleural effusion Osteopenia Ovarian cancer peritoneal mets Port-A-Cath in place (03/03/20) Insertion of Mediport Dr. Cox 03/03/20 Proteinuria Situational anxiety Systolic murmur Type 2 diabetes mellitus diet controlled Surgical History History of bilateral tubal ligation History of section History of colon resection d/t tumor History of colonoscopy History of colostomy History of lumbar surgery History of lumpectomy of right breast History of open reduction and internal fixation (ORIF) procedure left big toe--hardware removed History of right breast biopsy History of tonsillectomy History of wisdom tooth extraction Status post Mohs surgery for squamous cell carcinoma of skin Family History Aunt Breast cancer Mother , age 56 2nd to acute [place] Myocardial infarction Cancer Hypertension Father , age 89 Heart disease Leukemia Other No family history of adverse response to anesthesia Denies family history of Ovarian cancer Prostate cancer Colorectal cancer Social History Smoking Status: Never smoker Second Hand Exposure: No; Hx Alcohol Use: No Hx Substance Use: No Preferred Language: Nauruan Communication Ability: Effective Visual Impairment: No Limitations Hearing Ability: Normal Technical Operations Specialist Required: No Beliefs That Will Affect Care: None marital status: / Current Living Situation: Alone Current Living Situation Comment: alone 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 status: 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 Conjunctivae are normal. Anicteric sclera. Ears nose, mouth and throat: Mallampati class 1. Normal posterior oropharynx. Uvula is midline. Neck: Trachea is midline. Visual inspection is normal. Respiratory: Diminished on the right. Clear to auscultation elsewhere. Cardiovascular: Regular rate and rhythm. No murmurs. No edema. Gastrointestinal: Normal bowel sounds, soft, nontender and nondistended. No hepatosplenomegaly noted. Ostomy in place. Musculoskeletal: No cyanosis. Patient is able to move all extremities. Strength is 5 out of 5 in the upper and lower extremities. Skin: No rashes, warm dry and intact. Neurologic: No obvious focal neurological deficits seen. Psychiatric: Alert and oriented x3 with a euthymic affect. Results & Data Results & Data ([facility]) Vital Signs (Past 12 Hours) Vital Signs Temp Pulse Pulse Resp BP Pulse Ox O2 Del Method 10/14/22 08:53 84 93 Room Air 10/14/22 07:57 Room Air 10/14/22 07:44 36.5 C 98 H 16 163/84 H 92 Room Air 10/13/22 23:07 Nasal Cannula O2 Flow Rate 10/14/22 08:53 10/14/22 07:57 10/14/22 07:44 10/13/22 23:07 2 PG Care Time/CCT Total # of Minutes Spent Total Time Spent with Patient: Total time spent is greater than 50% in coordination of care (as documented) at patient's floor/unit and/or counseling patient: Coding Level of Care Code 69425 Initial Inpt Care Lvl 2 Diagnoses Malignant pleural effusion J91.0 Dyspnea R06.00
[2022-10-14] MEDS ORDERED: CLINDAMYCIN 900 MG/D5W 50 ML BAG IV ONE (15:56)
[2022-10-14] MEDS ORDERED: AMINO ACID 8% IV SCH (16:00)
[2022-10-14] MEDS ORDERED: CENTRAL TPN IV SCH (16:00)
[2022-10-14] MEDS ORDERED: [UNRECOGNIZED DRUG - OTHER] IV SCH (16:00)
[2022-10-14] MEDS ORDERED: CLINOLIPID 20% IV FAT EMULSION 250 ML IV SCH (16:00)
--- NOTE | 2022-10-14 16:04 | History & Physical Bridge Note ---
Date of Service October 14, 2022 History & Physical Bridge Note I have examined the patient, reviewed the History & Physical and in the interval since the performance of the History & Physical I have noted the following changes of clinical significance: no changes noted We discussed options. Discussed potential risks including bleeding, infection, injury to another organ such as bowel, DVT, PE, [place], CVA etc. Of answered all of her and her daughter's questions. They agree with the plan. We will proceed to day with EGD with PEG tube placement.
[2022-10-14] MEDS ORDERED: fentaNYL citrate 100 MCG/2 ML VIAL IV PRN (16:05)
[2022-10-14] MEDS ORDERED: ePHEDrine sulfate 50 MG/ML AMP IV PRN (16:05)
[2022-10-14] MEDS ORDERED: LIDOCAINE 2% MPF LOCAL 5 ML VIAL INFIL ONE (16:05)
[2022-10-14] MEDS ORDERED: ATROPINE SULFATE 0.1 MG/ML 10ML SYR IV PRN (16:05)
[2022-10-14] MEDS ORDERED: ONDANSETRON INJ 2 MG/ML 2 ML VIAL IV PRN (16:05)
[2022-10-14] MEDS ORDERED: PROPOFOL IV EMULSION 10 MG/ML 20 ML VIAL IV ONE (16:05)
[2022-10-14] MEDS ORDERED: SUCCINYLCHOLINE CHLORIDE 20 MG/ML 10 ML VIAL IV ONE (16:06)
[2022-10-14] MEDS ORDERED: PHENYLEPHRINE HCL 10 MG/ML VIAL ONE (16:32)
[2022-10-14] MEDS ORDERED: LARYING-O-JET KIT (LTA) ONE (16:38)
--- NOTE | 2022-10-14 16:43 | Operative Report ---
PG Post Operative Report Pre & Post Diagnosis Operation Date: 10/14/22 07:00 Pre-Op Diagnosis: SMALL BOWEL OBSTRUCTION, METASTATIC OVARIAN CANCER Post-Op Diagnosis: SMALL BOWEL OBSTRUCTION, METASTATIC OVARIAN CANCER I identified the patient and participated in the time-out.: Yes Procedure Operation Date: 10/14/22 07:00 Actual Procedures p Esophagogastroduodenoscopy with Peg Tube Placement(Not Applicable) - Soren Parrish DO Surgeon Soren Parrish DO Safety Companion edna Wright Estimated Blood Loss 2 Findings Consistent with Post-Op Diagnosis Specimens none Description of Procedure After informed consent was obtained the patient was taken to the operating room and placed in supine position. After successful intubation the abdomen sterilely prepped and draped in usual fashion. A bite block was placed. Gastric was inserted into the oropharynx and the proximal esophagus that difficulty. Keeping the lumen in view at all times the scope was passed down into the stomach through the pylorus and the first second and third portions of the duodenum. Scope was withdrawn back into the distal stomach retroflexed upon itself to evaluate the proximal stomach. There were some linear erosions likely from her recent NG tube. There was also some bile reflux likely from her partial obstruction. We were able to transilluminate through the anterior abdominal wall. A small skin incision was made. A needle with sheath were advanced into the lumen of the stomach under direct vision. The wire was advanced after removing the needle. A snare was used to grasp the wire and pulled out through the oropharynx. It was connected to the gastrostomy tube which was then pulled back down through the esophagus and out through the anterior abdominal wall. I reperformed the endoscopy to ensure proper placement. It was in good position in the distal stomach. The stomach was decompressed and the scope withdrawn. The external securing button was placed as well as the feeding adapter. The patient was awakened extubated and transferred recovery in stable condition. My physician environmental services assistant was present and assisted through the entire abdominal portion of the case. I attest to the content of the Intraoperative Record and any orders documented therein. Any exceptions are noted below.
[2022-10-14] MEDS: MoRPHine SULFATE 4 MG/ML 1 ML CARP\\VIAL IV PRN (19:29)
--- NOTE | 2022-10-14 21:33 | Hospitalist Progress Note ---
Date of Service October 14, 2022 Assessment & Plan (1) Bowel obstruction: Plan: Clinically/radiographically had been improving but since NG tube discontinuation on 10/12 she has had GI intolerance with nausea/emesis. SBO secondary to adhesions and peritoneal metastatic disease from ovarian ca. Gen surg placed venting PEG today PEG now hooked to suction defer management to surgery (2) Pleural effusion, right: Plan: reaccumulation of pleural effusion seen on CT here 09/20/22 was last thoracentesis by Dr Maurer fluid was exudative and path c/w malignant pleural effusion She is intermittently requiring O2 and has OLIVA with minimal exertion I discussed her care with Dr Laguna from pulmonary - he saw her in consult - he will place pleurX in near-future when able (3) Transaminitis: Plan: AST and ALT now normal (4) Hypertension: Plan: Cont metoprolol succinate 50mg daily Cont amlodipine 5mg daily elevated this evening due to pain no changes in meds for now (5) Depression: Plan: cont home meds (6) Type 2 diabetes mellitus: Plan: BSGs wnl a1c 6.2% in 09/2022 c/w pre-DM only (7) Ovarian cancer: Plan: stage 4 with mets to peritoneum, abdominal wall, liver, para-aortic caval lymph nodes, lung and right-sided malignant pleural effusion, treated previously with chemotherapy in 2019 and 2020 with progression of disease on therapy. She recently saw her oncology provider on 09/28 who wanted to start her back on carboplatin/Taxol x6 cycles, and recommended a brain MRI in the setting of difficulty with ambulation to rule out metastases. MRI brain not yet completed. If able will complete such this admission. poor prognosis in light of ongoing GI tract issues, malignant pleural effusion, etc (8) Hypomagnesemia: Plan: replaced resolved (9) DVT prophylaxis: Plan: heparin 5000 BID (10) Colostomy in place: Plan: functioning well, no issues Plan dispo uncertain - needs PT/OT home with HH? rehab?? Admission and Anticipated Discharge Date Admission Date: October 06, 2022 Subjective saw patient post-PEG placement she was very tired c/o mild surgical site pain in abdomen denied dyspnea at rest no chest pain Review of Systems Review of Systems: gen - very tired cv - no orthopnea pulm - mild cough GI - no vomiting Physical Exam Physical Exam: gen - coughing occasionally, tired mouth - MMM voice - hoarse heart - RRR, s1 s2, 1/6 MAIDA LSB lungs - decreased BS right lung; CTA on left; no rales or wheeze abd - soft NT BS+; ostomy present with minimal liquid brown stool in bag; PEG tube now present; mild-mod distension this evening ext - no edema, pulses 2+ b/l Results & Data Results & Data ([facility]) Vital Signs (Past 12 Hours) Vital Signs Temp Pulse Pulse Pulse Resp BP BP 10/14/22 20:43 36.4 C L 87 16 138/82 10/14/22 19:58 36.7 C 88 16 161/90 H 10/14/22 18:45 36.6 C 84 16 152/78 H 10/14/22 18:15 36.6 C 86 16 143/82 H 10/14/22 17:45 36.5 C 87 16 131/76 10/14/22 17:15 36.5 C 87 23 133/85 10/14/22 17:05 88 20 143/87 H 10/14/22 16:55 88 23 120/76 10/14/22 16:46 36.1 C L 88 22 116/74 10/14/22 15:31 36.7 C 87 18 160/90 H 10/14/22 14:52 36.8 C 77 16 166/90 H 10/14/22 13:21 143/99 H Pulse Ox O2 Del Method O2 Flow Rate 10/14/22 20:43 97 Nasal Cannula 2 10/14/22 19:58 97 Nasal Cannula 2 10/14/22 18:45 95 Nasal Cannula 2 10/14/22 18:15 96 Nasal Cannula 2 10/14/22 17:45 97 Nasal Cannula 2 10/14/22 17:15 93 Room Air 10/14/22 17:05 95 Room Air 10/14/22 16:55 97 Oxymask 5 10/14/22 16:46 97 Oxymask 5 10/14/22 15:31 99 Room Air 10/14/22 14:52 91 Room Air 10/14/22 13:21 Laboratory Results Laboratory Results - last 24 hr 10/14/22 10/14/22 10/14/22 00:08 05:27 08:02 Sodium 138 Potassium 3.8 Chloride 104 Carbon Dioxide 27 Anion Gap 7 BUN 30 H Creatinine 0.70 Est Cr Clr Drug Dosing 57.2 Est GFR ( Amer) 96.2 Est GFR (Non-Af Amer) 83.0 BUN/Creatinine Ratio 42.9 H Glucose 128 H POC Glucose 122 H 109 H Calcium 8.5 Phosphorus 3.2 Magnesium 1.9 10/14/22 10/14/22 12:00 17:53 Sodium Potassium Chloride Carbon Dioxide Anion Gap BUN Creatinine Est Cr Clr Drug Dosing Est GFR ( Amer) Est GFR (Non-Af Amer) BUN/Creatinine Ratio Glucose POC Glucose 128 H 96 Calcium Phosphorus Magnesium PG Care Time/CCT Total # of Minutes Spent Total Time Spent with Patient: Total time spent is greater than 50% in coordination of care (as documented) at patient's floor/unit and/or counseling patient: Coding Level of Care Code 67422 Subseq Hosp Care Lvl 2 Diagnoses Bowel obstruction K56.609 Pleural effusion, right J90 Transaminitis R74.01 Hypertension I10 Hypertension type: essential hypertension Depression F32.A Type 2 diabetes mellitus E11.9 Diabetes mellitus complication status: without complication Diabetes mellitus terminal supervisor insulin use: without terminal supervisor use Ovarian cancer C56.9 Laterality: unspecified laterality Hypomagnesemia E83.42 DVT prophylaxis Z29.[address] Z93.3 (1) Ovarian cancer Laterality: unspecified laterality Qualified Code(s): C56.9 - Malignant neoplasm of unspecified ovary (2) Type 2 diabetes mellitus Diabetes mellitus complication status: without complication Diabetes mellitus terminal supervisor insulin use: without custodial use Qualified Code(s): E11.9 - Type 2 diabetes mellitus without complications (3) Hypertension Hypertension type: essential hypertension Qualified Code(s): I10 - Essential (primary) hypertension
[2022-10-14] MEDS ORDERED: STOP CLINOLIPID ONE (22:00)
[2022-10-14] MEDS: STOP CLINOLIPID SCH (23:45)
[2022-10-15] MEDS: MoRPHine SULFATE 4 MG/ML 1 ML CARP\\VIAL IV PRN ×4 (00:13→18:43)
[2022-10-15 08:04] LABS: BUN Creatinine Ratio 51.4 (10-20); Calcium 8.3 mg/dl (8.5-10.1); Creatinine Clr Calc Pharmacy 57.2 ml/min; Est GFR (African American) 96.2 ml/min; Phosphorus 4.5 mg/dl (2.5-4.9); Potassium 4.2 mmol/L (3.5-5.1)
[2022-10-15] MEDS: HEPARIN SOD 5,000 UNIT/0.5 ML VIAL SQ SCH ×2 (08:30→21:16)
[2022-10-15] MEDS: buPROPion XL 150 MG TABCR PO SCH (08:31)
[2022-10-15] MEDS: METOPROLOL SUCC 50MG EXT REL TAB PO SCH (08:31)
[2022-10-15] MEDS: MIRTAZAPINE TAB 15 MG TAB PO SCH (08:31)
[2022-10-15] MEDS: amLODIPine BESYLATE 5 MG TAB PO SCH (08:31)
[2022-10-15 08:49] LABS: Magnesium 2.1 mg/dl (1.7-2.4)
--- NOTE | 2022-10-15 09:03 | Surgery Progress Note ---
Date of Service October 15, 2022 Assessment & Plan (1) Small bowel obstruction: Plan: Is been 3 days since we have obtained any imaging. We will recheck KUB today. She may have clears with her gastrostomy tube to suction. Continue IV nutrition. Dr. Pfeiffer on-call for the weekend if any problems or questions Admission and Anticipated Discharge Date Admission Date: October 06, 2022 Subjective Patient seen. No nausea since yesterday. Some sore throat likely from her endotracheal tube. Physical Exam Physical Exam: Alert. No acute distress Abdomen is soft. Gastrostomy tube in place and functioning. Small amount of stool in her stoma bag. Results & Data ([facility]) Vital Signs (Past 12 Hours) Vital Signs Temp Pulse Pulse Resp BP Pulse Ox O2 Del Method 10/15/22 07:33 36.9 C 89 14 168/98 H 94 Nasal Cannula 10/15/22 03:58 36.5 C 83 16 151/91 H 96 Nasal Cannula 10/14/22 22:56 36.9 C 77 18 146/88 H 97 Nasal Cannula O2 Flow Rate 10/15/22 07:33 2 10/15/22 03:58 2 10/14/22 22:56 2 PG Care Time/CCT Total # of Minutes Spent Total Time Spent with Patient: Total time spent is greater than 50% in coordination of care (as documented) at patient's floor/unit and/or counseling patient: Coding Level of Care Code 37408 Subseq Hosp Care Lvl 2 Diagnoses Small bowel obstruction K56.609
[2022-10-15 10:57] LABS: Basophils # (auto) 0.06 K/uL (0-0.2); Basophils % (auto) 0.8 %; Eosinophils # (auto) 0.29 K/uL (0-0.50); Eosinophils % (auto) 3.9 %; Hematocrit (blood only) 38.8 % (34.1-44.9); Hemoglobin 12.1 g/dl (12.0-16.0); Immature Granulocytes # (auto) 0.04 K/uL (0.00-0.02); Immature Granulocytes % (auto) 0.5 %; Lymphocytes # (auto) 1.38 K/uL (1.2-3.4); Lymphocytes % (auto) 18.5 %; Mean Corpuscular Hemoglobin 28.5 pg (25.0-34.0); Mean Corpuscular Hgb Conc 31.2 g/dL (32.0-36.0); Mean Corpuscular Volume 91.3 fL (80.0-100.0); Mean Platelet Volume 10.3 fL (9.4-12.3); Monocytes % (auto) 12.1 %; Neutrophils # (auto) 4.78 K/uL (1.4-6.5); Neutrophils % (auto) 64.2 %; Platelet Count 339 K/uL (130-400); RDW Coefficient of Variation 15.6 % (11.5-14.5); RDW Standard Deviation 52.8 fL (36.4-46.3); Red Blood Count 4.25 M/uL (3.93-5.22); White Blood Count 7.45 K/ul (4.8-10.8)
[2022-10-15 11:09] LABS: INR 0.9 (0.9-1.1)
[2022-10-15] MEDS ORDERED: CLINOLIPID 20% IV FAT EMULSION 250 ML IV SCH ×2 (11:30→16:00)
--- NOTE | 2022-10-15 12:44 | XRay Report ---
XR KUB/Abdomen 1 view CLINICAL HISTORY: sbo TECHNIQUE: 1 view of the abdomen was obtained. Comparison: Comparison is made to abdomen radiograph 10/12/2022 FINDINGS: A gastrostomy tube is seen. Degenerative changes are seen in the visualized skeleton. There is interv al decompression of multiple loops of bowel, no evidence of small bowel obstruction is now seen. Smal l stool burden is seen. IMPRESSION: Interval reduction in size of gas-filled loops small bowel compatible with resolved/resolving small b owel obstruction. ACT 112: Negative or not required by law. Electronically signed by: Joseph Dominguez M.D. 10/15/2022 12:43 PM
--- NOTE | 2022-10-15 14:26 | Pharmacy Report ---
PHA: Parenteral Nutrition Con - Date of Service October 15, 2022 - Scope Pharmacy was consulted on 10/12/22 to manage parenteral nutrition orders for this patient. - Subjective The patient is currently on day 6 of central parenteral nutrition for small bowel obstruction - Objective Height: 5 ft 4 in Weight: 65.3 kg Diet: Clear Liquid Vascular Access:: A-port Intake & Output (24hrs):: Intake & Output 10/13/22 10/14/22 10/15/22 10/16/22 06:59 06:59 06:59 06:59 Intake Total 2273.333 / 2273.333 1864 / 1864 2124 / 2124 Output Total 100 / 100 477 / 477 250 / 250 Balance 2173.333 / 2173.333 1864 / 1864 1647 / 1647 -250 / -250 Weight 64.9 kg 64.8 kg 65.3 kg Laboratory Data (Last 24 Hr):: 10/15/22 07:09 Sodium 139 Potassium 4.2 Chloride 107 Carbon Dioxide 28 BUN 36 H Creatinine 0.70 Glucose 119 H Calcium 8.3 L Phosphorus 4.5 D Magnesium 2.1 Nutrition Assessment:: Please refer to the Notes section of the EMR for the most recent logistics planning engineer note. - Assessment Patient continues on TPN for small bowel obstruction and GI intolerance. She is on clear liquid diet but limited intake. Gastronomy tube for GI suction. - Plan For day 4 of PN administration, the following will be ordered: Macronutrients Amino acids 106 grams/day Dextrose 185 grams/day Lipids 50 grams/day Micronutrients Combined electrolytes [] mL - contains 35 mEq Na, 20 meq K, 4.5 mEq Ca, 5 mEq Mg, 35 mEq Cl, 29.5 mEq acetate per 20 mL Sodium phosphate [] MMol Sodium chloride 100 mEq Sodium acetate 20 mEq Potassium phosphate 18 mMol Potassium chloride 40 mEq Potassium acetate [] mEq Magnesium sulfate 12.18 mEq Calcium gluconate 4.65 mEq Multivitamins 10 mL Trace Elements 1 mL Additional additives: Thiamine 100 mg Folic acid 1 mg Famotidine 20 mg Total volume 1423 mL to be infused over 24 hrs will provide 1550 kcal/day Labs, as indicated, will be ordered per protocol Pharmacy will continue to follow and adjust parenteral nutrition orders on a daily basis. Thank you for allowing us to participate in the care of this patient.
[2022-10-15] MEDS ORDERED: CENTRAL TPN IV SCH (16:00)
[2022-10-15] MEDS ORDERED: [UNRECOGNIZED DRUG - OTHER] IV SCH (16:00)
[2022-10-15] MEDS ORDERED: AMINO ACID 8% IV SCH (16:00)
--- NOTE | 2022-10-15 16:54 | Pulmonology Progress Note ---
Date of Service October 15, 2022 Assessment & Plan (1) Malignant pleural effusion: Plan: Will place Pleurx catheter. We will likely place catheter tomorrow as the patient would like to hold off today given that she is still having quite a bit of pain post PEG placement. (2) Dyspnea: Plan: Multifactorial. Hopefully drainage of the effusion will assist in symptoms. Recommend palliative consult. Admission and Anticipated Discharge Date Admission Date: October 06, 2022 Subjective Patient complaining of some pain status post PEG tube placement yesterday. I discussed Pleurx catheter placement with her today and she would like to defer and reevaluate tomorrow. I think this is reasonable as she is saturating well on room air and denies any significant dyspnea at present. Review of Systems Review of Systems: All systems reviewed & are unremarkable except as noted in HPI & below Physical Exam Physical Exam: Constitutional: Frail-appearing female in no apparent distress Eyes: Pupils are equal round and reactive to light. Conjunctivae are normal. Anicteric sclera. Ears nose, mouth and throat: Mallampati class 1. Normal posterior oropharynx. Uvula is midline. Neck: Trachea is midline. Visual inspection is normal. Respiratory: Diminished on the right. Clear to auscultation elsewhere. Cardiovascular: Regular rate and rhythm. No murmurs. No edema. Gastrointestinal: Normal bowel sounds, soft, nontender and nondistended. No hepatosplenomegaly noted. Ostomy in place. PEG in place. No bleeding. Musculoskeletal: No cyanosis. Patient is able to move all extremities. Strength is 5 out of 5 in the upper and lower extremities. Skin: No rashes, warm dry and intact. Neurologic: No obvious focal neurological deficits seen. Psychiatric: Alert and oriented x3 with a euthymic affect. Results & Data Results & Data ([facility]) Vital Signs (Past 12 Hours) Vital Signs Temp Pulse Resp BP Pulse Ox O2 Del Method O2 Flow Rate 10/15/22 15:28 36.5 C 87 16 129/82 93 Room Air 10/15/22 11:19 36.4 C L 80 14 130/78 93 Room Air 10/15/22 09:00 Nasal Cannula 2 10/15/22 07:33 36.9 C 89 14 168/98 H 94 Nasal Cannula 2 PG Care Time/CCT Total # of Minutes Spent Total Time Spent with Patient: Total time spent is greater than 50% in coordination of care (as documented) at patient's floor/unit and/or counseling patient: Coding Level of Care Code 38292 Subseq Hosp Care Lvl 2 Diagnoses Malignant pleural effusion J91.0 Dyspnea R06.00
--- NOTE | 2022-10-15 21:00 | Hospitalist Progress Note ---
Date of Service October 15, 2022 Assessment & Plan (1) Bowel obstruction: Plan: Clinically/radiographically had been improving but since NG tube discontinuation on 10/12 she has had GI intolerance with nausea/emesis. SBO secondary to adhesions and peritoneal metastatic disease from ovarian ca. POD #1 s/p venting PEG placement by Dr Parrish. PEG now hooked to suction; no nausea/emesis; tolerating clears. Defer any diet advancement to surgery. (2) Pleural effusion, right: Plan: reaccumulation of pleural effusion seen on CT here 09/20/22 was last thoracentesis by Dr Maurer fluid was exudative and path c/w malignant pleural effusion She is intermittently requiring O2 and has OLIVA with minimal exertion Dr Laguna saw patient in consult, and plans pleurX placement this weekend (3) Transaminitis: Plan: AST and ALT now normal (4) Hypertension: Plan: Cont metoprolol succinate 50mg daily Cont amlodipine 5mg daily BPs acceptable the latter half of today (5) Depression: Plan: cont home meds (6) Type 2 diabetes mellitus: Plan: BSGs wnl a1c 6.2% in 09/2022 c/w pre-DM only (7) Ovarian cancer: Plan: stage 4 with mets to peritoneum, abdominal wall, liver, para-aortic caval lymph nodes, lung and right-sided malignant pleural effusion, treated previously with chemotherapy in 2019 and 2020 with progression of disease on therapy. She recently saw her oncology provider on 09/28 who wanted to start her back on carboplatin/Taxol x6 cycles, and recommended a brain MRI in the setting of difficulty with ambulation to rule out metastases. MRI brain not yet completed. Defer the MRI at this time. 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 rehab?? Admission and Anticipated Discharge Date Admission Date: October 06, 2022 Subjective patient had a more restful day today following her PEG placement yesterday she is tolerating clear liquids without difficulty no nausea or emesis mild pain around the PEG tube site only PEG remains no suction ostomy with minimal output Review of Systems Review of Systems: gen - no fever; just very tired & weak cv - no orthopnea pulm - no dyspnea at rest, no cough Physical Exam Physical Exam: gen - looks a bit better than yesterday mouth - MMM heart - RRR, s1 s2, 1-2/6 MAIDA LSB lungs - decreased BS right lung; CTA on left; no rales or wheeze abd - soft NT BS+; ostomy present with scant liquid brown stool in bag; PEG tube covered with dressing; mild-mod distension remains ext - no edema, pulses 2+ b/l psych - a/o x 3 Results & Data Results & Data ([facility]) Vital Signs (Past 12 Hours) Vital Signs Temp Pulse Resp BP Pulse Ox O2 Del Method 10/15/22 15:28 36.5 C 87 16 129/82 93 Room Air 10/15/22 11:19 36.4 C L 80 14 130/78 93 Room Air Laboratory Results Laboratory Results - last 24 hr 10/15/22 10/15/22 10/15/22 00:35 05:39 07:09 WBC RBC Hgb Hct MCV MCH MCHC RDW Std Deviation RDW Coeff of Laz Plt Count MPV Immature Gran % (Auto) Neut % (Auto) Lymph % (Auto) Mccreary % (Auto) Eos % (Auto) Baso % (Auto) Neut # (Auto) Lymph # (Auto) Mccreary # (Auto) Eos # (Auto) Baso # (Auto) Immature Gran # (Auto) PT INR Sodium 139 Potassium 4.2 Chloride 107 Carbon Dioxide 28 Anion Gap 4 BUN 36 H Creatinine 0.70 Est Cr Clr Drug Dosing 57.2 Est GFR ( Amer) 96.2 Est GFR (Non-Af Amer) 83.0 BUN/Creatinine Ratio 51.4 H Glucose 119 H POC Glucose 115 H 113 H Calcium 8.3 L Phosphorus 4.5 D Magnesium 2.1 10/15/22 10/15/22 10/15/22 10:29 10:29 12:03 WBC 7.45 RBC 4.25 Hgb 12.1 Hct 38.8 MCV 91.3 MCH 28.5 MCHC 31.2 L RDW Std Deviation 52.8 H RDW Coeff of Laz 15.6 H Plt Count 339 MPV 10.3 Immature Gran % (Auto) 0.5 Neut % (Auto) 64.2 Lymph % (Auto) 18.5 Mccreary % (Auto) 12.1 Eos % (Auto) 3.9 Baso % (Auto) 0.8 Neut # (Auto) 4.78 Lymph # (Auto) 1.38 Mccreary # (Auto) 0.90 H Eos # (Auto) 0.29 Baso # (Auto) 0.06 Immature Gran # (Auto) 0.04 H PT 10.0 INR 0.9 Sodium Potassium Chloride Carbon Dioxide Anion Gap BUN Creatinine Est Cr Clr Drug Dosing Est GFR ( Amer) Est GFR (Non-Af Amer) BUN/Creatinine Ratio Glucose POC Glucose 130 H Calcium Phosphorus Magnesium 10/15/22 18:16 WBC RBC Hgb Hct MCV MCH MCHC RDW Std Deviation RDW Coeff of Laz Plt Count MPV Immature Gran % (Auto) Neut % (Auto) Lymph % (Auto) Mccreary % (Auto) Eos % (Auto) Baso % (Auto) Neut # (Auto) Lymph # (Auto) Mccreary # (Auto) Eos # (Auto) Baso # (Auto) Immature Gran # (Auto) PT INR Sodium Potassium Chloride Carbon Dioxide Anion Gap BUN Creatinine Est Cr Clr Drug Dosing Est GFR ( Amer) Est GFR (Non-Af Amer) BUN/Creatinine Ratio Glucose POC Glucose 81 Calcium Phosphorus Magnesium PG Care Time/CCT Total # of Minutes Spent Total Time Spent with Patient: Total time spent is greater than 50% in coordination of care (as documented) at patient's floor/unit and/or counseling patient: Coding Level of Care Code 03902 Subseq Hosp Care Lvl 2 Diagnoses Bowel obstruction K56.609 Pleural effusion, right J90 Transaminitis R74.01 Hypertension I10 Hypertension type: essential hypertension Depression F32.A Type 2 diabetes mellitus E11.9 Diabetes mellitus complication status: without complication Diabetes mellitus fdc insulin use: without fdc use Ovarian cancer C56.9 Laterality: unspecified laterality Hypomagnesemia E83.42 DVT prophylaxis Z29.[address] Z93.3 (1) Ovarian cancer Laterality: unspecified laterality Qualified Code(s): C56.9 - Malignant neoplasm of unspecified ovary (2) Type 2 diabetes mellitus Diabetes mellitus complication status: without complication Diabetes mellitus terminal makeup operator insulin use: without terminal makeup operator use Qualified Code(s): E11.9 - Type 2 diabetes mellitus without complications (3) Hypertension Hypertension type: essential hypertension Qualified Code(s): I10 - Essential (primary) hypertension
[2022-10-15] MEDS: STOP CLINOLIPID SCH (22:13)
[2022-10-15] MEDS: ACETAMINOPHEN 10MG/ML Custom 650 MG in EMPTY BAG 0 ML IV PRN (22:44)
--- NOTE | 2022-10-16 06:06 | Surgery Progress Note ---
Date of Service October 16, 2022 Assessment & Plan (1) Small bowel obstruction: Plan: Patient is status post EGD with PEG tube placement on 10/14/2022 (postop day #2) KUB yesterday showed evidence of resolving small bowel obstruction Continue G-tube to suction for the present time Patient may continue to have clear liquids while her G-tube is on suction Consideration can be given to advancing her diet once her ostomy starts having more output. Admission and Anticipated Discharge Date Admission Date: October 06, 2022 Supervising Physician Co-Signing Physician Notes Patient seen and examined, agree with above. 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 She has occasional pulling pain at her PEG site, but otherwise feeling well. PEG tube is to low intermittent wall suction. On exam she is afebrile stable vitals. Her abdomen is soft, nondistended, appropriately tender to palpation. We will continue with current management, call with questions or concerns. Subjective Patient is resting comfortably in bed. She notes some minimal pain at the PEG tube site. She has denied any nausea or vomiting over the past 24 hours. She is tolerating clear liquids since her PEG tube has been in place. She does note that her ostomy is not having much output. Physical Exam Gastrointestinal (Abdomen): Abdomen is soft with minimal distention. Ostomy noted to have a small amount of stool in the collection bag. PEG tube site examined and appears clean without signs of infection. Results & Data ([facility]) Vital Signs (Past 12 Hours) Vital Signs Temp Pulse Resp BP Pulse Ox Pulse Ox O2 Del Method 10/15/22 19:25 Room Air 10/15/22 23:18 36.5 C 89 15 137/85 92 Room Air 10/15/22 20:00 96 O2 Del Method 10/15/22 19:25 10/15/22 23:18 10/15/22 20:00 Room Air PG Care Time/CCT Total # of Minutes Spent Total Time Spent with Patient: Total time spent is greater than 50% in coordination of care (as documented) at patient's floor/unit and/or counseling patient: Coding Level of Care Code None Diagnoses Small bowel obstruction K56.609
[2022-10-16 07:05] LABS: BUN Creatinine Ratio 57.3 (10-20); Calcium 8.4 mg/dl (8.5-10.1); Creatinine Clr Calc Pharmacy 53.4 ml/min; Est GFR (African American) 88.5 ml/min; Est GFR (Non-African American) 76.3 ml/min; Magnesium 2.1 mg/dl (1.7-2.4); Potassium 4.9 mmol/L (3.5-5.1)
[2022-10-16] MEDS: HEPARIN SOD 5,000 UNIT/0.5 ML VIAL SQ SCH ×2 (08:40→20:52)
[2022-10-16] MEDS: buPROPion XL 150 MG TABCR PO SCH (09:34)
[2022-10-16] MEDS: MIRTAZAPINE TAB 15 MG TAB PO SCH (09:34)
[2022-10-16] MEDS: amLODIPine BESYLATE 5 MG TAB PO SCH (09:34)
[2022-10-16] MEDS: METOPROLOL SUCC 50MG EXT REL TAB PO SCH (09:34)
[2022-10-16] MEDS: MoRPHine SULFATE 4 MG/ML 1 ML CARP\\VIAL IV PRN (10:36)
[2022-10-16] MEDS: MoRPHine SULFATE 2 MG/ML CARP IV PRN (11:18)
--- NOTE | 2022-10-16 11:45 | Procedure Note ---
Procedure Note Date of Service October 16, 2022 Note PREOPERATIVE DIAGNOSIS: Recurrent malignant right pleural effusion. POSTOPERATIVE DIAGNOSIS: Recurrent malignant right pleural effusion. PROCEDURE PERFORMED: Right PleurX catheter placement. ANESTHESIA: Local lidocaine given (15 ml) COMPLICATIONS: None. Written consent was obtained and placed on the chart. Timeout was done prior to the procedure. INDICATION FOR PROCEDURE: Recurrent right malignant effusion OPERATIVE FINDINGS: The right chest was opacified on preoperative chest x-ray, and 850 mL of serous fluid was withdrawn before clamping the drainage tube. There were no bleeding complications, and the fluid was not blood tinged. DESCRIPTION OF PROCEDURE: The patient was placed in a semirecumbent position. I evaluated the right pleura with the ultrasound and located an adequate spot insert the finder needle to inject lidocaine and aspirate pleural fluid. The right chest and upper abdomen were prepped and draped in the usual sterile fashion. Lidocaine 1% was used to infiltrate two areas; one in the right upper quadrant where the tube would exit and the other along the anterior axillary line in the seventh intercostal space. A small counterincision was made in the right upper quadrant area. Through the anterior axillary line area, the pleural space was accessed by Seldinger technique. The counterincision was made around the guidewire and then the PleurX catheter was tunneled from the right upper quadrant small incision to the one overlying the ribs. A sheath introducer was then passed over the wire and then the PleurX catheter was placed through the sheath introducer. There was good return of fluid. 850 ml of serous fluid was withdrawn slowly as the small counterincision was closed with Monocryl stitch. The catheter was capped off, and sterile dressings were applied. The patient tolerated the procedure well without any complications. Post chest x-ray demonstrated adequate placement of the catheter with no significant pneumothorax. Coding CPT Codes Pulmonary/Thoracic - Pulmonary and Thoracic: 49629 Insert pleural cathereter w/cuff ([id number]) [facility]odes ([place]) Pulmonary/Thoracic Procedure 1: Pulmonary and Thoracic: 41688 Insert pleural cathereter w/cuff
--- NOTE | 2022-10-16 11:47 | Pulmonology Progress Note ---
Date of Service October 16, 2022 Assessment & Plan (1) Malignant pleural effusion: Plan: Right Pleurx catheter in place today 10/16/2022. 850 mL of tomasz-colored fluid drained. Please straight catheter every other day. Will instruct nursing to teach family how to drain the catheter. Discussed with case management. Will need suture removal in 7 to 10 days. (2) Dyspnea: Plan: Shortness of breath improved post drainage. Recommend palliative consult. Admission and Anticipated Discharge Date Admission Date: October 06, 2022 Subjective Patient feels that her pain overall is better controlled and she is willing to have the Pleurx catheter placed today. Denies fevers, chills or night sweats. Abdominal pain is better. Tolerating diet. Review of Systems Review of Systems: All systems reviewed & are unremarkable except as noted in HPI & below Results & Data Results & Data ([facility]) Vital Signs (Past 12 Hours) Vital Signs Temp Pulse Resp BP Pulse Ox O2 Del Method 10/16/22 07:33 36.6 C 81 16 138/74 92 Room Air PG Care Time/CCT Total # of Minutes Spent Total Time Spent with Patient: Total time spent is greater than 50% in coordination of care (as documented) at patient's floor/unit and/or counseling patient: Coding Level of Care Code 78984 Subseq Hosp Care Lvl 2 Diagnoses Malignant pleural effusion J91.0 Dyspnea R06.00
--- NOTE | 2022-10-16 12:24 | XRay Report ---
XR chest 1V portable CLINICAL HISTORY: s/p right pleurx, 850 ml drained COMPARISON STUDY: Chest CT September 10, 2022. Chest radiograph October 13, 2022. FINDINGS: Left internal jugular Plmhxf-q-Bevt is in place. Interval placement of a right basilar pleu ral catheter. Right pleural effusion has decreased in size since prior exam. Residual pleural effusio n is noted. There is a small right apical pneumothorax with superior pleural separation of 8 mm. Card iomediastinal silhouette is stable. Pulmonary vascular congestion without overt pulmonary edema. IMPRESSION: Interval placement of a right basilar pleural catheter with decrease in size of the right pleural eff usion. Small right apical pneumothorax. ACT 112: Negative or not required by law. Electronically signed by: Harlan Sharma M.D. 10/16/2022 12:22 PM
[2022-10-16] MEDS: ACETAMINOPHEN 10MG/ML Custom 650 MG in EMPTY BAG 0 ML IV PRN (15:02)
[2022-10-16] MEDS ORDERED: CENTRAL TPN IV SCH (16:00)
[2022-10-16] MEDS ORDERED: AMINO ACID 8% IV SCH (16:00)
[2022-10-16] MEDS ORDERED: [UNRECOGNIZED DRUG - OTHER] IV SCH (16:00)
[2022-10-16] MEDS: CLINOLIPID 20% IV FAT EMULSION 250 ML IV SCH (20:39)
--- NOTE | 2022-10-16 21:05 | Hospitalist Progress Note ---
Date of Service October 16, 2022 Assessment & Plan (1) Bowel obstruction: Plan: Clinically/radiographically had been improving but since NG tube discontinuation on 10/12 she had had GI intolerance with nausea/emesis. SBO secondary to adhesions and peritoneal metastatic disease from ovarian ca. POD #2 s/p venting PEG placement by Dr Parrish. PEG now hooked to suction; no nausea/emesis; tolerating clears. Defer any diet advancement to surgery. Continue TPN at least 1 more day and until we know PO intake is reliable. (2) Pleural effusion, right: Plan: reaccumulation of pleural effusion seen on CT here 09/20/22 was last thoracentesis by Dr Maurer fluid was exudative and path c/w malignant pleural effusion Dr Laguna placed pleurX catheter today with 850cc out plan to drain every other day and prn (3) Transaminitis: Plan: AST and ALT now normal (4) Hypertension: Plan: Cont metoprolol succinate 50mg daily Cont amlodipine 5mg daily (5) Depression: Plan: cont home meds (6) Type 2 diabetes mellitus: Plan: BSGs wnl a1c 6.2% in 09/2022 c/w pre-DM only (7) Ovarian cancer: Plan: stage 4 with mets to peritoneum, abdominal wall, liver, para-aortic caval lymph nodes, lung and right-sided malignant pleural effusion, treated previously with chemotherapy in 2019 and 2020 with progression of disease on therapy. She recently saw her oncology provider on 09/28 who wanted to start her back on carboplatin/Taxol x6 cycles, and recommended a brain MRI in the setting of difficulty with ambulation to rule out metastases. MRI brain not yet completed. Defer the MRI at this time. 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 rehab?? home with hospice?? need to discuss all of this with pt and family (has 5 kids) Admission and Anticipated Discharge Date Admission Date: October 06, 2022 Subjective saw patient late in the day resting comfortably watching a movie on TV no vomiting no nausea PEG tube still hooked up to suction tolerating clear liquids had pleurX placed this am she can take larger breaths no dyspnea no pleuritic pain on right mild pain around PEG site Review of Systems Review of Systems: gen - weak, fatigue (no change); hasn't really been out of bed CV - no cp pulm - no cough/no dyspnea GI - bloating, but no N/V, no pain Physical Exam Physical Exam: gen - looks similar to yesterday; pleasant; NAD; thin mouth - MMM heart - RRR, s1 s2, 1-2/6 MAIDA LSB lungs - airation right lung improved; CTA on left; no rales or wheeze abd - soft NT BS+; ostomy present with no stool in bag; PEG tube site clean and w/o drainage; mild-mod distension remains; there are several subcutneous nodules on abd wall - these are likely due to heparin SC injections; these are freely mobile ext - no edema, pulses 2+ b/l psych - a/o x 3 Results & Data Results & Data ([facility]) Vital Signs (Past 12 Hours) Vital Signs Temp Pulse Pulse Resp BP Pulse Ox O2 Del Method 10/16/22 16:00 37 C 95 H 18 131/76 93 Room Air 10/16/22 12:21 36.7 C 87 16 150/82 H 93 Room Air Laboratory Results BMP wnl mag wnl PG Care Time/CCT Total # of Minutes Spent Total Time Spent with Patient: Total time spent is greater than 50% in coordination of care (as documented) at patient's floor/unit and/or counseling patient: Coding Level of Care Code 78251 Subseq Hosp Care Lvl 2 Diagnoses Bowel obstruction K56.609 Pleural effusion, right J90 Transaminitis R74.01 Hypertension I10 Hypertension type: essential hypertension Depression F32.A Type 2 diabetes mellitus E11.9 Diabetes mellitus complication status: without complication Diabetes mellitus rat exterminator insulin use: without penitentiary use Ovarian cancer C56.9 Laterality: unspecified laterality Hypomagnesemia E83.42 DVT prophylaxis Z29.[address] Z93.3 (1) Ovarian cancer Laterality: unspecified laterality Qualified Code(s): C56.9 - Malignant neoplasm of unspecified ovary (2) Type 2 diabetes mellitus Diabetes mellitus complication status: without complication Diabetes mellitus rat exterminator insulin use: without rat exterminator use Qualified Code(s): E11.9 - Type 2 diabetes mellitus without complications (3) Hypertension Hypertension type: essential hypertension Qualified Code(s): I10 - Essential (primary) hypertension
[2022-10-17] MEDS: ONDANSETRON INJ 2 MG/ML 2 ML VIAL IV PRN (01:02)
[2022-10-17] MEDS ORDERED: PANTOprazole 80 MG in DEXTROSE 5% 100 ML IV ONE (01:45)
--- NOTE | 2022-10-17 01:48 | Communication Note ---
Date of Service: October 17, 2022 I was called by RN about 1:30 AM on 10/17/2022 Stating that patient had an emesis of some brown liquid with a few visible blood clots. I visited with patient at bedside within 5 minutes. RN notes patient has been hemodynamically stable. Blood pressure is noted to be 131/83 with a pulse of 95. Patient is noted to be afebrile with a pulse ox 94% on room air and her respirations are 17 and nonlabored. Upon my exam the patient notes that she felt slightly improved after vomiting. She currently denies any abdominal pain. She notes that her ostomy has not had very much output over the past 24 hours. On exam her PEG site was examined and was clean and dry without signs of infection. Her abdomen is mildly distended with hypoactive bowel sounds. There is no rebound tenderness or guarding her ostomy has minimal to no output in the collection bag. A KUB was ordered and showed gas-filled loops of small bowel similar to previous x-rays. There not appear to be any intraperitoneal free air on this study. Due to the above-noted events we will back patient's diet down to n.p.o. I have asked the RN to flush patient's PEG tube and then hooked back up to suction. I will check a CBC, PRP. I have also ordered 80 mg of intravenous Protonix.
[2022-10-17 02:15] LABS: Basophils # (auto) 0.04 K/uL (0-0.2); Basophils % (auto) 0.5 %; Eosinophils % (auto) 2.3 %; Hematocrit (blood only) 34.7 % (34.1-44.9); Hemoglobin 11.6 g/dl (12.0-16.0); Immature Granulocytes # (auto) 0.03 K/uL (0.00-0.02); Immature Granulocytes % (auto) 0.3 %; Lymphocytes % (auto) 15.2 %; Mean Corpuscular Hemoglobin 29.7 pg (25.0-34.0); Mean Corpuscular Hgb Conc 33.4 g/dL (32.0-36.0); Mean Corpuscular Volume 88.7 fL (80.0-100.0); Mean Platelet Volume 10.3 fL (9.4-12.3); Monocytes # (auto) 1.07 K/uL (0.24-0.82); Monocytes % (auto) 12.5 %; Neutrophils # (auto) 5.94 K/uL (1.4-6.5); Neutrophils % (auto) 69.2 %; Platelet Count 284 K/uL (130-400); RDW Coefficient of Variation 15.8 % (11.5-14.5); RDW Standard Deviation 50.9 fL (36.4-46.3); Red Blood Count 3.91 M/uL (3.93-5.22); White Blood Count 8.58 K/ul (4.8-10.8)
[2022-10-17 02:37] LABS: BUN Creatinine Ratio 61.5 (10-20); Calcium 8.3 mg/dl (8.5-10.1); Creatinine Clr Calc Pharmacy 61.6 ml/min; Est GFR (African American) 98.6 ml/min; Potassium 4.3 mmol/L (3.5-5.1)
[2022-10-17] MEDS: STOP CLINOLIPID SCH ×2 (02:39→23:09)
[2022-10-17] MEDS: CLINOLIPID 20% IV FAT EMULSION 250 ML IV SCH (02:49)
--- NOTE | 2022-10-17 05:27 | Surgery Progress Note ---
Date of Service October 17, 2022 Assessment & Plan (1) Small bowel obstruction: Plan: Status post PEG tube insertion on 10/14/2022 (postoperative day #3) Due to emesis noted last night we recommend proceeding as follows: -CBC was checked and there is not a significant drop in patient's hemoglobin. Her platelet count was noted to be normal KUB last night did not show any free intraperitoneal air and bowel gas pattern appeared similar to what was noted on previous imaging Due to episode of emesis diet was backed down to n.p.o. status which we will continue for the present time Recommend keeping PEG tube to suction Patient reportedly had visible blood clots in her emesis which could have been residual from her PEG tube insertion. She was administered 80 mg of intravenous Protonix. I did check with the medical service and they did not feel a drip was required at this time Consideration be given to re-advancing patient's diet beginning with clear liquids if her symptomatology improves Admission and Anticipated Discharge Date Admission Date: October 06, 2022 Supervising Physician Co-Signing Physician Notes Patient seen and examined, labs and imaging reviewed, overnight events reviewed, agree with above. History of carcinomatosis with resolved bowel obstruction, status post venting PEG tube. She was on liquids yesterday and she vomited. There were some blood clots in her emesis. She was made n.p.o. and placed on Protonix. Her KUB showed slight increase in dilation of the small bowel. Her hemoglobin is stable. At this point we will keep her n.p.o. and keep her PEG tube to low intermittent suction. Subjective Patient is resting comfortably in bed at this time. She has not had any further emesis since last night's episode. She currently notes some minor abdominal pain greatest near the periumbilical region. I discussed with material handler 2nd shift nurse no further episodes of emesis were noted. She does not note any other concerns at this time. Physical Exam Gastrointestinal (Abdomen): Abdomen is mildly distended. The patient does have some pain with palpation just to the right of the umbilicus. There is no rebound tenderness or guarding. There is minimal output noted in the colostomy collection bag. PEG tube site was examined and appears clean without signs of infection. Her PEG tube is currently draining some brownish fluid. There is not appear to be any visible blood in the tubing or collection canister. Results & Data ([facility]) Vital Signs (Past 12 Hours) Vital Signs Temp Pulse Pulse Resp BP Pulse Ox Pulse Ox 10/16/22 19:45 10/17/22 01:33 36.8 C 95 H 17 131/83 94 10/16/22 23:45 37 C 95 H 16 157/90 H 95 10/16/22 23:14 37.2 C 85 16 172/92 H 92 10/16/22 20:20 96 O2 Del Method O2 Del Method 10/16/22 19:45 Room Air 10/17/22 01:33 Room Air 10/16/22 23:45 Room Air 10/16/22 23:14 Room Air 10/16/22 20:20 Room Air PG Care Time/CCT Total # of Minutes Spent Total Time Spent with Patient: Total time spent is greater than 50% in coordination of care (as documented) at patient's floor/unit and/or counseling patient: Coding Level of Care Code None Diagnoses Small bowel obstruction K56.609
[2022-10-17 06:09] LABS: BUN Creatinine Ratio 63.1 (10-20); Calcium 8.1 mg/dl (8.5-10.1); Creatinine Clr Calc Pharmacy 61.6 ml/min; Est GFR (African American) 98.6 ml/min; Magnesium 1.9 mg/dl (1.7-2.4); Phosphorus 3.4 mg/dl (2.5-4.9); Potassium 4.3 mmol/L (3.5-5.1)
--- NOTE | 2022-10-17 07:03 | XRay Report ---
XR chest 1V portable CLINICAL HISTORY: Follow up ptx COMPARISON STUDY: Chest radiograph October 16, 2022. FINDINGS: Right pleural catheter remains in place. Small right apical pneumothorax has decreased in s ize since prior exam. Pleural separation measures 5 mm. A right pleural effusion with right basilar o pacity is again noted. A small left pleural effusion with left basilar opacity. Left internal jugular Ncyuef-p-Saby is in place. Pulmonary vascular congestion is again noted. IMPRESSION: Right pleural catheter in place. Decrease in size of a small right apical pneumothorax. Residual right pleural effusion. ACT 112: Negative or not required by law. Electronically signed by: Harlan Sharma M.D. 10/17/2022 7:02 AM
--- NOTE | 2022-10-17 08:18 | XRay Report ---
KUB CLINICAL HISTORY: Small bowel obstruction. COMPARISON STUDY: KUB October 15, 2022. CT of the abdomen and pelvis October 06, 2022. FINDINGS: Right pleural catheter and gastrostomy tube are incidentally noted. Multiple loops of moder ately dilated small bowel are noted. Small bowel dilatation has increased since exam of October 15. IMPRESSION: Increasing small bowel dilatation consistent with a small bowel obstruction. ACT 112: Negative or not required by law. Electronically signed by: Harlan Sharma M.D. 10/17/2022 8:16 AM
[2022-10-17] MEDS: MoRPHine SULFATE 4 MG/ML 1 ML CARP\\VIAL IV PRN (09:29)
[2022-10-17] MEDS: MIRTAZAPINE TAB 15 MG TAB PO SCH (10:42)
[2022-10-17] MEDS: METOPROLOL SUCC 50MG EXT REL TAB PO SCH (10:42)
[2022-10-17] MEDS: amLODIPine BESYLATE 5 MG TAB PO SCH (10:42)
[2022-10-17] MEDS: buPROPion XL 150 MG TABCR PO SCH (10:42)
[2022-10-17] MEDS: HYDROmorphone INJ 0.5 MG/0.5 ML SYR IV PRN ×2 (12:08→17:08)
--- NOTE | 2022-10-17 12:51 | Pulmonology Progress Note ---
Date of Service October 17, 2022 Assessment & Plan (1) Malignant pleural effusion: Plan: Right Pleurx catheter in place today 10/16/2022. 850 mL of tomasz-colored fluid drained 10/16/2022. Please drain catheter every other day. I had a lengthy discussion with the patient regarding goals of care and CODE STATUS. She is currently listed as a full code. She is very clear to me that she would like to be a DNR/DNI in the event of a cardiac arrest. She is also o pen to discussions with palliative care regarding hospice. I think this would be the best route for the patient given her advanced metastatic disease. Hospice can also assist with the Pleurx catheter drainage. (2) Dyspnea: Plan: Shortness of breath improved post drainage. (3) Goals of care, counseling/discussion: Plan: As above, I discussed with her goals of care and end-of-life. We discussed having good quality of life towards the end. She wants to be DNR/DNI and is open to hospice discussion. Also discussed with hospitalist. Plan Pulmonary to sign off at this time. Please call us directly with questions. Thank you for the consult. Admission and Anticipated Discharge Date Admission Date: October 06, 2022 Subjective Patient appears tired and had an episode of emesis with possible hematemesis yesterday evening. She is currently NPO. She continues to complain about pain in the PEG tube site. Review of Systems Review of Systems: All systems reviewed & are unremarkable except as noted in HPI & below Physical Exam Physical Exam: Constitutional: Frail-appearing female in no apparent distress Eyes: Pupils are equal round and reactive to light. Conjunctivae are normal. Anicteric sclera. Ears nose, mouth and throat: Mallampati class 1. Normal posterior oropharynx. Uvula is midline. Neck: Trachea is midline. Visual inspection is normal. Respiratory: Diminished on the right. Clear to auscultation elsewhere. Cardiovascular: Regular rate and rhythm. No murmurs. No edema. Gastrointestinal: Tenderness to palpation. PEG tube in place. Minimal bowel sounds. Musculoskeletal: No cyanosis. Patient is able to move all extremities. Strength is 5 out of 5 in the upper and lower extremities. Skin: No rashes, warm dry and intact. Neurologic: No obvious focal neurological deficits seen. Psychiatric: Alert and oriented x3 with a euthymic affect. Results & Data Results & Data ([facility]) Vital Signs (Past 12 Hours) Vital Signs Temp Pulse Resp BP Pulse Ox Pulse Ox O2 Del Method 10/17/22 12:12 36.7 C 103 H 16 148/86 H 94 Room Air 10/17/22 08:00 Room Air 10/17/22 09:47 36.6 C 100 H 18 157/96 H 94 Room Air 10/17/22 08:40 36.5 C 16 148/88 H 94 Room Air 10/17/22 07:43 36.8 C 16 141/89 H 93 Room Air 10/17/22 07:43 93 10/17/22 01:33 36.8 C 95 H 17 131/83 94 Room Air O2 Del Method 10/17/22 12:12 10/17/22 08:00 10/17/22 09:47 10/17/22 08:40 10/17/22 07:43 10/17/22 07:43 Room Air 10/17/22 01:33 PG Care Time/CCT Total # of Minutes Spent Total Time Spent with Patient: Total time spent is greater than 50% in coordination of care (as documented) at patient's floor/unit and/or counseling patient: Coding Level of Care Code 63798 Subseq Hosp Care Lvl 3 Diagnoses Malignant pleural effusion J91.0 Dyspnea R06.00 Goals of care, counseling/discussion Z71.89
[2022-10-17] MEDS ORDERED: [UNRECOGNIZED DRUG - OTHER] IV SCH (16:00)
[2022-10-17] MEDS ORDERED: AMINO ACID 8% IV SCH (16:00)
[2022-10-17] MEDS ORDERED: CLINOLIPID 20% IV FAT EMULSION 250 ML IV SCH (16:00)
[2022-10-17] MEDS ORDERED: CENTRAL TPN IV SCH (16:00)
[2022-10-17] MEDS ORDERED: HYDROmorphone INJ 0.5 MG/0.5 ML SYR IV PRN (20:04)
--- NOTE | 2022-10-17 20:06 | Hospitalist Progress Note ---
Date of Service October 17, 2022 Assessment & Plan (1) Bowel obstruction: Plan: SBO secondary to adhesions and peritoneal metastatic disease from ovarian ca. Clinically/radiographically had been improving but since NG tube discontinuation on 10/12/22 she had had GI intolerance with nausea/emesis. Thus, underwent PEG tube placement for venting purposes. POD #3 s/p venting PEG placement by Dr Parrish. PEG hooked to suction; had been tolerating clears, but overnight now with recurrent emesis. NPO. TPN for now. Heavy concern she may not tolerate any PO moving forward even with PEG in place and on suction. (2) Pleural effusion, right: Plan: reaccumulation of pleural effusion seen on CT here 09/20/22 was last thoracentesis by Dr Maurer fluid was exudative and path c/w malignant pleural effusion POD #1 s/p pleurX placement by Dr Laguna plan to drain every other day and prn first drain - 10/18/22 (3) Transaminitis: Plan: AST and ALT now normal (4) Hypertension: Plan: Cont metoprolol succinate 50mg daily Cont amlodipine 5mg daily (5) Depression: Plan: cont home meds (6) Type 2 diabetes mellitus: Plan: BSGs wnl a1c 6.2% in 09/2022 c/w pre-DM only (7) Ovarian cancer: Plan: stage 4 with mets to peritoneum, abdominal wall, liver, para-aortic caval lymph nodes, lung and right-sided malignant pleural effusion, treated previously with chemotherapy in 2019 and 2020 with progression of disease on therapy. She recently saw her oncology provider on 09/28 who wanted to start her back on carboplatin/Taxol x6 cycles, and recommended a brain MRI in the setting of difficulty with ambulation to rule out metastases. MRI brain not yet completed. Defer the MRI at this time. 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 rehab?? home with hospice?? need to discuss all of this with pt and family (has 5 kids) I attempted to call her daughter, Malgorzata, today but no answer left message Admission and Anticipated Discharge Date Admission Date: October 06, 2022 Subjective overnight events noted had emesis made NPO PEG still to suction - draining green bile she feels mentally and physically poor today especially mentally we discussed palliative care and she is agreeable to consult her goal is home with family - she has 5 kids, 4 of whom live locally; they are very supportive she is having constant pain in the central abdomen minimal stool output via ostomy Review of Systems Review of Systems: gen - no fever; very tired cv - no cp pulm - no dyspnea GI - see HPI psych - feeling down/depressed Physical Exam Physical Exam: gen - looks similar to yesterday - depressed, flat affect mouth - MMM heart - RRR, s1 s2, 1-2/6 MAIDA LSB lungs - airation right lung improved; CTA on left; no rales or wheeze abd - soft NT BS+; ostomy present with minimal stool in bag; PEG tube site covered with clean dressing; mild-mod distension remains; tender central abdomen to palpation ext - no edema, pulses 2+ b/l psych - a/o x 3 - flat affect Results & Data Results & Data ([facility]) Vital Signs (Past 12 Hours) Vital Signs Temp Pulse Pulse Resp BP Pulse Ox O2 Del Method 10/17/22 15:02 36.6 C 94 H 16 137/90 92 Room Air 10/17/22 12:12 36.7 C 103 H 16 148/86 H 94 Room Air 10/17/22 09:47 36.6 C 100 H 18 157/96 H 94 Room Air 10/17/22 08:40 36.5 C 16 148/88 H 94 Room Air Laboratory Results Laboratory Results - last 24 hr 10/16/22 10/17/22 10/17/22 21:43 00:29 02:05 WBC 8.58 RBC 3.91 L Hgb 11.6 L Hct 34.7 MCV 88.7 MCH 29.7 MCHC 33.4 RDW Std Deviation 50.9 H RDW Coeff of Laz 15.8 H Plt Count 284 MPV 10.3 Immature Gran % (Auto) 0.3 Neut % (Auto) 69.2 Lymph % (Auto) 15.2 [place] % (Auto) 12.5 Eos % (Auto) 2.3 Baso % (Auto) 0.5 Neut # (Auto) 5.94 Lymph # (Auto) 1.30 [place] # (Auto) 1.07 H Eos # (Auto) 0.20 Baso # (Auto) 0.04 Immature Gran # (Auto) 0.03 H Sodium Potassium Chloride Carbon Dioxide Anion Gap BUN Creatinine Est Cr Clr Drug Dosing Est GFR ( Amer) Est GFR (Non-Af Amer) BUN/Creatinine Ratio Glucose POC Glucose 120 H 133 H Calcium Phosphorus Magnesium 10/17/22 10/17/22 10/17/22 02:05 05:23 05:50 WBC RBC Hgb Hct MCV MCH MCHC RDW Std Deviation RDW Coeff of Laz Plt Count MPV Immature Gran % (Auto) Neut % (Auto) Lymph % (Auto) [place] % (Auto) Eos % (Auto) Baso % (Auto) Neut # (Auto) Lymph # (Auto) [place] # (Auto) Eos # (Auto) Baso # (Auto) Immature Gran # (Auto) Sodium 137 138 Potassium 4.3 4.3 Chloride 104 105 Carbon Dioxide 25 27 Anion Gap 8 6 BUN 40 H 41 H Creatinine 0.65 0.65 Est Cr Clr Drug Dosing 61.6 61.6 Est GFR ( Amer) 98.6 98.6 Est GFR (Non-Af Amer) 85.0 85.0 BUN/Creatinine Ratio 61.5 H 63.1 H Glucose 159 H 139 H POC Glucose 123 H Calcium 8.3 L 8.1 L Phosphorus 3.4 Magnesium 1.9 10/17/22 10/17/22 12:01 18:12 WBC RBC Hgb Hct MCV MCH MCHC RDW Std Deviation RDW Coeff of Laz Plt Count MPV Immature Gran % (Auto) Neut % (Auto) Lymph % (Auto) [place] % (Auto) Eos % (Auto) Baso % (Auto) Neut # (Auto) Lymph # (Auto) [place] # (Auto) Eos # (Auto) Baso # (Auto) Immature Gran # (Auto) Sodium Potassium Chloride Carbon Dioxide Anion Gap BUN Creatinine Est Cr Clr Drug Dosing Est GFR ( Amer) Est GFR (Non-Af Amer) BUN/Creatinine Ratio Glucose POC Glucose 125 H 103 H Calcium Phosphorus Magnesium PG Care Time/CCT Total # of Minutes Spent Total Time Spent with Patient: Total time spent is greater than 50% in coordination of care (as documented) at patient's floor/unit and/or counseling patient: Coding Level of Care Code 21184 Subseq Hosp Care Lvl 2 Diagnoses Bowel obstruction K56.609 Pleural effusion, right J90 Transaminitis R74.01 Hypertension I10 Hypertension type: essential hypertension Depression F32.A Type 2 diabetes mellitus E11.9 Diabetes mellitus complication status: without complication Diabetes mellitus alf insulin use: without long term care phlebotomist use Ovarian cancer C56.9 Laterality: unspecified laterality Hypomagnesemia E83.42 DVT prophylaxis Z29.[address] Z93.3 (1) Ovarian cancer Laterality: unspecified laterality Qualified Code(s): C56.9 - Malignant neoplasm of unspecified ovary (2) Type 2 diabetes mellitus Diabetes mellitus complication status: without complication Diabetes mellitus alf insulin use: without alf use Qualified Code(s): E11.9 - Type 2 diabetes mellitus without complications (3) Hypertension Hypertension type: essential hypertension Qualified Code(s): I10 - Essential (primary) hypertension
[2022-10-17] MEDS: ACETAMINOPHEN 10MG/ML Custom 650 MG in EMPTY BAG 0 ML IV PRN (20:26)
[2022-10-18] MEDS: ACETAMINOPHEN 10MG/ML Custom 650 MG in EMPTY BAG 0 ML IV PRN ×2 (02:24→11:59)
[2022-10-18 06:38] LABS: Calcium 8.2 mg/dl (8.5-10.1); Est GFR (African American) 81.8 ml/min; Est GFR (Non-African American) 70.6 ml/min; Potassium 4.3 mmol/L (3.5-5.1)
--- NOTE | 2022-10-18 08:17 | Surgery Progress Note ---
Date of Service October 18, 2022 Assessment & Plan (1) Small bowel obstruction: Plan: Difficult scenario. She was seen at [place] about a year ago and they did not want to revise her stoma because of tumor burden at that time. I suspect this has advanced even more since then. I do not believe I could help her with an operation. She inquired as to whether chemotherapy could potentially help. I suspect this is unlikely but an oncology consult could be obtained. You could also reach out to her surgeons in [place] and see if they would be willing to consider an exploratory laparotomy which I doubt as well. We may need to consider palliative care consult in the near future. We will continue to follow along from the periphery. Please contact me if there is anything I can help with (2) Peritoneal carcinomatosis: Admission and Anticipated Discharge Date Admission Date: October 06, 2022 Subjective pt seen. no major changes over weekend. no nausea /vomitting since early sat morning. some lower abdominal discomfort. imaging shows persistent sbo Physical Exam Physical Exam: alert. nad abd: soft. mild distension. gastrostomy tube in place/functioning. stoma with small amount of liquid stool. Results & Data ([facility]) Vital Signs (Past 12 Hours) Vital Signs Temp Pulse Pulse Resp BP BP Pulse Ox 10/18/22 07:52 36.5 C 87 18 146/82 H 93 10/17/22 22:25 36.6 C 89 16 125/78 93 O2 Del Method 10/18/22 07:52 Room Air 10/17/22 22:25 Room Air PG Care Time/CCT Total # of Minutes Spent Total Time Spent with Patient: Total time spent is greater than 50% in coordination of care (as documented) at patient's floor/unit and/or counseling patient: Coding Level of Care Code 96230 Subseq Hosp Care Lvl 2 Diagnoses Small bowel obstruction K56.609 Peritoneal carcinomatosis C78.6
[2022-10-18] MEDS: amLODIPine BESYLATE 5 MG TAB PO SCH (08:29)
[2022-10-18] MEDS: buPROPion XL 150 MG TABCR PO SCH (08:29)
[2022-10-18] MEDS: METOPROLOL SUCC 50MG EXT REL TAB PO SCH (08:29)
[2022-10-18] MEDS: MIRTAZAPINE TAB 15 MG TAB PO SCH (08:29)
[2022-10-18 11:27] LABS: Magnesium 2.1 mg/dl (1.7-2.4); Phosphorus 4.1 mg/dl (2.5-4.9)
--- NOTE | 2022-10-18 11:46 | Palliative Care Consultation ---
Date of Consultation October 18, 2022 Assessment & Plan (1) Palliative care encounter: I introduced palliative medicine and provided education to patient and her daughter present at the bedside about the strong evidence supporting the initiation of Palliative Care into the management of this patient with advanced metastatic cancer; palliative care, when provided alongside oncologic care, leads to improved QOL, fewer depressive symptoms, better prognosis understanding and longer median survival neftali when given the overall poor prognosis and QOL issues at hand. (Sandra et al. (2010). Early palliative care for patients with metastatic [id number] lung cancer. [place] J of Med 363(5), 873-233. Doi: 10.1056/[id number].) Stage IV+ met ovarian ca. terminally ill. (2) Cancer related pain: Patient is not having adequate pain relief with the current regimen. Also she is having trouble with p.o. meds because their absorption is questionable due to her venting G-tube. She is tolerating clears but it is unlikely tablets will provide adequate relief as their absorption may be affected or impaired by the venting of the G-tube. Therefore we will begin a low-dose of TDF 12mcg/hr q3days, use Roxanol 5mg under the tongue every 3 hr as needed for BTP. Defer IV Dilaudid for when oral meds ar enot helping (3) Goals of care, counseling/discussion: Advised that continuation of tube feedings and IV fluids will not aid to any comfort in the dying process but in fact will create more secretions, bloating and distention, and possible fluid volume overload and progressive edema. Advised that this would likely only prolong the dying process rather than help make it more comfortable. We specifically discussed that artificial nutrition and hydration (AN H) by IV, will not prolong life or improve its quality, but will increase distressing symptoms such as shortness of breath, respiratory congestion, restlessness, nausea and vomiting. Educated family that fluids are often avoided at the very end of life to prevent volume overload in the lungs and other organs and our evidence to date demonstrates that data to suggest that IV hydration is unlikely to provide a meaningful benefit to most hospice patients with advanced cancer, even with mild to moderate dehydration. (Krystian E, Sabiha D, Epifanio S, et al. Parenteral hydration in patients with advanced cancer: a multicenter, double-blind, placebo-controlled randomized trial. J Clin Oncol. 2013;31(1):111-118. Doi:10.1200/[id number].[id number]) I have provided education about the hospice benefit. Hospice is an interdiscipli nary program offered by nurses, nurses aides, social workers, chaplains and a medical assembler for patients with a terminal condition and a life expectancy of less than 6 months. The goal would be to improve the quality of life of the patient in their home setting (home, snf, inpatient hospice setting) by providing symptoms management, psychosocial and spiritual support. However, they cannot offer 24 hours care and if the family is unable to provide that care, they will have to consider personal care with out of pocket cost vs. snf placement. Pt has medicare and medicaid. She is willing to go to a SNF when she can no longer stay home - she does not have enough caregiver support to stay home with hospice, so having RE[facility] and M[facility] means she can have SNF covered along with hos pice. Pt and dtr would like DC home with hospice. CM and primary team notified. (4) Malignant pleural effusion: (5) Small bowel obstruction: (6) Peritoneal carcinomatosis: (7) Ovarian cancer: Laterality: unspecified laterality Qualified Code(s): C56.9 - Malignant neoplasm of unspecified ovary Plan Home with hospice when medically stable. Continue clears, will likely move to PO as tolerated tomorrow and DC TPN Pain mgt adjusted as above, I will continue to follow. Lyly Cole DNP Clinical Director, Palliative Medicine History of Present Illness Reason for Consultation: "advanced cancer, pleurX, peg, wants hospice" Attending Physician: Teofilo Vazquez History of Present Illness 76yo female admitted with SBO secondary to peritoneal carcinomatosis of ovarian ca PEG placed for venting 10/14/22 Found to have right pleural effusion, last Thora 09/20/22 - path + for malignant effusion; she had a pleurX placed 10/16/22, drain every other day. With regards to her ovarian cancer: Stage IV, mets to peritoneum, abdominal wall, liver, para-aortic caval lymph nodes, lung and right-sided malignant pleural effusion; s/p chemotherapy in 2019 and 2020 with progression of disease on therapy. She recently saw her oncology provider on 09/28 who wanted to start her back on carboplatin/Taxol x6 cycles, and recommended a brain MRI in the setting of difficulty with ambulation to rule out metastases. MRI deferred at this time, patient's goals are changing. pt is seen bedside together with her daughter who shares pt resides in a single bedroom apartment in a low income housing development in [facility]. Pt lives alone but dtr is not far and is available to help her. Pt has been mostly independent up until this admission. She is still able to perform many ADLs but needs help with getting bathed and occasionally with dressing. She would like some home based help, but adds that she is willing to go to snf for comfort care if needed bc she does not want to burden her dtr. pt reports signif uncontrolled cancer pain at her ostomy and below it, radiating in a band like manner across her abdomen, occasionally down into her lower abd/suprapelvic region. her venting G is helping, she is tolerating small amounts of clear liquids today. TPN continues for now, likely will dc tomorrow Allergies Allergy/AdvReac Type Severity Reaction Status Date / Time povidone-iodine Allergy Mild rash Verified 09/07/22 13:22 [From Betadine] Home Medications Medication Instructions Recorded Confirmed Type multivitamin (Daily Multi-Vitamin 1 tab PO QAM 09/18/20 09/21/22 History tablet) niraparib 100 mg capsule (Zejula) 100 mg PO QAM 06/06/21 09/21/22 History silver sulfadiazine 1 % topical 1 applic topical BID PRN wound 07/04/21 09/21/22 Rx cream (Silvadene) healing #400 grams amlodipine 10 mg tablet 10 mg PO DAILY #90 tabs 12/18/21 09/21/22 Rx mirtazapine 15 mg tablet 15 mg PO HS #90 tabs 12/18/21 09/21/22 Rx ipratropium bromide 21 mcg (0.03 2 spray intranasal BID #30 mL 12/22/21 09/21/22 Rx %) nasal spray lisinopril 20 mg tablet 20 mg PO BID #200 tabs 06/22/22 09/21/22 Rx rosuvastatin 10 mg tablet (Crestor) 10 mg PO DAILY #100 tabs 06/22/22 09/21/22 Rx bupropion HCl 150 mg 24 hr tablet, 150 mg PO QAM #30 tabs 08/04/22 09/21/22 Rx extended release metoprolol succinate 50 mg 50 mg PO BID #60 tabs 09/07/22 09/07/22 Rx tablet,extended release 24 hr oxycodone 5 mg tablet 5 mg PO BID PRN pain #30 tabs 09/07/22 09/21/22 Rx Patient History Medical History (Updated 10/18/22 @ 12:54 by Lyly Cole DNP) Colostomy in place Dyspnea Goals of care, counseling/discussion H/O squamous cell carcinoma of skin History of right breast cancer 2010--sx only History of small bowel obstruction Hyperlipidemia Hypertension Malignant pleural effusion Osteopenia Ovarian cancer peritoneal mets Palliative care encounter Port-A-Cath in place (03/03/20) Insertion of Mediport Dr. Cox 03/03/20 Proteinuria Situational anxiety Systolic murmur Type 2 diabetes mellitus diet controlled Surgical History (Updated 10/15/22 @ 12:22 by Carolina Roldan, LESTER) History of bilateral tubal ligation History of section History of colon resection d/t tumor History of colonoscopy History of colostomy History of lumbar surgery History of lumpectomy of right breast History of open reduction and internal fixation (ORIF) procedure left big toe--hardware removed History of right breast biopsy History of tonsillectomy History of wisdom tooth extraction PEG (percutaneous endoscopic gastrostomy) status (10/14/22) Esophagogastroduodenoscopy with Peg Tube Placement(Not Applicable) - Soren Parrish, DO Status post Mohs surgery for squamous cell carcinoma of skin Family History Aunt Breast cancer Mother , age 56 2nd to acute [place] Myocardial infarction Cancer Hypertension Father , age 89 Heart disease Leukemia Other No family history of adverse response to anesthesia Denies family history of Ovarian cancer Prostate cancer Colorectal cancer Social History Smoking Status: Never smoker Second Hand Exposure: No; Hx Alcohol Use: No Hx Substance Use: No Preferred Language: Burundian Communication Ability: Effective Visual Impairment: No Limitations Hearing Ability: Normal Mental Health Social Worker Required: No Beliefs That Will Affect Care: None marital status: / Current Living Situation: Alone Current Living Situation Comment: alone 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 status: 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 Awake and alert, answering appropriately. bitemp wasting, PERRL, EOMIs, MM sl dry, dentition fair, neck supple/no stridor resp effort normal at rest, no wheezing abd distended. +ostomy left , PEG+, +right pleurX Results & Data ([facility]) Vital Signs (Past 12 Hours) Vital Signs Temp Pulse Resp BP BP Pulse Ox O2 Del Method 10/18/22 11:36 36.7 C 79 18 142/88 H 94 Room Air 10/18/22 10:14 Room Air 10/18/22 07:00 10/18/22 07:52 36.5 C 87 18 146/82 H 93 Room Air O2 Del Method 10/18/22 11:36 10/18/22 10:14 10/18/22 07:00 Room Air 10/18/22 07:52 Laboratory Results labs and imaging reviewed Diagnostic Findings labs and imaging reviewed PG Care Time/CCT Total # of Minutes Spent Total Time Spent: 90 Total Time Spent with Patient: Total time spent is greater than 50% in coordination of care (as documented) at patient's floor/unit and/or counseling patient:yes Prolonged Care Time Prolonged Care Time: Yes Advanced Care Planning 87714 Advanced Care Planning 30 [place] [address] Inpt Consult Level 5 Patient Type New History Comprehensive Exam Detailed Medical Decision Making Moderate Complexity Diagnoses Palliative care encounter Z51.5 Cancer related pain G89.3 Goals of care, counseling/discussion Z71.89 Malignant pleural effusion J91.0 Small bowel obstruction K56.609 Peritoneal carcinomatosis C78.6 Ovarian cancer C56.9 Laterality: unspecified laterality Additional Codes Prolonged Care Time - Prolonged Care Time: Yes ([id number]) Advanced Care Planning - 06208 Advanced Care Planning 30 Min: 80497 Advanced Care Planning 30 Min ([id number])
[2022-10-18] MEDS: PANTOprazole 40 MG in SYRINGE 0 ML IV SCH (11:59)
[2022-10-18] MEDS ORDERED: fentaNYL 12 MCG/HR TDSY TD SCH (12:45)
[2022-10-18] MEDS: MoRPHine SULFATE 5 MG/0.25 ML UDP PO PRN ×2 (15:07→21:12)
[2022-10-18] MEDS ORDERED: [UNRECOGNIZED DRUG - OTHER] IV SCH (16:00)
[2022-10-18] MEDS ORDERED: CLINOLIPID 20% IV FAT EMULSION 250 ML IV SCH (16:00)
[2022-10-18] MEDS ORDERED: AMINO ACID 8% IV SCH (16:00)
[2022-10-18] MEDS ORDERED: CENTRAL TPN IV SCH (16:00)
[2022-10-18] MEDS: CHECK fentaNYL PATCH PLACEMENT SCH ×2 (16:35→23:29)
[2022-10-18] MEDS: ONDANSETRON INJ 2 MG/ML 2 ML VIAL IV PRN (19:05)
--- NOTE | 2022-10-18 22:13 | Hospitalist Progress Note ---
Date of Service October 18, 2022 Assessment & Plan (1) Bowel obstruction: Plan: SBO secondary to adhesions and peritoneal metastatic disease from ovarian ca. Clinically/radiographically had been improving but since NG tube discontinuation on 10/12/22 she had had GI intolerance with nausea/emesis. X-rays continued to show an ongoing obstructive pattern. Thus, underwent PEG tube placement for venting purposes. POD #4 s/p venting PEG placement by Dr Parrish. PEG hooked to suction. Clear liquids as tolerated/as desired. TPN for now but likely d/c tomorrow as we are shifting towards palliative / hospice care. (2) Pleural effusion, right: Plan: reaccumulation of pleural effusion seen on CT here 09/20/22 was last thoracentesis by Dr Maurer fluid was exudative and path c/w malignant pleural effusion POD #2 s/p pleurX placement by Dr Laguna plan to drain every other day and prn first drain - 10/18/22 - 700cc out tolerated the drain procedure today (3) Transaminitis: Plan: AST and ALT now normal (4) Hypertension: Plan: Cont metoprolol succinate 50mg daily Cont amlodipine 5mg daily (5) Depression: Plan: cont home meds (6) Type 2 diabetes mellitus: Plan: BSGs wnl a1c 6.2% in 09/2022 c/w pre-DM only (7) Ovarian cancer: Plan: stage 4 with mets to peritoneum, abdominal wall, liver, para-aortic caval lymph nodes, lung and right-sided malignant pleural effusion, treated previously with chemotherapy in 2019 and 2020 with progression of disease on therapy. She recently saw her oncology provider on 09/28 who wanted to start her back on carboplatin/Taxol x6 cycles, and recommended a brain MRI in the setting of difficulty with ambulation to rule out metastases. MRI brain not yet completed. Defer the MRI at this time. poor prognosis in light of ongoing GI tract issues, malignant pleural effusion, etc appreciate palliative care consultation today. plan - home with hospice; family members to take turns caring for her at home. (8) Hypomagnesemia: Plan: replaced resolved (9) DVT prophylaxis: Plan: heparin 5000 BID has small lumps on abdominal wall - these are likely from the heparin shots themselves (10) Colostomy in place: Plan: no issues Plan dispo - home with hospice family updated extensively at bedside today support given to patient and her family social work to be heavily involved in d/c plans and home needs Admission and Anticipated Discharge Date Admission Date: October 06, 2022 Subjective patient met with palliative care today patient discussed hospice with palliative; children were present during that discussion patient/family agreeable to d/c home with hospice during my visit 2 of her daughters along with 2 [id number] were present we discussed further the decision about hospice, what that means for her, etc one of her daughters asked what happens with chemo and we discussed that chemo would not be pursued on hospice further, she is too sick and too weak to undergo chemo safely pleurX was drained today -- 700cc removed patient and family appropriately very tearful patient stated she is excited to see her 8yo grand-daughter after she gets home abdominal pain is better today fentanyl patch initiated by palliative mild nausea at times venting PEG is hooked to suction Review of Systems Review of Systems: cv - no cp (no pleuritic pain on right) pulm - no dyspnea at rest GI - no pain today; no vomiting but did have nausea earlier today Physical Exam Physical Exam: gen - comfortable, but tearful at times; very pleasant; multiple family at bedside mouth - MMM heart - RRR, s1 s2, 1-2/6 MAIDA LSB lungs - airation right lung again improved; CTA on left; no rales or wheeze abd - soft NT BS+; ostomy present with minimal stool in bag; PEG tube site covered with clean dressing; mild-mod distension remains - no change; no tenderness ext - no edema, pulses 2+ b/l psych - a/o x 3 skin - small subcutaneous lumps on abdominal wall - likely from heparin injections Results & Data Results & Data ([facility]) Vital Signs (Past 12 Hours) Vital Signs Temp Pulse Pulse Resp BP Pulse Ox O2 Del Method 10/18/22 15:13 36.6 C 86 18 143/80 H 95 Room Air 10/18/22 11:36 36.7 C 79 18 142/88 H 94 Room Air 10/18/22 10:14 Room Air Laboratory Results Laboratory Results - last 24 hr 10/18/22 10/18/22 10/18/22 00:04 05:48 05:48 Sodium 138 Potassium 4.3 Chloride 105 Carbon Dioxide 27 Anion Gap 6 BUN 44 H Creatinine 0.80 Est Cr Clr Drug Dosing 50.0 Est GFR ( Amer) 81.8 Est GFR (Non-Af Amer) 70.6 BUN/Creatinine Ratio 55.0 H Glucose 142 H POC Glucose 110 H Calcium 8.2 L Phosphorus 4.1 Magnesium 2.1 10/18/22 10/18/22 06:17 11:59 Sodium Potassium Chloride Carbon Dioxide Anion Gap BUN Creatinine Est Cr Clr Drug Dosing Est GFR ( Amer) Est GFR (Non-Af Amer) BUN/Creatinine Ratio Glucose POC Glucose 127 H 123 H Calcium Phosphorus Magnesium PG Care Time/CCT Total # of Minutes Spent Total Time Spent with Patient: Total time spent is greater than 50% in coordination of care (as documented) at patient's floor/unit and/or counseling patient: Coding Level of Care Code 87613 Subseq Hosp Care Lvl 2 Diagnoses Bowel obstruction K56.609 Pleural effusion, right J90 Transaminitis R74.01 Hypertension I10 Hypertension type: essential hypertension Depression F32.A Type 2 diabetes mellitus E11.9 Diabetes mellitus complication status: without complication Diabetes mellitus snf insulin use: without longwall headgate operator use Ovarian cancer C56.9 Laterality: unspecified laterality Hypomagnesemia E83.42 DVT prophylaxis Z29.[address] Z93.3 (1) Ovarian cancer Laterality: unspecified laterality Qualified Code(s): C56.9 - Malignant neoplasm of unspecified ovary (2) Type 2 diabetes mellitus Diabetes mellitus complication status: without complication Diabetes mellitus longwall headgate operator insulin use: without longwall headgate operator use Qualified Code(s): E11.9 - Type 2 diabetes mellitus without complications (3) Hypertension Hypertension type: essential hypertension Qualified Code(s): I10 - Essential (primary) hypertension
[2022-10-18] MEDS: STOP CLINOLIPID SCH (23:16)
[2022-10-19] MEDS: MoRPHine SULFATE 5 MG/0.25 ML UDP PO PRN ×2 (06:35→18:02)
[2022-10-19 07:45] LABS: BUN Creatinine Ratio 52.4 (10-20); Bilirubin,Total 0.2 mg/dl (0.2-1.0); Calcium 8.5 mg/dl (8.5-10.1); Creatinine Clr Calc Pharmacy 47.7 ml/min; Est GFR (African American) 77.2 ml/min; Est GFR (Non-African American) 66.6 ml/min; Phosphorus 3.7 mg/dl (2.5-4.9); Potassium 3.9 mmol/L (3.5-5.1)
[2022-10-19] MEDS: amLODIPine BESYLATE 5 MG TAB PO SCH (08:39)
[2022-10-19] MEDS: MIRTAZAPINE TAB 15 MG TAB PO SCH (08:39)
[2022-10-19] MEDS: buPROPion XL 150 MG TABCR PO SCH (08:39)
[2022-10-19] MEDS: METOPROLOL SUCC 50MG EXT REL TAB PO SCH (08:39)
[2022-10-19] MEDS: CHECK fentaNYL PATCH PLACEMENT SCH ×3 (08:53→23:22)
--- NOTE | 2022-10-19 12:15 | Hospitalist Progress Note ---
Date of Service October 19, 2022 Assessment & Plan (1) Bowel obstruction: Plan: SBO secondary to adhesions and peritoneal metastatic disease from ovarian ca. Clinically/radiographically had been improving but since NG tube discontinuation on 10/12/22 she had had GI intolerance with nausea/emesis. X-rays continued to show an ongoing obstructive pattern. Thus, underwent PEG tube placement for venting purposes. Now s/p venting PEG placement by Dr Parrish. PEG hooked to suction-low intermittent-we will see if this can be provided by hospice at home. Continue clear liquids as tolerated/as desired. Discussed with patient and daughter at bedside about discontinuing TPN on 10/19 as not consistent with goals of comfort at home Continue Roxanol as needed for pain and fentanyl patch at baseline Appreciate palliative medicine consultation (2) Pleural effusion, right: Plan: reaccumulation of pleural effusion seen on CT here 09/20/22 was last thoracentesis by Dr Maurer fluid was exudative and path c/w malignant pleural effusion Now s/p pleurX placement by Dr Laguna plan to drain every other day and prn first drain - 10/18/22 - 700cc out Home Pleurx kit given by nursing to patient. Daughter feels comfortable doing it or else hospice nurse can do this at home (3) Transaminitis: Plan: AST and ALT now normal (4) Hypertension: Plan: Cont metoprolol succinate 50mg daily Cont amlodipine 5mg daily Continue home meds for now but could discontinue after discharge on hospice (5) Depression: Plan: cont home meds (6) Type 2 diabetes mellitus: Plan: BSGs wnl a1c 6.2% in 09/2022 c/w pre-DM only No treatment needed (7) Ovarian cancer: Plan: stage 4 with mets to peritoneum, abdominal wall, liver, para-aortic caval lymph nodes, lung and right-sided malignant pleural effusion, treated previously with chemotherapy in 2019 and 2020 with progression of disease on therapy. She recently saw her oncology provider on 09/28 who wanted to start her back on carboplatin/Taxol x6 cycles, and recommended a brain MRI in the setting of difficulty with ambulation to rule out metastases. MRI brain not yet completed. Defer the MRI at this time. poor prognosis in light of ongoing GI tract issues, malignant pleural effusion, etc appreciate palliative care consultation-started on fentanyl and Roxanol as needed plan - home with hospice; family members to take turns caring for her at home. (8) Hypomagnesemia: Plan: replaced resolved (9) DVT prophylaxis: Plan: heparin 5000 BID-placed on hold for procedures-will not restart as is going on hospice (10) Colostomy in place: Plan: no issues Plan dispo - home with hospice tomorrow after equipment set up Discussed care with daughter and case management at the bedside today Admission and Anticipated Discharge Date Admission Date: October 06, 2022 Subjective Patient has some abdominal pain but reports only received 1 dose of p.o. Roxanol today. Fentanyl patch was started yesterday. Is clamping PEG tube to suction for 1 hour after drinking some liquids and taking pills. She is making plans to go home with hospice tomorrow if all equipment can be set up today. She has not been out of bed much last week. Denies shortness of breath. No pain at the site of the Pleurx catheter. Review of Systems Review of Systems: All systems reviewed & are unremarkable except as noted in HPI & below Physical Exam Constitutional: WD/WN, vitals as above Eyes: + anicteric sclerae Neck: trachea midline, no thyromegaly Respiratory: normal respiratory effort Auscultation: + diminished lung sounds (At right base); no crackles, no rhonchi and no wheezes Cardiovascular: Rate/Rhythm: regular rate and regular rhythm Heart Sounds: + murmur (2/6 holosystolic murmur) Extremities: no edema Chest (Breasts): Chest: + vascular access device or port (left sided anterior chest port) Additional Comments: Right hemithorax posteriorly with Pleurx catheter and dressing in place Gastrointestinal (Abdomen): Inspection/Auscultation: + abdomen abnormal to inspection (colostomy bag with small amount of liquid green stool) and abdomen not distended Percussion/Palpation: abdomen soft (but mild distension) and + abdominal mass (palpable LLQ and right sided abd wall masses); abdomen nontender and no guarding Musculoskeletal: Extremities: extremities normal to inspection; no cyanosis and no clubbing Skin: no rashes, warm and dry Neurologic: moves all extremities and awake; no focal motor deficits Lymphatic: no lymphedema Results & Data Results & Data ([facility]) Vital Signs (Past 12 Hours) Vital Signs Temp Pulse Resp BP Pulse Ox O2 Del Method O2 Del Method 10/19/22 07:00 Room Air 10/19/22 07:05 36.9 C 87 18 139/87 96 Room Air Laboratory Results 10/19/22 Range/Units 06:27 Sodium 140 (136-145) mmol/L Potassium 3.9 (3.5-5.1) mmol/L Chloride 106 (98-107) mmol/L Carbon Dioxide 29 (21-32) mmol/L Anion Gap 5 (3-11) BUN 44 H (6-23) mg/dl Creatinine 0.84 (0.6-1.2) mg/dl Est Cr Clr Drug Dosing 47.7 ml/min Est GFR ( Amer) 77.2 ml/min Est GFR (Non-Af Amer) 66.6 ml/min BUN/Creatinine Ratio 52.4 H (10-20) Glucose 112 H (70-99(Fasting)) mg/dl Calcium 8.5 (8.5-10.1) mg/dl Phosphorus 3.7 (2.5-4.9) mg/dl Magnesium 2.0 (1.7-2.4) mg/dl Total Bilirubin 0.2 (0.2-1.0) mg/dl AST 40 H (13-39) U/L ALT 22 (7-52) U/L Alkaline Phosphatase 141 H (34-104) U/L Triglycerides 215 H (0-150) mg/dl PG Care Time/CCT Total # of Minutes Spent Total Time Spent with Patient: Total time spent is greater than 50% in coordination of care (as documented) at patient's floor/unit and/or counseling patient: Coding Level of Care Code 05558 Subseq Hosp Care Lvl 1 Diagnoses Bowel obstruction K56.609 Pleural effusion, right J90 Transaminitis R74.01 Hypertension I10 Hypertension type: essential hypertension Depression F32.A Type 2 diabetes mellitus E11.9 Diabetes mellitus skilled nursing insulin use: without skilled nursing use Diabetes mellitus complication status: without complication Ovarian cancer C56.9 Laterality: unspecified laterality Hypomagnesemia E83.42 DVT prophylaxis Z29.[address] Z93.3 (1) Hypertension Hypertension type: essential hypertension Qualified Code(s): I10 - Essential (primary) hypertension (2) Type 2 diabetes mellitus Diabetes mellitus skilled nursing insulin use: without skilled nursing use Diabetes mellitus complication status: without complication Qualified Code(s): E11.9 - Type 2 diabetes mellitus without complications (3) Ovarian cancer Laterality: unspecified laterality Qualified Code(s): C56.9 - Malignant neoplasm of unspecified ovary
[2022-10-19] MEDS: PANTOprazole 40 MG in SYRINGE 0 ML IV SCH (12:17)
[2022-10-19] MEDS ORDERED: AMINO ACID 8% IV SCH (16:00)
[2022-10-19] MEDS ORDERED: CENTRAL TPN IV SCH (16:00)
[2022-10-19] MEDS ORDERED: [UNRECOGNIZED DRUG - OTHER] IV SCH (16:00)
[2022-10-19] MEDS ORDERED: CLINOLIPID 20% IV FAT EMULSION 250 ML IV SCH (16:00)
[2022-10-19] MEDS: DOCUSATE SODIUM SYRUP 100 MG/10 ML UDC PO SCH (20:36)
[2022-10-19] MEDS: ONDANSETRON INJ 2 MG/ML 2 ML VIAL IV PRN (22:50)
[2022-10-19] MEDS: HEPARIN 100 UNIT/ML 5ML FLUSH FLUSH PRN (22:57)
[2022-10-20] MEDS: MoRPHine SULFATE 5 MG/0.25 ML UDP PO PRN (01:20)
[2022-10-20] MEDS: CHECK fentaNYL PATCH PLACEMENT SCH (07:50)
[2022-10-20] MEDS: amLODIPine BESYLATE 5 MG TAB PO SCH (07:51)
[2022-10-20] MEDS: buPROPion XL 150 MG TABCR PO SCH (07:51)
[2022-10-20] MEDS: DOCUSATE SODIUM SYRUP 100 MG/10 ML UDC PO SCH (07:51)
[2022-10-20] MEDS: METOPROLOL SUCC 50MG EXT REL TAB PO SCH (07:51)
[2022-10-20] MEDS: ONDANSETRON INJ 2 MG/ML 2 ML VIAL IV PRN (08:08)
--- NOTE | 2022-10-20 08:27 | Discharge Summary ---
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 Recently admitted with malignant pleural effusion status post thoracentesis. Patient also was admitted at that time with recurrent bowel obstruction which improved with conservative treatment. Patient with recommendation of discontinuing Avastin and Zejula with discussions in oncology note to restart carbo/toxol and started on marinol, this was from 09/28 note, however she has not started this treatment. [facility] also recommended MRI of brain which had not been done yet. She presents tonight with about a week of decreased colostomy output, increased abdominal pain and decreased po intake. she is still interested in treatment Principal Diagnosis Metastatic ovarian cancer, recurrent small bowel obstruction, Malignant pleural effusion s/p PEG tube and PleurX catheter placement Discharge Exam Constitutional WD/WN, vitals as above Eyes + anicteric sclerae Neck trachea midline, no thyromegaly Respiratory normal respiratory effort Auscultation: + diminished lung sounds (At right base); no crackles, no rhonchi and no wheezes Cardiovascular Rate/Rhythm: regular rate and regular rhythm Heart Sounds: + murmur (2/6 holosystolic murmur) Extremities: no edema Chest (Breasts) Chest: + vascular access device or port (left sided anterior chest port) Gastrointestinal (Abdomen) Inspection/Auscultation: + abdomen distended (moderately distended) and + hypoactive bowel sounds; + abdomen abnormal to inspection (colostomy bag with small amount of liquid green stool) Percussion/Palpation: + abdomen tender (mild), abdomen soft (but mild distension) and + abdominal mass (palpable LLQ and right sided abd wall masses); no guarding Musculoskeletal Extremities: extremities normal to inspection; no cyanosis and no clubbing Skin no rashes, warm and dry Neurologic moves all extremities and awake; no focal motor deficits Psychiatric A+Ox3, euthymic affect Lymphatic no lymphedema Discharge Data Allergies Allergy/AdvReac Type Severity Reaction Status Date / Time povidone-iodine Allergy Mild rash Verified 09/07/22 13:22 [From Betadine] Consultations 10/06/22 18:39 ED Decision to Admit Stat 10/06/22 20:33 Consult General Surgery Routine 10/14/22 06:32 Consult Pulmonology Routine 10/17/22 12:50 Consult Palliative Care Routine Procedures Performed Operation Date: 10/14/22 07:00 Actual Procedures p Esophagogastroduodenoscopy with Peg Tube Placement(Not Applicable) - Soren Parrish, Ordered Studies 10/06/22 14:21 CT abd pelvis oral and IV con Stat 10/15/22 09:54 US point of care ultrasound Urgent Hospital Course (1) Bowel obstruction: SBO secondary to adhesions and peritoneal metastatic disease from ovarian ca. Clinically/radiographically had been improving but since NG tube discontinuation on 10/12/22 she had had GI intolerance with nausea/emesis. X-rays continued to show an ongoing obstructive pattern. Thus, underwent PEG tube placement for venting purposes. Now s/p venting PEG placement by Dr Parrish. PEG hooked to suction-low intermittent-we will see if this can be provided by hospice at home. Continue clear liquids as tolerated/as desired. Discussed with patient and daughter at bedside about discontinuing TPN on 10/19 as not consistent with goals of comfort at home Continue Roxanol as needed for pain and fentanyl patch at baseline Appreciate palliative medicine consultation (2) Pleural effusion, right: reaccumulation of pleural effusion seen on CT here 09/20/22 was last thoracentesis by Dr Maurer fluid was exudative and path c/w malignant pleural effusion Now s/p pleurX placement by Dr Laguna plan to drain every other day and prn first drain - 10/18/22 - 700cc out Home Pleurx kit given by nursing to patient. Daughter feels comfortable doing it or else hospice nurse can do this at home (3) Transaminitis: AST and ALT now normal (4) Hypertension: Cont metoprolol succinate 50mg daily which is a reduction in home dose Cont amlodipine 10mg daily Continue home meds for now but could discontinue after discharge on hospice (5) Depression: cont home meds (6) Type 2 diabetes mellitus: BSGs wnl a1c 6.2% in 09/2022 c/w pre-DM only No treatment needed (7) Ovarian cancer: stage 4 with mets to peritoneum, abdominal wall, liver, para-aortic caval lymph nodes, lung and right-sided malignant pleural effusion, treated previously with chemotherapy in 2019 and 2020 with progression of disease on therapy. She recently saw her oncology provider on 09/28 who wanted to start her back on carboplatin/Taxol x6 cycles, and recommended a brain MRI in the setting of difficulty with ambulation to rule out metastases. MRI brain not yet completed. Defer the MRI at this time. poor prognosis in light of ongoing GI tract issues, malignant pleural effusion, etc appreciate palliative care consultation-started on fentanyl and Roxanol as needed plan - home with hospice; family members to take turns caring for her at home. (8) Hypomagnesemia: replaced resolved (9) DVT prophylaxis: heparin 5000 BID-placed on hold for procedures-will not restart as is going on hospice (10) Colostomy in place: no issues Plan dispo - home with hospice today Total Time Total Time Spent Total Time Spent (In Minutes): 35 min Discharge Plan Discharge Items Patient Disposition: Hospice - Home Reason For Visit: SMALL BOWEL OBSTRUCTION, METASTATIC OVARIAN CANCER Discharge Diagnosis: Metastatic ovarian cancer, small bowel obstruction, malignant pleural effusion Condition on Discharge: Fair Activity: As commented below Bathing Comment: Keep PEG tube site dry Exercise/Sports: As tolerated Non-emergency contact: Primary Care Provider Call non-emergency contact if: you have any medication questions, your symptoms worsen and your pain is not controlled Follow-up/Referrals: Navya Sharma MD [Primary Care Provider] - (You do not need to follow up with your PCP once you are enrolled in hospice.) Soren Parrish, [Surgeon] - (Please call to schedule follow up in clinic within 2 weeks of desired, but not required as you are going on hospice.) Diet: Clear liquid Diet Comment: and clamp tube for one hour after meals and taking pills Addtl Attending Provider Instructions: You were admitted with a small bowel obstruction secondary to your metastatic ovarian cancer. Unfortunately, this is not resolving and you had a venting PEG tube placed to help with the symptoms of abdominal pain and nausea. You also had a PleurX catheter placed in the right side of your chest to drain the fluid from around your right lung. This can be drained every other day at home. You were started on a Fentanyl patch for pain and can take liquid morphine (Roxanol) as needed for breakthrough pain. You are enrolling in hospice to provide you optimal quality of life and to focus on comfort measures. It was my pleasure taking care of you, Liliana Sen M.D. Pending Studies at Discharge: No Stand-Alone Forms: My [facility] Medications and DC Order Prescriptions: New fentanyl 12 mcg/hr Patch 72 Hour 12 mcg transdermal Q3D Qty: 5 0RF morphine concentrate 100 mg/5 mL (20 mg/mL) Solution 5 mg PO Q3H PRN (Reason: breakthrough pain or shortness of breath) Qty: 30 0RF docusate sodium 60 mg/15 mL Syrup 100 mg PO BID Qty: 480 0RF lansoprazole [Prevacid SoluTab] 15 mg Tablet,Disintegrat, Delay Rel 15 mg PO QAM Qty: 30 0RF Continued amlodipine 10 mg tablet 10 mg PO DAILY Qty: 90 3RF mirtazapine 15 mg tablet 15 mg PO HS Qty: 90 3RF ipratropium bromide 21 mcg (0.03 %) spray,non-aerosol 2 spray intranasal BID Qty: 30 2RF Rx Instructions: administer into each nostril bupropion HCl 150 mg tablet extended release 24 hr 150 mg PO QAM Qty: 30 5RF Changed metoprolol succinate 50 mg tablet extended release 24 hr 50 mg PO QAM Qty: 60 5RF Discontinued multivitamin [Daily Multi-Vitamin] Tablet 1 tab PO QAM lisinopril 20 mg tablet 20 mg PO BID Qty: 200 3RF Rx Instructions: insurance prefers 100 day supply rosuvastatin [Crestor] 10 mg tablet 10 mg PO DAILY Qty: 100 3RF Rx Instructions: insurance prefers 100 day supply Zejula 100 mg capsule 100 mg PO QAM oxycodone 5 mg tablet 5 mg PO BID PRN (Reason: pain) Qty: 30 0RF silver sulfadiazine [Silvadene] 1 % cream 1 applic topical BID PRN (Reason: wound healing) Qty: 400 0RF Rx Instructions: apply a 1.5 mm thickness Discharge Orders: Discharge Order (Routine); Ordered 10/20/22 Ordered By: Liliana Sen Admission Data Admit Date/Time: 10/06/22 19:19 Attending Provider: Liliana Sen Admit Provider: Kenyon Moya Primary Care Provider: Navya Sharma Other Providers: Kenyon Moya ; Soren Parrish ; Ramón Laguna ; Shivani Gordon ; [facility] Coding Level of Care Code D/C DAY MANAGEMENT >30 MINS Diagnoses Bowel obstruction K56.609 Pleural effusion, right J90 Transaminitis R74.01 Hypertension I10 Hypertension type: essential hypertension Depression F32.A Type 2 diabetes mellitus E11.9 Diabetes mellitus complication status: without complication Diabetes mellitus nursing home insulin use: without nursing home use Ovarian cancer C56.9 Laterality: unspecified laterality Hypomagnesemia E83.42 DVT prophylaxis Z29.[address] Z93.3
[2022-10-20] MEDS ORDERED: LANSOPRAZOLE 15 MG SOLTAB PO SCH (09:00)
[2022-10-20] MEDS: PROMETHAZINE HCL 12.5 MG in SODIUM CHLORIDE 0.9% 50 ML IV PRN (10:19)
[2022-10-20] MEDS: MIRTAZAPINE TAB 15 MG TAB PO SCH (10:19)
[2022-10-20] MEDS: HEPARIN 100 UNIT/ML 5ML FLUSH FLUSH PRN (14:12)
== END 2022-10-20 15:04 | disposition hospice, home (50) | DRG 388 ==
LOC: ED 13:35 → SUATTDRO 19:19 → 2N 19:19 → 3W 10-11 23:17
DX: Z66 Do not resuscitate; K92.0 Hematemesis; Z79.899 Other long term (current) drug therapy; E83.42 Hypomagnesemia; Z80.3 Family history of malignant neoplasm of breast; Z93.3 Colostomy status; C79.89 Secondary malignant neoplasm of other specified sites; Z92.21 Personal history of antineoplastic chemotherapy; J91.0 Malignant pleural effusion; F32.A Depression, unspecified; Z90.49 Acquired absence of other specified parts of digestive tract; C78.6 Secondary malignant neoplasm of retroperitoneum and peritoneum; C78.7 Secondary malignant neoplasm of liver and intrahepatic bile duct; J96.01 Acute respiratory failure with hypoxia; Z85.3 Personal history of malignant neoplasm of breast; C78.01 Secondary malignant neoplasm of right lung; C77.2 Secondary and unspecified malignant neoplasm of intra-abdominal lymph nodes; G89.3 Neoplasm related pain (acute) (chronic); R74.01 Elevation of levels of liver transaminase levels; I10 Essential (primary) hypertension; C56.9 Malignant neoplasm of unspecified ovary; Z88.3 Allergy status to other anti-infective agents; E11.9 Type 2 diabetes mellitus without complications; K56.690 Other partial intestinal obstruction; Z87.19 Personal history of other diseases of the digestive system; E87.3 Alkalosis